=== PATIENT | male | born 1940 | race Caucasian/White ===

== ENCOUNTER → 2020-03-31 13:19 | Outpatient (CLI) | payer MEDICARE, OTHER, SELFPAY ==
[2020-03-31 18:02] LABS: Hep C Virus Ab w/Reflex Quant NEGATIVE s/c (NEGATIVE)
== END ==
PROVIDERS: PCP Family Medicine; Referring Provider Family Medicine; Visit Provider Family Medicine
DX: Z11.59 Encounter for screening for other viral diseases (principal)
CPT/HCPCS: 36415; 86803

== ENCOUNTER → 2020-04-04 11:42 | Outpatient (CLI) | payer MEDICARE, OTHER, SELFPAY ==
[2020-04-06 15:34] LABS: COVID19 Sendout Not Detected (Not Detect)
== END ==
PROVIDERS: PCP Family Medicine; Visit Provider Physician Assistant
DX: Z11.59 Encounter for screening for other viral diseases (principal)
CPT/HCPCS: 87635

== ENCOUNTER 2020-04-07 07:59 | Day surgery (SDC) | payer MEDICARE, OTHER, SELFPAY ==
[2020-04-07] VITALS (9 sets, daily range): BP systolic 87–110; BP diastolic 57–69; PULSE 54–60; RESP 9–94; TEMP 36–36.6; O2SAT 11–98; BMI 24.7
[2020-04-07] MEDS: LACTATED RINGERS 1,000 ML 200 ML IV (08:40)
--- NOTE | 2020-04-07 09:02 | PM.HP.1 ---
History of Present Illness History of Present Illness Date Patient Seen: 04/07/20 Time Patient Seen: 09:02 Chief complaint: SDC Narrative: The patient presents for colorectal sreening. He had a previous colonoscopy 10 years ago that was reportedly normal. No personal or family history of colon cancer. On further history denies any recent gastrointestinal symptoms. No nausea, vomiting, abdominal pain, loss of appetite, unexplained weight loss, change in bowel habits, diarrhea, constipation, melena, hematochezia, or bright red blood per rectum. Patient History Medical History Coronary artery disease (Acute) Surgical History Hx of CABG (Acute) Family & Social History Social History: household members spouse Tobacco & Substance use: Smoking Status Former smoker alcohol intake current alcohol intake frequency a few times a week Substance Use Type does not use Meds Home Medications and Allergies Home Medications Medication Instructions Recorded Confirmed Type atorvastatin 40 mg PO HS #0 tab 02/11/16 04/07/20 History aspirin 81 mg PO QDAY #0 04/02/17 04/07/20 History Xarelto 20 mg PO QDAY 04/07/20 04/07/20 History Allergies Allergy/AdvReac Type Severity Reaction Status Date / Time clams [CLAMS] Allergy Mild vomiting, Verified 04/07/20 08:18 diarrhea Review of Systems Review of Systems Narrative: A 10 point review of systems is negative except as noted in the HPI Exam Vital Signs (past 8 hours): - 04/07/20 08:32 Temperature 97.4 F L Pulse Rate 57 L Respiratory Rate 12 Blood Pressure 110/69 Pulse Oximetry 98 Oxygen Delivery Method Room Air Narrative Exam Narrative: General-no acute distress, well nourished adult male HEENT-moist mucous membranes, no scleral icterus Neck-supple, no lymphadenopathy Chest- non labored respirations, clear to auscultation bilaterally Cardiac-regular rate no peripheral edema Abdomen-soft, nontender, non distended Extremities-warm, well perfused Neurological-alert and oriented, no focal deficits Assessment & Plan Assessment and plan (1) Screening for colon cancer: Status: Acute Assessment & Plan narrative: The patient requires colorectal screening and colonoscopy is recommended. Technical details were discussed. Risks, benefits, alternatives explained. Risks including but not limited to myocardial infarction, aspiration, bleeding, pain, missed lesion, incomplete examination, need for further radiographic studies, colonic perforation, and need for major abdominal surgery were discussed. All questions were answered to their satisfaction, and they are in agreement with this plan.
[2020-04-07] MEDS: MIDAZOLAM 5 MG/5 ML VIAL IV (09:09)
[2020-04-07] MEDS: fentaNYL 250 MCG/5 ML INJ IV (09:09)
--- NOTE | 2020-04-07 09:31 | PM.OP.ENDO ---
Operative Date/Time/Diagnoses Date of procedure: 04/07/20 Time of procedure: 09:31 Pre-op diagnosis: Screening colonoscopy Post-op diagnosis: same Procedure & Clinicians Study performed: Colonoscopy Same procedure as scheduled: Yes Indications: 80-year-old man last colonoscopy 10 years ago normal here for routine screening Surgeon: Fareed Ignacio Procedure Notes SCOAP/Timeout: Performed Procedure in detail: Patient placed in left lateral recumbent position. Time out was performed. Procedural sedation was administered with Versed and Fentanyl. Examination began with a thorough inspection of the perianal area there was no evidence of fissures, fistulae, external hemorrhoids or cutaneous malignancy. The colonoscopy scope was then placed into the rectum the the lumen was insufflated with air. The scope was carefully advanced forward. Ultimately the cecum was intubated and confirmed by identification of the ileocecal valve, the appendiceal orifice and the confluence of the taenia. The scope was then slowly withdrawn examining colon thoroughly in all directions. In the rectum the rectal columns were identified and retroflexion of the scope was performed for inspection of the distal rectum and anal canal. The colonoscopy was notable for the followin. Quality of the preparation-fair 2. No masses or polyps Scope withdrawal time: 6 Sedation minutes: 20 Specimen(s): none sent Complications: none Impression: Normal colonoscopy Post-procedure Disposition: same day surgery
== END 2020-04-07 10:24 | disposition home or self-care (01) ==
PROVIDERS: PCP Family Medicine; Referring Provider Family Medicine; Visit Provider Surgery
PROC: 0DJD8ZZ Inspection of Lower Intestinal Tract, Via Natural or Artificial Opening Endoscopic (ICD-10-PCS; CPT 45378; principal; 2020-04-07 09:15)
DX: Z12.11 Encounter for screening for malignant neoplasm of colon (principal); Z95.1 Presence of aortocoronary bypass graft
CPT/HCPCS: G0121; 99152; J2250; J3010

== ENCOUNTER → 2020-04-17 08:41 | Outpatient (CLI) | payer MEDICARE, OTHER, SELFPAY ==
[2020-04-17 09:50] LABS: Hemoglobin A1C% w Est Avg Glu 5.4 % (4.0-6.0)
[2020-04-17 10:08] LABS: Add Manual Diff / Slide Review NO; Basophils Absolute Auto 0 /uL (0-100); Basophils Percent Auto 0.9 % (0-2); Eosinophils Absolute Auto 500 /uL (0-450); Hematocrit 45.8 % (41-53); Hemoglobin 15.9 g/dL (13.5-17.5); Lymphocytes Absolute Auto 900 /uL (1100-4500); Lymphocytes Percent Auto 23.5 % (25-40); Mean Corpuscular HGB Conc 34.6 % (30-36); Mean Corpuscular Hemoglobin 31.6 PG (26-34); Mean Corpuscular Volume 91.4 fL (80-100); Monocytes Absolute Auto 300 /uL (0-900); Monocytes Percent Auto 7.1 % (3-14); Neutrophils Absolute Auto 2100 /uL (1500-7000); Neutrophils Percent Auto 54.5 % (50-75); Platelet Count 107 X10^3/uL (150-400); Red Blood Cell Count 5.01 X10^6/uL (4.5-5.9); Red Cell Distribution Width 13.3 % (11.6-14.8); White Blood Cell Count 3.9 X10^3/uL (4.5-11.0)
[2020-04-17 10:23] LABS: Alanine Aminotransferase 63 IU/L (<50); Albumin 4.2 g/dL (3.5-5.0); Albumin Globulin Ratio 1.4 (1.0-2.8); Alkaline Phosphatase 69 U/L (38-126); Aspartate Aminotransferase 49 IU/L (17-59); BUN Creatinine Ratio 20.2 (6-22); Bilirubin Total 1.5 mg/dL (0.2-1.3); Blood Urea Nitrogen 17 mg/dL (9-20); Calcium 9.7 mg/dL (8.4-10.2); Carbon Dioxide 29 mmol/L (22-32); Chloride 103 mmol/L (98-107); Cholesterol 125 mg/dL (140-199); Estimated Glomerular Filt Rate > 60.0 mL/min (>60); Globulin 3.1 g/dL (1.7-4.1); Glucose 101 mg/dL (80-110); HDL Cholesterol 47 mg/dL (40-60); HEMOLYSIS < 15 (0-50); LDL Cholesterol Calculated 61 mg/dL (<100); Potassium 4.3 mmol/L (3.4-5.1); Sodium 140 mmol/L (137-145); Total Protein 7.3 g/dL (6.3-8.2); Triglycerides 84 mg/dL (35-150)
== END ==
PROVIDERS: PCP Family Medicine; Referring Provider Family Medicine; Visit Provider Family Medicine
DX: Z13.1 Encounter for screening for diabetes mellitus (principal)
CPT/HCPCS: 36415; 80053; 80061; 83036; 85025

== ENCOUNTER → 2021-01-15 14:58 | Outpatient (CLI) | payer MEDICARE, OTHER, SELFPAY ==
--- NOTE | 2021-01-15 15:00 | DI.ECHO.S_ITS ---
[place] [facility]---------+ [facility] +---------+ : : [address] : : : : [id number] : : : : Phone: [phone]+ Echocardiogram Report + + :Name: VIOLA FRAZIER Study Date: 01/15/2021 Height: 68 in : :[facility] ReadingLocation: Weight: 165 lb : : Gender: Male BSA: 1.9 m2 : :: 1940 Age: 81 yrs BP: 116/69 mmHg: :Reason For Study: ATRIAL FIBRILLATION : :Ordering Physician: Cinthya CLINEformed By: Zaira King : :Referring: CARYN CLINE : + + Interpretation Summary 1) Normal left ventricular thickness, size, wall motion, and systolic function (EF 55-60%). 2) Normal right ventricular size and function. 3) No significant valvular abnormalities. 4) No prior Echo available for comparison. Procedure: A two-dimensional transthoracic echocardiogram with color flow and Doppler was performed. The study quality was technically adequate. There is no prior echocardiogram noted for this patient. The patient was in sinus rhythm with heart rates between 62-65 bpm during the exam. Left Ventricle: The left ventricle is normal in size and wall thickness. The ejection fraction is estimated to be 55-60%. Left ventricular systolic function appears normal without focal wall motion abnormalities. Diastolic parameters suggest probable normal left ventricular diastolic function and normal filling pressures. Right Ventricle: The right ventricle is normal in size and function. The right ventricular systolic function is normal. Atria: Both atria are normal in size. There is no Doppler evidence for an interatrial shunt. Mitral Valve: The mitral valve is normal in structure and function. There is trace mitral regurgitation. Aortic Valve: The aortic valve is trileaflet. The aortic valve opens well. There is no aortic valve stenosis. No aortic regurgitation is present. Tricuspid Valve: The tricuspid valve is normal in structure and function. There is trace tricuspid regurgitation. Pulmonary artery pressures cannot be estimated because of the lack of a measurable TR jet velocity but the IVC suggests a CVP of around 3 mmHg. Pulmonic Valve: The pulmonic valve leaflets are thin and pliable; valve motion is normal. There is trace pulmonic regurgitation. Great Vessels: The aortic root is normal size. The dimensions of the ascending aorta are normal. The IVC is of normal diameter and collapses greater than 50% with a sniff. This suggests a low right atrial pressure of 3 mm Hg. Pericardium/ Pleura There is no pericardial effusion. There is no pleural effusion. MMode/2D Measurements & Calculations LVIDd: 3.9 cm LVOT diam: 2.1 cm LVIDs: 2.9 cm Ao root diam: 3.0 cm FS: 27.2 % asc Aorta Diam: 3.3 cm IVSd: 0.99 cm Ao Arch Diam (Prox Trans): 2.6 cm LVPWd: 0.85 cm LV de anda. diameter/BSA (cm/m^2): 2.1 LV sys. diameter/BSA (cm/m^2): 1.5 LA A2 area: 21.4 cm2 RA long axis: 5.2 cm LA A4 area: 15.5 cm2 RA area: 15.0 cm2 LA length (vol): 5.0 cm RA vol: 37.3 ml LA vol: 56.2 ml RA : 19.8 ml/m2 LA vol index: 29.9 ml/m2 IVC diam: 1.5 cm RVD1 (basal): 4.0 cm TAPSE: 1.7 cm Doppler Measurements & Calculations Ao V2 max: 191.7 cm/sec LVOT Max Patrice: 140.6 cm/sec Ao V2 mean: 145.8 cm/sec LV V1 max P.9 mmHg Ao max P.7 mmHg LV V1 VTI: 28.9 cm Ao mean P.0 mmHg KATELYNN(I,D): 2.5 cm2 Ao V2 VTI: 37.7 cm KATELYNN(V,D): 2.4 cm2 sev ratio: 0.77 KATELYNN indexed to BSA (cm^2/m^2): 1.3 MV E max patrice: 73.7 cm/sec PA V2 max: 108.0 cm/sec MV A max patrice: 88.9 cm/sec PA V2 mean: 72.8 cm/sec MV E/A: 0.83 PA mean P.4 mmHg Med Peak E' Patrice: 6.0 cm/sec PA pr(Accel): 17.3 mmHg E/E' med: 12.2 Lat Peak E' Patrice: 8.4 cm/sec E/E' lat: 8.7 E/e' average: 10.5 MV dec time: 0.26 sec SV(LVOT): 95.7 ml Reading Physician:04:47 PM
== END ==
PROVIDERS: PCP Family Medicine; Referring Provider Internal Medicine Cardiovascular Disease; Visit Provider Internal Medicine Cardiovascular Disease
DX: I48.0 Paroxysmal atrial fibrillation (principal)
CPT/HCPCS: 93306

== ENCOUNTER 2021-03-03 08:15 | Outpatient (RCR) | payer MEDICARE, OTHER, SELFPAY ==
--- NOTE | 2020-10-21 10:13 | PT.OIE ---
Current Diagnoses Pain in right shoulder (10/21/20) Pain in right arm (10/21/20) Past Medical History (Last Reviewed 04/07/20 @ 09:03 by Fareed Ignacio MD) Coronary artery disease Past Surgical History (Last Reviewed 04/07/20 @ 09:03 by Fareed Ignacio MD) Hx of CABG Visit Care Team Role Provider Type Brandie Prabhakar MD Attending Provider Non-Staff Primary Care Provider Referring Provider Specialty: Family Practice Address: [address] [place] [address], [phone] Email: Physical Therapy Initial Evaluation PT-OP-A Visit Information Start: 10/16/20 13:49 Freq: Status: Active Protocol: Document 10/21/20 08:56 MB (Rec: 10/21/20 09:13 MB [id number]) Out-Patient Physical Therapy Visit Information Visit Information Visit Type Initial Evaluation Visit Note Medicare, for Life Pt goes by Cristino Visit Start Time 08:56 Visit Stop Time 09:45 Total Visit Minutes 49 Visit Number 1 Evaluation Information Evaluation Date 10/21/20 PT-OP-B Current Condition Start: 10/16/20 13:49 Freq: Status: Active Protocol: Document 10/21/20 08:56 MB (Rec: 10/21/20 09:13 MB [id number]) Current Condition History of Current Condition Onset Date 1 year Current Complaints Right shoulder discomfort with activities History of Current Condition Pt reports right shoulder pain started during COVID when he started using exercise band. He was doing cardiac rehab for maintenance exercises after completing course when the clinic closed for COVID. He has had right shoulder pain that is annoying and awakens him at night. Occ he gets up and takes Tylenol and it helps . He finds that he does not want to raise the arm to put jars on the shelf. He is more often picking up his coffee cup with his left hand than his right. He is right handed. 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 Pulling down the branches of a hinds was problematic. Reaching to stick a fork in the ground with his right hand is problematic. He feels a crunching of a couple of things rubbing together in his upper arm. He had an x-ray and he states it said age appropriate changes of the joint. Pt reports pain 3/10 in his upper right shoulder and biceps area. He is sleeping on his left side or his back. He is not using a pillow between his arms and he has one pillow under his head and one between his knees. Pt underwent CAD bypass 2015. PMH includes BPPV, hearing problems, back pain and basal cell carcinoma. Treatment Goals Patient/Caregiver Goals To not have the pain discourage me from doing things with my right arm. PT-OP-C Subjective Start: 10/16/20 13:49 Freq: Status: Active Protocol: Document 10/21/20 08:56 MB (Rec: 10/21/20 09:13 MB [id number]) OP-PT Subjective Patient Comments Patient Comments See history of current condition Patient Reported Progress Same Patient Questionnaires Quick Dash- Upper Extremity Quick Dash UE Score 17 Quick Dash UE Impairment 1 to 19% Impaired (Score 1-19) PT-OP-J Posture/Palpation/Skin Start: 10/16/20 13:49 Freq: Status: Active Protocol: Document 10/21/20 08:56 MB (Rec: 10/21/20 10:13 MB [id number]) Posture Evaluation Comments Posture Comments Standing posture with shoes on : forward head, rounded shoulders, Dowager's hump, left scapula protracted and higher than the right, right shoulder lower than the left, increased lordosis at one lumbar level (L3 area), right iliac crest mildly higher than the left, left foot with greater Pako angle than the right, pt stands with head rotated 5 deg to the left PT-OP-K Range of Motion Start: 10/16/20 13:49 Freq: Status: Active Protocol: Document 10/21/20 08:56 MB (Rec: 10/21/20 10:13 MB [id number]) Cervical Spine Range of Motion Cervical Spine Active Testing Position Standing Flexion 30 Extension 15 Rotation Left 40 Rotation Right 40 Lateral Flexion Left 10 Lateral Flexion Right 20 Comments All AROM from starting position of 5 deg resting left neck rotation Shoulder Goniometric Range of Motion Shoulder Right Testing Position Standing Flexion 130 Abduction 130 Comments Pt reports most discomfort with lowering arm from abducted position when arm is in about 30 deg abduction Pt supine for passive ER and IR with arm in 90/90 position: capsule is tight and ER is 50 and IR is 45 deg Left Testing Position Standing Flexion 145 Abduction 142 Comments Pt supine for passive ER and IR with arm in 90/90 position: capsule is tight and ER is 60 and IR is 45 deg Elbow/Forearm Range of Motion Elbow/Forearm ROM Limitations Comments Elbow ROM WNLs B with some discomfort with repeated right elbow flexion in standing Wrist Goniometric Range of Motion ROM Limitations Comments AROM B wrists WNLs PT-OP-M Strength Start: 10/16/20 13:49 Freq: Status: Active Protocol: Document 10/21/20 08:56 MB (Rec: 10/21/20 10:13 MB [id number]) Shoulder Strength Shoulder Manual Muscle Testing Right Comments MMT deferred in setting of discomfort with AROM and likely rotator cuff injury Left Flexion 5 Normal Abduction (C5) 5 Normal External Rotation 5 Normal Internal Rotation 5 Normal Elbow/Forearm Strength Elbow and Forearm Manual Muscle Testing Right Flexion (C6) 4 Good Extension (C7) 5 Normal Pronation 4 Good Supination 4 Good Left Flexion (C6) 5 Normal Extension (C7) 5 Normal Pronation 5 Normal Supination 5 Normal Wrist Strength Wrist Manual Muscle Testing Right Flexion (C7) 5 Normal Extension (C6) 5 Normal Left Flexion (C7) 5 Normal Extension (C6) 5 Normal PT-OP-Q Treatments Start: 10/16/20 13:49 Freq: Status: Active Protocol: Document 10/21/20 08:56 MB (Rec: 10/21/20 09:55 MB [id number]) Self-Care/Home Management Treatment Education Patient Education Body Mechanics,Pain Management ,Safety Other Education Use of towel roll for neck support and to unweight shoulders from head in side lying and supine, use of pillow between arms for support and to relax shoulder muscles at night, use of frozen peas for right shoulder and heat for neck, bimanual activity when gardening to support right arm, likelihood that his injury is a rotator cuff strain/injury, PT plan including manual work and progressive exercises, stop his previous UE exercises (he has done so) PT-OP-T Assessment and Plan Start: 10/16/20 13:49 Freq: Status: Active Protocol: Document 10/21/20 08:56 MB (Rec: 10/21/20 10:03 MB [id number]) Physical Therapy Assessment Rehab Potential Rehabilitation Potential Good Evaluation Complexity Number of Personal Factors/Comorbidities 1-2 Number of Body Systems Impaired 1-2 Clinical Presentation at Evaluation Stable Impairments Impairments Functional Activities,Pain, Posture,ROM,Soft Tissue Mobility,Strength Goals 4 Field Service Engineer Goal (LTG) Pt will perform progressive HEP with I including cervical and thoracic mobility and flexibility, shoulder ROM, and shoulder, intrascapular and core strengthening to improve pain and function use by . LTG Duration 8 weeks 3 Field Service Engineer Goal (LTG) Pt will present with improved AROM right shoulder abduction and flexion equal to the left to improve ability to perform overhead tasks in the kitchen and with pruning by 12/21/20. LTG Duration 8 weeks 2 Field Service Engineer Goal (LTG) Pt will report a 90% improvement in using his right hand to move items in and out of the refridgerator and to black pickler coffee cup to return to PLOF by 12/21/20. 1 Field Service Engineer Goal (LTG) Pt will present with an improved QuickDASH score of no more than 5% to reflect improved ability to perform ADLs and IADLs by 12/21/20. LTG Duration 8 weeks Assessment Summary Assessment Pt is a pleasant 80 y/o male presenting with right shoulder discomfort, decreased ROM and strength after injury performing band exercises. PT favors rotator cuff injury including infraspinatus as well as biceps, anterior deltoid, pectoralis and upper traps involvement per movement and palpation today. His capsule is also tight. Pt will benefit from PT to improve range, flexibility, strength and function. Pt reports a history of BPPV that occ flares up and PT will treat this if needed during PT course in order to not slow down PT course for his shoulder that will include manual work and exercises lying down. Physical Therapy Plan Frequency and Duration Frequency of Treatment 2x/wk, then 1x/wk Duration of Treatment 8 weeks Plan of Care Start Date 10/21/20 Plan of Care End Date 12/22/20 Therapeutic Interventions Therapeutic Interventions Balance Training,Canalithic Repositioning,Home Exercise Program,Joint Mobilizations, Manual Therapy,Neuromuscular Re-education,Patient/Caregiver Education,Self-Care/Home Management,Soft Tissue Mobilization,Taping, Therapeutic Activities, Therapeutic Exercises Modalities Cold Pack/Ice Massage,Electric Stimulation,Hot Packs, Ultrasound Next Visit Focus/Plan Next Note Type Treatment Note Next Visit Plan Initiate racquet ball massage, manual work, thoracic rotation in sitting and UBE soon
--- NOTE | 2020-10-21 10:13 | PT.OPPOC ---
Physical, Occupational & Speech Therapy At [facility] Current Diagnoses Pain in right shoulder (10/21/20) Pain in right arm (10/21/20) Visit Care Team Role Provider Type Brandie Prabhakar MD Attending Provider Non-Staff Primary Care Provider Referring Provider Specialty: Family Practice Address: [address] [place] [address], [id number] Email: Plan Of Care PT-OP-T Assessment and Plan Start: 10/16/20 13:49 Freq: Status: Active Protocol: Document 10/21/20 08:56 MB (Rec: 10/21/20 10:03 MB [id number]) Physical Therapy Assessment Rehab Potential Rehabilitation Potential Good Evaluation Complexity Number of Personal Factors/Comorbidities 1-2 Number of Body Systems Impaired 1-2 Clinical Presentation at Evaluation Stable Impairments Impairments Functional Activities,Pain, Posture,ROM,Soft Tissue Mobility,Strength Goals 4 Job Honer Goal (LTG) Pt will perform progressive HEP with I including cervical and thoracic mobility and flexibility, shoulder ROM, and shoulder, intrascapular and core strengthening to improve pain and function use by . LTG Duration 8 weeks 3 Job Honer Goal (LTG) Pt will present with improved AROM right shoulder abduction and flexion equal to the left to improve ability to perform overhead tasks in the kitchen and with pruning by 12/21/20. LTG Duration 8 weeks 2 Job Honer Goal (LTG) Pt will report a 90% improvement in using his right hand to move items in and out of the refridgerator and to order picker/assembler coffee cup to return to PLOF by 12/21/20. 1 Job Honer Goal (LTG) Pt will present with an improved QuickDASH score of no more than 5% to reflect improved ability to perform ADLs and IADLs by 12/21/20. LTG Duration 8 weeks Assessment Summary Assessment Pt is a pleasant 80 y/o male presenting with right shoulder discomfort, decreased ROM and strength after injury performing band exercises. PT favors rotator cuff injury including infraspinatus as well as biceps, anterior deltoid, pectoralis and upper traps involvement per movement and palpation today. His capsule is also tight. Pt will benefit from PT to improve range, flexibility, strength and function. Pt reports a history of BPPV that occ flares up and PT will treat this if needed during PT course in order to not slow down PT course for his shoulder that will include manual work and exercises lying down. Physical Therapy Plan Frequency and Duration Frequency of Treatment 2x/wk, then 1x/wk Duration of Treatment 8 weeks Plan of Care Start Date 10/21/20 Plan of Care End Date 12/22/20 Therapeutic Interventions Therapeutic Interventions Balance Training,Canalithic Repositioning,Home Exercise Program,Joint Mobilizations, Manual Therapy,Neuromuscular Re-education,Patient/Caregiver Education,Self-Care/Home Management,Soft Tissue Mobilization,Taping, Therapeutic Activities, Therapeutic Exercises Modalities Cold Pack/Ice Massage,Electric Stimulation,Hot Packs, Ultrasound Next Visit Focus/Plan Next Note Type Treatment Note Next Visit Plan Initiate racquet ball massage, manual work, thoracic rotation in sitting and UBE soon Plan of Care Dates Plan of Care Start Date 10/21/20 Plan of Care End Date 12/22/20 Electronically Signed by: Katharine Shukla PT 10/21/20 1013 Please Sign and Return: I have reviewed this Plan of Care and certify that the skilled therapy services above are required to meet the patient?s needs. Physician Signature Date Printed Name and Credentials Clinical Instructor Signature Printed Name and Credentials
--- NOTE | 2020-10-23 09:02 | PT.OTN ---
Current Diagnoses Pain in right shoulder (10/23/20) Pain in right arm (10/23/20) Physical Therapy Treatment Note PT-OP-A Visit Information Start: 10/16/20 13:49 Freq: Status: Active Protocol: Document 10/23/20 08:19 MB (Rec: 10/23/20 09:02 MB [id number]) Out-Patient Physical Therapy Visit Information Visit Information Visit Type Treatment Note Visit Note Medicare, for Life Pt goes by Cristino Visit Start Time 08:19 Visit Stop Time 09:00 Total Visit Minutes 41 Visit Number 2 PT-OP-B Current Condition Start: 10/16/20 13:49 Freq: Status: Active Protocol: Document 10/21/20 08:56 MB (Rec: 10/21/20 09:13 MB [id number]) Current Condition History of Current Condition Onset Date 1 year Current Complaints Right shoulder discomfort with activities History of Current Condition Pt reports right shoulder pain started during COVID when he started using exercise band. He was doing cardiac rehab for maintenance exercises after completing course when the clinic closed for COVID. He has had right shoulder pain that is annoying and awakens him at night. Occ he gets up and takes Tylenol and it helps . He finds that he does not want to raise the arm to put jars on the shelf. He is more often picking up his coffee cup with his left hand than his right. He is right handed. 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 Pulling down the branches of a hinds was problematic. Reaching to stick a fork in the ground with his right hand is problematic. He feels a crunching of a couple of things rubbing together in his upper arm. He had an x-ray and he states it said age appropriate changes of the joint. Pt reports pain 3/10 in his upper right shoulder and biceps area. He is sleeping on his left side or his back. He is not using a pillow between his arms and he has one pillow under his head and one between his knees. Pt underwent CAD bypass 2015. PMH includes BPPV, hearing problems, back pain and basal cell carcinoma. Treatment Goals Patient/Caregiver Goals To not have the pain discourage me from doing things with my right arm. PT-OP-C Subjective Start: 10/16/20 13:49 Freq: Status: Active Protocol: Document 10/23/20 08:19 MB (Rec: 10/23/20 09:02 MB [id number]) OP-PT Subjective Patient Comments Patient Comments Pt has no questions. PT-OP-J Posture/Palpation/Skin Start: 10/16/20 13:49 Freq: Status: Active Protocol: Document 10/21/20 08:56 MB (Rec: 10/21/20 10:13 MB [id number]) Posture Evaluation Comments Posture Comments Standing posture with shoes on : forward head, rounded shoulders, Dowager's hump, left scapula protracted and higher than the right, right shoulder lower than the left, increased lordosis at one lumbar level (L3 area), right iliac crest mildly higher than the left, left foot with greater Pka[place] angle than the right, pt stands with head rotated 5 deg to the left PT-OP-K Range of Motion Start: 10/16/20 13:49 Freq: Status: Active Protocol: Document 10/21/20 08:56 MB (Rec: 10/21/20 10:13 MB [id number]) Cervical Spine Range of Motion Cervical Spine Active Testing Position Standing Flexion 30 Extension 15 Rotation Left 40 Rotation Right 40 Lateral Flexion Left 10 Lateral Flexion Right 20 Comments All AROM from starting position of 5 deg resting left neck rotation Shoulder Goniometric Range of Motion Shoulder Right Testing Position Standing Flexion 130 Abduction 130 Comments Pt reports most discomfort with lowering arm from abducted position when arm is in about 30 deg abduction Pt supine for passive ER and IR with arm in 90/90 position: capsule is tight and ER is 50 and IR is 45 deg Left Testing Position Standing Flexion 145 Abduction 142 Comments Pt supine for passive ER and IR with arm in 90/90 position: capsule is tight and ER is 60 and IR is 45 deg Elbow/Forearm Range of Motion Elbow/Forearm ROM Limitations Comments Elbow ROM WNLs B with some discomfort with repeated right elbow flexion in standing Wrist Goniometric Range of Motion ROM Limitations Comments AROM B wrists WNLs PT-OP-M Strength Start: 10/16/20 13:49 Freq: Status: Active Protocol: Document 10/21/20 08:56 MB (Rec: 10/21/20 10:13 MB [id number]) Shoulder Strength Shoulder Manual Muscle Testing Right Comments MMT deferred in setting of discomfort with AROM and likely rotator cuff injury Left Flexion 5 Normal Abduction (C5) 5 Normal External Rotation 5 Normal Internal Rotation 5 Normal Elbow/Forearm Strength Elbow and Forearm Manual Muscle Testing Right Flexion (C6) 4 Good Extension (C7) 5 Normal Pronation 4 Good Supination 4 Good Left Flexion (C6) 5 Normal Extension (C7) 5 Normal Pronation 5 Normal Supination 5 Normal Wrist Strength Wrist Manual Muscle Testing Right Flexion (C7) 5 Normal Extension (C6) 5 Normal Left Flexion (C7) 5 Normal Extension (C6) 5 Normal PT-OP-Q Treatments Start: 10/16/20 13:49 Freq: Status: Active Protocol: Document 10/23/20 08:19 MB (Rec: 10/23/20 09:02 MB [id number]) Therapeutic Exercises Supine Exercises Cane flexion and abduction Equipment Used Cane with thumbs up Comments 20 reps slowly flexion, 5 reps x2 abduction Standing Exercises Racquet ball massage Standing Exercise Name Intrascapular STM, MWM infraspinatus, upper traps, delts Side right Comments Active shoulder ER and IR with infra and cervical rotation and head rotatio Manual Therapy Treatment Other Other Manual Treatments STM right upper traps, infraspinatus, biceps and anterior delt with pt performing active shoulder movement as needed for muscle engagement and relaxation PT-OP-T Assessment and Plan Start: 10/16/20 13:49 Freq: Status: Active Protocol: Document 10/23/20 08:19 MB (Rec: 10/23/20 09:02 MB [id number]) Physical Therapy Assessment Rehab Potential Rehabilitation Potential Good Evaluation Complexity Number of Personal Factors/Comorbidities 1-2 Number of Body Systems Impaired 1-2 Clinical Presentation at Evaluation Stable Impairments Impairments Functional Activities,Pain, Posture,ROM,Soft Tissue Mobility,Strength Goals 4 Skilled Nursing Goal (LTG) Pt will perform progressive HEP with I including cervical and thoracic mobility and flexibility, shoulder ROM, and shoulder, intrascapular and core strengthening to improve pain and function use by . LTG Duration 8 weeks 3 Instructor Physical Goal (LTG) Pt will present with improved AROM right shoulder abduction and flexion equal to the left to improve ability to perform overhead tasks in the kitchen and with pruning by 12/21/20. 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 1 Skilled Nursing Goal (LTG) Pt will present with an improved QuickDASH score of no more than 5% to reflect improved ability to perform ADLs and IADLs by 12/21/20. LTG Duration 8 weeks Assessment Summary Assessment Pt presents with improved right shoulder ROM after MWM with racquet ball. He has some discomfort with AAROM with cane today. Will con't to monitor. Physical Therapy Plan Frequency and Duration Frequency of Treatment 2x/wk, then 1x/wk Duration of Treatment 8 weeks Plan of Care Start Date 10/21/20 Plan of Care End Date 12/22/20 Therapeutic Interventions Therapeutic Interventions Balance Training,Canalithic Repositioning,Home Exercise Program,Joint Mobilizations, Manual Therapy,Neuromuscular Re-education,Patient/Caregiver Education,Self-Care/Home Management,Soft Tissue Mobilization,Taping, Therapeutic Activities, Therapeutic Exercises Modalities Cold Pack/Ice Massage,Electric Stimulation,Hot Packs, Ultrasound Next Visit Focus/Plan Next Note Type Treatment Note Next Visit Plan Initiate manual work, thoracic rotation in sitting and UBE soon
--- NOTE | 2020-10-27 14:13 | PT.OTN ---
Current Diagnoses Pain in right shoulder (10/27/20) Pain in right arm (10/27/20) Physical Therapy Treatment Note PT-OP-A Visit Information Start: 10/16/20 13:49 Freq: Status: Active Protocol: Document 10/27/20 13:31 MB (Rec: 10/27/20 14:13 MB [id number]) Out-Patient Physical Therapy Visit Information Visit Information Visit Type Treatment Note Visit Note Medicare, for Life Pt goes by Cristino Visit Start Time 13:31 Visit Stop Time 14:10 Total Visit Minutes 39 Visit Number 3 PT-OP-B Current Condition Start: 10/16/20 13:49 Freq: Status: Active Protocol: Document 10/21/20 08:56 MB (Rec: 10/21/20 09:13 MB [id number]) Current Condition History of Current Condition Onset Date 1 year Current Complaints Right shoulder discomfort with activities History of Current Condition Pt reports right shoulder pain started during COVID when he started using exercise band. He was doing cardiac rehab for maintenance exercises after completing course when the clinic closed for COVID. He has had right shoulder pain that is annoying and awakens him at night. Occ he gets up and takes Tylenol and it helps . He finds that he does not want to raise the arm to put jars on the shelf. He is more often picking up his coffee cup with his left hand than his right. He is right handed. 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 Pulling down the branches of a hinds was problematic. Reaching to stick a fork in the ground with his right hand is problematic. He feels a crunching of a couple of things rubbing together in his upper arm. He had an x-ray and he states it said age appropriate changes of the joint. Pt reports pain 3/10 in his upper right shoulder and biceps area. He is sleeping on his left side or his back. He is not using a pillow between his arms and he has one pillow under his head and one between his knees. Pt underwent CAD bypass 2015. PMH includes BPPV, hearing problems, back pain and basal cell carcinoma. Treatment Goals Patient/Caregiver Goals To not have the pain discourage me from doing things with my right arm. PT-OP-C Subjective Start: 10/16/20 13:49 Freq: Status: Active Protocol: Document 10/27/20 13:31 MB (Rec: 10/27/20 14:13 MB [id number]) OP-PT Subjective Patient Comments Patient Comments Pt has a question about Larry Cat exercise. Pt did some things yesterday that he probably shoudn't have done: pulling weeds and using chain saw over his head. PT-OP-J Posture/Palpation/Skin Start: 10/16/20 13:49 Freq: Status: Active Protocol: Document 10/21/20 08:56 MB (Rec: 10/21/20 10:13 MB [id number]) Posture Evaluation Comments Posture Comments Standing posture with shoes on : forward head, rounded shoulders, Dowager's hump, left scapula protracted and higher than the right, right shoulder lower than the left, increased lordosis at one lumbar level (L3 area), right iliac crest mildly higher than the left, left foot with greater Pako angle than the right, pt stands with head rotated 5 deg to the left PT-OP-K Range of Motion Start: 10/16/20 13:49 Freq: Status: Active Protocol: Document 10/21/20 08:56 MB (Rec: 10/21/20 10:13 MB [id number]) Cervical Spine Range of Motion Cervical Spine Active Testing Position Standing Flexion 30 Extension 15 Rotation Left 40 Rotation Right 40 Lateral Flexion Left 10 Lateral Flexion Right 20 Comments All AROM from starting position of 5 deg resting left neck rotation Shoulder Goniometric Range of Motion Shoulder Right Testing Position Standing Flexion 130 Abduction 130 Comments Pt reports most discomfort with lowering arm from abducted position when arm is in about 30 deg abduction Pt supine for passive ER and IR with arm in 90/90 position: capsule is tight and ER is 50 and IR is 45 deg Left Testing Position Standing Flexion 145 Abduction 142 Comments Pt supine for passive ER and IR with arm in 90/90 position: capsule is tight and ER is 60 and IR is 45 deg Elbow/Forearm Range of Motion Elbow/Forearm ROM Limitations Comments Elbow ROM WNLs B with some discomfort with repeated right elbow flexion in standing Wrist Goniometric Range of Motion ROM Limitations Comments AROM B wrists WNLs PT-OP-M Strength Start: 10/16/20 13:49 Freq: Status: Active Protocol: Document 10/21/20 08:56 MB (Rec: 10/21/20 10:13 MB [id number]) Shoulder Strength Shoulder Manual Muscle Testing Right Comments MMT deferred in setting of discomfort with AROM and likely rotator cuff injury Left Flexion 5 Normal Abduction (C5) 5 Normal External Rotation 5 Normal Internal Rotation 5 Normal Elbow/Forearm Strength Elbow and Forearm Manual Muscle Testing Right Flexion (C6) 4 Good Extension (C7) 5 Normal Pronation 4 Good Supination 4 Good Left Flexion (C6) 5 Normal Extension (C7) 5 Normal Pronation 5 Normal Supination 5 Normal Wrist Strength Wrist Manual Muscle Testing Right Flexion (C7) 5 Normal Extension (C6) 5 Normal Left Flexion (C7) 5 Normal Extension (C6) 5 Normal PT-OP-Q Treatments Start: 10/16/20 13:49 Freq: Status: Active Protocol: Document 10/27/20 13:31 MB (Rec: 10/27/20 14:13 MB [id number]) Therapeutic Exercises Standing Exercises Racquet ball massage Standing Exercise Name MWM infraspinatus Side right Comments Re-ed today Manual Therapy Treatment Other Other Manual Treatments Right shoulder [place] Protocol: pt tolerates well and active right shoulder abduction and flexion is improved after treatment and pt does not have pain when coming out of abduction today. B first rib isometric mob, MWM right deltoid and pt performing active movement and PT holding TrP, PA thoracic mobs with coordinated breathing PT-OP-T Assessment and Plan Start: 10/16/20 13:49 Freq: Status: Active Protocol: Document 10/27/20 13:31 MB (Rec: 10/27/20 14:13 MB [id number]) Physical Therapy Assessment Rehab Potential Rehabilitation Potential Good Evaluation Complexity Number of Personal Factors/Comorbidities 1-2 Number of Body Systems Impaired 1-2 Clinical Presentation at Evaluation Stable Impairments Impairments Functional Activities,Pain, Posture,ROM,Soft Tissue Mobility,Strength Goals 4 Skilled Nursing Goal (LTG) Pt will perform progressive HEP with I including cervical and thoracic mobility and flexibility, shoulder ROM, and shoulder, intrascapular and core strengthening to improve pain and function use by . LTG Duration 8 weeks 3 Hedge Fund Principal Goal (LTG) Pt will present with improved AROM right shoulder abduction and flexion equal to the left to improve ability to perform overhead tasks in the kitchen and with pruning by 12/21/20. 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 1 Hedge Fund Principal Goal (LTG) Pt will present with an improved QuickDASH score of no more than 5% to reflect improved ability to perform ADLs and IADLs by 12/21/20. LTG Duration 8 weeks Assessment Summary Assessment Pt's AROM and pain is improved after [place] Protocol right shoulder and pt does have trouble communicating response to therapy. He presents with increased tension at right shoulder capsule and ribs and this is addressed today with treatment . Con't per POC. Physical Therapy Plan Frequency and Duration Frequency of Treatment 2x/wk, then 1x/wk Duration of Treatment 8 weeks Plan of Care Start Date 10/21/20 Plan of Care End Date 12/22/20 Therapeutic Interventions Therapeutic Interventions Balance Training,Canalithic Repositioning,Home Exercise Program,Joint Mobilizations, Manual Therapy,Neuromuscular Re-education,Patient/Caregiver Education,Self-Care/Home Management,Soft Tissue Mobilization,Taping, Therapeutic Activities, Therapeutic Exercises Modalities Cold Pack/Ice Massage,Electric Stimulation,Hot Packs, Ultrasound Next Visit Focus/Plan Next Note Type Treatment Note Next Visit Plan Ongoing [place] Protocol, self-mobs over table versus wallk crawl, thoracic rotation in sitting and UBE soon
--- NOTE | 2020-11-03 14:24 | PT.OTN ---
Current Diagnoses Pain in right shoulder (11/03/20) Pain in right arm (11/03/20) Physical Therapy Treatment Note PT-OP-A Visit Information Start: 10/16/20 13:49 Freq: Status: Active Protocol: Document 11/03/20 09:02 MB (Rec: 11/03/20 09:32 MB [id number]) Out-Patient Physical Therapy Visit Information Visit Information Visit Type Progress Note Visit Note Medicare, for Life Visit Start Time 09:02 Visit Stop Time 09:42 Total Visit Minutes 40 Visit Number 5 PT-OP-B Current Condition Start: 10/16/20 13:49 Freq: Status: Active Protocol: Document 10/21/20 08:56 MB (Rec: 10/21/20 09:13 MB [id number]) Current Condition History of Current Condition Onset Date 1 year Current Complaints Right shoulder discomfort with activities History of Current Condition Pt reports right shoulder pain started during COVID when he started using exercise band. He was doing cardiac rehab for maintenance exercises after completing course when the clinic closed for COVID. He has had right shoulder pain that is annoying and awakens him at night. Occ he gets up and takes Tylenol and it helps . He finds that he does not want to raise the arm to put jars on the shelf. He is more often picking up his coffee cup with his left hand than his right. He is right handed. 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 Pulling down the branches of a hinds was problematic. Reaching to stick a fork in the ground with his right hand is problematic. He feels a crunching of a couple of things rubbing together in his upper arm. He had an x-ray and he states it said age appropriate changes of the joint. Pt reports pain 3/10 in his upper right shoulder and biceps area. He is sleeping on his left side or his back. He is not using a pillow between his arms and he has one pillow under his head and one between his knees. Pt underwent CAD bypass 2015. PMH includes BPPV, hearing problems, back pain and basal cell carcinoma. Treatment Goals Patient/Caregiver Goals To not have the pain discourage me from doing things with my right arm. PT-OP-C Subjective Start: 10/16/20 13:49 Freq: Status: Active Protocol: Document 11/03/20 09:02 MB (Rec: 11/03/20 09:32 MB [id number]) OP-PT Subjective Patient Comments Patient Comments Order received for pt's right hip and pt states that sometimes it is okay and sometimes it is not. PT-OP-J Posture/Palpation/Skin Start: 10/16/20 13:49 Freq: Status: Active Protocol: Document 10/21/20 08:56 MB (Rec: 10/21/20 10:13 MB [id number]) Posture Evaluation Comments Posture Comments Standing posture with shoes on : forward head, rounded shoulders, Dowager's hump, left scapula protracted and higher than the right, right shoulder lower than the left, increased lordosis at one lumbar level (L3 area), right iliac crest mildly higher than the left, left foot with greater Pako angle than the right, pt stands with head rotated 5 deg to the left PT-OP-K Range of Motion Start: 10/16/20 13:49 Freq: Status: Active Protocol: Document 10/21/20 08:56 MB (Rec: 10/21/20 10:13 MB [id number]) Cervical Spine Range of Motion Cervical Spine Active Testing Position Standing Flexion 30 Extension 15 Rotation Left 40 Rotation Right 40 Lateral Flexion Left 10 Lateral Flexion Right 20 Comments All AROM from starting position of 5 deg resting left neck rotation Shoulder Goniometric Range of Motion Shoulder Right Testing Position Standing Flexion 130 Abduction 130 Comments Pt reports most discomfort with lowering arm from abducted position when arm is in about 30 deg abduction Pt supine for passive ER and IR with arm in 90/90 position: capsule is tight and ER is 50 and IR is 45 deg Left Testing Position Standing Flexion 145 Abduction 142 Comments Pt supine for passive ER and IR with arm in 90/90 position: capsule is tight and ER is 60 and IR is 45 deg Elbow/Forearm Range of Motion Elbow/Forearm ROM Limitations Comments Elbow ROM WNLs B with some discomfort with repeated right elbow flexion in standing Wrist Goniometric Range of Motion ROM Limitations Comments AROM B wrists WNLs PT-OP-M Strength Start: 10/16/20 13:49 Freq: Status: Active Protocol: Document 10/21/20 08:56 MB (Rec: 10/21/20 10:13 MB [id number]) Shoulder Strength Shoulder Manual Muscle Testing Right Comments MMT deferred in setting of discomfort with AROM and likely rotator cuff injury Left Flexion 5 Normal Abduction (C5) 5 Normal External Rotation 5 Normal Internal Rotation 5 Normal Elbow/Forearm Strength Elbow and Forearm Manual Muscle Testing Right Flexion (C6) 4 Good Extension (C7) 5 Normal Pronation 4 Good Supination 4 Good Left Flexion (C6) 5 Normal Extension (C7) 5 Normal Pronation 5 Normal Supination 5 Normal Wrist Strength Wrist Manual Muscle Testing Right Flexion (C7) 5 Normal Extension (C6) 5 Normal Left Flexion (C7) 5 Normal Extension (C6) 5 Normal PT-OP-Q Treatments Start: 10/16/20 13:49 Freq: Status: Active Protocol: Document 11/03/20 09:02 MB (Rec: 11/03/20 09:32 MB [id number]) Therapeutic Exercises Supine Exercises Pelvic realignment exercises Side bilateral Comments 5 reps, 3 sec hold all exercises Sitting Exercises Rolling pin self-massage Side bilateral Comments See saw motion with rolling pin over vastus lateralis and rectus femoris Standing Exercises Racquet ball massage Standing Exercise Name Right rotators and TFL Side right Comments STM with racquet ball Therapeutic Activity Therapeutic Activity Bed mobility and MMT Comments Cues to lie on side to get supine and to prepare for MMT. MMT LEs: Left hip flexion, abduction/adduction, knee flexion and great toe extension on the left all 4/5 in supine. Left knee extension and ankle DF 5/5. Right hip flexion 3+/5, hip abduction/ adduction, knee flexion and extension and great toe extension all 4/5 in supine. Right ankle DF 5/5. Gait Training Gait Activity Gait assessment Comments With shoes off: right hip stiffness and decreased hip flexion and extension and decreased toe off on the right . Manual Therapy Treatment Other Other Manual Treatments Palpation of B hip rotators, hip flexors, TFL/ITB, rectus femoris and vastus lateralis. Much more tension on the right for TFL, ITB, hip rotators and vastus lateralis. B PROM hip IR and ER limited with Scour and KATINA but PT does not replicate pain with these. B passive SLR grossly 45 deg. PT-OP-T Assessment and Plan Start: 10/16/20 13:49 Freq: Status: Active Protocol: Document 11/03/20 09:02 MB (Rec: 11/03/20 09:32 MB [id number]) Physical Therapy Assessment Rehab Potential Rehabilitation Potential Good Evaluation Complexity Number of Personal Factors/Comorbidities 1-2 Number of Body Systems Impaired 1-2 Clinical Presentation at Evaluation Stable Impairments Impairments Functional Activities,Pain, Posture,ROM,Soft Tissue Mobility,Strength Goals 5 Antique Clocks Repairer Goal (LTG) Pt will report an overall 75% improvement in right hip pain to improve gait and quality of life by 01/03/21. LTG Duration 8 weeks 4 Usp Goal (LTG) Pt will perform progressive HEP with I including cervical and thoracic mobility and flexibility, shoulder ROM, shoulder and intrascapular strengthening, LE flexibility, pelvic realignment, balance and core strengthening to improve pain and function by . 11/03/20: Pt is performing racquet ball massage and shoulder ROM exercises. LTG Duration 8 weeks 3 Usp Goal (LTG) Pt will present with improved AROM right shoulder abduction and flexion equal to the left to improve ability to perform overhead tasks in the kitchen and with pruning by 01/03/21. LTG Duration 8 weeks 2 Usp Goal (LTG) Pt will report a 90% improvement in using his right hand to move items in and out of the refridgerator and to product picker coffee cup to return to PLOF by 01/03/21. 11/03/20: Pt reports that his right shoulder is at least 20% better since starting PT. 1 Antique Clocks Repairer Goal (LTG) Pt will present with an improved QuickDASH score of no more than 5% to reflect improved ability to perform ADLs and IADLs by 01/03/21. LTG Duration 8 weeks Assessment Summary Assessment PT received order to assess and treat right hip pain and so performed a progress note to assess right hip today. Pt reports pain at right SI area that is troublesome after bending over to pick weeds and occ with crossly the left foot over his right knee. He presents with postural changes , decreased ROM in his spine and hips (and thorax and shoulders including right shoulder adhesive capsulitis/ rotator cuff injury) and likely has underlying degenerative changes. He presents with gait and strength changes today. He will benefit from ongoing PT to include manual intervention , flexibility exercises, body mechanics and core training. Barriers include multiple areas of dysfunction, likely degenerative changes and ongoing behaviors that provoke issues (heavy gardening tasks ). Physical Therapy Plan Frequency and Duration Frequency of Treatment 2x/Week Duration of Treatment 8 weeks Plan of Care Start Date 11/03/20 Plan of Care End Date 01/05/21 Therapeutic Interventions Therapeutic Interventions Aquatic Therapy,Balance Training,Canalithic Repositioning,Gait Training, Home Exercise Program,Joint Mobilizations,Manual Therapy, Neuromuscular Re-education, Patient/Caregiver Education, Self-Care/Home Management,Soft Tissue Mobilization,Taping, Therapeutic Activities, Therapeutic Exercises Modalities Cold Pack/Ice Massage,Electric Stimulation,Hot Packs, Ultrasound Next Visit Focus/Plan Next Note Type Treatment Note Next Visit Plan Hip rotator and hamstring stretches, ongoing [place] Protocol, self-mobs over table versus wallk crawl, thoracic rotation in sitting and UBE soon. Consider thoracic and shoulder stretching over pool noodle.
--- NOTE | 2020-11-03 14:25 | PT.OPPOC ---
Physical, Occupational & Speech Therapy At [facility] Current Diagnoses Pain in right shoulder (11/03/20) Pain in right arm (11/03/20) Visit Care Team Role Provider Type Brandie Prabhakar MD Attending Provider Non-Staff Primary Care Provider Referring Provider Specialty: Family Practice Address: [address] [place] [address], [id number] Email: Plan Of Care PT-OP-T Assessment and Plan Start: 10/16/20 13:49 Freq: Status: Active Protocol: Document 11/03/20 09:02 MB (Rec: 11/03/20 09:32 MB [id number]) Physical Therapy Assessment Rehab Potential Rehabilitation Potential Good Evaluation Complexity Number of Personal Factors/Comorbidities 1-2 Number of Body Systems Impaired 1-2 Clinical Presentation at Evaluation Stable Impairments Impairments Functional Activities,Pain, Posture,ROM,Soft Tissue Mobility,Strength Goals 5 Citrus Picker Goal (LTG) Pt will report an overall 75% improvement in right hip pain to improve gait and quality of life by 01/03/21. LTG Duration 8 weeks 4 Jail Goal (LTG) Pt will perform progressive HEP with I including cervical and thoracic mobility and flexibility, shoulder ROM, shoulder and intrascapular strengthening, LE flexibility, pelvic realignment, balance and core strengthening to improve pain and function by . 11/03/20: Pt is performing racquet ball massage and shoulder ROM exercises. LTG Duration 8 weeks 3 Jail Goal (LTG) Pt will present with improved AROM right shoulder abduction and flexion equal to the left to improve ability to perform overhead tasks in the kitchen and with pruning by 01/03/21. LTG Duration 8 weeks 2 Citrus Picker Goal (LTG) Pt will report a 90% improvement in using his right hand to move items in and out of the refridgerator and to grape picker coffee cup to return to PLOF by 01/03/21. 11/03/20: Pt reports that his right shoulder is at least 20% better since starting PT. 1 Citrus Picker Goal (LTG) Pt will present with an improved QuickDASH score of no more than 5% to reflect improved ability to perform ADLs and IADLs by 01/03/21. LTG Duration 8 weeks Assessment Summary Assessment PT received order to assess and treat right hip pain and so performed a progress note to assess right hip today. Pt reports pain at right SI area that is troublesome after bending over to pick weeds and occ with crossly the left foot over his right knee. He presents with postural changes , decreased ROM in his spine and hips (and thorax and shoulders including right shoulder adhesive capsulitis/ rotator cuff injury) and likely has underlying degenerative changes. He presents with gait and strength changes today. He will benefit from ongoing PT to include manual intervention , flexibility exercises, body mechanics and core training. Barriers include multiple areas of dysfunction, likely degenerative changes and ongoing behaviors that provoke issues (heavy gardening tasks ). Physical Therapy Plan Frequency and Duration Frequency of Treatment 2x/Week Duration of Treatment 8 weeks Plan of Care Start Date 11/03/20 Plan of Care End Date 01/05/21 Therapeutic Interventions Therapeutic Interventions Aquatic Therapy,Balance Training,Canalithic Repositioning,Gait Training, Home Exercise Program,Joint Mobilizations,Manual Therapy, Neuromuscular Re-education, Patient/Caregiver Education, Self-Care/Home Management,Soft Tissue Mobilization,Taping, Therapeutic Activities, Therapeutic Exercises Modalities Cold Pack/Ice Massage,Electric Stimulation,Hot Packs, Ultrasound Next Visit Focus/Plan Next Note Type Treatment Note Next Visit Plan Hip rotator and hamstring stretches, ongoing [place] Protocol, self-mobs over table versus wallk crawl, thoracic rotation in sitting and UBE soon. Consider thoracic and shoulder stretching over pool noodle. Plan of Care Dates Plan of Care Start Date 11/03/20 Plan of Care End Date 01/05/21 Electronically Signed by: Katharine Shukla, PT 11/03/20 [id number] Please Sign and Return: I have reviewed this Plan of Care and certify that the skilled therapy services above are required to meet the patient?s needs. Physician Signature Date Printed Name and Credentials Clinical Instructor Signature Printed Name and Credentials
--- NOTE | 2020-11-05 08:56 | PT.OTN ---
Current Diagnoses Pain in right shoulder (11/05/20) Pain in right hip (11/05/20) Pain in right arm (11/05/20) Physical Therapy Treatment Note PT-OP-A Visit Information Start: 10/16/20 13:49 Freq: Status: Active Protocol: Document 11/05/20 08:15 MB (Rec: 11/05/20 08:44 MB [id number]) Out-Patient Physical Therapy Visit Information Visit Information Visit Type Treatment Note Visit Note Medicare, for Life Visit Start Time 08:15 Visit Stop Time 08:55 Total Visit Minutes 40 Visit Number 6 PT-OP-B Current Condition Start: 10/16/20 13:49 Freq: Status: Active Protocol: Document 10/21/20 08:56 MB (Rec: 10/21/20 09:13 MB [id number]) Current Condition History of Current Condition Onset Date 1 year Current Complaints Right shoulder discomfort with activities History of Current Condition Pt reports right shoulder pain started during COVID when he started using exercise band. He was doing cardiac rehab for maintenance exercises after completing course when the clinic closed for COVID. He has had right shoulder pain that is annoying and awakens him at night. Occ he gets up and takes Tylenol and it helps . He finds that he does not want to raise the arm to put jars on the shelf. He is more often picking up his coffee cup with his left hand than his right. He is right handed. 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 Pulling down the branches of a hinds was problematic. Reaching to stick a fork in the ground with his right hand is problematic. He feels a crunching of a couple of things rubbing together in his upper arm. He had an x-ray and he states it said age appropriate changes of the joint. Pt reports pain 3/10 in his upper right shoulder and biceps area. He is sleeping on his left side or his back. He is not using a pillow between his arms and he has one pillow under his head and one between his knees. Pt underwent CAD bypass 2015. PMH includes BPPV, hearing problems, back pain and basal cell carcinoma. Treatment Goals Patient/Caregiver Goals To not have the pain discourage me from doing things with my right arm. PT-OP-C Subjective Start: 10/16/20 13:49 Freq: Status: Active Protocol: Document 11/05/20 08:15 MB (Rec: 11/05/20 08:44 MB [id number]) OP-PT Subjective Patient Comments Patient Comments Pt states that it was a good morning, he did his exercises and took a shower and then when he went to put his pants on, he got bad right SI pain. He reports occ cramping down the back of his right leg. PT-OP-J Posture/Palpation/Skin Start: 10/16/20 13:49 Freq: Status: Active Protocol: Document 10/21/20 08:56 MB (Rec: 10/21/20 10:13 MB [id number]) Posture Evaluation Comments Posture Comments Standing posture with shoes on : forward head, rounded shoulders, Dowager's hump, left scapula protracted and higher than the right, right shoulder lower than the left, increased lordosis at one lumbar level (L3 area), right iliac crest mildly higher than the left, left foot with greater Pako angle than the right, pt stands with head rotated 5 deg to the left PT-OP-K Range of Motion Start: 10/16/20 13:49 Freq: Status: Active Protocol: Document 10/21/20 08:56 MB (Rec: 10/21/20 10:13 MB [id number]) Cervical Spine Range of Motion Cervical Spine Active Testing Position Standing Flexion 30 Extension 15 Rotation Left 40 Rotation Right 40 Lateral Flexion Left 10 Lateral Flexion Right 20 Comments All AROM from starting position of 5 deg resting left neck rotation Shoulder Goniometric Range of Motion Shoulder Right Testing Position Standing Flexion 130 Abduction 130 Comments Pt reports most discomfort with lowering arm from abducted position when arm is in about 30 deg abduction Pt supine for passive ER and IR with arm in 90/90 position: capsule is tight and ER is 50 and IR is 45 deg Left Testing Position Standing Flexion 145 Abduction 142 Comments Pt supine for passive ER and IR with arm in 90/90 position: capsule is tight and ER is 60 and IR is 45 deg Elbow/Forearm Range of Motion Elbow/Forearm ROM Limitations Comments Elbow ROM WNLs B with some discomfort with repeated right elbow flexion in standing Wrist Goniometric Range of Motion ROM Limitations Comments AROM B wrists WNLs PT-OP-M Strength Start: 10/16/20 13:49 Freq: Status: Active Protocol: Document 10/21/20 08:56 MB (Rec: 10/21/20 10:13 MB [id number]) Shoulder Strength Shoulder Manual Muscle Testing Right Comments MMT deferred in setting of discomfort with AROM and likely rotator cuff injury Left Flexion 5 Normal Abduction (C5) 5 Normal External Rotation 5 Normal Internal Rotation 5 Normal Elbow/Forearm Strength Elbow and Forearm Manual Muscle Testing Right Flexion (C6) 4 Good Extension (C7) 5 Normal Pronation 4 Good Supination 4 Good Left Flexion (C6) 5 Normal Extension (C7) 5 Normal Pronation 5 Normal Supination 5 Normal Wrist Strength Wrist Manual Muscle Testing Right Flexion (C7) 5 Normal Extension (C6) 5 Normal Left Flexion (C7) 5 Normal Extension (C6) 5 Normal PT-OP-Q Treatments Start: 10/16/20 13:49 Freq: Status: Active Protocol: Document 11/05/20 08:15 MB (Rec: 11/05/20 08:44 MB [id number]) Manual Therapy Treatment Other Other Manual Treatments Pt kneeling over wedge: STM B thoracolumbar paraspinals, QL, hip rotators, pt with increased tension right glute max, left hip rotators, left intracapular muscles Self-Care/Home Management Treatment Education Other Education Ed pt to talk with doctor or pharmacist about muscle cramping and Mg and other electrolytes, non-caffeinated fluid, consider doctor's appointment about his back/ right SI pain, importance of flexibility exercises in the future, hydration and possible spinal contribution to symptoms PT-OP-T Assessment and Plan Start: 10/16/20 13:49 Freq: Status: Active Protocol: Document 11/05/20 08:15 MB (Rec: 11/05/20 08:44 MB [id number]) Physical Therapy Assessment Rehab Potential Rehabilitation Potential Good Evaluation Complexity Number of Personal Factors/Comorbidities 1-2 Number of Body Systems Impaired 1-2 Clinical Presentation at Evaluation Stable Impairments Impairments Functional Activities,Pain, Posture,ROM,Soft Tissue Mobility,Strength Goals 5 Mainframe Consultant Goal (LTG) Pt will report an overall 75% improvement in right hip pain to improve gait and quality of life by 01/03/21. LTG Duration 8 weeks 4 Mainframe Consultant Goal (LTG) Pt will perform progressive HEP with I including cervical and thoracic mobility and flexibility, shoulder ROM, shoulder and intrascapular strengthening, LE flexibility, pelvic realignment, balance and core strengthening to improve pain and function by . 11/03/20: Pt is performing racquet ball massage and shoulder ROM exercises. LTG Duration 8 weeks 3 Mainframe Consultant Goal (LTG) Pt will present with improved AROM right shoulder abduction and flexion equal to the left to improve ability to perform overhead tasks in the kitchen and with pruning by 01/03/21. LTG Duration 8 weeks 2 Snf Goal (LTG) Pt will report a 90% improvement in using his right hand to move items in and out of the refridgerator and to picker machine operator coffee cup to return to PLOF by 01/03/21. 11/03/20: Pt reports that his right shoulder is at least 20% better since starting PT. 1 Snf Goal (LTG) Pt will present with an improved QuickDASH score of no more than 5% to reflect improved ability to perform ADLs and IADLs by 01/03/21. LTG Duration 8 weeks Assessment Summary Assessment Pt's gait is very antalgic and stiff this morning d/t repots of pain. Initiated manual work for right SI and LB today . Pt responds well initially. Will monitor. Physical Therapy Plan Frequency and Duration Frequency of Treatment 2x/Week Duration of Treatment 8 weeks Plan of Care Start Date 11/03/20 Plan of Care End Date 01/05/21 Therapeutic Interventions Therapeutic Interventions Aquatic Therapy,Balance Training,Canalithic Repositioning,Gait Training, Home Exercise Program,Joint Mobilizations,Manual Therapy, Neuromuscular Re-education, Patient/Caregiver Education, Self-Care/Home Management,Soft Tissue Mobilization,Taping, Therapeutic Activities, Therapeutic Exercises Modalities Cold Pack/Ice Massage,Electric Stimulation,Hot Packs, Ultrasound Other Referrals/Consults Referrals/Consults Recommended Doctor appointment for right SI/LBP now that it is more problematic and persistent Next Visit Focus/Plan Next Note Type Treatment Note Next Visit Plan Body mechanics handouts and core education. Review shoulder cane exercises as appropriate. Hip rotator and hamstring stretches, ongoing [place] Protocol, self-mobs over table versus wallk crawl, thoracic rotation in sitting and UBE soon. Consider thoracic and shoulder stretching over pool noodle.
--- NOTE | 2020-11-11 08:24 | PT-OP ANOTE ---
Late cancellation d/t ferry had to make a medical run and pt could not get on. Rescheduled for tomorrow.
--- NOTE | 2020-11-12 09:03 | PT.OTN ---
Current Diagnoses Pain in right shoulder (11/12/20) Pain in right hip (11/12/20) Pain in right arm (11/12/20) Physical Therapy Treatment Note PT-OP-A Visit Information Start: 10/16/20 13:49 Freq: Status: Active Protocol: Document 11/12/20 08:17 MB (Rec: 11/12/20 09:00 MB [id number]) Out-Patient Physical Therapy Visit Information Visit Information Visit Type Treatment Note Visit Note Medicare, for Life Visit Start Time 08:17 Visit Stop Time 09:00 Total Visit Minutes 43 Visit Number 7 PT-OP-B Current Condition Start: 10/16/20 13:49 Freq: Status: Active Protocol: Document 10/21/20 08:56 MB (Rec: 10/21/20 09:13 MB [id number]) Current Condition History of Current Condition Onset Date 1 year Current Complaints Right shoulder discomfort with activities History of Current Condition Pt reports right shoulder pain started during COVID when he started using exercise band. He was doing cardiac rehab for maintenance exercises after completing course when the clinic closed for COVID. He has had right shoulder pain that is annoying and awakens him at night. Occ he gets up and takes Tylenol and it helps . He finds that he does not want to raise the arm to put jars on the shelf. He is more often picking up his coffee cup with his left hand than his right. He is right handed. 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 Pulling down the branches of a hinds was problematic. Reaching to stick a fork in the ground with his right hand is problematic. He feels a crunching of a couple of things rubbing together in his upper arm. He had an x-ray and he states it said age appropriate changes of the joint. Pt reports pain 3/10 in his upper right shoulder and biceps area. He is sleeping on his left side or his back. He is not using a pillow between his arms and he has one pillow under his head and one between his knees. Pt underwent CAD bypass 2015. PMH includes BPPV, hearing problems, back pain and basal cell carcinoma. Treatment Goals Patient/Caregiver Goals To not have the pain discourage me from doing things with my right arm. PT-OP-C Subjective Start: 10/16/20 13:49 Freq: Status: Active Protocol: Document 11/12/20 08:17 MB (Rec: 11/12/20 09:00 MB [id number]) OP-PT Subjective Patient Comments Patient Comments Pt states that his right hip was bothering him all day yesterday. He went down to [place] for his [employer] [place] over the weekend. Pt states that he had no trouble with his right shoulder or hip on the trip. He had one episode of cramping in his legs. His priority is his right hip today. PT-OP-J Posture/Palpation/Skin Start: 10/16/20 13:49 Freq: Status: Active Protocol: Document 10/21/20 08:56 MB (Rec: 10/21/20 10:13 MB [id number]) Posture Evaluation Comments Posture Comments Standing posture with shoes on : forward head, rounded shoulders, Dowager's hump, left scapula protracted and higher than the right, right shoulder lower than the left, increased lordosis at one lumbar level (L3 area), right iliac crest mildly higher than the left, left foot with greater [place]o angle than the right, pt stands with head rotated 5 deg to the left PT-OP-K Range of Motion Start: 10/16/20 13:49 Freq: Status: Active Protocol: Document 10/21/20 08:56 MB (Rec: 10/21/20 10:13 MB [id number]) Cervical Spine Range of Motion Cervical Spine Active Testing Position Standing Flexion 30 Extension 15 Rotation Left 40 Rotation Right 40 Lateral Flexion Left 10 Lateral Flexion Right 20 Comments All AROM from starting position of 5 deg resting left neck rotation Shoulder Goniometric Range of Motion Shoulder Right Testing Position Standing Flexion 130 Abduction 130 Comments Pt reports most discomfort with lowering arm from abducted position when arm is in about 30 deg abduction Pt supine for passive ER and IR with arm in 90/90 position: capsule is tight and ER is 50 and IR is 45 deg Left Testing Position Standing Flexion 145 Abduction 142 Comments Pt supine for passive ER and IR with arm in 90/90 position: capsule is tight and ER is 60 and IR is 45 deg Elbow/Forearm Range of Motion Elbow/Forearm ROM Limitations Comments Elbow ROM WNLs B with some discomfort with repeated right elbow flexion in standing Wrist Goniometric Range of Motion ROM Limitations Comments AROM B wrists WNLs PT-OP-M Strength Start: 10/16/20 13:49 Freq: Status: Active Protocol: Document 10/21/20 08:56 MB (Rec: 10/21/20 10:13 MB [id number]) Shoulder Strength Shoulder Manual Muscle Testing Right Comments MMT deferred in setting of discomfort with AROM and likely rotator cuff injury Left Flexion 5 Normal Abduction (C5) 5 Normal External Rotation 5 Normal Internal Rotation 5 Normal Elbow/Forearm Strength Elbow and Forearm Manual Muscle Testing Right Flexion (C6) 4 Good Extension (C7) 5 Normal Pronation 4 Good Supination 4 Good Left Flexion (C6) 5 Normal Extension (C7) 5 Normal Pronation 5 Normal Supination 5 Normal Wrist Strength Wrist Manual Muscle Testing Right Flexion (C7) 5 Normal Extension (C6) 5 Normal Left Flexion (C7) 5 Normal Extension (C6) 5 Normal PT-OP-Q Treatments Start: 10/16/20 13:49 Freq: Status: Active Protocol: Document 11/12/20 08:17 MB (Rec: 11/12/20 09:00 MB [id number]) Therapeutic Exercises Sitting Exercises Rolling pin self-massage Side bilateral Comments See saw motion with rolling pin Standing Exercises Racquet ball massage Standing Exercise Name Right rotators and TFL, infraspinatus Side right Comments STM with racquet ball Manual Therapy Treatment Other Other Manual Treatments Pt kneeling over wedge: STM B thoracolumbar paraspinals, QL, hip rotators Self-Care/Home Management Treatment Education Other Education Body mechanics handouts and education: sitting position, lifting, core, moving feet, desk set-up and car position, pt carrying wallet in front left pocket PT-OP-T Assessment and Plan Start: 10/16/20 13:49 Freq: Status: Active Protocol: Document 11/12/20 08:17 MB (Rec: 11/12/20 09:00 MB [id number]) Physical Therapy Assessment Rehab Potential Rehabilitation Potential Good Evaluation Complexity Number of Personal Factors/Comorbidities 1-2 Number of Body Systems Impaired 1-2 Clinical Presentation at Evaluation Stable Impairments Impairments Functional Activities,Pain, Posture,ROM,Soft Tissue Mobility,Strength Goals 5 Skilled Nursing Goal (LTG) Pt will report an overall 75% improvement in right hip pain to improve gait and quality of life by 01/03/21. LTG Duration 8 weeks 4 Supervisor [employer] Goal (LTG) Pt will perform progressive HEP with I including cervical and thoracic mobility and flexibility, shoulder ROM, shoulder and intrascapular strengthening, LE flexibility, pelvic realignment, balance and core strengthening to improve pain and function by . 11/03/20: Pt is performing racquet ball massage and shoulder ROM exercises. LTG Duration 8 weeks 3 Supervisor [employer] Goal (LTG) Pt will present with improved AROM right shoulder abduction and flexion equal to the left to improve ability to perform overhead tasks in the kitchen and with pruning by 01/03/21. LTG Duration 8 weeks 2 Skilled Nursing Goal (LTG) Pt will report a 90% improvement in using his right hand to move items in and out of the refridgerator and to bean picker coffee cup to return to PLOF by 01/03/21. 11/03/20: Pt reports that his right shoulder is at least 20% better since starting PT. 1 Skilled Nursing Goal (LTG) Pt will present with an improved QuickDASH score of no more than 5% to reflect improved ability to perform ADLs and IADLs by 01/03/21. LTG Duration 8 weeks Assessment Summary Assessment PT encourages pt to make an appointment with his doctor about his right hip pain. Body mechanics today and ongoing manual work. Will con't progression of manual work, core and hip and shoulder range. Physical Therapy Plan Frequency and Duration Frequency of Treatment 2x/Week Duration of Treatment 8 weeks Plan of Care Start Date 11/03/20 Plan of Care End Date 01/05/21 Therapeutic Interventions Therapeutic Interventions Aquatic Therapy,Balance Training,Canalithic Repositioning,Gait Training, Home Exercise Program,Joint Mobilizations,Manual Therapy, Neuromuscular Re-education, Patient/Caregiver Education, Self-Care/Home Management,Soft Tissue Mobilization,Taping, Therapeutic Activities, Therapeutic Exercises Modalities Cold Pack/Ice Massage,Electric Stimulation,Hot Packs, Ultrasound Other Referrals/Consults Referrals/Consults Recommended Doctor appointment for right SI/LBP now that it is more problematic and persistent Next Visit Focus/Plan Next Note Type Treatment Note Next Visit Plan Core exercises, Review shoulder cane exercises as appropriate. Hip rotator and hamstring stretches, ongoing [place] Protocol, self-mobs over table versus wallk crawl, thoracic rotation in sitting and UBE soon. Consider thoracic and shoulder stretching over pool noodle.
--- NOTE | 2020-11-13 08:58 | PT.OTN ---
Current Diagnoses Pain in right shoulder (11/13/20) Pain in right hip (11/13/20) Pain in right arm (11/13/20) Physical Therapy Treatment Note PT-OP-A Visit Information Start: 10/16/20 13:49 Freq: Status: Active Protocol: Document 11/13/20 08:14 MB (Rec: 11/13/20 08:54 MB [id number]) Out-Patient Physical Therapy Visit Information Visit Information Visit Type Treatment Note Visit Note Medicare, for Life Visit Start Time 08:14 Visit Stop Time 08:56 Total Visit Minutes 44 Visit Number 8 PT-OP-B Current Condition Start: 10/16/20 13:49 Freq: Status: Active Protocol: Document 10/21/20 08:56 MB (Rec: 10/21/20 09:13 MB [id number]) Current Condition History of Current Condition Onset Date 1 year Current Complaints Right shoulder discomfort with activities History of Current Condition Pt reports right shoulder pain started during COVID when he started using exercise band. He was doing cardiac rehab for maintenance exercises after completing course when the clinic closed for COVID. He has had right shoulder pain that is annoying and awakens him at night. Occ he gets up and takes Tylenol and it helps . He finds that he does not want to raise the arm to put jars on the shelf. He is more often picking up his coffee cup with his left hand than his right. He is right handed. 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 Pulling down the branches of a hinds was problematic. Reaching to stick a fork in the ground with his right hand is problematic. He feels a crunching of a couple of things rubbing together in his upper arm. He had an x-ray and he states it said age appropriate changes of the joint. Pt reports pain 3/10 in his upper right shoulder and biceps area. He is sleeping on his left side or his back. He is not using a pillow between his arms and he has one pillow under his head and one between his knees. Pt underwent CAD bypass 2015. PMH includes BPPV, hearing problems, back pain and basal cell carcinoma. Treatment Goals Patient/Caregiver Goals To not have the pain discourage me from doing things with my right arm. PT-OP-C Subjective Start: 10/16/20 13:49 Freq: Status: Active Protocol: Document 11/13/20 08:14 MB (Rec: 11/13/20 08:54 MB [id number]) OP-PT Subjective Patient Comments Patient Comments , Jennifer, arrives with patient. Pt's back got bad this morning. He tied his shoes and had the pain when he stood up. His hamstring stretch that he had been doing from previous PT course with leg straight and strap. PT-OP-J Posture/Palpation/Skin Start: 10/16/20 13:49 Freq: Status: Active Protocol: Document 10/21/20 08:56 MB (Rec: 10/21/20 10:13 MB [id number]) Posture Evaluation Comments Posture Comments Standing posture with shoes on : forward head, rounded shoulders, Dowager's hump, left scapula protracted and higher than the right, right shoulder lower than the left, increased lordosis at one lumbar level (L3 area), right iliac crest mildly higher than the left, left foot with greater [place] angle than the right, pt stands with head rotated 5 deg to the left PT-OP-K Range of Motion Start: 10/16/20 13:49 Freq: Status: Active Protocol: Document 10/21/20 08:56 MB (Rec: 10/21/20 10:13 MB [id number]) Cervical Spine Range of Motion Cervical Spine Active Testing Position Standing Flexion 30 Extension 15 Rotation Left 40 Rotation Right 40 Lateral Flexion Left 10 Lateral Flexion Right 20 Comments All AROM from starting position of 5 deg resting left neck rotation Shoulder Goniometric Range of Motion Shoulder Right Testing Position Standing Flexion 130 Abduction 130 Comments Pt reports most discomfort with lowering arm from abducted position when arm is in about 30 deg abduction Pt supine for passive ER and IR with arm in 90/90 position: capsule is tight and ER is 50 and IR is 45 deg Left Testing Position Standing Flexion 145 Abduction 142 Comments Pt supine for passive ER and IR with arm in 90/90 position: capsule is tight and ER is 60 and IR is 45 deg Elbow/Forearm Range of Motion Elbow/Forearm ROM Limitations Comments Elbow ROM WNLs B with some discomfort with repeated right elbow flexion in standing Wrist Goniometric Range of Motion ROM Limitations Comments AROM B wrists WNLs PT-OP-M Strength Start: 10/16/20 13:49 Freq: Status: Active Protocol: Document 10/21/20 08:56 MB (Rec: 10/21/20 10:13 MB [id number]) Shoulder Strength Shoulder Manual Muscle Testing Right Comments MMT deferred in setting of discomfort with AROM and likely rotator cuff injury Left Flexion 5 Normal Abduction (C5) 5 Normal External Rotation 5 Normal Internal Rotation 5 Normal Elbow/Forearm Strength Elbow and Forearm Manual Muscle Testing Right Flexion (C6) 4 Good Extension (C7) 5 Normal Pronation 4 Good Supination 4 Good Left Flexion (C6) 5 Normal Extension (C7) 5 Normal Pronation 5 Normal Supination 5 Normal Wrist Strength Wrist Manual Muscle Testing Right Flexion (C7) 5 Normal Extension (C6) 5 Normal Left Flexion (C7) 5 Normal Extension (C6) 5 Normal PT-OP-Q Treatments Start: 10/16/20 13:49 Freq: Status: Active Protocol: Document 11/13/20 08:14 MB (Rec: 11/13/20 08:54 MB [id number]) Therapeutic Exercises Supine Exercises Anterior hip stretch Side bilateral Comments B hold 20 sec Glute max stretch Side bilateral Comments 20 sec Hamstring stretch, hands behind knee and AP Side bilateral Comments 2 reps each leg, 20 AP Hip rotator stretch Side bilateral Comments 20-30 sec, 2 reps each leg, do not draw left leg up Pelvic realignment exercises Side bilateral Comments 5 rep, 3 sec hold all exercises PT-OP-T Assessment and Plan Start: 10/16/20 13:49 Freq: Status: Active Protocol: Document 11/13/20 08:14 MB (Rec: 11/13/20 08:54 MB [id number]) Physical Therapy Assessment Rehab Potential Rehabilitation Potential Good Evaluation Complexity Number of Personal Factors/Comorbidities 1-2 Number of Body Systems Impaired 1-2 Clinical Presentation at Evaluation Stable Impairments Impairments Functional Activities,Pain, Posture,ROM,Soft Tissue Mobility,Strength Goals 5 Alf Goal (LTG) Pt will report an overall 75% improvement in right hip pain to improve gait and quality of life by 01/03/21. LTG Duration 8 weeks 4 Alf Goal (LTG) Pt will perform progressive HEP with I including cervical and thoracic mobility and flexibility, shoulder ROM, shoulder and intrascapular strengthening, LE flexibility, pelvic realignment, balance and core strengthening to improve pain and function by . 11/03/20: Pt is performing racquet ball massage and shoulder ROM exercises. LTG Duration 8 weeks 3 Stone [employer] Goal (LTG) Pt will present with improved AROM right shoulder abduction and flexion equal to the left to improve ability to perform overhead tasks in the kitchen and with pruning by 01/03/21. LTG Duration 8 weeks 2 [employer] Goal (LTG) Pt will report a 90% improvement in using his right hand to move items in and out of the refridgerator and to potato picker coffee cup to return to PLOF by 01/03/21. 11/03/20: Pt reports that his right shoulder is at least 20% better since starting PT. 1 Alf Goal (LTG) Pt will present with an improved QuickDASH score of no more than 5% to reflect improved ability to perform ADLs and IADLs by 01/03/21. LTG Duration 8 weeks Assessment Summary Assessment PT impression for Dr. Chandler Prabhakar: lumbar stenosis and right SI pain. Pt is returning to the doctor next week in setting of new intense right SI pain. PT ed pt to stop old PT stretches not given by this PT and sit ups that exerted tension on how spine. Physical Therapy Plan Frequency and Duration Frequency of Treatment 2x/Week Duration of Treatment 8 weeks Plan of Care Start Date 11/03/20 Plan of Care End Date 01/05/21 Therapeutic Interventions Therapeutic Interventions Aquatic Therapy,Balance Training,Canalithic Repositioning,Gait Training, Home Exercise Program,Joint Mobilizations,Manual Therapy, Neuromuscular Re-education, Patient/Caregiver Education, Self-Care/Home Management,Soft Tissue Mobilization,Taping, Therapeutic Activities, Therapeutic Exercises Modalities Cold Pack/Ice Massage,Electric Stimulation,Hot Packs, Ultrasound Next Visit Focus/Plan Next Note Type Treatment Note Next Visit Plan Core exercises, Review shoulder cane exercises as appropriate. [place] Protocol, self-mobs over table versus wallk crawl, thoracic rotation in sitting and UBE soon. Consider thoracic and shoulder stretching over pool noodle.
--- NOTE | 2020-11-17 08:59 | PT.OTN ---
Current Diagnoses Pain in right shoulder (11/17/20) Pain in right hip (11/17/20) Pain in right arm (11/17/20) Physical Therapy Treatment Note PT-OP-A Visit Information Start: 10/16/20 13:49 Freq: Status: Active Protocol: Document 11/17/20 08:15 MB (Rec: 11/17/20 08:58 MB [id number]) Out-Patient Physical Therapy Visit Information Visit Information Visit Type Treatment Note Visit Note Medicare, for Life Visit Start Time 08:15 Visit Stop Time 08:58 Total Visit Minutes 43 Visit Number 9 PT-OP-B Current Condition Start: 10/16/20 13:49 Freq: Status: Active Protocol: Document 10/21/20 08:56 MB (Rec: 10/21/20 09:13 MB [id number]) Current Condition History of Current Condition Onset Date 1 year Current Complaints Right shoulder discomfort with activities History of Current Condition Pt reports right shoulder pain started during COVID when he started using exercise band. He was doing cardiac rehab for maintenance exercises after completing course when the clinic closed for COVID. He has had right shoulder pain that is annoying and awakens him at night. Occ he gets up and takes Tylenol and it helps . He finds that he does not want to raise the arm to put jars on the shelf. He is more often picking up his coffee cup with his left hand than his right. He is right handed. 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 Pulling down the branches of a hinds was problematic. Reaching to stick a fork in the ground with his right hand is problematic. He feels a crunching of a couple of things rubbing together in his upper arm. He had an x-ray and he states it said age appropriate changes of the joint. Pt reports pain 3/10 in his upper right shoulder and biceps area. He is sleeping on his left side or his back. He is not using a pillow between his arms and he has one pillow under his head and one between his knees. Pt underwent CAD bypass 2015. PMH includes BPPV, hearing problems, back pain and basal cell carcinoma. Treatment Goals Patient/Caregiver Goals To not have the pain discourage me from doing things with my right arm. PT-OP-C Subjective Start: 10/16/20 13:49 Freq: Status: Active Protocol: Document 11/17/20 08:15 MB (Rec: 11/17/20 08:58 MB [id number]) OP-PT Subjective Patient Comments Patient Comments Pt states that he is having a pretty good day so far. He is doing his exercises. arrives with him again today. PT-OP-J Posture/Palpation/Skin Start: 10/16/20 13:49 Freq: Status: Active Protocol: Document 10/21/20 08:56 MB (Rec: 10/21/20 10:13 MB [id number]) Posture Evaluation Comments Posture Comments Standing posture with shoes on : forward head, rounded shoulders, Dowager's hump, left scapula protracted and higher than the right, right shoulder lower than the left, increased lordosis at one lumbar level (L3 area), right iliac crest mildly higher than the left, left foot with greater Pako angle than the right, pt stands with head rotated 5 deg to the left PT-OP-K Range of Motion Start: 10/16/20 13:49 Freq: Status: Active Protocol: Document 10/21/20 08:56 MB (Rec: 10/21/20 10:13 MB [id number]) Cervical Spine Range of Motion Cervical Spine Active Testing Position Standing Flexion 30 Extension 15 Rotation Left 40 Rotation Right 40 Lateral Flexion Left 10 Lateral Flexion Right 20 Comments All AROM from starting position of 5 deg resting left neck rotation Shoulder Goniometric Range of Motion Shoulder Right Testing Position Standing Flexion 130 Abduction 130 Comments Pt reports most discomfort with lowering arm from abducted position when arm is in about 30 deg abduction Pt supine for passive ER and IR with arm in 90/90 position: capsule is tight and ER is 50 and IR is 45 deg Left Testing Position Standing Flexion 145 Abduction 142 Comments Pt supine for passive ER and IR with arm in 90/90 position: capsule is tight and ER is 60 and IR is 45 deg Elbow/Forearm Range of Motion Elbow/Forearm ROM Limitations Comments Elbow ROM WNLs B with some discomfort with repeated right elbow flexion in standing Wrist Goniometric Range of Motion ROM Limitations Comments AROM B wrists WNLs PT-OP-M Strength Start: 10/16/20 13:49 Freq: Status: Active Protocol: Document 10/21/20 08:56 MB (Rec: 10/21/20 10:13 MB [id number]) Shoulder Strength Shoulder Manual Muscle Testing Right Comments MMT deferred in setting of discomfort with AROM and likely rotator cuff injury Left Flexion 5 Normal Abduction (C5) 5 Normal External Rotation 5 Normal Internal Rotation 5 Normal Elbow/Forearm Strength Elbow and Forearm Manual Muscle Testing Right Flexion (C6) 4 Good Extension (C7) 5 Normal Pronation 4 Good Supination 4 Good Left Flexion (C6) 5 Normal Extension (C7) 5 Normal Pronation 5 Normal Supination 5 Normal Wrist Strength Wrist Manual Muscle Testing Right Flexion (C7) 5 Normal Extension (C6) 5 Normal Left Flexion (C7) 5 Normal Extension (C6) 5 Normal PT-OP-Q Treatments Start: 10/16/20 13:49 Freq: Status: Active Protocol: Document 11/17/20 08:15 MB (Rec: 11/17/20 08:58 MB [id number]) Therapeutic Exercises Supine Exercises Cane flexion and abduction Side right Comments Pt uses cane, 10 reps with left arm assist Standing Exercises Forward flexion and abduction wall crawls Side right Comments 5 reps both, B arms flexion and right abduction Manual Therapy Treatment Other Other Manual Treatments [place] Protocol right shoulder, STM right infraspinatus and middle and posterior delt, PA mobs with right shoulder in passive ER in prone PT-OP-T Assessment and Plan Start: 10/16/20 13:49 Freq: Status: Active Protocol: Document 11/17/20 08:15 MB (Rec: 11/17/20 08:58 MB [id number]) Physical Therapy Assessment Rehab Potential Rehabilitation Potential Good Evaluation Complexity Number of Personal Factors/Comorbidities 1-2 Number of Body Systems Impaired 1-2 Clinical Presentation at Evaluation Stable Impairments Impairments Functional Activities,Pain, Posture,ROM,Soft Tissue Mobility,Strength Goals 5 Straw Hat Plunger Operator Goal (LTG) Pt will report an overall 75% improvement in right hip pain to improve gait and quality of life by 01/03/21. LTG Duration 8 weeks 4 Straw Hat Plunger Operator Goal (LTG) Pt will perform progressive HEP with I including cervical and thoracic mobility and flexibility, shoulder ROM, shoulder and intrascapular strengthening, LE flexibility, pelvic realignment, balance and core strengthening to improve pain and function by . 11/03/20: Pt is performing racquet ball massage and shoulder ROM exercises. LTG Duration 8 weeks 3 Snf Goal (LTG) Pt will present with improved AROM right shoulder abduction and flexion equal to the left to improve ability to perform overhead tasks in the kitchen and with pruning by 01/03/21. LTG Duration 8 weeks 2 Straw Hat Plunger Operator Goal (LTG) Pt will report a 90% improvement in using his right hand to move items in and out of the refridgerator and to cotton picker coffee cup to return to PLOF by 01/03/21. 11/03/20: Pt reports that his right shoulder is at least 20% better since starting PT. 1 Snf Goal (LTG) Pt will present with an improved QuickDASH score of no more than 5% to reflect improved ability to perform ADLs and IADLs by 01/03/21. LTG Duration 8 weeks Assessment Summary Assessment Pt tolerates shoulder exercise progression today and shoulder mobs. He reports electrical sensation in the bottom of his right foot. He had left foot pain before his left piriformis acted up. PT asks him to communicate this with his doctor. Pt notices that his lifting more with his right arm, and picking up his coffee mug with his right hand and putting things in the top of the cupboard with her right hand. Physical Therapy Plan Frequency and Duration Frequency of Treatment 2x/Week Duration of Treatment 8 weeks Plan of Care Start Date 11/03/20 Plan of Care End Date 01/05/21 Therapeutic Interventions Therapeutic Interventions Aquatic Therapy,Balance Training,Canalithic Repositioning,Gait Training, Home Exercise Program,Joint Mobilizations,Manual Therapy, Neuromuscular Re-education, Patient/Caregiver Education, Self-Care/Home Management,Soft Tissue Mobilization,Taping, Therapeutic Activities, Therapeutic Exercises Modalities Cold Pack/Ice Massage,Electric Stimulation,Hot Packs, Ultrasound Next Visit Focus/Plan Next Note Type Treatment Note Next Visit Plan Core exercises, thoracic rotation and stretching over pool noodle, [place] Protocol and other manual work
--- NOTE | 2020-11-21 09:04 | PT.OTN ---
Current Diagnoses Pain in right shoulder (11/21/20) Pain in right hip (11/21/20) Pain in right arm (11/21/20) Physical Therapy Treatment Note PT-OP-A Visit Information Start: 10/16/20 13:49 Freq: Status: Active Protocol: Document 11/21/20 08:12 MB (Rec: 11/21/20 09:01 MB [id number]) Out-Patient Physical Therapy Visit Information Visit Information Visit Type Treatment Note Visit Note Medicare, for Life Visit Start Time 08:12 Visit Stop Time 08:57 Total Visit Minutes 45 Visit Number 10 PT-OP-B Current Condition Start: 10/16/20 13:49 Freq: Status: Active Protocol: Document 10/21/20 08:56 MB (Rec: 10/21/20 09:13 MB [id number]) Current Condition History of Current Condition Onset Date 1 year Current Complaints Right shoulder discomfort with activities History of Current Condition Pt reports right shoulder pain started during COVID when he started using exercise band. He was doing cardiac rehab for maintenance exercises after completing course when the clinic closed for COVID. He has had right shoulder pain that is annoying and awakens him at night. Occ he gets up and takes Tylenol and it helps . He finds that he does not want to raise the arm to put jars on the shelf. He is more often picking up his coffee cup with his left hand than his right. He is right handed. 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 Pulling down the branches of a hinds was problematic. Reaching to stick a fork in the ground with his right hand is problematic. He feels a crunching of a couple of things rubbing together in his upper arm. He had an x-ray and he states it said age appropriate changes of the joint. Pt reports pain 3/10 in his upper right shoulder and biceps area. He is sleeping on his left side or his back. He is not using a pillow between his arms and he has one pillow under his head and one between his knees. Pt underwent CAD bypass 2015. PMH includes BPPV, hearing problems, back pain and basal cell carcinoma. Treatment Goals Patient/Caregiver Goals To not have the pain discourage me from doing things with my right arm. PT-OP-C Subjective Start: 10/16/20 13:49 Freq: Status: Active Protocol: Document 11/21/20 08:12 MB (Rec: 11/21/20 09:01 MB [id number]) OP-PT Subjective Patient Comments Patient Comments Pt states that he is doing okay at the moment but it varies moment to moment. Pain in his right shoulder woke him up the night before last. Pt states that he is better because he is able to warehouse order picker his coffee cup and put stuff in the cabinet. He woke up but not due to pain this morning. PT-OP-J Posture/Palpation/Skin Start: 10/16/20 13:49 Freq: Status: Active Protocol: Document 10/21/20 08:56 MB (Rec: 10/21/20 10:13 MB [id number]) Posture Evaluation Comments Posture Comments Standing posture with shoes on : forward head, rounded shoulders, Dowager's hump, left scapula protracted and higher than the right, right shoulder lower than the left, increased lordosis at one lumbar level (L3 area), right iliac crest mildly higher than the left, left foot with greater Pako angle than the right, pt stands with head rotated 5 deg to the left PT-OP-K Range of Motion Start: 10/16/20 13:49 Freq: Status: Active Protocol: Document 10/21/20 08:56 MB (Rec: 10/21/20 10:13 MB [id number]) Cervical Spine Range of Motion Cervical Spine Active Testing Position Standing Flexion 30 Extension 15 Rotation Left 40 Rotation Right 40 Lateral Flexion Left 10 Lateral Flexion Right 20 Comments All AROM from starting position of 5 deg resting left neck rotation Shoulder Goniometric Range of Motion Shoulder Right Testing Position Standing Flexion 130 Abduction 130 Comments Pt reports most discomfort with lowering arm from abducted position when arm is in about 30 deg abduction Pt supine for passive ER and IR with arm in 90/90 position: capsule is tight and ER is 50 and IR is 45 deg Left Testing Position Standing Flexion 145 Abduction 142 Comments Pt supine for passive ER and IR with arm in 90/90 position: capsule is tight and ER is 60 and IR is 45 deg Elbow/Forearm Range of Motion Elbow/Forearm ROM Limitations Comments Elbow ROM WNLs B with some discomfort with repeated right elbow flexion in standing Wrist Goniometric Range of Motion ROM Limitations Comments AROM B wrists WNLs PT-OP-M Strength Start: 10/16/20 13:49 Freq: Status: Active Protocol: Document 10/21/20 08:56 MB (Rec: 10/21/20 10:13 MB [id number]) Shoulder Strength Shoulder Manual Muscle Testing Right Comments MMT deferred in setting of discomfort with AROM and likely rotator cuff injury Left Flexion 5 Normal Abduction (C5) 5 Normal External Rotation 5 Normal Internal Rotation 5 Normal Elbow/Forearm Strength Elbow and Forearm Manual Muscle Testing Right Flexion (C6) 4 Good Extension (C7) 5 Normal Pronation 4 Good Supination 4 Good Left Flexion (C6) 5 Normal Extension (C7) 5 Normal Pronation 5 Normal Supination 5 Normal Wrist Strength Wrist Manual Muscle Testing Right Flexion (C7) 5 Normal Extension (C6) 5 Normal Left Flexion (C7) 5 Normal Extension (C6) 5 Normal PT-OP-Q Treatments Start: 10/16/20 13:49 Freq: Status: Active Protocol: Document 11/21/20 08:12 MB (Rec: 11/21/20 09:01 MB [id number]) Therapeutic Exercises Supine Exercises Core progression Supine Exercise Name Abdominal drawing in, lumbar rotation, mini march, HS, knee fall out Side bilateral Comments 5-10 reps all exercises, cues, and practice Sitting Exercises Thoracic rotation Side bilateral Comments 4 reps right and left with breathing end-range to move ribs Self-Care/Home Management Treatment Education Other Education PT shoes pt and spine model and describes anatomy of lumbar spine and SI joint, wrote out for Dr. Prabhakar visit: PT impression of right shoulder adhesive capsulitis and right SI pain with spinal stenosis possibly, activity modification, and core involvement PT-OP-T Assessment and Plan Start: 10/16/20 13:49 Freq: Status: Active Protocol: Document 11/21/20 08:12 MB (Rec: 11/21/20 09:01 MB [id number]) Physical Therapy Assessment Rehab Potential Rehabilitation Potential Good Evaluation Complexity Number of Personal Factors/Comorbidities 1-2 Number of Body Systems Impaired 1-2 Clinical Presentation at Evaluation Stable Impairments Impairments Functional Activities,Pain, Posture,ROM,Soft Tissue Mobility,Strength Goals 5 Compensation And Benefits Manager Goal (LTG) Pt will report an overall 75% improvement in right hip pain to improve gait and quality of life by 01/03/21. LTG Duration 8 weeks 4 Longterm Goal (LTG) Pt will perform progressive HEP with I including cervical and thoracic mobility and flexibility, shoulder ROM, shoulder and intrascapular strengthening, LE flexibility, pelvic realignment, balance and core strengthening to improve pain and function by . 11/03/20: Pt is performing racquet ball massage and shoulder ROM exercises. LTG Duration 8 weeks 3 Longterm Goal (LTG) Pt will present with improved AROM right shoulder abduction and flexion equal to the left to improve ability to perform overhead tasks in the kitchen and with pruning by 01/03/21. LTG Duration 8 weeks 2 Compensation And Benefits Manager Goal (LTG) Pt will report a 90% improvement in using his right hand to move items in and out of the refridgerator and to warehouse order picker coffee cup to return to PLOF by 01/03/21. 11/03/20: Pt reports that his right shoulder is at least 20% better since starting PT. 1 Longterm Goal (LTG) Pt will present with an improved QuickDASH score of no more than 5% to reflect improved ability to perform ADLs and IADLs by 01/03/21. LTG Duration 8 weeks Assessment Summary Assessment Progressed core exercises today and re-ed about anatomy and PT impression. Pt is heading to the doctor. Con't per plan below Physical Therapy Plan Frequency and Duration Frequency of Treatment 2x/Week Duration of Treatment 8 weeks Plan of Care Start Date 11/03/20 Plan of Care End Date 01/05/21 Therapeutic Interventions Therapeutic Interventions Aquatic Therapy,Balance Training,Canalithic Repositioning,Gait Training, Home Exercise Program,Joint Mobilizations,Manual Therapy, Neuromuscular Re-education, Patient/Caregiver Education, Self-Care/Home Management,Soft Tissue Mobilization,Taping, Therapeutic Activities, Therapeutic Exercises Modalities Cold Pack/Ice Massage,Electric Stimulation,Hot Packs, Ultrasound Next Visit Focus/Plan Next Note Type Treatment Note Next Visit Plan Stretching over pool noodle, [place] Protocol and other manual work, hip progression in hook lying
--- NOTE | 2020-11-24 17:00 | PT.OTN ---
Current Diagnoses Pain in right shoulder (11/24/20) Pain in right hip (11/24/20) Pain in right arm (11/24/20) Physical Therapy Treatment Note PT-OP-A Visit Information Start: 10/16/20 13:49 Freq: Status: Active Protocol: Document 11/24/20 08:14 SAK (Rec: 11/24/20 09:03 SAK [id number]) Out-Patient Physical Therapy Visit Information Visit Information Visit Type Treatment Note Visit Note Medicare, for Life Visit Start Time 08:15 Visit Stop Time 09:15 Total Visit Minutes 60 Visit Number 11 PT-OP-B Current Condition Start: 10/16/20 13:49 Freq: Status: Active Protocol: Document 10/21/20 08:56 MB (Rec: 10/21/20 09:13 MB [id number]) Current Condition History of Current Condition Onset Date 1 year Current Complaints Right shoulder discomfort with activities History of Current Condition Pt reports right shoulder pain started during COVID when he started using exercise band. He was doing cardiac rehab for maintenance exercises after completing course when the clinic closed for COVID. He has had right shoulder pain that is annoying and awakens him at night. Occ he gets up and takes Tylenol and it helps . He finds that he does not want to raise the arm to put jars on the shelf. He is more often picking up his coffee cup with his left hand than his right. He is right handed. 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 Pulling down the branches of a hinds was problematic. Reaching to stick a fork in the ground with his right hand is problematic. He feels a crunching of a couple of things rubbing together in his upper arm. He had an x-ray and he states it said age appropriate changes of the joint. Pt reports pain 3/10 in his upper right shoulder and biceps area. He is sleeping on his left side or his back. He is not using a pillow between his arms and he has one pillow under his head and one between his knees. Pt underwent CAD bypass 2015. PMH includes BPPV, hearing problems, back pain and basal cell carcinoma. Treatment Goals Patient/Caregiver Goals To not have the pain discourage me from doing things with my right arm. PT-OP-C Subjective Start: 10/16/20 13:49 Freq: Status: Active Protocol: Document 11/24/20 08:14 SAK (Rec: 11/24/20 09:03 SAK [id number]) OP-PT Subjective Patient Comments Patient Comments Woke up at 1 am with shoulder hurting all the way down to elbow, used tennis ball and took Tylenol. Woke up at 4 with shoulder feeling better. This am hip ok, then spent 30 min on exercise bike, then had pain right hip, took more Tylenol. States he then hobbled to [place], [place], and into PT. Both areas of pain intermittant, can't always identify a cause. Saw Dr. Prabhakar. Patient states number one priority is working on hip so he can walk without difficulty. States he has a whole slew of exercises, but no improvement in hip over an extended period of time since starting PT. Has only performed core exercises 1x (last session). Pain was 5-6/10 before Tylenol this am. Usually when gets off exercise bike no problem. Pain currently 3/10. Patient brings x-ray results from 11/21/20 appointment with Brandie Prabhakar MD. PT-OP-J Posture/Palpation/Skin Start: 10/16/20 13:49 Freq: Status: Active Protocol: Document 10/21/20 08:56 MB (Rec: 10/21/20 10:13 MB [id number]) Posture Evaluation Comments Posture Comments Standing posture with shoes on : forward head, rounded shoulders, Dowager's hump, left scapula protracted and higher than the right, right shoulder lower than the left, increased lordosis at one lumbar level (L3 area), right iliac crest mildly higher than the left, left foot with greater Pako angle than the right, pt stands with head rotated 5 deg to the left PT-OP-K Range of Motion Start: 10/16/20 13:49 Freq: Status: Active Protocol: Document 10/21/20 08:56 MB (Rec: 10/21/20 10:13 MB [id number]) Cervical Spine Range of Motion Cervical Spine Active Testing Position Standing Flexion 30 Extension 15 Rotation Left 40 Rotation Right 40 Lateral Flexion Left 10 Lateral Flexion Right 20 Comments All AROM from starting position of 5 deg resting left neck rotation Shoulder Goniometric Range of Motion Shoulder Right Testing Position Standing Flexion 130 Abduction 130 Comments Pt reports most discomfort with lowering arm from abducted position when arm is in about 30 deg abduction Pt supine for passive ER and IR with arm in 90/90 position: capsule is tight and ER is 50 and IR is 45 deg Left Testing Position Standing Flexion 145 Abduction 142 Comments Pt supine for passive ER and IR with arm in 90/90 position: capsule is tight and ER is 60 and IR is 45 deg Elbow/Forearm Range of Motion Elbow/Forearm ROM Limitations Comments Elbow ROM WNLs B with some discomfort with repeated right elbow flexion in standing Wrist Goniometric Range of Motion ROM Limitations Comments AROM B wrists WNLs PT-OP-M Strength Start: 10/16/20 13:49 Freq: Status: Active Protocol: Document 10/21/20 08:56 MB (Rec: 10/21/20 10:13 MB [id number]) Shoulder Strength Shoulder Manual Muscle Testing Right Comments MMT deferred in setting of discomfort with AROM and likely rotator cuff injury Left Flexion 5 Normal Abduction (C5) 5 Normal External Rotation 5 Normal Internal Rotation 5 Normal Elbow/Forearm Strength Elbow and Forearm Manual Muscle Testing Right Flexion (C6) 4 Good Extension (C7) 5 Normal Pronation 4 Good Supination 4 Good Left Flexion (C6) 5 Normal Extension (C7) 5 Normal Pronation 5 Normal Supination 5 Normal Wrist Strength Wrist Manual Muscle Testing Right Flexion (C7) 5 Normal Extension (C6) 5 Normal Left Flexion (C7) 5 Normal Extension (C6) 5 Normal PT-OP-Q Treatments Start: 10/16/20 13:49 Freq: Status: Active Protocol: Document 11/24/20 08:14 SAK (Rec: 11/24/20 09:03 SAK [id number]) Therapeutic Exercises Supine Exercises Core progression Supine Exercise Name Abdominal drawing in, lumbar rotation, mini march, HS, knee fall out Side bilateral Comments 10 reps all exercises, cues for transverse abdominis activation Sitting Exercises hip stretches Sitting Exercise Name figure 4, piriformis Reps/Minutes 2x30 Thoracic rotation Side bilateral Comments 4 reps right and left with breathing end-range to move ribs Therapeutic Activity Therapeutic Activity 1/2 kneeling Name simulated gardening Comments red mat on floor, discussion of habitual activities and possibly contributors to pain Self-Care/Home Management Treatment Education Patient Education Body Mechanics Other Education importance of self-assessment of habitual positioning and movement as possible contributors to pain. Patient identified gardening position in 1/2 kneeling always with same leg forward. PT-OP-T Assessment and Plan Start: 10/16/20 13:49 Freq: Status: Active Protocol: Document 11/24/20 08:14 ZULEMA (Rec: 11/24/20 09:03 ZULEMA [id number]) Physical Therapy Assessment Goals 5 Longterm Goal (LTG) Pt will report an overall 75% improvement in right hip pain to improve gait and quality of life by 01/03/21. LTG Duration 8 weeks 4 Longterm Goal (LTG) Pt will perform progressive HEP with I including cervical and thoracic mobility and flexibility, shoulder ROM, shoulder and intrascapular strengthening, LE flexibility, pelvic realignment, balance and core strengthening to improve pain and function by . 11/03/20: Pt is performing racquet ball massage and shoulder ROM exercises. LTG Duration 8 weeks 3 Longterm Goal (LTG) Pt will present with improved AROM right shoulder abduction and flexion equal to the left to improve ability to perform overhead tasks in the kitchen and with pruning by 01/03/21. LTG Duration 8 weeks 2 Corporate Operations Compliance Manager Goal (LTG) Pt will report a 90% improvement in using his right hand to move items in and out of the refridgerator and to pick and shovel man coffee cup to return to PLOF by 01/03/21. 11/03/20: Pt reports that his right shoulder is at least 20% better since starting PT. 1 Longterm Goal (LTG) Pt will present with an improved QuickDASH score of no more than 5% to reflect improved ability to perform ADLs and IADLs by 01/03/21. LTG Duration 8 weeks Assessment Summary Assessment Patient x-rays: 11/21/20: No acute fractures or dislocations. Mild mami hip joint OA. Bony pelvic ring congruent. Partially imaged lower l/s degenerative changes appear slighly progressed from prior. Mild bilatral SI joint dgenerative changes with vacuum phenomenon. x-ray report and physician visit note scanned in chart. Patient symptoms intermittant and unpredictable. He demonstrated improved understanding of core exercises after review today, was shown how to do hip stretches in sitting as well as supine to be able to work into day. He demonstrated good understanding of importance of identifying habitual postures and movements. Trial of moist heat to l/s and SI performed today. Physical Therapy Plan Frequency and Duration Frequency of Treatment 2x/Week Duration of Treatment 8 weeks Plan of Care Start Date 11/03/20 Plan of Care End Date 01/05/21 Therapeutic Interventions Therapeutic Interventions Aquatic Therapy,Balance Training,Canalithic Repositioning,Gait Training, Home Exercise Program,Joint Mobilizations,Manual Therapy, Neuromuscular Re-education, Patient/Caregiver Education, Self-Care/Home Management,Soft Tissue Mobilization,Taping, Therapeutic Activities, Therapeutic Exercises Modalities Cold Pack/Ice Massage,Electric Stimulation,Hot Packs, Ultrasound Next Visit Focus/Plan Next Note Type Treatment Note Next Visit Plan Per patient POC and primary PT ; stretching over pool noodle, [place] Protocol and other manual work, hip progression in hook lying
--- NOTE | 2020-11-26 09:02 | PT.OTN ---
Current Diagnoses Pain in right shoulder (11/26/20) Pain in right hip (11/26/20) Pain in right arm (11/26/20) Physical Therapy Treatment Note PT-OP-A Visit Information Start: 10/16/20 13:49 Freq: Status: Active Protocol: Document 11/26/20 08:14 MB (Rec: 11/26/20 08:57 MB [id number]) Out-Patient Physical Therapy Visit Information Visit Information Visit Type Treatment Note Visit Note Medicare, for Life Visit Start Time 08:14 Visit Stop Time 08:59 Total Visit Minutes 45 Visit Number 12 PT-OP-B Current Condition Start: 10/16/20 13:49 Freq: Status: Active Protocol: Document 10/21/20 08:56 MB (Rec: 10/21/20 09:13 MB [id number]) Current Condition History of Current Condition Onset Date 1 year Current Complaints Right shoulder discomfort with activities History of Current Condition Pt reports right shoulder pain started during COVID when he started using exercise band. He was doing cardiac rehab for maintenance exercises after completing course when the clinic closed for COVID. He has had right shoulder pain that is annoying and awakens him at night. Occ he gets up and takes Tylenol and it helps . He finds that he does not want to raise the arm to put jars on the shelf. He is more often picking up his coffee cup with his left hand than his right. He is right handed. 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 Pulling down the branches of a hinds was problematic. Reaching to stick a fork in the ground with his right hand is problematic. He feels a crunching of a couple of things rubbing together in his upper arm. He had an x-ray and he states it said age appropriate changes of the joint. Pt reports pain 3/10 in his upper right shoulder and biceps area. He is sleeping on his left side or his back. He is not using a pillow between his arms and he has one pillow under his head and one between his knees. Pt underwent CAD bypass 2015. PMH includes BPPV, hearing problems, back pain and basal cell carcinoma. Treatment Goals Patient/Caregiver Goals To not have the pain discourage me from doing things with my right arm. PT-OP-C Subjective Start: 10/16/20 13:49 Freq: Status: Active Protocol: Document 11/26/20 08:14 MB (Rec: 11/26/20 08:57 MB [id number]) OP-PT Subjective Patient Comments Patient Comments Pt brings in more information about his doctor's visit and he reports concern about vacuum phenomenon. He reports he had severe back pain after getting off of the upright stationary bike at home. Pt reports pain after taking his shoes off yesterday. PT-OP-J Posture/Palpation/Skin Start: 10/16/20 13:49 Freq: Status: Active Protocol: Document 10/21/20 08:56 MB (Rec: 10/21/20 10:13 MB [id number]) Posture Evaluation Comments Posture Comments Standing posture with shoes on : forward head, rounded shoulders, Dowager's hump, left scapula protracted and higher than the right, right shoulder lower than the left, increased lordosis at one lumbar level (L3 area), right iliac crest mildly higher than the left, left foot with greater Pako angle than the right, pt stands with head rotated 5 deg to the left PT-OP-K Range of Motion Start: 10/16/20 13:49 Freq: Status: Active Protocol: Document 10/21/20 08:56 MB (Rec: 10/21/20 10:13 MB [id number]) Cervical Spine Range of Motion Cervical Spine Active Testing Position Standing Flexion 30 Extension 15 Rotation Left 40 Rotation Right 40 Lateral Flexion Left 10 Lateral Flexion Right 20 Comments All AROM from starting position of 5 deg resting left neck rotation Shoulder Goniometric Range of Motion Shoulder Right Testing Position Standing Flexion 130 Abduction 130 Comments Pt reports most discomfort with lowering arm from abducted position when arm is in about 30 deg abduction Pt supine for passive ER and IR with arm in 90/90 position: capsule is tight and ER is 50 and IR is 45 deg Left Testing Position Standing Flexion 145 Abduction 142 Comments Pt supine for passive ER and IR with arm in 90/90 position: capsule is tight and ER is 60 and IR is 45 deg Elbow/Forearm Range of Motion Elbow/Forearm ROM Limitations Comments Elbow ROM WNLs B with some discomfort with repeated right elbow flexion in standing Wrist Goniometric Range of Motion ROM Limitations Comments AROM B wrists WNLs PT-OP-M Strength Start: 10/16/20 13:49 Freq: Status: Active Protocol: Document 10/21/20 08:56 MB (Rec: 10/21/20 10:13 MB [id number]) Shoulder Strength Shoulder Manual Muscle Testing Right Comments MMT deferred in setting of discomfort with AROM and likely rotator cuff injury Left Flexion 5 Normal Abduction (C5) 5 Normal External Rotation 5 Normal Internal Rotation 5 Normal Elbow/Forearm Strength Elbow and Forearm Manual Muscle Testing Right Flexion (C6) 4 Good Extension (C7) 5 Normal Pronation 4 Good Supination 4 Good Left Flexion (C6) 5 Normal Extension (C7) 5 Normal Pronation 5 Normal Supination 5 Normal Wrist Strength Wrist Manual Muscle Testing Right Flexion (C7) 5 Normal Extension (C6) 5 Normal Left Flexion (C7) 5 Normal Extension (C6) 5 Normal PT-OP-Q Treatments Start: 10/16/20 13:49 Freq: Status: Active Protocol: Document 11/26/20 08:14 MB (Rec: 11/26/20 08:57 MB [id number]) Manual Therapy Treatment Other Other Manual Treatments Pt kneeling over wedge and plinth: STM thoracolumbar paraspinals, hip rotators, QL. Pt hook lying: MWM B TFL with PT providing TrP pressure and pt performing active hip ER and IR PT-OP-T Assessment and Plan Start: 10/16/20 13:49 Freq: Status: Active Protocol: Document 11/26/20 08:14 MB (Rec: 11/26/20 08:57 MB [id number]) Physical Therapy Assessment Rehab Potential Rehabilitation Potential Good Evaluation Complexity Number of Personal Factors/Comorbidities 1-2 Number of Body Systems Impaired 1-2 Clinical Presentation at Evaluation Stable Impairments Impairments Functional Activities,Pain, Posture,ROM,Soft Tissue Mobility,Strength Goals 5 Aquarium Specialist Goal (LTG) Pt will report an overall 75% improvement in right hip pain to improve gait and quality of life by 01/03/21. LTG Duration 8 weeks 4 Chcf Goal (LTG) Pt will perform progressive HEP with I including cervical and thoracic mobility and flexibility, shoulder ROM, shoulder and intrascapular strengthening, LE flexibility, pelvic realignment, balance and core strengthening to improve pain and function by . 11/03/20: Pt is performing racquet ball massage and shoulder ROM exercises. LTG Duration 8 weeks 3 Chcf Goal (LTG) Pt will present with improved AROM right shoulder abduction and flexion equal to the left to improve ability to perform overhead tasks in the kitchen and with pruning by 01/03/21. LTG Duration 8 weeks 2 Aquarium Specialist Goal (LTG) Pt will report a 90% improvement in using his right hand to move items in and out of the refridgerator and to slat pickler coffee cup to return to PLOF by 01/03/21. 11/03/20: Pt reports that his right shoulder is at least 20% better since starting PT. 1 Chcf Goal (LTG) Pt will present with an improved QuickDASH score of no more than 5% to reflect improved ability to perform ADLs and IADLs by 01/03/21. LTG Duration 8 weeks Assessment Summary Assessment Pt states that he is going to get a referral to see a specialist about his vacuum phenomenon and SI pain. He has a lot of complaints about his back. Manual work today improved his symptoms and will add Edson gee in future treatments. Physical Therapy Plan Frequency and Duration Frequency of Treatment 2x/Week Duration of Treatment 8 weeks Plan of Care Start Date 11/03/20 Plan of Care End Date 01/05/21 Therapeutic Interventions Therapeutic Interventions Aquatic Therapy,Balance Training,Canalithic Repositioning,Gait Training, Home Exercise Program,Joint Mobilizations,Manual Therapy, Neuromuscular Re-education, Patient/Caregiver Education, Self-Care/Home Management,Soft Tissue Mobilization,Taping, Therapeutic Activities, Therapeutic Exercises Modalities Cold Pack/Ice Massage,Electric Stimulation,Hot Packs, Ultrasound Next Visit Focus/Plan Next Note Type Treatment Note Next Visit Plan Edson gee, consider stretching over pool noodle, [place] Protocol and other manual work, hip progression in hook lying
--- NOTE | 2020-12-01 08:58 | PT.OTN ---
Current Diagnoses Pain in right shoulder (12/01/20) Pain in right hip (12/01/20) Pain in right arm (12/01/20) Physical Therapy Treatment Note PT-OP-A Visit Information Start: 10/16/20 13:49 Freq: Status: Active Protocol: Document 12/01/20 08:15 MB (Rec: 12/01/20 08:58 MB [id number]) Out-Patient Physical Therapy Visit Information Visit Information Visit Type Treatment Note Visit Note Medicare, for Life Visit Start Time 08:15 Visit Stop Time 08:56 Total Visit Minutes 41 Visit Number 13 PT-OP-B Current Condition Start: 10/16/20 13:49 Freq: Status: Active Protocol: Document 10/21/20 08:56 MB (Rec: 10/21/20 09:13 MB [id number]) Current Condition History of Current Condition Onset Date 1 year Current Complaints Right shoulder discomfort with activities History of Current Condition Pt reports right shoulder pain started during COVID when he started using exercise band. He was doing cardiac rehab for maintenance exercises after completing course when the clinic closed for COVID. He has had right shoulder pain that is annoying and awakens him at night. Occ he gets up and takes Tylenol and it helps . He finds that he does not want to raise the arm to put jars on the shelf. He is more often picking up his coffee cup with his left hand than his right. He is right handed. 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 Pulling down the branches of a hinds was problematic. Reaching to stick a fork in the ground with his right hand is problematic. He feels a crunching of a couple of things rubbing together in his upper arm. He had an x-ray and he states it said age appropriate changes of the joint. Pt reports pain 3/10 in his upper right shoulder and biceps area. He is sleeping on his left side or his back. He is not using a pillow between his arms and he has one pillow under his head and one between his knees. Pt underwent CAD bypass 2015. PMH includes BPPV, hearing problems, back pain and basal cell carcinoma. Treatment Goals Patient/Caregiver Goals To not have the pain discourage me from doing things with my right arm. PT-OP-C Subjective Start: 10/16/20 13:49 Freq: Status: Active Protocol: Document 12/01/20 08:15 MB (Rec: 12/01/20 08:58 MB [id number]) OP-PT Subjective Patient Comments Patient Comments Pt states that he notices a problem as soon as goes to get up. He confirms that he has a problem when he gets OOB. He reports right sided hip pain in the same area. He con't to go through routine on stationary bike, shower, and walking to [employer]. He reports hobbling. PT-OP-J Posture/Palpation/Skin Start: 10/16/20 13:49 Freq: Status: Active Protocol: Document 10/21/20 08:56 MB (Rec: 10/21/20 10:13 MB [id number]) Posture Evaluation Comments Posture Comments Standing posture with shoes on : forward head, rounded shoulders, Dowager's hump, left scapula protracted and higher than the right, right shoulder lower than the left, increased lordosis at one lumbar level (L3 area), right iliac crest mildly higher than the left, left foot with greater Pako angle than the right, pt stands with head rotated 5 deg to the left PT-OP-K Range of Motion Start: 10/16/20 13:49 Freq: Status: Active Protocol: Document 10/21/20 08:56 MB (Rec: 10/21/20 10:13 MB [id number]) Cervical Spine Range of Motion Cervical Spine Active Testing Position Standing Flexion 30 Extension 15 Rotation Left 40 Rotation Right 40 Lateral Flexion Left 10 Lateral Flexion Right 20 Comments All AROM from starting position of 5 deg resting left neck rotation Shoulder Goniometric Range of Motion Shoulder Right Testing Position Standing Flexion 130 Abduction 130 Comments Pt reports most discomfort with lowering arm from abducted position when arm is in about 30 deg abduction Pt supine for passive ER and IR with arm in 90/90 position: capsule is tight and ER is 50 and IR is 45 deg Left Testing Position Standing Flexion 145 Abduction 142 Comments Pt supine for passive ER and IR with arm in 90/90 position: capsule is tight and ER is 60 and IR is 45 deg Elbow/Forearm Range of Motion Elbow/Forearm ROM Limitations Comments Elbow ROM WNLs B with some discomfort with repeated right elbow flexion in standing Wrist Goniometric Range of Motion ROM Limitations Comments AROM B wrists WNLs PT-OP-M Strength Start: 10/16/20 13:49 Freq: Status: Active Protocol: Document 10/21/20 08:56 MB (Rec: 10/21/20 10:13 MB [id number]) Shoulder Strength Shoulder Manual Muscle Testing Right Comments MMT deferred in setting of discomfort with AROM and likely rotator cuff injury Left Flexion 5 Normal Abduction (C5) 5 Normal External Rotation 5 Normal Internal Rotation 5 Normal Elbow/Forearm Strength Elbow and Forearm Manual Muscle Testing Right Flexion (C6) 4 Good Extension (C7) 5 Normal Pronation 4 Good Supination 4 Good Left Flexion (C6) 5 Normal Extension (C7) 5 Normal Pronation 5 Normal Supination 5 Normal Wrist Strength Wrist Manual Muscle Testing Right Flexion (C7) 5 Normal Extension (C6) 5 Normal Left Flexion (C7) 5 Normal Extension (C6) 5 Normal PT-OP-Q Treatments Start: 10/16/20 13:49 Freq: Status: Active Protocol: Document 12/01/20 08:15 MB (Rec: 12/01/20 08:58 MB [id number]) Manual Therapy Treatment Other Other Manual Treatments Pt kneeling over wedge and plinth: STM thoracolumbar paraspinals, hip rotators, Pt prone: sacroiliac ligaments, sacral palpation and sacrum is more posterior and superior on the left side compared to the right. STM B TFL with B very tight. Self-Care/Home Management Treatment Education Other Education Ed pt on position on his stationary bike and he is not allowing his knees to go higher than his hip. Reviewed possible benefits of SI belt and pt states that mocked gait belt over trochanters does not help pain, ed pt that his back could be irritated by the ongoing weed eating even if it is one day later. Ed pt on benefits of not wearing tight belt, phone on it and things in pockets, a light and loose deven pack may help. PT-OP-T Assessment and Plan Start: 10/16/20 13:49 Freq: Status: Active Protocol: Document 12/01/20 08:15 MB (Rec: 12/01/20 08:58 MB [id number]) Physical Therapy Assessment Rehab Potential Rehabilitation Potential Good Evaluation Complexity Number of Personal Factors/Comorbidities 1-2 Number of Body Systems Impaired 1-2 Clinical Presentation at Evaluation Stable Impairments Impairments Functional Activities,Pain, Posture,ROM,Soft Tissue Mobility,Strength Goals 5 Psychiatric Orderly Goal (LTG) Pt will report an overall 75% improvement in right hip pain to improve gait and quality of life by 01/03/21. LTG Duration 8 weeks 4 Fci Goal (LTG) Pt will perform progressive HEP with I including cervical and thoracic mobility and flexibility, shoulder ROM, shoulder and intrascapular strengthening, LE flexibility, pelvic realignment, balance and core strengthening to improve pain and function by . 11/03/20: Pt is performing racquet ball massage and shoulder ROM exercises. LTG Duration 8 weeks 3 Psychiatric Orderly Goal (LTG) Pt will present with improved AROM right shoulder abduction and flexion equal to the left to improve ability to perform overhead tasks in the kitchen and with pruning by 01/03/21. LTG Duration 8 weeks 2 Psychiatric Orderly Goal (LTG) Pt will report a 90% improvement in using his right hand to move items in and out of the refridgerator and to black pickler coffee cup to return to PLOF by 01/03/21. 11/03/20: Pt reports that his right shoulder is at least 20% better since starting PT. 1 Fci Goal (LTG) Pt will present with an improved QuickDASH score of no more than 5% to reflect improved ability to perform ADLs and IADLs by 01/03/21. LTG Duration 8 weeks Assessment Summary Assessment Pt con't to use gas powered weed eater and he states that his back did not bother him before or after. He sees specialist the end of December. His sacral and spinal changes and repetitive gardening activities likely exacerbate his pain. Will review exercises and add Edson stretch in future treatment. Physical Therapy Plan Frequency and Duration Frequency of Treatment 2x/Week Duration of Treatment 8 weeks Plan of Care Start Date 11/03/20 Plan of Care End Date 01/05/21 Therapeutic Interventions Therapeutic Interventions Aquatic Therapy,Balance Training,Canalithic Repositioning,Gait Training, Home Exercise Program,Joint Mobilizations,Manual Therapy, Neuromuscular Re-education, Patient/Caregiver Education, Self-Care/Home Management,Soft Tissue Mobilization,Taping, Therapeutic Activities, Therapeutic Exercises Modalities Cold Pack/Ice Massage,Electric Stimulation,Hot Packs, Ultrasound Next Visit Focus/Plan Next Note Type Treatment Note Next Visit Plan Review core exercises, Edson stretch and hip abduction with band in hook lying, consider stretching over pool noodle, [place] Protocol and other manual work, hip progression in hook lying
--- NOTE | 2020-12-09 08:57 | PT.OTN ---
Current Diagnoses Pain in right shoulder (12/09/20) Pain in right hip (12/09/20) Pain in right arm (12/09/20) Physical Therapy Treatment Note PT-OP-A Visit Information Start: 10/16/20 13:49 Freq: Status: Active Protocol: Document 12/09/20 08:12 MB (Rec: 12/09/20 08:56 MB [id number]) Out-Patient Physical Therapy Visit Information Visit Information Visit Type Treatment Note Visit Note Medicare, for Life Visit Start Time 08:12 Visit Stop Time 08:57 Total Visit Minutes 45 Visit Number 14 PT-OP-B Current Condition Start: 10/16/20 13:49 Freq: Status: Active Protocol: Document 10/21/20 08:56 MB (Rec: 10/21/20 09:13 MB [id number]) Current Condition History of Current Condition Onset Date 1 year Current Complaints Right shoulder discomfort with activities History of Current Condition Pt reports right shoulder pain started during COVID when he started using exercise band. He was doing cardiac rehab for maintenance exercises after completing course when the clinic closed for COVID. He has had right shoulder pain that is annoying and awakens him at night. Occ he gets up and takes Tylenol and it helps . He finds that he does not want to raise the arm to put jars on the shelf. He is more often picking up his coffee cup with his left hand than his right. He is right handed. 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 Pulling down the branches of a hinds was problematic. Reaching to stick a fork in the ground with his right hand is problematic. He feels a crunching of a couple of things rubbing together in his upper arm. He had an x-ray and he states it said age appropriate changes of the joint. Pt reports pain 3/10 in his upper right shoulder and biceps area. He is sleeping on his left side or his back. He is not using a pillow between his arms and he has one pillow under his head and one between his knees. Pt underwent CAD bypass 2015. PMH includes BPPV, hearing problems, back pain and basal cell carcinoma. Treatment Goals Patient/Caregiver Goals To not have the pain discourage me from doing things with my right arm. PT-OP-C Subjective Start: 10/16/20 13:49 Freq: Status: Active Protocol: Document 12/09/20 08:12 MB (Rec: 12/09/20 08:56 MB [id number]) OP-PT Subjective Patient Comments Patient Comments Pt states that his hip is doing fine today. He had two days last week when it wasn't doing fine. He is going to [facility] on December 19. His shoulder is about the same. PT-OP-J Posture/Palpation/Skin Start: 10/16/20 13:49 Freq: Status: Active Protocol: Document 10/21/20 08:56 MB (Rec: 10/21/20 10:13 MB [id number]) Posture Evaluation Comments Posture Comments Standing posture with shoes on : forward head, rounded shoulders, Dowager's hump, left scapula protracted and higher than the right, right shoulder lower than the left, increased lordosis at one lumbar level (L3 area), right iliac crest mildly higher than the left, left foot with greater Pako angle than the right, pt stands with head rotated 5 deg to the left PT-OP-K Range of Motion Start: 10/16/20 13:49 Freq: Status: Active Protocol: Document 10/21/20 08:56 MB (Rec: 10/21/20 10:13 MB [id number]) Cervical Spine Range of Motion Cervical Spine Active Testing Position Standing Flexion 30 Extension 15 Rotation Left 40 Rotation Right 40 Lateral Flexion Left 10 Lateral Flexion Right 20 Comments All AROM from starting position of 5 deg resting left neck rotation Shoulder Goniometric Range of Motion Shoulder Right Testing Position Standing Flexion 130 Abduction 130 Comments Pt reports most discomfort with lowering arm from abducted position when arm is in about 30 deg abduction Pt supine for passive ER and IR with arm in 90/90 position: capsule is tight and ER is 50 and IR is 45 deg Left Testing Position Standing Flexion 145 Abduction 142 Comments Pt supine for passive ER and IR with arm in 90/90 position: capsule is tight and ER is 60 and IR is 45 deg Elbow/Forearm Range of Motion Elbow/Forearm ROM Limitations Comments Elbow ROM WNLs B with some discomfort with repeated right elbow flexion in standing Wrist Goniometric Range of Motion ROM Limitations Comments AROM B wrists WNLs PT-OP-M Strength Start: 10/16/20 13:49 Freq: Status: Active Protocol: Document 10/21/20 08:56 MB (Rec: 10/21/20 10:13 MB [id number]) Shoulder Strength Shoulder Manual Muscle Testing Right Comments MMT deferred in setting of discomfort with AROM and likely rotator cuff injury Left Flexion 5 Normal Abduction (C5) 5 Normal External Rotation 5 Normal Internal Rotation 5 Normal Elbow/Forearm Strength Elbow and Forearm Manual Muscle Testing Right Flexion (C6) 4 Good Extension (C7) 5 Normal Pronation 4 Good Supination 4 Good Left Flexion (C6) 5 Normal Extension (C7) 5 Normal Pronation 5 Normal Supination 5 Normal Wrist Strength Wrist Manual Muscle Testing Right Flexion (C7) 5 Normal Extension (C6) 5 Normal Left Flexion (C7) 5 Normal Extension (C6) 5 Normal PT-OP-Q Treatments Start: 10/16/20 13:49 Freq: Status: Active Protocol: Document 12/09/20 08:12 MB (Rec: 12/09/20 08:56 MB [id number]) Therapeutic Exercises Supine Exercises Pect stretch Side bilateral Equipment Used Over pt's purple pool noodle Comments Active movement and then hold Posterior capsule stretch Side right Equipment Used Pt's purple pool noodle Comments Core engaged Cane flexion and abduction Supine Exercise Name Added shoulder ER with cane today Side right Equipment Used Over pt's purple pool noodle Comments Core engaged Manual Therapy Treatment Other Other Manual Treatments Right shoulder [place] Protocol, posterior capsule stretch with PA joint line mobs grade III, right shoulder AROM flexion and abduction improved afterwards. AP mobs at joint line with right shoulder in ER. PA mobs with pt in prone and right shoulder in ER. PT-OP-T Assessment and Plan Start: 10/16/20 13:49 Freq: Status: Active Protocol: Document 12/09/20 08:12 MB (Rec: 12/09/20 08:56 MB [id number]) Physical Therapy Assessment Rehab Potential Rehabilitation Potential Good Evaluation Complexity Number of Personal Factors/Comorbidities 1-2 Number of Body Systems Impaired 1-2 Clinical Presentation at Evaluation Stable Impairments Impairments Functional Activities,Pain, Posture,ROM,Soft Tissue Mobility,Strength Goals 5 Manager Scheduling Goal (LTG) Pt will report an overall 75% improvement in right hip pain to improve gait and quality of life by 01/03/21. LTG Duration 8 weeks 4 Halfway Goal (LTG) Pt will perform progressive HEP with I including cervical and thoracic mobility and flexibility, shoulder ROM, shoulder and intrascapular strengthening, LE flexibility, pelvic realignment, balance and core strengthening to improve pain and function by . 11/03/20: Pt is performing racquet ball massage and shoulder ROM exercises. LTG Duration 8 weeks 3 Manager Scheduling Goal (LTG) Pt will present with improved AROM right shoulder abduction and flexion equal to the left to improve ability to perform overhead tasks in the kitchen and with pruning by 01/03/21. LTG Duration 8 weeks 2 Halfway Goal (LTG) Pt will report a 90% improvement in using his right hand to move items in and out of the refridgerator and to flower picker coffee cup to return to PLOF by 01/03/21. 11/03/20: Pt reports that his right shoulder is at least 20% better since starting PT. 1 Halfway Goal (LTG) Pt will present with an improved QuickDASH score of no more than 5% to reflect improved ability to perform ADLs and IADLs by 01/03/21. LTG Duration 8 weeks Assessment Summary Assessment Pt is having an okay right SI day and so able to work on his right shoulder and thoracic spine today. His right shoulder pain and range is better after treatment. Physical Therapy Plan Frequency and Duration Frequency of Treatment 2x/Week Duration of Treatment 8 weeks Plan of Care Start Date 11/03/20 Plan of Care End Date 01/05/21 Therapeutic Interventions Therapeutic Interventions Aquatic Therapy,Balance Training,Canalithic Repositioning,Gait Training, Home Exercise Program,Joint Mobilizations,Manual Therapy, Neuromuscular Re-education, Patient/Caregiver Education, Self-Care/Home Management,Soft Tissue Mobilization,Taping, Therapeutic Activities, Therapeutic Exercises Modalities Cold Pack/Ice Massage,Electric Stimulation,Hot Packs, Ultrasound Next Visit Focus/Plan Next Note Type Treatment Note Next Visit Plan Review core exercises, Edson stretch and hip abduction with band in hook lying, [place] Protocol and other manual work, hip progression in hook lying
--- NOTE | 2020-12-11 09:04 | PT.OTN ---
Current Diagnoses Pain in right shoulder (12/11/20) Pain in right hip (12/11/20) Pain in right arm (12/11/20) Physical Therapy Treatment Note PT-OP-A Visit Information Start: 10/16/20 13:49 Freq: Status: Active Protocol: Document 12/11/20 08:16 MB (Rec: 12/11/20 09:04 MB [id number]) Out-Patient Physical Therapy Visit Information Visit Information Visit Type Treatment Note Visit Note Medicare, for Life Visit Start Time 08:16 Visit Stop Time 09:00 Total Visit Minutes 44 Visit Number 15 PT-OP-B Current Condition Start: 10/16/20 13:49 Freq: Status: Active Protocol: Document 10/21/20 08:56 MB (Rec: 10/21/20 09:13 MB [id number]) Current Condition History of Current Condition Onset Date 1 year Current Complaints Right shoulder discomfort with activities History of Current Condition Pt reports right shoulder pain started during COVID when he started using exercise band. He was doing cardiac rehab for maintenance exercises after completing course when the clinic closed for COVID. He has had right shoulder pain that is annoying and awakens him at night. Occ he gets up and takes Tylenol and it helps . He finds that he does not want to raise the arm to put jars on the shelf. He is more often picking up his coffee cup with his left hand than his right. He is right handed. 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 Pulling down the branches of a hinds was problematic. Reaching to stick a fork in the ground with his right hand is problematic. He feels a crunching of a couple of things rubbing together in his upper arm. He had an x-ray and he states it said age appropriate changes of the joint. Pt reports pain 3/10 in his upper right shoulder and biceps area. He is sleeping on his left side or his back. He is not using a pillow between his arms and he has one pillow under his head and one between his knees. Pt underwent CAD bypass 2015. PMH includes BPPV, hearing problems, back pain and basal cell carcinoma. Treatment Goals Patient/Caregiver Goals To not have the pain discourage me from doing things with my right arm. PT-OP-C Subjective Start: 10/16/20 13:49 Freq: Status: Active Protocol: Document 12/11/20 08:16 MB (Rec: 12/11/20 09:04 MB [id number]) OP-PT Subjective Patient Comments Patient Comments Pt states that his arm was a little sore after treatment and that he was able to do what he wanted to do after treatment. He had some shoulder pain that woke him up last night. He has some questions about exercises on pool noodle. PT-OP-J Posture/Palpation/Skin Start: 10/16/20 13:49 Freq: Status: Active Protocol: Document 10/21/20 08:56 MB (Rec: 10/21/20 10:13 MB [id number]) Posture Evaluation Comments Posture Comments Standing posture with shoes on : forward head, rounded shoulders, Dowager's hump, left scapula protracted and higher than the right, right shoulder lower than the left, increased lordosis at one lumbar level (L3 area), right iliac crest mildly higher than the left, left foot with greater Pako angle than the right, pt stands with head rotated 5 deg to the left PT-OP-K Range of Motion Start: 10/16/20 13:49 Freq: Status: Active Protocol: Document 10/21/20 08:56 MB (Rec: 10/21/20 10:13 MB [id number]) Cervical Spine Range of Motion Cervical Spine Active Testing Position Standing Flexion 30 Extension 15 Rotation Left 40 Rotation Right 40 Lateral Flexion Left 10 Lateral Flexion Right 20 Comments All AROM from starting position of 5 deg resting left neck rotation Shoulder Goniometric Range of Motion Shoulder Right Testing Position Standing Flexion 130 Abduction 130 Comments Pt reports most discomfort with lowering arm from abducted position when arm is in about 30 deg abduction Pt supine for passive ER and IR with arm in 90/90 position: capsule is tight and ER is 50 and IR is 45 deg Left Testing Position Standing Flexion 145 Abduction 142 Comments Pt supine for passive ER and IR with arm in 90/90 position: capsule is tight and ER is 60 and IR is 45 deg Elbow/Forearm Range of Motion Elbow/Forearm ROM Limitations Comments Elbow ROM WNLs B with some discomfort with repeated right elbow flexion in standing Wrist Goniometric Range of Motion ROM Limitations Comments AROM B wrists WNLs PT-OP-M Strength Start: 10/16/20 13:49 Freq: Status: Active Protocol: Document 10/21/20 08:56 MB (Rec: 10/21/20 10:13 MB [id number]) Shoulder Strength Shoulder Manual Muscle Testing Right Comments MMT deferred in setting of discomfort with AROM and likely rotator cuff injury Left Flexion 5 Normal Abduction (C5) 5 Normal External Rotation 5 Normal Internal Rotation 5 Normal Elbow/Forearm Strength Elbow and Forearm Manual Muscle Testing Right Flexion (C6) 4 Good Extension (C7) 5 Normal Pronation 4 Good Supination 4 Good Left Flexion (C6) 5 Normal Extension (C7) 5 Normal Pronation 5 Normal Supination 5 Normal Wrist Strength Wrist Manual Muscle Testing Right Flexion (C7) 5 Normal Extension (C6) 5 Normal Left Flexion (C7) 5 Normal Extension (C6) 5 Normal PT-OP-Q Treatments Start: 10/16/20 13:49 Freq: Status: Active Protocol: Document 12/11/20 08:16 MB (Rec: 12/11/20 09:04 MB [id number]) Therapeutic Exercises Supine Exercises Pect stretch Side bilateral Equipment Used Red pool noodle Comments Active movement and then hold Posterior capsule stretch Side right Equipment Used Red pool noodle Comments Core engaged Core progression Supine Exercise Name Abdominal drawing in, lumbar rotation, HS, mini march Side bilateral Comments Cues to keep core tight, 10 reps all Cane flexion and abduction Supine Exercise Name Flexion, abduction, ER Side right Equipment Used Red pool noodle Reps/Minutes 10 reps all Comments Core engaged Manual Therapy Treatment Other Other Manual Treatments Pt kneeling over wedge and plinth: STM thoracolumbar paraspinals, hip rotators PT-OP-T Assessment and Plan Start: 10/16/20 13:49 Freq: Status: Active Protocol: Document 12/11/20 08:16 MB (Rec: 12/11/20 09:04 MB [id number]) Physical Therapy Assessment Rehab Potential Rehabilitation Potential Good Evaluation Complexity Number of Personal Factors/Comorbidities 1-2 Number of Body Systems Impaired 1-2 Clinical Presentation at Evaluation Stable Impairments Impairments Functional Activities,Pain, Posture,ROM,Soft Tissue Mobility,Strength Goals 5 Nursing Home Goal (LTG) Pt will report an overall 75% improvement in right hip pain to improve gait and quality of life by 01/03/21. LTG Duration 8 weeks 4 Fountain Worker Goal (LTG) Pt will perform progressive HEP with I including cervical and thoracic mobility and flexibility, shoulder ROM, shoulder and intrascapular strengthening, LE flexibility, pelvic realignment, balance and core strengthening to improve pain and function by . 11/03/20: Pt is performing racquet ball massage and shoulder ROM exercises. LTG Duration 8 weeks 3 Nursing Home Goal (LTG) Pt will present with improved AROM right shoulder abduction and flexion equal to the left to improve ability to perform overhead tasks in the kitchen and with pruning by 01/03/21. LTG Duration 8 weeks 2 Fountain Worker Goal (LTG) Pt will report a 90% improvement in using his right hand to move items in and out of the refridgerator and to pecan picker coffee cup to return to PLOF by 01/03/21. 11/03/20: Pt reports that his right shoulder is at least 20% better since starting PT. 1 Fountain Worker Goal (LTG) Pt will present with an improved QuickDASH score of no more than 5% to reflect improved ability to perform ADLs and IADLs by 01/03/21. LTG Duration 8 weeks Assessment Summary Assessment Reviewed exercises today per pt request and needs and pt performs well with cues and encouragement for shoulder exercises. He con't to be challenged by core activation and exercises. Core weakness and trouble with body awareness do contribute to his right SI symptoms and body mechanics. Will con't efforts. Physical Therapy Plan Frequency and Duration Frequency of Treatment 2x/Week Duration of Treatment 8 weeks Plan of Care Start Date 11/03/20 Plan of Care End Date 01/05/21 Therapeutic Interventions Therapeutic Interventions Aquatic Therapy,Balance Training,Canalithic Repositioning,Gait Training, Home Exercise Program,Joint Mobilizations,Manual Therapy, Neuromuscular Re-education, Patient/Caregiver Education, Self-Care/Home Management,Soft Tissue Mobilization,Taping, Therapeutic Activities, Therapeutic Exercises Modalities Cold Pack/Ice Massage,Electric Stimulation,Hot Packs, Ultrasound Next Visit Focus/Plan Next Note Type Treatment Note Next Visit Plan Edson stretch and hip abduction with band in hook lying, [place] Protocol and other manual work, hip progression in hook lying for strengthening with band and strengthening with band for shoulders over pool noodle
--- NOTE | 2020-12-17 11:17 | PT.OTN ---
Current Diagnoses Pain in right shoulder (12/17/20) Pain in right hip (12/17/20) Pain in right arm (12/17/20) Physical Therapy Treatment Note PT-OP-A Visit Information Start: 10/16/20 13:49 Freq: Status: Active Protocol: Document 12/17/20 10:29 MB (Rec: 12/17/20 11:17 MB [id number]) Out-Patient Physical Therapy Visit Information Visit Information Visit Type Treatment Note Visit Note Medicare, for Life Visit Start Time 10:29 Visit Stop Time 11:14 Total Visit Minutes 45 Visit Number 16 PT-OP-B Current Condition Start: 10/16/20 13:49 Freq: Status: Active Protocol: Document 10/21/20 08:56 MB (Rec: 10/21/20 09:13 MB [id number]) Current Condition History of Current Condition Onset Date 1 year Current Complaints Right shoulder discomfort with activities History of Current Condition Pt reports right shoulder pain started during COVID when he started using exercise band. He was doing cardiac rehab for maintenance exercises after completing course when the clinic closed for COVID. He has had right shoulder pain that is annoying and awakens him at night. Occ he gets up and takes Tylenol and it helps . He finds that he does not want to raise the arm to put jars on the shelf. He is more often picking up his coffee cup with his left hand than his right. He is right handed. 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 Pulling down the branches of a hinds was problematic. Reaching to stick a fork in the ground with his right hand is problematic. He feels a crunching of a couple of things rubbing together in his upper arm. He had an x-ray and he states it said age appropriate changes of the joint. Pt reports pain 3/10 in his upper right shoulder and biceps area. He is sleeping on his left side or his back. He is not using a pillow between his arms and he has one pillow under his head and one between his knees. Pt underwent CAD bypass 2015. PMH includes BPPV, hearing problems, back pain and basal cell carcinoma. Treatment Goals Patient/Caregiver Goals To not have the pain discourage me from doing things with my right arm. PT-OP-C Subjective Start: 10/16/20 13:49 Freq: Status: Active Protocol: Document 12/17/20 10:29 MB (Rec: 12/17/20 11:17 MB [id number]) OP-PT Subjective Patient Comments Patient Comments Pt states that his orthopedic appointment was cancelled and he will be referred to another doctor and he doesn't know when that will be. Pt had pain in his LB after getting off the bike today. PT-OP-J Posture/Palpation/Skin Start: 10/16/20 13:49 Freq: Status: Active Protocol: Document 10/21/20 08:56 MB (Rec: 10/21/20 10:13 MB [id number]) Posture Evaluation Comments Posture Comments Standing posture with shoes on : forward head, rounded shoulders, Dowager's hump, left scapula protracted and higher than the right, right shoulder lower than the left, increased lordosis at one lumbar level (L3 area), right iliac crest mildly higher than the left, left foot with greater Pako angle than the right, pt stands with head rotated 5 deg to the left PT-OP-K Range of Motion Start: 10/16/20 13:49 Freq: Status: Active Protocol: Document 10/21/20 08:56 MB (Rec: 10/21/20 10:13 MB [id number]) Cervical Spine Range of Motion Cervical Spine Active Testing Position Standing Flexion 30 Extension 15 Rotation Left 40 Rotation Right 40 Lateral Flexion Left 10 Lateral Flexion Right 20 Comments All AROM from starting position of 5 deg resting left neck rotation Shoulder Goniometric Range of Motion Shoulder Right Testing Position Standing Flexion 130 Abduction 130 Comments Pt reports most discomfort with lowering arm from abducted position when arm is in about 30 deg abduction Pt supine for passive ER and IR with arm in 90/90 position: capsule is tight and ER is 50 and IR is 45 deg Left Testing Position Standing Flexion 145 Abduction 142 Comments Pt supine for passive ER and IR with arm in 90/90 position: capsule is tight and ER is 60 and IR is 45 deg Elbow/Forearm Range of Motion Elbow/Forearm ROM Limitations Comments Elbow ROM WNLs B with some discomfort with repeated right elbow flexion in standing Wrist Goniometric Range of Motion ROM Limitations Comments AROM B wrists WNLs PT-OP-M Strength Start: 10/16/20 13:49 Freq: Status: Active Protocol: Document 10/21/20 08:56 MB (Rec: 10/21/20 10:13 MB [id number]) Shoulder Strength Shoulder Manual Muscle Testing Right Comments MMT deferred in setting of discomfort with AROM and likely rotator cuff injury Left Flexion 5 Normal Abduction (C5) 5 Normal External Rotation 5 Normal Internal Rotation 5 Normal Elbow/Forearm Strength Elbow and Forearm Manual Muscle Testing Right Flexion (C6) 4 Good Extension (C7) 5 Normal Pronation 4 Good Supination 4 Good Left Flexion (C6) 5 Normal Extension (C7) 5 Normal Pronation 5 Normal Supination 5 Normal Wrist Strength Wrist Manual Muscle Testing Right Flexion (C7) 5 Normal Extension (C6) 5 Normal Left Flexion (C7) 5 Normal Extension (C6) 5 Normal PT-OP-Q Treatments Start: 10/16/20 13:49 Freq: Status: Active Protocol: Document 12/17/20 10:29 MB (Rec: 12/17/20 11:17 MB [id number]) Therapeutic Exercises Supine Exercises Edson stretch Supine Exercise Name Pt has trouble keeping spine flat and core tight Comments Pt cannot perform without right LBP, cannot keep core tight Anterior hip stretch Side bilateral Comments Pt reports LBP when performing on the right Manual Therapy Treatment Other Other Manual Treatments Pt hook lying: STM right vastus lateralis with rolling pin, positional release, STM left hip flexor and QL PT-OP-T Assessment and Plan Start: 10/16/20 13:49 Freq: Status: Active Protocol: Document 12/17/20 10:29 MB (Rec: 12/17/20 11:17 MB [id number]) Physical Therapy Assessment Rehab Potential Rehabilitation Potential Good Evaluation Complexity Number of Personal Factors/Comorbidities 1-2 Number of Body Systems Impaired 1-2 Clinical Presentation at Evaluation Stable Impairments Impairments Functional Activities,Pain, Posture,ROM,Soft Tissue Mobility,Strength Goals 5 Snf Goal (LTG) Pt will report an overall 75% improvement in right hip pain to improve gait and quality of life by 01/03/21. LTG Duration 8 weeks 4 Asphalt Tamper Goal (LTG) Pt will perform progressive HEP with I including cervical and thoracic mobility and flexibility, shoulder ROM, shoulder and intrascapular strengthening, LE flexibility, pelvic realignment, balance and core strengthening to improve pain and function by . 11/03/20: Pt is performing racquet ball massage and shoulder ROM exercises. LTG Duration 8 weeks 3 Snf Goal (LTG) Pt will present with improved AROM right shoulder abduction and flexion equal to the left to improve ability to perform overhead tasks in the kitchen and with pruning by 01/03/21. LTG Duration 8 weeks 2 Asphalt Tamper Goal (LTG) Pt will report a 90% improvement in using his right hand to move items in and out of the refridgerator and to orange picking supervisor coffee cup to return to PLOF by 01/03/21. 11/03/20: Pt reports that his right shoulder is at least 20% better since starting PT. 1 Asphalt Tamper Goal (LTG) Pt will present with an improved QuickDASH score of no more than 5% to reflect improved ability to perform ADLs and IADLs by 01/03/21. LTG Duration 8 weeks Assessment Summary Assessment Overall, PT feels that PT has been most helpful for pt's shoulder pain and not for his LB given his reports of shoulder improvement and better range and ongoing LB symptoms unchanged. His appointment with the computer network specialist is pending. Pt has trouble with Edson stretch today. Poor core awareness and ability to perform exercises is a barrier to PT. Physical Therapy Plan Frequency and Duration Frequency of Treatment 2x/Week Duration of Treatment 8 weeks Plan of Care Start Date 11/03/20 Plan of Care End Date 01/05/21 Therapeutic Interventions Therapeutic Interventions Aquatic Therapy,Balance Training,Canalithic Repositioning,Gait Training, Home Exercise Program,Joint Mobilizations,Manual Therapy, Neuromuscular Re-education, Patient/Caregiver Education, Self-Care/Home Management,Soft Tissue Mobilization,Taping, Therapeutic Activities, Therapeutic Exercises Modalities Cold Pack/Ice Massage,Electric Stimulation,Hot Packs, Ultrasound Next Visit Focus/Plan Next Note Type Treatment Note Next Visit Plan Hip abduction with band in hook lying, [place] Protocol and other manual work, hip progression in hook lying for strengthening with band and strengthening with band for shoulders over pool noodle
--- NOTE | 2020-12-18 11:09 | PT.OTN ---
Current Diagnoses Pain in right shoulder (12/18/20) Pain in right hip (12/18/20) Pain in right arm (12/18/20) Physical Therapy Treatment Note PT-OP-A Visit Information Start: 10/16/20 13:49 Freq: Status: Active Protocol: Document 12/18/20 10:31 MB (Rec: 12/18/20 11:09 MB [id number]) Out-Patient Physical Therapy Visit Information Visit Information Visit Type Treatment Note Visit Note Medicare, for Life Visit Start Time 10:31 Visit Stop Time 11:09 Total Visit Minutes 38 Visit Number 17 PT-OP-B Current Condition Start: 10/16/20 13:49 Freq: Status: Active Protocol: Document 10/21/20 08:56 MB (Rec: 10/21/20 09:13 MB [id number]) Current Condition History of Current Condition Onset Date 1 year Current Complaints Right shoulder discomfort with activities History of Current Condition Pt reports right shoulder pain started during COVID when he started using exercise band. He was doing cardiac rehab for maintenance exercises after completing course when the clinic closed for COVID. He has had right shoulder pain that is annoying and awakens him at night. Occ he gets up and takes Tylenol and it helps . He finds that he does not want to raise the arm to put jars on the shelf. He is more often picking up his coffee cup with his left hand than his right. He is right handed. 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 Pulling down the branches of a hinds was problematic. Reaching to stick a fork in the ground with his right hand is problematic. He feels a crunching of a couple of things rubbing together in his upper arm. He had an x-ray and he states it said age appropriate changes of the joint. Pt reports pain 3/10 in his upper right shoulder and biceps area. He is sleeping on his left side or his back. He is not using a pillow between his arms and he has one pillow under his head and one between his knees. Pt underwent CAD bypass 2015. PMH includes BPPV, hearing problems, back pain and basal cell carcinoma. Treatment Goals Patient/Caregiver Goals To not have the pain discourage me from doing things with my right arm. PT-OP-C Subjective Start: 10/16/20 13:49 Freq: Status: Active Protocol: Document 12/18/20 10:31 MB (Rec: 12/18/20 11:09 MB [id number]) OP-PT Subjective Patient Comments Patient Comments Pt states that he was sore after treatment and feels better today. PT-OP-J Posture/Palpation/Skin Start: 10/16/20 13:49 Freq: Status: Active Protocol: Document 10/21/20 08:56 MB (Rec: 10/21/20 10:13 MB [id number]) Posture Evaluation Comments Posture Comments Standing posture with shoes on : forward head, rounded shoulders, Dowager's hump, left scapula protracted and higher than the right, right shoulder lower than the left, increased lordosis at one lumbar level (L3 area), right iliac crest mildly higher than the left, left foot with greater Pako angle than the right, pt stands with head rotated 5 deg to the left PT-OP-K Range of Motion Start: 10/16/20 13:49 Freq: Status: Active Protocol: Document 10/21/20 08:56 MB (Rec: 10/21/20 10:13 MB [id number]) Cervical Spine Range of Motion Cervical Spine Active Testing Position Standing Flexion 30 Extension 15 Rotation Left 40 Rotation Right 40 Lateral Flexion Left 10 Lateral Flexion Right 20 Comments All AROM from starting position of 5 deg resting left neck rotation Shoulder Goniometric Range of Motion Shoulder Right Testing Position Standing Flexion 130 Abduction 130 Comments Pt reports most discomfort with lowering arm from abducted position when arm is in about 30 deg abduction Pt supine for passive ER and IR with arm in 90/90 position: capsule is tight and ER is 50 and IR is 45 deg Left Testing Position Standing Flexion 145 Abduction 142 Comments Pt supine for passive ER and IR with arm in 90/90 position: capsule is tight and ER is 60 and IR is 45 deg Elbow/Forearm Range of Motion Elbow/Forearm ROM Limitations Comments Elbow ROM WNLs B with some discomfort with repeated right elbow flexion in standing Wrist Goniometric Range of Motion ROM Limitations Comments AROM B wrists WNLs PT-OP-M Strength Start: 10/16/20 13:49 Freq: Status: Active Protocol: Document 10/21/20 08:56 MB (Rec: 10/21/20 10:13 MB [id number]) Shoulder Strength Shoulder Manual Muscle Testing Right Comments MMT deferred in setting of discomfort with AROM and likely rotator cuff injury Left Flexion 5 Normal Abduction (C5) 5 Normal External Rotation 5 Normal Internal Rotation 5 Normal Elbow/Forearm Strength Elbow and Forearm Manual Muscle Testing Right Flexion (C6) 4 Good Extension (C7) 5 Normal Pronation 4 Good Supination 4 Good Left Flexion (C6) 5 Normal Extension (C7) 5 Normal Pronation 5 Normal Supination 5 Normal Wrist Strength Wrist Manual Muscle Testing Right Flexion (C7) 5 Normal Extension (C6) 5 Normal Left Flexion (C7) 5 Normal Extension (C6) 5 Normal PT-OP-Q Treatments Start: 10/16/20 13:49 Freq: Status: Active Protocol: Document 12/18/20 10:31 MB (Rec: 12/18/20 11:09 MB [id number]) Therapeutic Exercises Supine Exercises Shoulder flexion with band Side bilateral Resistance Level 1 band looped around wrists Equipment Used Teal pool noodle Comments 10 reps Shoulder horizontal abduction Side bilateral Resistance Level 1 band Equipment Used Teal pool noodle Comments 10 reps Shoulder ER with band Side bilateral Resistance Level 1 band Equipment Used Teal pool noodle Comments 10 reps 1 Supine Exercise Name Clam in hook lying, feet together Side bilateral Resistance Level 1 and level 2 Comments 10 reps x2 with level 1; 10 reps x1 level 2, squeeze glutes Pect stretch Side bilateral Equipment Used Teal pool noodle Comments Active movement and then hold Posterior capsule stretch Side right Equipment Used Teal pool noodle PT-OP-T Assessment and Plan Start: 10/16/20 13:49 Freq: Status: Active Protocol: Document 12/18/20 10:31 MB (Rec: 12/18/20 11:09 MB [id number]) Physical Therapy Assessment Rehab Potential Rehabilitation Potential Good Evaluation Complexity Number of Personal Factors/Comorbidities 1-2 Number of Body Systems Impaired 1-2 Clinical Presentation at Evaluation Stable Impairments Impairments Functional Activities,Pain, Posture,ROM,Soft Tissue Mobility,Strength Goals 5 Halfway Goal (LTG) Pt will report an overall 75% improvement in right hip pain to improve gait and quality of life by 01/03/21. LTG Duration 8 weeks 4 Spring Inspector Goal (LTG) Pt will perform progressive HEP with I including cervical and thoracic mobility and flexibility, shoulder ROM, shoulder and intrascapular strengthening, LE flexibility, pelvic realignment, balance and core strengthening to improve pain and function by . 11/03/20: Pt is performing racquet ball massage and shoulder ROM exercises. LTG Duration 8 weeks 3 Spring Inspector Goal (LTG) Pt will present with improved AROM right shoulder abduction and flexion equal to the left to improve ability to perform overhead tasks in the kitchen and with pruning by 01/03/21. 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 11/03/20: Pt reports that his right shoulder is at least 20% better since starting PT. 1 Spring Inspector Goal (LTG) Pt will present with an improved QuickDASH score of no more than 5% to reflect improved ability to perform ADLs and IADLs by 01/03/21. LTG Duration 8 weeks Assessment Summary Assessment Progressed strengthening today . Con't progression per below. Physical Therapy Plan Frequency and Duration Frequency of Treatment 2x/Week Duration of Treatment 8 weeks Plan of Care Start Date 11/03/20 Plan of Care End Date 01/05/21 Therapeutic Interventions Therapeutic Interventions Aquatic Therapy,Balance Training,Canalithic Repositioning,Gait Training, Home Exercise Program,Joint Mobilizations,Manual Therapy, Neuromuscular Re-education, Patient/Caregiver Education, Self-Care/Home Management,Soft Tissue Mobilization,Taping, Therapeutic Activities, Therapeutic Exercises Modalities Cold Pack/Ice Massage,Electric Stimulation,Hot Packs, Ultrasound Next Visit Focus/Plan Next Note Type Treatment Note Next Visit Plan [place] Protocol and other manual work, hip strengthening progression with bridge (try) , PNF and triceps strengthening with band on pool noodle
--- NOTE | 2020-12-23 09:32 | PT.OTN ---
Current Diagnoses Pain in right shoulder (12/23/20) Pain in right hip (12/23/20) Pain in right arm (12/23/20) Physical Therapy Treatment Note PT-OP-A Visit Information Start: 10/16/20 13:49 Freq: Status: Active Protocol: Document 12/23/20 08:16 MB (Rec: 12/23/20 09:15 MB [id number]) Out-Patient Physical Therapy Visit Information Visit Information Visit Type Progress Note Visit Note Medicare, for Life Visit Start Time 08:16 Visit Stop Time 09:10 Total Visit Minutes 54 Visit Number 18 PT-OP-B Current Condition Start: 10/16/20 13:49 Freq: Status: Active Protocol: Document 10/21/20 08:56 MB (Rec: 10/21/20 09:13 MB [id number]) Current Condition History of Current Condition Onset Date 1 year Current Complaints Right shoulder discomfort with activities History of Current Condition Pt reports right shoulder pain started during COVID when he started using exercise band. He was doing cardiac rehab for maintenance exercises after completing course when the clinic closed for COVID. He has had right shoulder pain that is annoying and awakens him at night. Occ he gets up and takes Tylenol and it helps . He finds that he does not want to raise the arm to put jars on the shelf. He is more often picking up his coffee cup with his left hand than his right. He is right handed. 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 Pulling down the branches of a hinsd was problematic. Reaching to stick a fork in the ground with his right hand is problematic. He feels a crunching of a couple of things rubbing together in his upper arm. He had an x-ray and he states it said age appropriate changes of the joint. Pt reports pain 3/10 in his upper right shoulder and biceps area. He is sleeping on his left side or his back. He is not using a pillow between his arms and he has one pillow under his head and one between his knees. Pt underwent CAD bypass 2015. PMH includes BPPV, hearing problems, back pain and basal cell carcinoma. Treatment Goals Patient/Caregiver Goals To not have the pain discourage me from doing things with my right arm. PT-OP-C Subjective Start: 10/16/20 13:49 Freq: Status: Active Protocol: Document 12/23/20 08:16 MB (Rec: 12/23/20 09:15 MB [id number]) OP-PT Subjective Patient Comments Patient Comments Pt states that the shoulder and hip are going pretty well. PT-OP-J Posture/Palpation/Skin Start: 10/16/20 13:49 Freq: Status: Active Protocol: Document 10/21/20 08:56 MB (Rec: 10/21/20 10:13 MB [id number]) Posture Evaluation Comments Posture Comments Standing posture with shoes on : forward head, rounded shoulders, Dowager's hump, left scapula protracted and higher than the right, right shoulder lower than the left, increased lordosis at one lumbar level (L3 area), right iliac crest mildly higher than the left, left foot with greater Pako angle than the right, pt stands with head rotated 5 deg to the left PT-OP-K Range of Motion Start: 10/16/20 13:49 Freq: Status: Active Protocol: Document 10/21/20 08:56 MB (Rec: 10/21/20 10:13 MB [id number]) Cervical Spine Range of Motion Cervical Spine Active Testing Position Standing Flexion 30 Extension 15 Rotation Left 40 Rotation Right 40 Lateral Flexion Left 10 Lateral Flexion Right 20 Comments All AROM from starting position of 5 deg resting left neck rotation Shoulder Goniometric Range of Motion Shoulder Right Testing Position Standing Flexion 130 Abduction 130 Comments Pt reports most discomfort with lowering arm from abducted position when arm is in about 30 deg abduction Pt supine for passive ER and IR with arm in 90/90 position: capsule is tight and ER is 50 and IR is 45 deg Left Testing Position Standing Flexion 145 Abduction 142 Comments Pt supine for passive ER and IR with arm in 90/90 position: capsule is tight and ER is 60 and IR is 45 deg Elbow/Forearm Range of Motion Elbow/Forearm ROM Limitations Comments Elbow ROM WNLs B with some discomfort with repeated right elbow flexion in standing Wrist Goniometric Range of Motion ROM Limitations Comments AROM B wrists WNLs PT-OP-M Strength Start: 10/16/20 13:49 Freq: Status: Active Protocol: Document 10/21/20 08:56 MB (Rec: 10/21/20 10:13 MB [id number]) Shoulder Strength Shoulder Manual Muscle Testing Right Comments MMT deferred in setting of discomfort with AROM and likely rotator cuff injury Left Flexion 5 Normal Abduction (C5) 5 Normal External Rotation 5 Normal Internal Rotation 5 Normal Elbow/Forearm Strength Elbow and Forearm Manual Muscle Testing Right Flexion (C6) 4 Good Extension (C7) 5 Normal Pronation 4 Good Supination 4 Good Left Flexion (C6) 5 Normal Extension (C7) 5 Normal Pronation 5 Normal Supination 5 Normal Wrist Strength Wrist Manual Muscle Testing Right Flexion (C7) 5 Normal Extension (C6) 5 Normal Left Flexion (C7) 5 Normal Extension (C6) 5 Normal PT-OP-Q Treatments Start: 10/16/20 13:49 Freq: Status: Active Protocol: Document 12/23/20 08:16 MB (Rec: 12/23/20 09:15 MB [id number]) Therapeutic Exercises Standing Exercises Scapular retraction and shoulder extension Side bilateral Comments Level 1 band and scapular retraction and shoulder extension, 10 reps Multifidi and balance exercise Side bilateral Comments Level 1 band at side and heel raises, core tight Other Exercises Verbally reviewed exercises during progress notes Comments Performed today Manual Therapy Treatment Other Other Manual Treatments [place] protocol right shoulder: active flexion and abduction improved after treatment and pt denies pain with lower his arm. Supine right shoulder AP mobs with arm in ER. Prone PA mobs with right shoulder in IR and ER, superior capsule mobs in all positions, PA mobs with right shoulder in sleeper stretch position PT-OP-T Assessment and Plan Start: 10/16/20 13:49 Freq: Status: Active Protocol: Document 12/23/20 08:16 MB (Rec: 12/23/20 09:15 MB [id number]) Physical Therapy Assessment Rehab Potential Rehabilitation Potential Good Evaluation Complexity Number of Personal Factors/Comorbidities 1-2 Number of Body Systems Impaired 1-2 Clinical Presentation at Evaluation Stable Impairments Impairments Functional Activities,Pain, Posture,ROM,Soft Tissue Mobility,Strength Goals 6 Jail Goal (LTG) Pt will be able to flex and then lower right arm in standing without feeling a catch by 02/14/21. LTG Duration 8 weeks 5 Chart Calculator Goal (LTG) Pt will report an overall 75% improvement in right hip pain to improve gait and quality of life by 02/14/21. 12/23/20: Pt is being careful about putting shoes on ( leaning over and not putting leg over other leg). His hip is fine and then all of the sudden can be bad. LTG Duration 8 weeks 4 Jail Goal (LTG) Pt will perform progressive HEP with I including cervical and thoracic mobility and flexibility, shoulder ROM, shoulder and intrascapular strengthening, LE flexibility, pelvic realignment, balance and core strengthening to improve pain and function by . 02/14/21: Pt is performing progressive exercise LTG Duration 8 weeks 3 Chart Calculator Goal (LTG) Pt will present with improved AROM right shoulder abduction and flexion equal to the left to improve ability to perform overhead tasks in the kitchen and with pruning by 02/14/21. 12/23/20: Right shoulder flexion is 10 deg less than the left and abduction is 5 deg less than the left LTG Duration 8 weeks 2 Jail Goal (LTG) Pt will report a 90% improvement in using his right hand to move items in and out of the refridgerator and to bean picker coffee cup to return to PLOF by 01/03/21. 12/23/20: Met LTG Duration Met 1 Chart Calculator Goal (LTG) Pt will present with an improved QuickDASH score of no more than 5% to reflect improved ability to perform ADLs and IADLs by 02/14/21. 12/23/20: QuickDASH score is 13. 63% this date. LTG Duration 8 weeks Assessment Summary Assessment Pt reports ongoing back tension and discomfort in the morning. His right hip is better with bending over to put on shoes rather than crossing one leg over the other. He has a catch feeling in his right arm with standing flexion and then lowering arm. He is able to bean picker his coffee cup and put dishes in the cabinet. Overall, pt is making good improvements with his right shoulder with PT. Improvement with right hip/back is slow and he has a specialist referral. He will benefit from ongoing PT for postural, flexibility, strengthening and ergonomic training interventions. He has responded very well to manual treatment with PT. Physical Therapy Plan Frequency and Duration Frequency of Treatment 2x/Week Duration of Treatment 8 weeks Plan of Care Start Date 12/23/20 Plan of Care End Date 02/14/21 Therapeutic Interventions Therapeutic Interventions Aquatic Therapy,Balance Training,Canalithic Repositioning,Gait Training, Home Exercise Program,Joint Mobilizations,Manual Therapy, Neuromuscular Re-education, Patient/Caregiver Education, Self-Care/Home Management,Soft Tissue Mobilization,Taping, Therapeutic Activities, Therapeutic Exercises Modalities Cold Pack/Ice Massage,Electric Stimulation,Hot Packs, Ultrasound Next Visit Focus/Plan Next Note Type Treatment Note Next Visit Plan Con't [place] Protocol and other manual work, hip strengthening progression with bridge (try), PNF and triceps strengthening with band on pool noodle
--- NOTE | 2020-12-23 09:32 | PT.OPPOC ---
Physical, Occupational & Speech Therapy At [facility] Current Diagnoses Pain in right shoulder (12/23/20) Pain in right hip (12/23/20) Pain in right arm (12/23/20) Visit Care Team Role Provider Type Brandie Prabhakar MD Attending Provider Non-Staff Primary Care Provider Referring Provider Specialty: Family Practice Address: [address] [place] [address], [id number] Email: Plan Of Care PT-OP-T Assessment and Plan Start: 10/16/20 13:49 Freq: Status: Active Protocol: Document 12/23/20 08:16 MB (Rec: 12/23/20 09:15 MB [id number]) Physical Therapy Assessment Rehab Potential Rehabilitation Potential Good Evaluation Complexity Number of Personal Factors/Comorbidities 1-2 Number of Body Systems Impaired 1-2 Clinical Presentation at Evaluation Stable Impairments Impairments Functional Activities,Pain, Posture,ROM,Soft Tissue Mobility,Strength Goals 6 Broom Worker Goal (LTG) Pt will be able to flex and then lower right arm in standing without feeling a catch by 02/14/21. LTG Duration 8 weeks 5 Broom Worker Goal (LTG) Pt will report an overall 75% improvement in right hip pain to improve gait and quality of life by 02/14/21. 12/23/20: Pt is being careful about putting shoes on ( leaning over and not putting leg over other leg). His hip is fine and then all of the sudden can be bad. LTG Duration 8 weeks 4 Usp Goal (LTG) Pt will perform progressive HEP with I including cervical and thoracic mobility and flexibility, shoulder ROM, shoulder and intrascapular strengthening, LE flexibility, pelvic realignment, balance and core strengthening to improve pain and function by . 02/14/21: Pt is performing progressive exercise LTG Duration 8 weeks 3 Usp Goal (LTG) Pt will present with improved AROM right shoulder abduction and flexion equal to the left to improve ability to perform overhead tasks in the kitchen and with pruning by 02/14/21. 12/23/20: Right shoulder flexion is 10 deg less than the left and abduction is 5 deg less than the left LTG Duration 8 weeks 2 Usp Goal (LTG) Pt will report a 90% improvement in using his right hand to move items in and out of the refridgerator and to cone picker coffee cup to return to PLOF by 01/03/21. 12/23/20: Met LTG Duration Met 1 Usp Goal (LTG) Pt will present with an improved QuickDASH score of no more than 5% to reflect improved ability to perform ADLs and IADLs by 02/14/21. 12/23/20: QuickDASH score is 13. 63% this date. LTG Duration 8 weeks Assessment Summary Assessment Pt reports ongoing back tension and discomfort in the morning. His right hip is better with bending over to put on shoes rather than crossing one leg over the other. He has a catch feeling in his right arm with standing flexion and then lowering arm. He is able to cone picker his coffee cup and put dishes in the cabinet. Overall, pt is making good improvements with his right shoulder with PT. Improvement with right hip/back is slow and he has a specialist referral. He will benefit from ongoing PT for postural, flexibility, strengthening and ergonomic training interventions. He has responded very well to manual treatment with PT. Physical Therapy Plan Frequency and Duration Frequency of Treatment 2x/Week Duration of Treatment 8 weeks Plan of Care Start Date 12/23/20 Plan of Care End Date 02/14/21 Therapeutic Interventions Therapeutic Interventions Aquatic Therapy,Balance Training,Canalithic Repositioning,Gait Training, Home Exercise Program,Joint Mobilizations,Manual Therapy, Neuromuscular Re-education, Patient/Caregiver Education, Self-Care/Home Management,Soft Tissue Mobilization,Taping, Therapeutic Activities, Therapeutic Exercises Modalities Cold Pack/Ice Massage,Electric Stimulation,Hot Packs, Ultrasound Next Visit Focus/Plan Next Note Type Treatment Note Next Visit Plan Con't [place] Protocol and other manual work, hip strengthening progression with bridge (try), PNF and triceps strengthening with band on pool noodle Plan of Care Dates Plan of Care Start Date 12/23/20 Plan of Care End Date 02/14/21 Electronically Signed by: Katharine Shukla, PT 12/23/20 0962 Please Sign and Return: I have reviewed this Plan of Care and certify that the skilled therapy services above are required to meet the patient?s needs. Physician Signature Date Printed Name and Credentials Clinical Instructor Signature Printed Name and Credentials
--- NOTE | 2020-12-26 08:57 | PT.OTN ---
Current Diagnoses Pain in right shoulder (12/26/20) Pain in right hip (12/26/20) Pain in right arm (12/26/20) Physical Therapy Treatment Note PT-OP-A Visit Information Start: 10/16/20 13:49 Freq: Status: Active Protocol: Document 12/26/20 08:17 MB (Rec: 12/26/20 08:56 MB [id number]) Out-Patient Physical Therapy Visit Information Visit Information Visit Type Treatment Note Visit Note Medicare, for Life Visit Start Time 08:17 Visit Stop Time 08:57 Total Visit Minutes 40 Visit Number 19 PT-OP-B Current Condition Start: 10/16/20 13:49 Freq: Status: Active Protocol: Document 10/21/20 08:56 MB (Rec: 10/21/20 09:13 MB [id number]) Current Condition History of Current Condition Onset Date 1 year Current Complaints Right shoulder discomfort with activities History of Current Condition Pt reports right shoulder pain started during COVID when he started using exercise band. He was doing cardiac rehab for maintenance exercises after completing course when the clinic closed for COVID. He has had right shoulder pain that is annoying and awakens him at night. Occ he gets up and takes Tylenol and it helps . He finds that he does not want to raise the arm to put jars on the shelf. He is more often picking up his coffee cup with his left hand than his right. He is right handed. 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 Pulling down the branches of a hinds was problematic. Reaching to stick a fork in the ground with his right hand is problematic. He feels a crunching of a couple of things rubbing together in his upper arm. He had an x-ray and he states it said age appropriate changes of the joint. Pt reports pain 3/10 in his upper right shoulder and biceps area. He is sleeping on his left side or his back. He is not using a pillow between his arms and he has one pillow under his head and one between his knees. Pt underwent CAD bypass 2015. PMH includes BPPV, hearing problems, back pain and basal cell carcinoma. Treatment Goals Patient/Caregiver Goals To not have the pain discourage me from doing things with my right arm. PT-OP-C Subjective Start: 10/16/20 13:49 Freq: Status: Active Protocol: Document 12/26/20 08:17 MB (Rec: 12/26/20 08:56 MB [id number]) OP-PT Subjective Patient Comments Patient Comments I do have one thing to add about how I am doing. I still have the occasional glitch with bringing my arm down from doing something. Pt reports that his right arm wasn't of any use with managing his ladder at home. PT-OP-J Posture/Palpation/Skin Start: 10/16/20 13:49 Freq: Status: Active Protocol: Document 10/21/20 08:56 MB (Rec: 10/21/20 10:13 MB [id number]) Posture Evaluation Comments Posture Comments Standing posture with shoes on : forward head, rounded shoulders, Dowager's hump, left scapula protracted and higher than the right, right shoulder lower than the left, increased lordosis at one lumbar level (L3 area), right iliac crest mildly higher than the left, left foot with greater Pako angle than the right, pt stands with head rotated 5 deg to the left PT-OP-K Range of Motion Start: 10/16/20 13:49 Freq: Status: Active Protocol: Document 10/21/20 08:56 MB (Rec: 10/21/20 10:13 MB [id number]) Cervical Spine Range of Motion Cervical Spine Active Testing Position Standing Flexion 30 Extension 15 Rotation Left 40 Rotation Right 40 Lateral Flexion Left 10 Lateral Flexion Right 20 Comments All AROM from starting position of 5 deg resting left neck rotation Shoulder Goniometric Range of Motion Shoulder Right Testing Position Standing Flexion 130 Abduction 130 Comments Pt reports most discomfort with lowering arm from abducted position when arm is in about 30 deg abduction Pt supine for passive ER and IR with arm in 90/90 position: capsule is tight and ER is 50 and IR is 45 deg Left Testing Position Standing Flexion 145 Abduction 142 Comments Pt supine for passive ER and IR with arm in 90/90 position: capsule is tight and ER is 60 and IR is 45 deg Elbow/Forearm Range of Motion Elbow/Forearm ROM Limitations Comments Elbow ROM WNLs B with some discomfort with repeated right elbow flexion in standing Wrist Goniometric Range of Motion ROM Limitations Comments AROM B wrists WNLs PT-OP-M Strength Start: 10/16/20 13:49 Freq: Status: Active Protocol: Document 10/21/20 08:56 MB (Rec: 10/21/20 10:13 MB [id number]) Shoulder Strength Shoulder Manual Muscle Testing Right Comments MMT deferred in setting of discomfort with AROM and likely rotator cuff injury Left Flexion 5 Normal Abduction (C5) 5 Normal External Rotation 5 Normal Internal Rotation 5 Normal Elbow/Forearm Strength Elbow and Forearm Manual Muscle Testing Right Flexion (C6) 4 Good Extension (C7) 5 Normal Pronation 4 Good Supination 4 Good Left Flexion (C6) 5 Normal Extension (C7) 5 Normal Pronation 5 Normal Supination 5 Normal Wrist Strength Wrist Manual Muscle Testing Right Flexion (C7) 5 Normal Extension (C6) 5 Normal Left Flexion (C7) 5 Normal Extension (C6) 5 Normal PT-OP-Q Treatments Start: 10/16/20 13:49 Freq: Status: Active Protocol: Document 12/26/20 08:17 MB (Rec: 12/26/20 08:56 MB [id number]) Cardio Equipment Upper Body Ergometer (UBE) Duration (Minutes) 10 Other 1' forward and then 1' backward Therapeutic Exercises Standing Exercises Body Blade exercises Standing Exercise Name Classic and yellow body blade Comments Many minutes trying and pt has trouble with all positions Forward flexion and abduction wall crawls Side right Comments Mild scaption plane today Manual Therapy Treatment Other Other Manual Treatments Pt sitting with right arm resting in ER and IR on wedge on mat and PT performing superior to inferior, AP and PA joint mobs grade II-IV PT-OP-T Assessment and Plan Start: 10/16/20 13:49 Freq: Status: Active Protocol: Document 12/26/20 08:17 MB (Rec: 12/26/20 08:56 MB [id number]) Physical Therapy Assessment Rehab Potential Rehabilitation Potential Good Evaluation Complexity Number of Personal Factors/Comorbidities 1-2 Number of Body Systems Impaired 1-2 Clinical Presentation at Evaluation Stable Impairments Impairments Functional Activities,Pain, Posture,ROM,Soft Tissue Mobility,Strength Goals 6 [employer] Goal (LTG) Pt will be able to flex and then lower right arm in standing without feeling a catch by 02/14/21. LTG Duration 8 weeks 5 [employer] Goal (LTG) Pt will report an overall 75% improvement in right hip pain to improve gait and quality of life by 02/14/21. 12/23/20: Pt is being careful about putting shoes on ( leaning over and not putting leg over other leg). His hip is fine and then all of the sudden can be bad. LTG Duration 8 weeks 4 [facility] Goal (LTG) Pt will perform progressive HEP with I including cervical and thoracic mobility and flexibility, shoulder ROM, shoulder and intrascapular strengthening, LE flexibility, pelvic realignment, balance and core strengthening to improve pain and function by . 02/14/21: Pt is performing progressive exercise LTG Duration 8 weeks 3 [employer] Goal (LTG) Pt will present with improved AROM right shoulder abduction and flexion equal to the left to improve ability to perform overhead tasks in the kitchen and with pruning by 02/14/21. 12/23/20: Right shoulder flexion is 10 deg less than the left and abduction is 5 deg less than the left LTG Duration 8 weeks 2 [facility] Goal (LTG) Pt will report a 90% improvement in using his right hand to move items in and out of the refridgerator and to sheepskin pickler coffee cup to return to PLOF by 01/03/21. 12/23/20: Met LTG Duration Met 1 [employer] Goal (LTG) Pt will present with an improved QuickDASH score of no more than 5% to reflect improved ability to perform ADLs and IADLs by 02/14/21. 12/23/20: QuickDASH score is 13. 63% this date. LTG Duration 8 weeks Assessment Summary Assessment Progressed right shoulder strengthening today by bike and body blade. He presents with increased tension superior right shoulder joint capsule today and treated with mobs and wall crawl discomfort improves. Physical Therapy Plan Frequency and Duration Frequency of Treatment 2x/Week Duration of Treatment 8 weeks Plan of Care Start Date 12/23/20 Plan of Care End Date 02/14/21 Therapeutic Interventions Therapeutic Interventions Aquatic Therapy,Balance Training,Canalithic Repositioning,Gait Training, Home Exercise Program,Joint Mobilizations,Manual Therapy, Neuromuscular Re-education, Patient/Caregiver Education, Self-Care/Home Management,Soft Tissue Mobilization,Taping, Therapeutic Activities, Therapeutic Exercises Modalities Cold Pack/Ice Massage,Electric Stimulation,Hot Packs, Ultrasound Next Visit Focus/Plan Next Note Type Treatment Note Next Visit Plan Con't [place] Protocol and other manual work, hip strengthening progression with bridge (try), PNF and triceps strengthening with band on pool noodle
--- NOTE | 2020-12-29 08:59 | PT.OTN ---
Current Diagnoses Pain in right shoulder (12/29/20) Pain in right hip (12/29/20) Pain in right arm (12/29/20) Physical Therapy Treatment Note PT-OP-A Visit Information Start: 10/16/20 13:49 Freq: Status: Active Protocol: Document 12/29/20 08:16 MB (Rec: 12/29/20 08:59 MB [id number]) Out-Patient Physical Therapy Visit Information Visit Information Visit Type Treatment Note Visit Note Medicare, for Life Visit Start Time 08:16 Visit Stop Time 08:58 Total Visit Minutes 42 Visit Number 20 PT-OP-B Current Condition Start: 10/16/20 13:49 Freq: Status: Active Protocol: Document 10/21/20 08:56 MB (Rec: 10/21/20 09:13 MB [id number]) Current Condition History of Current Condition Onset Date 1 year Current Complaints Right shoulder discomfort with activities History of Current Condition Pt reports right shoulder pain started during COVID when he started using exercise band. He was doing cardiac rehab for maintenance exercises after completing course when the clinic closed for COVID. He has had right shoulder pain that is annoying and awakens him at night. Occ he gets up and takes Tylenol and it helps . He finds that he does not want to raise the arm to put jars on the shelf. He is more often picking up his coffee cup with his left hand than his right. He is right handed. 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 Pulling down the branches of a hinds was problematic. Reaching to stick a fork in the ground with his right hand is problematic. He feels a crunching of a couple of things rubbing together in his upper arm. He had an x-ray and he states it said age appropriate changes of the joint. Pt reports pain 3/10 in his upper right shoulder and biceps area. He is sleeping on his left side or his back. He is not using a pillow between his arms and he has one pillow under his head and one between his knees. Pt underwent CAD bypass 2015. PMH includes BPPV, hearing problems, back pain and basal cell carcinoma. Treatment Goals Patient/Caregiver Goals To not have the pain discourage me from doing things with my right arm. PT-OP-C Subjective Start: 10/16/20 13:49 Freq: Status: Active Protocol: Document 12/29/20 08:16 MB (Rec: 12/29/20 08:59 MB [id number]) OP-PT Subjective Patient Comments Patient Comments Okay when PT asks pt how he is doing PT-OP-J Posture/Palpation/Skin Start: 10/16/20 13:49 Freq: Status: Active Protocol: Document 10/21/20 08:56 MB (Rec: 10/21/20 10:13 MB [id number]) Posture Evaluation Comments Posture Comments Standing posture with shoes on : forward head, rounded shoulders, Dowager's hump, left scapula protracted and higher than the right, right shoulder lower than the left, increased lordosis at one lumbar level (L3 area), right iliac crest mildly higher than the left, left foot with greater Pako angle than the right, pt stands with head rotated 5 deg to the left PT-OP-K Range of Motion Start: 10/16/20 13:49 Freq: Status: Active Protocol: Document 10/21/20 08:56 MB (Rec: 10/21/20 10:13 MB [id number]) Cervical Spine Range of Motion Cervical Spine Active Testing Position Standing Flexion 30 Extension 15 Rotation Left 40 Rotation Right 40 Lateral Flexion Left 10 Lateral Flexion Right 20 Comments All AROM from starting position of 5 deg resting left neck rotation Shoulder Goniometric Range of Motion Shoulder Right Testing Position Standing Flexion 130 Abduction 130 Comments Pt reports most discomfort with lowering arm from abducted position when arm is in about 30 deg abduction Pt supine for passive ER and IR with arm in 90/90 position: capsule is tight and ER is 50 and IR is 45 deg Left Testing Position Standing Flexion 145 Abduction 142 Comments Pt supine for passive ER and IR with arm in 90/90 position: capsule is tight and ER is 60 and IR is 45 deg Elbow/Forearm Range of Motion Elbow/Forearm ROM Limitations Comments Elbow ROM WNLs B with some discomfort with repeated right elbow flexion in standing Wrist Goniometric Range of Motion ROM Limitations Comments AROM B wrists WNLs PT-OP-M Strength Start: 10/16/20 13:49 Freq: Status: Active Protocol: Document 10/21/20 08:56 MB (Rec: 10/21/20 10:13 MB [id number]) Shoulder Strength Shoulder Manual Muscle Testing Right Comments MMT deferred in setting of discomfort with AROM and likely rotator cuff injury Left Flexion 5 Normal Abduction (C5) 5 Normal External Rotation 5 Normal Internal Rotation 5 Normal Elbow/Forearm Strength Elbow and Forearm Manual Muscle Testing Right Flexion (C6) 4 Good Extension (C7) 5 Normal Pronation 4 Good Supination 4 Good Left Flexion (C6) 5 Normal Extension (C7) 5 Normal Pronation 5 Normal Supination 5 Normal Wrist Strength Wrist Manual Muscle Testing Right Flexion (C7) 5 Normal Extension (C6) 5 Normal Left Flexion (C7) 5 Normal Extension (C6) 5 Normal PT-OP-Q Treatments Start: 10/16/20 13:49 Freq: Status: Active Protocol: Document 12/29/20 08:16 MB (Rec: 12/29/20 08:59 MB [id number]) Cardio Equipment Upper Body Ergometer (UBE) Duration (Minutes) 10 Other 1' forward and 1' backward Therapeutic Exercises Supine Exercises Triceps chopping Side bilateral Resistance Yellow looped band, will use looped band at home Equipment Used Pool noodle Comments 10 reps PNF sword and sheath Side bilateral Resistance Level 2 band, advanced past level 1 Equipment Used Pool noodle Comments 10 reps, cues for form Shoulder flexion with band Side bilateral Resistance Yellow band around wrists Equipment Used Pool noodle Comments 10 reps x2 with cues Shoulder ER with band Side bilateral Resistance Level 2 band Equipment Used Pool noodle Comments 10 reps Pect stretch Side bilateral Equipment Used Pool noodle Comments Pt reports occ pop right arm Posterior capsule stretch Side right Equipment Used Pool noodle Standing Exercises Body Blade exercises Standing Exercise Name Classic body blad today Comments Scaption, flexion, extension, dynamic and static, better today Manual Therapy Treatment Other Other Manual Treatments Pt sitting and right arm up on pillow, Grade III-IV superior inferior mobs at right GH joint PT-OP-T Assessment and Plan Start: 10/16/20 13:49 Freq: Status: Active Protocol: Document 12/29/20 08:16 MB (Rec: 12/29/20 08:59 MB [id number]) Physical Therapy Assessment Rehab Potential Rehabilitation Potential Good Evaluation Complexity Number of Personal Factors/Comorbidities 1-2 Number of Body Systems Impaired 1-2 Clinical Presentation at Evaluation Stable Impairments Impairments Functional Activities,Pain, Posture,ROM,Soft Tissue Mobility,Strength Goals 6 [facility] Goal (LTG) Pt will be able to flex and then lower right arm in standing without feeling a catch by 02/14/21. LTG Duration 8 weeks 5 [facility] Goal (LTG) Pt will report an overall 75% improvement in right hip pain to improve gait and quality of life by 02/14/21. 12/23/20: Pt is being careful about putting shoes on ( leaning over and not putting leg over other leg). His hip is fine and then all of the sudden can be bad. LTG Duration 8 weeks 4 [employer] Goal (LTG) Pt will perform progressive HEP with I including cervical and thoracic mobility and flexibility, shoulder ROM, shoulder and intrascapular strengthening, LE flexibility, pelvic realignment, balance and core strengthening to improve pain and function by . 02/14/21: Pt is performing progressive exercise LTG Duration 8 weeks 3 [employer] Goal (LTG) Pt will present with improved AROM right shoulder abduction and flexion equal to the left to improve ability to perform overhead tasks in the kitchen and with pruning by 02/14/21. 12/23/20: Right shoulder flexion is 10 deg less than the left and abduction is 5 deg less than the left LTG Duration 8 weeks 2 [facility] Goal (LTG) Pt will report a 90% improvement in using his right hand to move items in and out of the refridgerator and to poultry picking machine tender coffee cup to return to PLOF by 01/03/21. 12/23/20: Met LTG Duration Met 1 [facility] Goal (LTG) Pt will present with an improved QuickDASH score of no more than 5% to reflect improved ability to perform ADLs and IADLs by 02/14/21. 12/23/20: QuickDASH score is 13. 63% this date. LTG Duration 8 weeks Assessment Summary Assessment Progressed strengthening over the pool noodle today for shoulders. Pt con't to report catch with lowering arm from scaption/flexion in standing and also with coming down from abduction with stretch over pool noodle and will con't to monitor this, ed pt to not try to re-create this. Physical Therapy Plan Frequency and Duration Frequency of Treatment 2x/Week Duration of Treatment 8 weeks Plan of Care Start Date 12/23/20 Plan of Care End Date 02/14/21 Therapeutic Interventions Therapeutic Interventions Aquatic Therapy,Balance Training,Canalithic Repositioning,Gait Training, Home Exercise Program,Joint Mobilizations,Manual Therapy, Neuromuscular Re-education, Patient/Caregiver Education, Self-Care/Home Management,Soft Tissue Mobilization,Taping, Therapeutic Activities, Therapeutic Exercises Modalities Cold Pack/Ice Massage,Electric Stimulation,Hot Packs, Ultrasound Next Visit Focus/Plan Next Note Type Treatment Note Next Visit Plan Practice body blade, superior inferior right GH mobs, [place] Protocol and other manual work, hip strengthening progression with bridge (try)
--- NOTE | 2020-12-31 08:59 | PT.OTN ---
Current Diagnoses Pain in right shoulder (12/31/20) Pain in right hip (12/31/20) Pain in right arm (12/31/20) Physical Therapy Treatment Note PT-OP-A Visit Information Start: 10/16/20 13:49 Freq: Status: Active Protocol: Document 12/31/20 08:17 MB (Rec: 12/31/20 08:55 MB [id number]) Out-Patient Physical Therapy Visit Information Visit Information Visit Type Treatment Note Visit Note Medicare, for Life Visit Start Time 08:17 Visit Stop Time 08:55 Total Visit Minutes 38 Visit Number 21 PT-OP-B Current Condition Start: 10/16/20 13:49 Freq: Status: Active Protocol: Document 10/21/20 08:56 MB (Rec: 10/21/20 09:13 MB [id number]) Current Condition History of Current Condition Onset Date 1 year Current Complaints Right shoulder discomfort with activities History of Current Condition Pt reports right shoulder pain started during COVID when he started using exercise band. He was doing cardiac rehab for maintenance exercises after completing course when the clinic closed for COVID. He has had right shoulder pain that is annoying and awakens him at night. Occ he gets up and takes Tylenol and it helps . He finds that he does not want to raise the arm to put jars on the shelf. He is more often picking up his coffee cup with his left hand than his right. He is right handed. 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 Pulling down the branches of a hinds was problematic. Reaching to stick a fork in the ground with his right hand is problematic. He feels a crunching of a couple of things rubbing together in his upper arm. He had an x-ray and he states it said age appropriate changes of the joint. Pt reports pain 3/10 in his upper right shoulder and biceps area. He is sleeping on his left side or his back. He is not using a pillow between his arms and he has one pillow under his head and one between his knees. Pt underwent CAD bypass 2015. PMH includes BPPV, hearing problems, back pain and basal cell carcinoma. Treatment Goals Patient/Caregiver Goals To not have the pain discourage me from doing things with my right arm. PT-OP-C Subjective Start: 10/16/20 13:49 Freq: Status: Active Protocol: Document 12/31/20 08:17 MB (Rec: 12/31/20 08:55 MB [id number]) OP-PT Subjective Patient Comments Patient Comments I'm fine. Pt states that his back has been better for a couple of weeks. He has been avoiding putting on his shoes in a position that causes a problem. PT-OP-J Posture/Palpation/Skin Start: 10/16/20 13:49 Freq: Status: Active Protocol: Document 10/21/20 08:56 MB (Rec: 10/21/20 10:13 MB [id number]) Posture Evaluation Comments Posture Comments Standing posture with shoes on : forward head, rounded shoulders, Dowager's hump, left scapula protracted and higher than the right, right shoulder lower than the left, increased lordosis at one lumbar level (L3 area), right iliac crest mildly higher than the left, left foot with greater Pako angle than the right, pt stands with head rotated 5 deg to the left PT-OP-K Range of Motion Start: 10/16/20 13:49 Freq: Status: Active Protocol: Document 10/21/20 08:56 MB (Rec: 10/21/20 10:13 MB [id number]) Cervical Spine Range of Motion Cervical Spine Active Testing Position Standing Flexion 30 Extension 15 Rotation Left 40 Rotation Right 40 Lateral Flexion Left 10 Lateral Flexion Right 20 Comments All AROM from starting position of 5 deg resting left neck rotation Shoulder Goniometric Range of Motion Shoulder Right Testing Position Standing Flexion 130 Abduction 130 Comments Pt reports most discomfort with lowering arm from abducted position when arm is in about 30 deg abduction Pt supine for passive ER and IR with arm in 90/90 position: capsule is tight and ER is 50 and IR is 45 deg Left Testing Position Standing Flexion 145 Abduction 142 Comments Pt supine for passive ER and IR with arm in 90/90 position: capsule is tight and ER is 60 and IR is 45 deg Elbow/Forearm Range of Motion Elbow/Forearm ROM Limitations Comments Elbow ROM WNLs B with some discomfort with repeated right elbow flexion in standing Wrist Goniometric Range of Motion ROM Limitations Comments AROM B wrists WNLs PT-OP-M Strength Start: 10/16/20 13:49 Freq: Status: Active Protocol: Document 10/21/20 08:56 MB (Rec: 10/21/20 10:13 MB [id number]) Shoulder Strength Shoulder Manual Muscle Testing Right Comments MMT deferred in setting of discomfort with AROM and likely rotator cuff injury Left Flexion 5 Normal Abduction (C5) 5 Normal External Rotation 5 Normal Internal Rotation 5 Normal Elbow/Forearm Strength Elbow and Forearm Manual Muscle Testing Right Flexion (C6) 4 Good Extension (C7) 5 Normal Pronation 4 Good Supination 4 Good Left Flexion (C6) 5 Normal Extension (C7) 5 Normal Pronation 5 Normal Supination 5 Normal Wrist Strength Wrist Manual Muscle Testing Right Flexion (C7) 5 Normal Extension (C6) 5 Normal Left Flexion (C7) 5 Normal Extension (C6) 5 Normal PT-OP-Q Treatments Start: 10/16/20 13:49 Freq: Status: Active Protocol: Document 12/31/20 08:17 MB (Rec: 12/31/20 08:55 MB [id number]) Cardio Equipment Upper Body Ergometer (UBE) Duration (Minutes) 10 Other 1' forward and 1' backward Therapeutic Exercises Supine Exercises Bridge with band around knees Side bilateral Resistance Level 1 band Comments Performed with cues today, 2 reps, hold as long as possible Standing Exercises Body Blade exercises Standing Exercise Name Classic and yellow body blade today Comments Flexion, abduction and scaption today Forward flexion and abduction wall crawls Side right Comments Performed before and after shoulder mobs Manual Therapy Treatment Other Other Manual Treatments Pt sitting with right arm resting in ER and IR on wedge on mat and PT performing superior to inferior, AP and PA joint mobs grade II-IV. Improved wall crawls into abduction and no catch with walking fingers down after mobs. PT-OP-T Assessment and Plan Start: 10/16/20 13:49 Freq: Status: Active Protocol: Document 12/31/20 08:17 MB (Rec: 12/31/20 08:55 MB [id number]) Physical Therapy Assessment Rehab Potential Rehabilitation Potential Good Evaluation Complexity Number of Personal Factors/Comorbidities 1-2 Number of Body Systems Impaired 1-2 Clinical Presentation at Evaluation Stable Impairments Impairments Functional Activities,Pain, Posture,ROM,Soft Tissue Mobility,Strength Goals 6 Detention Goal (LTG) Pt will be able to flex and then lower right arm in standing without feeling a catch by 02/14/21. LTG Duration 8 weeks 5 Detention Goal (LTG) Pt will report an overall 75% improvement in right hip pain to improve gait and quality of life by 02/14/21. 12/23/20: Pt is being careful about putting shoes on ( leaning over and not putting leg over other leg). His hip is fine and then all of the sudden can be bad. LTG Duration 8 weeks 4 Mine Administrator Supervisor Goal (LTG) Pt will perform progressive HEP with I including cervical and thoracic mobility and flexibility, shoulder ROM, shoulder and intrascapular strengthening, LE flexibility, pelvic realignment, balance and core strengthening to improve pain and function by . 02/14/21: Pt is performing progressive exercise LTG Duration 8 weeks 3 Detention Goal (LTG) Pt will present with improved AROM right shoulder abduction and flexion equal to the left to improve ability to perform overhead tasks in the kitchen and with pruning by 02/14/21. 12/23/20: Right shoulder flexion is 10 deg less than the left and abduction is 5 deg less than the left LTG Duration 8 weeks 2 Mine Administrator Supervisor Goal (LTG) Pt will report a 90% improvement in using his right hand to move items in and out of the refridgerator and to burr picker coffee cup to return to PLOF by 01/03/21. 12/23/20: Met LTG Duration Met 1 Mine Administrator Supervisor Goal (LTG) Pt will present with an improved QuickDASH score of no more than 5% to reflect improved ability to perform ADLs and IADLs by 02/14/21. 12/23/20: QuickDASH score is 13. 63% this date. LTG Duration 8 weeks Assessment Summary Assessment Reviewed body blade and pt is performing much better today. Progressed hip strengthening with band and bridge and he has no pain with this initially. Physical Therapy Plan Frequency and Duration Frequency of Treatment 2x/Week Duration of Treatment 8 weeks Plan of Care Start Date 12/23/20 Plan of Care End Date 02/14/21 Therapeutic Interventions Therapeutic Interventions Aquatic Therapy,Balance Training,Canalithic Repositioning,Gait Training, Home Exercise Program,Joint Mobilizations,Manual Therapy, Neuromuscular Re-education, Patient/Caregiver Education, Self-Care/Home Management,Soft Tissue Mobilization,Taping, Therapeutic Activities, Therapeutic Exercises Modalities Cold Pack/Ice Massage,Electric Stimulation,Hot Packs, Ultrasound Next Visit Focus/Plan Next Note Type Treatment Note Next Visit Plan Practice body blade, superior inferior right GH mobs, [place] Protocol and other manual work
--- NOTE | 2021-01-06 10:32 | PT.OTN ---
Current Diagnoses Pain in right shoulder (01/06/21) Pain in right hip (01/06/21) Pain in right arm (01/06/21) Physical Therapy Treatment Note PT-OP-A Visit Information Start: 10/16/20 13:49 Freq: Status: Active Protocol: Document 01/06/21 09:46 MB (Rec: 01/06/21 10:31 MB [id number]) Out-Patient Physical Therapy Visit Information Visit Information Visit Type Treatment Note Visit Note Medicare, for Life Visit Start Time 09:46 Visit Stop Time 10:30 Total Visit Minutes 44 Visit Number 22 PT-OP-B Current Condition Start: 10/16/20 13:49 Freq: Status: Active Protocol: Document 10/21/20 08:56 MB (Rec: 10/21/20 09:13 MB [id number]) Current Condition History of Current Condition Onset Date 1 year Current Complaints Right shoulder discomfort with activities History of Current Condition Pt reports right shoulder pain started during COVID when he started using exercise band. He was doing cardiac rehab for maintenance exercises after completing course when the clinic closed for COVID. He has had right shoulder pain that is annoying and awakens him at night. Occ he gets up and takes Tylenol and it helps . He finds that he does not want to raise the arm to put jars on the shelf. He is more often picking up his coffee cup with his left hand than his right. He is right handed. 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 Pulling down the branches of a hinds was problematic. Reaching to stick a fork in the ground with his right hand is problematic. He feels a crunching of a couple of things rubbing together in his upper arm. He had an x-ray and he states it said age appropriate changes of the joint. Pt reports pain 3/10 in his upper right shoulder and biceps area. He is sleeping on his left side or his back. He is not using a pillow between his arms and he has one pillow under his head and one between his knees. Pt underwent CAD bypass 2015. PMH includes BPPV, hearing problems, back pain and basal cell carcinoma. Treatment Goals Patient/Caregiver Goals To not have the pain discourage me from doing things with my right arm. PT-OP-C Subjective Start: 10/16/20 13:49 Freq: Status: Active Protocol: Document 01/06/21 09:46 MB (Rec: 01/06/21 10:31 MB [id number]) OP-PT Subjective Patient Comments Patient Comments Pt states that his back is doing fine. He is having a lot of right shoulder pain with pect (tulip) stretch over pool noodle, sword and sheath PNF exercise over pool noodle and with a new task: lowering a bar/stick from shoulder height to address the screened garage door. He sees orthopedist for his hip tomorrow. PT-OP-J Posture/Palpation/Skin Start: 10/16/20 13:49 Freq: Status: Active Protocol: Document 10/21/20 08:56 MB (Rec: 10/21/20 10:13 MB [id number]) Posture Evaluation Comments Posture Comments Standing posture with shoes on : forward head, rounded shoulders, Dowager's hump, left scapula protracted and higher than the right, right shoulder lower than the left, increased lordosis at one lumbar level (L3 area), right iliac crest mildly higher than the left, left foot with greater Pako angle than the right, pt stands with head rotated 5 deg to the left PT-OP-K Range of Motion Start: 10/16/20 13:49 Freq: Status: Active Protocol: Document 10/21/20 08:56 MB (Rec: 10/21/20 10:13 MB [id number]) Cervical Spine Range of Motion Cervical Spine Active Testing Position Standing Flexion 30 Extension 15 Rotation Left 40 Rotation Right 40 Lateral Flexion Left 10 Lateral Flexion Right 20 Comments All AROM from starting position of 5 deg resting left neck rotation Shoulder Goniometric Range of Motion Shoulder Right Testing Position Standing Flexion 130 Abduction 130 Comments Pt reports most discomfort with lowering arm from abducted position when arm is in about 30 deg abduction Pt supine for passive ER and IR with arm in 90/90 position: capsule is tight and ER is 50 and IR is 45 deg Left Testing Position Standing Flexion 145 Abduction 142 Comments Pt supine for passive ER and IR with arm in 90/90 position: capsule is tight and ER is 60 and IR is 45 deg Elbow/Forearm Range of Motion Elbow/Forearm ROM Limitations Comments Elbow ROM WNLs B with some discomfort with repeated right elbow flexion in standing Wrist Goniometric Range of Motion ROM Limitations Comments AROM B wrists WNLs PT-OP-M Strength Start: 10/16/20 13:49 Freq: Status: Active Protocol: Document 10/21/20 08:56 MB (Rec: 10/21/20 10:13 MB [id number]) Shoulder Strength Shoulder Manual Muscle Testing Right Comments MMT deferred in setting of discomfort with AROM and likely rotator cuff injury Left Flexion 5 Normal Abduction (C5) 5 Normal External Rotation 5 Normal Internal Rotation 5 Normal Elbow/Forearm Strength Elbow and Forearm Manual Muscle Testing Right Flexion (C6) 4 Good Extension (C7) 5 Normal Pronation 4 Good Supination 4 Good Left Flexion (C6) 5 Normal Extension (C7) 5 Normal Pronation 5 Normal Supination 5 Normal Wrist Strength Wrist Manual Muscle Testing Right Flexion (C7) 5 Normal Extension (C6) 5 Normal Left Flexion (C7) 5 Normal Extension (C6) 5 Normal PT-OP-Q Treatments Start: 10/16/20 13:49 Freq: Status: Active Protocol: Document 01/06/21 09:46 MB (Rec: 01/06/21 10:31 MB [id number]) Cardio Equipment Upper Body Ergometer (UBE) Duration (Minutes) 10 Other 1' forward and 1' backward Manual Therapy Treatment Other Other Manual Treatments Pt agrees to Counterstrain to assess and treat fascial tension and pt presents with tension in the following fascial systems: ALL, somatics , costal cartilages, AINTS and LF. PT treats stacks in the following systems and scan improves after treatment: ALL and LF. PT-OP-T Assessment and Plan Start: 10/16/20 13:49 Freq: Status: Active Protocol: Document 01/06/21 09:46 MB (Rec: 01/06/21 10:31 MB [id number]) Physical Therapy Assessment Rehab Potential Rehabilitation Potential Good Evaluation Complexity Number of Personal Factors/Comorbidities 1-2 Number of Body Systems Impaired 1-2 Clinical Presentation at Evaluation Stable Impairments Impairments Functional Activities,Pain, Posture,ROM,Soft Tissue Mobility,Strength Goals 6 Skilled Nursing Goal (LTG) Pt will be able to flex and then lower right arm in standing without feeling a catch by 02/14/21. LTG Duration 8 weeks 5 Scanning Coordinator Goal (LTG) Pt will report an overall 75% improvement in right hip pain to improve gait and quality of life by 02/14/21. 12/23/20: Pt is being careful about putting shoes on ( leaning over and not putting leg over other leg). His hip is fine and then all of the sudden can be bad. LTG Duration 8 weeks 4 Scanning Coordinator Goal (LTG) Pt will perform progressive HEP with I including cervical and thoracic mobility and flexibility, shoulder ROM, shoulder and intrascapular strengthening, LE flexibility, pelvic realignment, balance and core strengthening to improve pain and function by . 02/14/21: Pt is performing progressive exercise LTG Duration 8 weeks 3 Skilled Nursing Goal (LTG) Pt will present with improved AROM right shoulder abduction and flexion equal to the left to improve ability to perform overhead tasks in the kitchen and with pruning by 02/14/21. 12/23/20: Right shoulder flexion is 10 deg less than the left and abduction is 5 deg less than the left LTG Duration 8 weeks 2 Skilled Nursing Goal (LTG) Pt will report a 90% improvement in using his right hand to move items in and out of the refridgerator and to chicken picker coffee cup to return to PLOF by 01/03/21. 12/23/20: Met LTG Duration Met 1 Scanning Coordinator Goal (LTG) Pt will present with an improved QuickDASH score of no more than 5% to reflect improved ability to perform ADLs and IADLs by 02/14/21. 12/23/20: QuickDASH score is 13. 63% this date. LTG Duration 8 weeks Assessment Summary Assessment Pt con't to report a catching sensation when he is lowering his right shoulder and given he is this far with PT including manual work, ROM, strengthening, PT feels that further diagnostics (ortho consult and MRI) may be warranted. Initiated Counterstrain today to treat fascial tension and pt reponds well. Physical Therapy Plan Frequency and Duration Frequency of Treatment 2x/Week Duration of Treatment 8 weeks Plan of Care Start Date 12/23/20 Plan of Care End Date 02/14/21 Therapeutic Interventions Therapeutic Interventions Aquatic Therapy,Balance Training,Canalithic Repositioning,Gait Training, Home Exercise Program,Joint Mobilizations,Manual Therapy, Neuromuscular Re-education, Patient/Caregiver Education, Self-Care/Home Management,Soft Tissue Mobilization,Taping, Therapeutic Activities, Therapeutic Exercises Modalities Cold Pack/Ice Massage,Electric Stimulation,Hot Packs, Ultrasound Other Referrals/Consults Referrals/Consults Recommended Orthopedic consult for right shoulder, possible MRI Next Visit Focus/Plan Next Note Type Treatment Note Next Visit Plan Practice body blade, superior inferior right GH mobs, [place] Protocol and other manual work
--- NOTE | 2021-01-09 08:56 | PT.OTN ---
Current Diagnoses Pain in right shoulder (01/09/21) Pain in right hip (01/09/21) Pain in right arm (01/09/21) Physical Therapy Treatment Note PT-OP-A Visit Information Start: 10/16/20 13:49 Freq: Status: Active Protocol: Document 01/09/21 08:16 MB (Rec: 01/09/21 08:56 MB [id number]) Out-Patient Physical Therapy Visit Information Visit Information Visit Type Treatment Note Visit Note Medicare, for Life Visit Start Time 08:16 Visit Stop Time 09:00 Total Visit Minutes 44 Visit Number 23 PT-OP-B Current Condition Start: 10/16/20 13:49 Freq: Status: Active Protocol: Document 10/21/20 08:56 MB (Rec: 10/21/20 09:13 MB [id number]) Current Condition History of Current Condition Onset Date 1 year Current Complaints Right shoulder discomfort with activities History of Current Condition Pt reports right shoulder pain started during COVID when he started using exercise band. He was doing cardiac rehab for maintenance exercises after completing course when the clinic closed for COVID. He has had right shoulder pain that is annoying and awakens him at night. Occ he gets up and takes Tylenol and it helps . He finds that he does not want to raise the arm to put jars on the shelf. He is more often picking up his coffee cup with his left hand than his right. He is right handed. 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 Pulling down the branches of a hinds was problematic. Reaching to stick a fork in the ground with his right hand is problematic. He feels a crunching of a couple of things rubbing together in his upper arm. He had an x-ray and he states it said age appropriate changes of the joint. Pt reports pain 3/10 in his upper right shoulder and biceps area. He is sleeping on his left side or his back. He is not using a pillow between his arms and he has one pillow under his head and one between his knees. Pt underwent CAD bypass 2015. PMH includes BPPV, hearing problems, back pain and basal cell carcinoma. Treatment Goals Patient/Caregiver Goals To not have the pain discourage me from doing things with my right arm. PT-OP-C Subjective Start: 10/16/20 13:49 Freq: Status: Active Protocol: Document 01/09/21 08:16 MB (Rec: 01/09/21 08:56 MB [id number]) OP-PT Subjective Patient Comments Patient Comments Pt saw network systems operator, Dr. Ross, at [facility]. He had a good experience. The doctor said his spine looked pretty good except for one at the very bottom. The conclusion was con't with PT and focus on core strengthen. He has a referral to see Dr. Ceja about his right shoulder. His appointment is 01/29/21. PT-OP-J Posture/Palpation/Skin Start: 10/16/20 13:49 Freq: Status: Active Protocol: Document 10/21/20 08:56 MB (Rec: 10/21/20 10:13 MB [id number]) Posture Evaluation Comments Posture Comments Standing posture with shoes on : forward head, rounded shoulders, Dowager's hump, left scapula protracted and higher than the right, right shoulder lower than the left, increased lordosis at one lumbar level (L3 area), right iliac crest mildly higher than the left, left foot with greater Pako angle than the right, pt stands with head rotated 5 deg to the left PT-OP-K Range of Motion Start: 10/16/20 13:49 Freq: Status: Active Protocol: Document 10/21/20 08:56 MB (Rec: 10/21/20 10:13 MB [id number]) Cervical Spine Range of Motion Cervical Spine Active Testing Position Standing Flexion 30 Extension 15 Rotation Left 40 Rotation Right 40 Lateral Flexion Left 10 Lateral Flexion Right 20 Comments All AROM from starting position of 5 deg resting left neck rotation Shoulder Goniometric Range of Motion Shoulder Right Testing Position Standing Flexion 130 Abduction 130 Comments Pt reports most discomfort with lowering arm from abducted position when arm is in about 30 deg abduction Pt supine for passive ER and IR with arm in 90/90 position: capsule is tight and ER is 50 and IR is 45 deg Left Testing Position Standing Flexion 145 Abduction 142 Comments Pt supine for passive ER and IR with arm in 90/90 position: capsule is tight and ER is 60 and IR is 45 deg Elbow/Forearm Range of Motion Elbow/Forearm ROM Limitations Comments Elbow ROM WNLs B with some discomfort with repeated right elbow flexion in standing Wrist Goniometric Range of Motion ROM Limitations Comments AROM B wrists WNLs PT-OP-M Strength Start: 10/16/20 13:49 Freq: Status: Active Protocol: Document 10/21/20 08:56 MB (Rec: 10/21/20 10:13 MB [id number]) Shoulder Strength Shoulder Manual Muscle Testing Right Comments MMT deferred in setting of discomfort with AROM and likely rotator cuff injury Left Flexion 5 Normal Abduction (C5) 5 Normal External Rotation 5 Normal Internal Rotation 5 Normal Elbow/Forearm Strength Elbow and Forearm Manual Muscle Testing Right Flexion (C6) 4 Good Extension (C7) 5 Normal Pronation 4 Good Supination 4 Good Left Flexion (C6) 5 Normal Extension (C7) 5 Normal Pronation 5 Normal Supination 5 Normal Wrist Strength Wrist Manual Muscle Testing Right Flexion (C7) 5 Normal Extension (C6) 5 Normal Left Flexion (C7) 5 Normal Extension (C6) 5 Normal PT-OP-Q Treatments Start: 10/16/20 13:49 Freq: Status: Active Protocol: Document 01/09/21 08:16 MB (Rec: 01/09/21 08:56 MB [id number]) Cardio Equipment Upper Body Ergometer (UBE) Duration (Minutes) 10 Other 1' forward and 1' backward, pt standing Therapeutic Exercises Supine Exercises Shoulder flexion with band Supine Exercise Name No band Equipment Used Purple pool noodle Comments 20 reps Shoulder horizontal abduction Supine Exercise Name No band abduction Equipment Used Purple pool noodle Comments 20 reps, both arms Shoulder ER with band Supine Exercise Name No band Equipment Used Purple pool noodle Comments 20 reps Pect stretch Supine Exercise Name pt has right shoulder popping with dynamic stretching, ed to stop Equipment Used Purple pool noodle Comments 2 reps, 30 sec hold Posterior capsule stretch Supine Exercise Name Right shoulder Equipment Used Purple pool noodle Comments 1 rep, 30 sec and no problem Standing Exercises Hip abduction and extension with band in standing Side bilateral Equipment Used Level 1 band Comments Several reps each direction, pt as trouble clearing L>R foot PT-OP-T Assessment and Plan Start: 10/16/20 13:49 Freq: Status: Active Protocol: Document 01/09/21 08:16 MB (Rec: 01/09/21 08:56 MB [id number]) Physical Therapy Assessment Rehab Potential Rehabilitation Potential Good Evaluation Complexity Number of Personal Factors/Comorbidities 1-2 Number of Body Systems Impaired 1-2 Clinical Presentation at Evaluation Stable Impairments Impairments Functional Activities,Pain, Posture,ROM,Soft Tissue Mobility,Strength Goals 6 Assisted Goal (LTG) Pt will be able to flex and then lower right arm in standing without feeling a catch by 02/14/21. LTG Duration 8 weeks 5 Stone Finisher Goal (LTG) Pt will report an overall 75% improvement in right hip pain to improve gait and quality of life by 02/14/21. 12/23/20: Pt is being careful about putting shoes on ( leaning over and not putting leg over other leg). His hip is fine and then all of the sudden can be bad. LTG Duration 8 weeks 4 Stone Finisher Goal (LTG) Pt will perform progressive HEP with I including cervical and thoracic mobility and flexibility, shoulder ROM, shoulder and intrascapular strengthening, LE flexibility, pelvic realignment, balance and core strengthening to improve pain and function by . 02/14/21: Pt is performing progressive exercise LTG Duration 8 weeks 3 Assisted Goal (LTG) Pt will present with improved AROM right shoulder abduction and flexion equal to the left to improve ability to perform overhead tasks in the kitchen and with pruning by 02/14/21. 12/23/20: Right shoulder flexion is 10 deg less than the left and abduction is 5 deg less than the left LTG Duration 8 weeks 2 Stone Finisher Goal (LTG) Pt will report a 90% improvement in using his right hand to move items in and out of the refridgerator and to sweet pickled fruit maker coffee cup to return to PLOF by 01/03/21. 12/23/20: Met LTG Duration Met 1 Assisted Goal (LTG) Pt will present with an improved QuickDASH score of no more than 5% to reflect improved ability to perform ADLs and IADLs by 02/14/21. 12/23/20: QuickDASH score is 13. 63% this date. LTG Duration 8 weeks Assessment Summary Assessment Pt saw network systems operator for his hip and was encouraged to con't PT and core work. He has an appointment with Dr. Ceja for his right shoulder 01/29. Tried core education again today on the pool noodle and pt has trouble. Put pt on a blue cushion standing in // bars and he was able to engage his core with PT palpation and perturbation. HEP review and revision in the future. Physical Therapy Plan Frequency and Duration Frequency of Treatment 2x/Week Duration of Treatment 8 weeks Plan of Care Start Date 12/23/20 Plan of Care End Date 02/14/21 Therapeutic Interventions Therapeutic Interventions Aquatic Therapy,Balance Training,Canalithic Repositioning,Gait Training, Home Exercise Program,Joint Mobilizations,Manual Therapy, Neuromuscular Re-education, Patient/Caregiver Education, Self-Care/Home Management,Soft Tissue Mobilization,Taping, Therapeutic Activities, Therapeutic Exercises Modalities Cold Pack/Ice Massage,Electric Stimulation,Hot Packs, Ultrasound Next Visit Focus/Plan Next Note Type Treatment Note Next Visit Plan Similar: review and revise HEP , practice body blade, superior inferior right GH mobs, [place] Protocol and other manual work
--- NOTE | 2021-01-13 09:00 | PT.OTN ---
Current Diagnoses Pain in right shoulder (01/13/21) Pain in right hip (01/13/21) Pain in right arm (01/13/21) Physical Therapy Treatment Note PT-OP-A Visit Information Start: 10/16/20 13:49 Freq: Status: Active Protocol: Document 01/13/21 08:14 MB (Rec: 01/13/21 09:00 MB [id number]) Out-Patient Physical Therapy Visit Information Visit Information Visit Type Treatment Note Visit Note Medicare, of Life Visit Start Time 08:14 Visit Stop Time 08:59 Total Visit Minutes 45 Visit Number 24 PT-OP-B Current Condition Start: 10/16/20 13:49 Freq: Status: Active Protocol: Document 10/21/20 08:56 MB (Rec: 10/21/20 09:13 MB [id number]) Current Condition History of Current Condition Onset Date 1 year Current Complaints Right shoulder discomfort with activities History of Current Condition Pt reports right shoulder pain started during COVID when he started using exercise band. He was doing cardiac rehab for maintenance exercises after completing course when the clinic closed for COVID. He has had right shoulder pain that is annoying and awakens him at night. Occ he gets up and takes Tylenol and it helps . He finds that he does not want to raise the arm to put jars on the shelf. He is more often picking up his coffee cup with his left hand than his right. He is right handed. 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 Pulling down the branches of a hinds was problematic. Reaching to stick a fork in the ground with his right hand is problematic. He feels a crunching of a couple of things rubbing together in his upper arm. He had an x-ray and he states it said age appropriate changes of the joint. Pt reports pain 3/10 in his upper right shoulder and biceps area. He is sleeping on his left side or his back. He is not using a pillow between his arms and he has one pillow under his head and one between his knees. Pt underwent CAD bypass 2015. PMH includes BPPV, hearing problems, back pain and basal cell carcinoma. Treatment Goals Patient/Caregiver Goals To not have the pain discourage me from doing things with my right arm. PT-OP-C Subjective Start: 10/16/20 13:49 Freq: Status: Active Protocol: Document 01/13/21 08:14 MB (Rec: 01/13/21 09:00 MB [id number]) OP-PT Subjective Patient Comments Patient Comments Pt cancelled 's appointment d/t house guests coming. PT-OP-J Posture/Palpation/Skin Start: 10/16/20 13:49 Freq: Status: Active Protocol: Document 10/21/20 08:56 MB (Rec: 10/21/20 10:13 MB [id number]) Posture Evaluation Comments Posture Comments Standing posture with shoes on : forward head, rounded shoulders, Dowager's hump, left scapula protracted and higher than the right, right shoulder lower than the left, increased lordosis at one lumbar level (L3 area), right iliac crest mildly higher than the left, left foot with greater Pako angle than the right, pt stands with head rotated 5 deg to the left PT-OP-K Range of Motion Start: 10/16/20 13:49 Freq: Status: Active Protocol: Document 10/21/20 08:56 MB (Rec: 10/21/20 10:13 MB [id number]) Cervical Spine Range of Motion Cervical Spine Active Testing Position Standing Flexion 30 Extension 15 Rotation Left 40 Rotation Right 40 Lateral Flexion Left 10 Lateral Flexion Right 20 Comments All AROM from starting position of 5 deg resting left neck rotation Shoulder Goniometric Range of Motion Shoulder Right Testing Position Standing Flexion 130 Abduction 130 Comments Pt reports most discomfort with lowering arm from abducted position when arm is in about 30 deg abduction Pt supine for passive ER and IR with arm in 90/90 position: capsule is tight and ER is 50 and IR is 45 deg Left Testing Position Standing Flexion 145 Abduction 142 Comments Pt supine for passive ER and IR with arm in 90/90 position: capsule is tight and ER is 60 and IR is 45 deg Elbow/Forearm Range of Motion Elbow/Forearm ROM Limitations Comments Elbow ROM WNLs B with some discomfort with repeated right elbow flexion in standing Wrist Goniometric Range of Motion ROM Limitations Comments AROM B wrists WNLs PT-OP-M Strength Start: 10/16/20 13:49 Freq: Status: Active Protocol: Document 10/21/20 08:56 MB (Rec: 10/21/20 10:13 MB [id number]) Shoulder Strength Shoulder Manual Muscle Testing Right Comments MMT deferred in setting of discomfort with AROM and likely rotator cuff injury Left Flexion 5 Normal Abduction (C5) 5 Normal External Rotation 5 Normal Internal Rotation 5 Normal Elbow/Forearm Strength Elbow and Forearm Manual Muscle Testing Right Flexion (C6) 4 Good Extension (C7) 5 Normal Pronation 4 Good Supination 4 Good Left Flexion (C6) 5 Normal Extension (C7) 5 Normal Pronation 5 Normal Supination 5 Normal Wrist Strength Wrist Manual Muscle Testing Right Flexion (C7) 5 Normal Extension (C6) 5 Normal Left Flexion (C7) 5 Normal Extension (C6) 5 Normal PT-OP-Q Treatments Start: 10/16/20 13:49 Freq: Status: Active Protocol: Document 01/13/21 08:14 MB (Rec: 01/13/21 09:00 MB [id number]) Cardio Equipment Upper Body Ergometer (UBE) Duration (Minutes) 10 Other 1' forward and 1' backward Therapeutic Exercises Supine Exercises Core progression Supine Exercise Name Abdominal drawing in, lumbar rotation, HS, mini march, bridge and abduction Reps/Minutes 10 reps Comments Band around knees for bridge and abduction (level 1), all core difficult Hamstring stretch, hands behind knee and AP Side bilateral Comments 30 APs Other Exercises Verbally reviewed exercises during progress notes Comments PT and pt go through folder, remove some exercises and PT creates list PT-OP-T Assessment and Plan Start: 10/16/20 13:49 Freq: Status: Active Protocol: Document 01/13/21 08:14 MB (Rec: 01/13/21 09:00 MB [id number]) Physical Therapy Assessment Rehab Potential Rehabilitation Potential Good Evaluation Complexity Number of Personal Factors/Comorbidities 1-2 Number of Body Systems Impaired 1-2 Clinical Presentation at Evaluation Stable Impairments Impairments Functional Activities,Pain, Posture,ROM,Soft Tissue Mobility,Strength Goals 6 Usp Goal (LTG) Pt will be able to flex and then lower right arm in standing without feeling a catch by 02/14/21. LTG Duration 8 weeks 5 Usp Goal (LTG) Pt will report an overall 75% improvement in right hip pain to improve gait and quality of life by 02/14/21. 12/23/20: Pt is being careful about putting shoes on ( leaning over and not putting leg over other leg). His hip is fine and then all of the sudden can be bad. LTG Duration 8 weeks 4 Community Service Director Goal (LTG) Pt will perform progressive HEP with I including cervical and thoracic mobility and flexibility, shoulder ROM, shoulder and intrascapular strengthening, LE flexibility, pelvic realignment, balance and core strengthening to improve pain and function by . 01/13/21: Revised HEP and removed handouts and created a list: 1x/wk: pelvic realignment exercises, cane exercises over the pool noodle, wall crawls forward and to the side, pect stretch and posterior capsule stretch over pool noodle, thoracic rotation in sitting, anterior hip stretch, hip rotator stretch, hamstring stretch, buttocks stretch 3x/wk: core exercise progression, band exercises for shoulders over pool noodle , hook lying clam, heel raises with band, scapular retraction with arms straight and hip extension and abduction with band As needed: racquet ball and quad massage LTG Duration 8 weeks 3 Community Service Director Goal (LTG) Pt will present with improved AROM right shoulder abduction and flexion equal to the left to improve ability to perform overhead tasks in the kitchen and with pruning by 02/14/21. 12/23/20: Right shoulder flexion is 10 deg less than the left and abduction is 5 deg less than the left LTG Duration 8 weeks 2 Community Service Director Goal (LTG) Pt will report a 90% improvement in using his right hand to move items in and out of the refridgerator and to miner pick coffee cup to return to PLOF by 01/03/21. 12/23/20: Met LTG Duration Met 1 Usp Goal (LTG) Pt will present with an improved QuickDASH score of no more than 5% to reflect improved ability to perform ADLs and IADLs by 02/14/21. 12/23/20: QuickDASH score is 13. 63% this date. LTG Duration 8 weeks Assessment Summary Assessment Pt con't to have a lot of difficulty describing what is helpful and what is not and being able to feel things like hamstring stretch and engage core. This decreased body awareness has been a barrier to PT. Will con't efforts. Physical Therapy Plan Frequency and Duration Frequency of Treatment 2x/Week Duration of Treatment 8 weeks Plan of Care Start Date 12/23/20 Plan of Care End Date 02/14/21 Therapeutic Interventions Therapeutic Interventions Aquatic Therapy,Balance Training,Canalithic Repositioning,Gait Training, Home Exercise Program,Joint Mobilizations,Manual Therapy, Neuromuscular Re-education, Patient/Caregiver Education, Self-Care/Home Management,Soft Tissue Mobilization,Taping, Therapeutic Activities, Therapeutic Exercises Modalities Cold Pack/Ice Massage,Electric Stimulation,Hot Packs, Ultrasound Next Visit Focus/Plan Next Note Type Treatment Note Next Visit Plan Review hip extension and abduction execises. Practice body blade, superior inferior right GH mobs, [place] Protocol and other manual work
--- NOTE | 2021-01-20 09:00 | PT.OTN ---
Current Diagnoses Pain in right shoulder (01/20/21) Pain in right hip (01/20/21) Pain in right arm (01/20/21) Physical Therapy Treatment Note PT-OP-A Visit Information Start: 10/16/20 13:49 Freq: Status: Active Protocol: Document 01/20/21 08:17 MB (Rec: 01/20/21 08:51 MB [id number]) Out-Patient Physical Therapy Visit Information Visit Information Visit Type Treatment Note Visit Note Medicare, for Life Visit Start Time 08:17 Visit Stop Time 09:00 Total Visit Minutes 43 Visit Number 25 PT-OP-B Current Condition Start: 10/16/20 13:49 Freq: Status: Active Protocol: Document 10/21/20 08:56 MB (Rec: 10/21/20 09:13 MB [id number]) Current Condition History of Current Condition Onset Date 1 year Current Complaints Right shoulder discomfort with activities History of Current Condition Pt reports right shoulder pain started during COVID when he started using exercise band. He was doing cardiac rehab for maintenance exercises after completing course when the clinic closed for COVID. He has had right shoulder pain that is annoying and awakens him at night. Occ he gets up and takes Tylenol and it helps . He finds that he does not want to raise the arm to put jars on the shelf. He is more often picking up his coffee cup with his left hand than his right. He is right handed. 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 Pulling down the branches of a hinds was problematic. Reaching to stick a fork in the ground with his right hand is problematic. He feels a crunching of a couple of things rubbing together in his upper arm. He had an x-ray and he states it said age appropriate changes of the joint. Pt reports pain 3/10 in his upper right shoulder and biceps area. He is sleeping on his left side or his back. He is not using a pillow between his arms and he has one pillow under his head and one between his knees. Pt underwent CAD bypass 2015. PMH includes BPPV, hearing problems, back pain and basal cell carcinoma. Treatment Goals Patient/Caregiver Goals To not have the pain discourage me from doing things with my right arm. PT-OP-C Subjective Start: 10/16/20 13:49 Freq: Status: Active Protocol: Document 01/20/21 08:17 MB (Rec: 01/20/21 08:51 MB [id number]) OP-PT Subjective Patient Comments Patient Comments Pt states that his company got safely home to [place]. Pt reports that he still has catching pain reaching across and lowing his right arm. He still wonders what is going on with his arm. PT-OP-J Posture/Palpation/Skin Start: 10/16/20 13:49 Freq: Status: Active Protocol: Document 10/21/20 08:56 MB (Rec: 10/21/20 10:13 MB [id number]) Posture Evaluation Comments Posture Comments Standing posture with shoes on : forward head, rounded shoulders, Dowager's hump, left scapula protracted and higher than the right, right shoulder lower than the left, increased lordosis at one lumbar level (L3 area), right iliac crest mildly higher than the left, left foot with greater Pako angle than the right, pt stands with head rotated 5 deg to the left PT-OP-K Range of Motion Start: 10/16/20 13:49 Freq: Status: Active Protocol: Document 10/21/20 08:56 MB (Rec: 10/21/20 10:13 MB [id number]) Cervical Spine Range of Motion Cervical Spine Active Testing Position Standing Flexion 30 Extension 15 Rotation Left 40 Rotation Right 40 Lateral Flexion Left 10 Lateral Flexion Right 20 Comments All AROM from starting position of 5 deg resting left neck rotation Shoulder Goniometric Range of Motion Shoulder Right Testing Position Standing Flexion 130 Abduction 130 Comments Pt reports most discomfort with lowering arm from abducted position when arm is in about 30 deg abduction Pt supine for passive ER and IR with arm in 90/90 position: capsule is tight and ER is 50 and IR is 45 deg Left Testing Position Standing Flexion 145 Abduction 142 Comments Pt supine for passive ER and IR with arm in 90/90 position: capsule is tight and ER is 60 and IR is 45 deg Elbow/Forearm Range of Motion Elbow/Forearm ROM Limitations Comments Elbow ROM WNLs B with some discomfort with repeated right elbow flexion in standing Wrist Goniometric Range of Motion ROM Limitations Comments AROM B wrists WNLs PT-OP-M Strength Start: 10/16/20 13:49 Freq: Status: Active Protocol: Document 10/21/20 08:56 MB (Rec: 10/21/20 10:13 MB [id number]) Shoulder Strength Shoulder Manual Muscle Testing Right Comments MMT deferred in setting of discomfort with AROM and likely rotator cuff injury Left Flexion 5 Normal Abduction (C5) 5 Normal External Rotation 5 Normal Internal Rotation 5 Normal Elbow/Forearm Strength Elbow and Forearm Manual Muscle Testing Right Flexion (C6) 4 Good Extension (C7) 5 Normal Pronation 4 Good Supination 4 Good Left Flexion (C6) 5 Normal Extension (C7) 5 Normal Pronation 5 Normal Supination 5 Normal Wrist Strength Wrist Manual Muscle Testing Right Flexion (C7) 5 Normal Extension (C6) 5 Normal Left Flexion (C7) 5 Normal Extension (C6) 5 Normal PT-OP-Q Treatments Start: 10/16/20 13:49 Freq: Status: Active Protocol: Document 01/20/21 08:17 MB (Rec: 01/20/21 08:51 MB [id number]) Cardio Equipment Upper Body Ergometer (UBE) Duration (Minutes) 10 Other 1' forward and 1' backward Therapeutic Exercises Standing Exercises Hip extension with band Side bilateral Equipment Used Level 3 band Comments Pt has trouble performing, tends to step back Hip abduction and extension with band in standing Side bilateral Equipment Used Level 3 band Comments Several reps each direction, extension Manual Therapy Treatment Other Other Manual Treatments Right shoulder mobs in sitting with shoulder in ER and IR and grade II-IV mobs around the GH joint and capsule Self-Care/Home Management Treatment Education Other Education Pt to see Dr. Ceja about his shoulder on the and so PT writes up sheet for him to take with him: info included states that pt has been working with PT for 25 visits for shoulder and hip/back. He continues with catching-type pain with some right shoulder movements and given this at this point in rehab, recommend MRI as surgeon agrees. PT is concerned about anatomical change and pt con't to ask about what's going on with his arm. PT-OP-T Assessment and Plan Start: 10/16/20 13:49 Freq: Status: Active Protocol: Document 01/20/21 08:17 MB (Rec: 01/20/21 08:51 MB [id number]) Physical Therapy Assessment Rehab Potential Rehabilitation Potential Good Evaluation Complexity Number of Personal Factors/Comorbidities 1-2 Number of Body Systems Impaired 1-2 Clinical Presentation at Evaluation Stable Impairments Impairments Functional Activities,Pain, Posture,ROM,Soft Tissue Mobility,Strength Goals 6 Stone Spreader Operator Goal (LTG) Pt will be able to flex and then lower right arm in standing without feeling a catch by 02/14/21. LTG Duration 8 weeks 5 Stone Spreader Operator Goal (LTG) Pt will report an overall 75% improvement in right hip pain to improve gait and quality of life by 02/14/21. 12/23/20: Pt is being careful about putting shoes on ( leaning over and not putting leg over other leg). His hip is fine and then all of the sudden can be bad. LTG Duration 8 weeks 4 Stone Spreader Operator Goal (LTG) Pt will perform progressive HEP with I including cervical and thoracic mobility and flexibility, shoulder ROM, shoulder and intrascapular strengthening, LE flexibility, pelvic realignment, balance and core strengthening to improve pain and function by . 01/13/21: Revised HEP and removed handouts and created a list: 1x/wk: pelvic realignment exercises, cane exercises over the pool noodle, wall crawls forward and to the side, pect stretch and posterior capsule stretch over pool noodle, thoracic rotation in sitting, anterior hip stretch, hip rotator stretch, hamstring stretch, buttocks stretch 3x/wk: core exercise progression, band exercises for shoulders over pool noodle , hook lying clam, heel raises with band, scapular retraction with arms straight and hip extension and abduction with band As needed: racquet ball and quad massage LTG Duration 8 weeks 3 Penitentiary Goal (LTG) Pt will present with improved AROM right shoulder abduction and flexion equal to the left to improve ability to perform overhead tasks in the kitchen and with pruning by 02/14/21. 12/23/20: Right shoulder flexion is 10 deg less than the left and abduction is 5 deg less than the left LTG Duration 8 weeks 2 Stone Spreader Operator Goal (LTG) Pt will report a 90% improvement in using his right hand to move items in and out of the refridgerator and to chicken picker coffee cup to return to PLOF by 01/03/21. 12/23/20: Met LTG Duration Met 1 Stone Spreader Operator Goal (LTG) Pt will present with an improved QuickDASH score of no more than 5% to reflect improved ability to perform ADLs and IADLs by 02/14/21. 12/23/20: QuickDASH score is 13. 63% this date. LTG Duration 8 weeks Assessment Summary Assessment Pt will see Dr. Ceja about his right shoulder pain on . PT will send this note to Dr. Ceja with recommendation for MRI in setting of pt having had about 25 PT visits already for right shoulder and hip/back and he con't with catching/ pinching pain with adduction and lowering arm despite PT manual work and exercises. PT would have thought that this should have improved at this point in the rehab process. Pt asks each visit what is going on in his arm and surgeon and diagnostics could provide this insight. Will con't PT 1x /wk. Physical Therapy Plan Frequency and Duration Frequency of Treatment 2x/Week Duration of Treatment 8 weeks Plan of Care Start Date 12/23/20 Plan of Care End Date 02/14/21 Therapeutic Interventions Therapeutic Interventions Aquatic Therapy,Balance Training,Canalithic Repositioning,Gait Training, Home Exercise Program,Joint Mobilizations,Manual Therapy, Neuromuscular Re-education, Patient/Caregiver Education, Self-Care/Home Management,Soft Tissue Mobilization,Taping, Therapeutic Activities, Therapeutic Exercises Modalities Cold Pack/Ice Massage,Electric Stimulation,Hot Packs, Ultrasound Next Visit Focus/Plan Next Note Type Treatment Note Next Visit Plan Practice body blade, superior inferior right GH mobs, [place] Protocol and other manual work
--- NOTE | 2021-01-27 09:00 | PT.OTN ---
Current Diagnoses Pain in right shoulder (01/27/21) Pain in right hip (01/27/21) Pain in right arm (01/27/21) Physical Therapy Treatment Note PT-OP-A Visit Information Start: 10/16/20 13:49 Freq: Status: Active Protocol: Document 01/27/21 08:15 MB (Rec: 01/27/21 08:56 MB [id number]) Out-Patient Physical Therapy Visit Information Visit Information Visit Type Treatment Note Visit Note Medicare, for Life Visit Start Time 08:15 Visit Stop Time 08:55 Total Visit Minutes 40 Visit Number 26 PT-OP-B Current Condition Start: 10/16/20 13:49 Freq: Status: Active Protocol: Document 10/21/20 08:56 MB (Rec: 10/21/20 09:13 MB [id number]) Current Condition History of Current Condition Onset Date 1 year Current Complaints Right shoulder discomfort with activities History of Current Condition Pt reports right shoulder pain started during COVID when he started using exercise band. He was doing cardiac rehab for maintenance exercises after completing course when the clinic closed for COVID. He has had right shoulder pain that is annoying and awakens him at night. Occ he gets up and takes Tylenol and it helps . He finds that he does not want to raise the arm to put jars on the shelf. He is more often picking up his coffee cup with his left hand than his right. He is right handed. 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 Pulling down the branches of a hinds was problematic. Reaching to stick a fork in the ground with his right hand is problematic. He feels a crunching of a couple of things rubbing together in his upper arm. He had an x-ray and he states it said age appropriate changes of the joint. Pt reports pain 3/10 in his upper right shoulder and biceps area. He is sleeping on his left side or his back. He is not using a pillow between his arms and he has one pillow under his head and one between his knees. Pt underwent CAD bypass 2015. PMH includes BPPV, hearing problems, back pain and basal cell carcinoma. Treatment Goals Patient/Caregiver Goals To not have the pain discourage me from doing things with my right arm. PT-OP-C Subjective Start: 10/16/20 13:49 Freq: Status: Active Protocol: Document 01/27/21 08:15 MB (Rec: 01/27/21 08:56 MB [id number]) OP-PT Subjective Patient Comments Patient Comments Pt brings in exercises from previous PT courses. He states he isn't doing any shoulder strengthening like he was given at cardiac rehab. PT does remind him that he is performing some shoulder strengthening exercises as given by this PT. He states that everyday over the past week, he has had some issue with his right shoulder, especially with lowering the arm. He sees the senior education specialist in 2 days. PT-OP-J Posture/Palpation/Skin Start: 10/16/20 13:49 Freq: Status: Active Protocol: Document 10/21/20 08:56 MB (Rec: 10/21/20 10:13 MB [id number]) Posture Evaluation Comments Posture Comments Standing posture with shoes on : forward head, rounded shoulders, Dowager's hump, left scapula protracted and higher than the right, right shoulder lower than the left, increased lordosis at one lumbar level (L3 area), right iliac crest mildly higher than the left, left foot with greater Pako angle than the right, pt stands with head rotated 5 deg to the left PT-OP-K Range of Motion Start: 10/16/20 13:49 Freq: Status: Active Protocol: Document 10/21/20 08:56 MB (Rec: 10/21/20 10:13 MB [id number]) Cervical Spine Range of Motion Cervical Spine Active Testing Position Standing Flexion 30 Extension 15 Rotation Left 40 Rotation Right 40 Lateral Flexion Left 10 Lateral Flexion Right 20 Comments All AROM from starting position of 5 deg resting left neck rotation Shoulder Goniometric Range of Motion Shoulder Right Testing Position Standing Flexion 130 Abduction 130 Comments Pt reports most discomfort with lowering arm from abducted position when arm is in about 30 deg abduction Pt supine for passive ER and IR with arm in 90/90 position: capsule is tight and ER is 50 and IR is 45 deg Left Testing Position Standing Flexion 145 Abduction 142 Comments Pt supine for passive ER and IR with arm in 90/90 position: capsule is tight and ER is 60 and IR is 45 deg Elbow/Forearm Range of Motion Elbow/Forearm ROM Limitations Comments Elbow ROM WNLs B with some discomfort with repeated right elbow flexion in standing Wrist Goniometric Range of Motion ROM Limitations Comments AROM B wrists WNLs PT-OP-M Strength Start: 10/16/20 13:49 Freq: Status: Active Protocol: Document 10/21/20 08:56 MB (Rec: 10/21/20 10:13 MB [id number]) Shoulder Strength Shoulder Manual Muscle Testing Right Comments MMT deferred in setting of discomfort with AROM and likely rotator cuff injury Left Flexion 5 Normal Abduction (C5) 5 Normal External Rotation 5 Normal Internal Rotation 5 Normal Elbow/Forearm Strength Elbow and Forearm Manual Muscle Testing Right Flexion (C6) 4 Good Extension (C7) 5 Normal Pronation 4 Good Supination 4 Good Left Flexion (C6) 5 Normal Extension (C7) 5 Normal Pronation 5 Normal Supination 5 Normal Wrist Strength Wrist Manual Muscle Testing Right Flexion (C7) 5 Normal Extension (C6) 5 Normal Left Flexion (C7) 5 Normal Extension (C6) 5 Normal PT-OP-Q Treatments Start: 10/16/20 13:49 Freq: Status: Active Protocol: Document 01/27/21 08:15 MB (Rec: 01/27/21 08:56 MB [id number]) Cardio Equipment Upper Body Ergometer (UBE) Duration (Minutes) 10 Other 1' forward and 1' backward Therapeutic Exercises Standing Exercises Body Blade exercises Standing Exercise Name Performed with yellow and classic today Side right Comments Pain with moving from 100 deg scaption to extension Manual Therapy Treatment Other Other Manual Treatments Right shoulder [place] protocol, grade II-III mobs at right GH joint with shoulder in ER and IR with pt in prone, STM right pect major and minor with MWM and pt performing active movement as PT performs TrP pressure PT-OP-T Assessment and Plan Start: 10/16/20 13:49 Freq: Status: Active Protocol: Document 01/27/21 08:15 MB (Rec: 01/27/21 08:56 MB [id number]) Physical Therapy Assessment Rehab Potential Rehabilitation Potential Good Evaluation Complexity Number of Personal Factors/Comorbidities 1-2 Number of Body Systems Impaired 1-2 Clinical Presentation at Evaluation Stable Impairments Impairments Functional Activities,Pain, Posture,ROM,Soft Tissue Mobility,Strength Goals 6 Project Coach Goal (LTG) Pt will be able to flex and then lower right arm in standing without feeling a catch by 02/14/21. LTG Duration 8 weeks 5 Project Coach Goal (LTG) Pt will report an overall 75% improvement in right hip pain to improve gait and quality of life by 02/14/21. 12/23/20: Pt is being careful about putting shoes on ( leaning over and not putting leg over other leg). His hip is fine and then all of the sudden can be bad. LTG Duration 8 weeks 4 Half-Way Goal (LTG) Pt will perform progressive HEP with I including cervical and thoracic mobility and flexibility, shoulder ROM, shoulder and intrascapular strengthening, LE flexibility, pelvic realignment, balance and core strengthening to improve pain and function by . 01/13/21: Revised HEP and removed handouts and created a list: 1x/wk: pelvic realignment exercises, cane exercises over the pool noodle, wall crawls forward and to the side, pect stretch and posterior capsule stretch over pool noodle, thoracic rotation in sitting, anterior hip stretch, hip rotator stretch, hamstring stretch, buttocks stretch 3x/wk: core exercise progression, band exercises for shoulders over pool noodle , hook lying clam, heel raises with band, scapular retraction with arms straight and hip extension and abduction with band As needed: racquet ball and quad massage LTG Duration 8 weeks 3 Project Coach Goal (LTG) Pt will present with improved AROM right shoulder abduction and flexion equal to the left to improve ability to perform overhead tasks in the kitchen and with pruning by 02/14/21. 12/23/20: Right shoulder flexion is 10 deg less than the left and abduction is 5 deg less than the left LTG Duration 8 weeks 2 Half-Way Goal (LTG) Pt will report a 90% improvement in using his right hand to move items in and out of the refridgerator and to scrap picker coffee cup to return to PLOF by 01/03/21. 12/23/20: Met LTG Duration Met 1 Project Coach Goal (LTG) Pt will present with an improved QuickDASH score of no more than 5% to reflect improved ability to perform ADLs and IADLs by 02/14/21. 12/23/20: QuickDASH score is 13. 63% this date. LTG Duration 8 weeks Assessment Summary Assessment Pt states that he has not made further gains with PT for his right shoulder. He sees the surgeon in two days and will determine plan after that. Right shoulder flexion and abduction are better after manual work and pt states that he does not feel the pop. Physical Therapy Plan Frequency and Duration Frequency of Treatment 2x/Week Duration of Treatment 8 weeks Plan of Care Start Date 12/23/20 Plan of Care End Date 02/14/21 Therapeutic Interventions Therapeutic Interventions Aquatic Therapy,Balance Training,Canalithic Repositioning,Gait Training, Home Exercise Program,Joint Mobilizations,Manual Therapy, Neuromuscular Re-education, Patient/Caregiver Education, Self-Care/Home Management,Soft Tissue Mobilization,Taping, Therapeutic Activities, Therapeutic Exercises Modalities Cold Pack/Ice Massage,Electric Stimulation,Hot Packs, Ultrasound Next Visit Focus/Plan Next Note Type Treatment Note Next Visit Plan [place] Protocol and right pect work
--- NOTE | 2021-02-03 09:00 | PT.OTN ---
Current Diagnoses Pain in right shoulder (02/03/21) Pain in right hip (02/03/21) Pain in right arm (02/03/21) Physical Therapy Treatment Note PT-OP-A Visit Information Start: 10/16/20 13:49 Freq: Status: Active Protocol: Document 02/03/21 08:16 MB (Rec: 02/03/21 08:59 MB [id number]) Out-Patient Physical Therapy Visit Information Visit Information Visit Type Treatment Note Visit Note Medicare, for Life Visit Start Time 08:16 Visit Stop Time 09:00 Total Visit Minutes 44 Visit Number 27 PT-OP-B Current Condition Start: 10/16/20 13:49 Freq: Status: Active Protocol: Document 10/21/20 08:56 MB (Rec: 10/21/20 09:13 MB [id number]) Current Condition History of Current Condition Onset Date 1 year Current Complaints Right shoulder discomfort with activities History of Current Condition Pt reports right shoulder pain started during COVID when he started using exercise band. He was doing cardiac rehab for maintenance exercises after completing course when the clinic closed for COVID. He has had right shoulder pain that is annoying and awakens him at night. Occ he gets up and takes Tylenol and it helps . He finds that he does not want to raise the arm to put jars on the shelf. He is more often picking up his coffee cup with his left hand than his right. He is right handed. 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 Pulling down the branches of a hinds was problematic. Reaching to stick a fork in the ground with his right hand is problematic. He feels a crunching of a couple of things rubbing together in his upper arm. He had an x-ray and he states it said age appropriate changes of the joint. Pt reports pain 3/10 in his upper right shoulder and biceps area. He is sleeping on his left side or his back. He is not using a pillow between his arms and he has one pillow under his head and one between his knees. Pt underwent CAD bypass 2015. PMH includes BPPV, hearing problems, back pain and basal cell carcinoma. Treatment Goals Patient/Caregiver Goals To not have the pain discourage me from doing things with my right arm. PT-OP-C Subjective Start: 10/16/20 13:49 Freq: Status: Active Protocol: Document 02/03/21 08:16 MB (Rec: 02/03/21 08:59 MB [id number]) OP-PT Subjective Patient Comments Patient Comments Pt saw Dr. Ceja on . He was told he has a rotator cuff tear. He was told to keep on with PT if PT is helping any. If it gets to the point where PT is not helpful, then pt has to decide if he wants surgery or not. If he wants surgery, then he would have a MRI. 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 He does not think that surgery is worthwhile given post-op immobilization and rehab requirements. PT-OP-J Posture/Palpation/Skin Start: 10/16/20 13:49 Freq: Status: Active Protocol: Document 10/21/20 08:56 MB (Rec: 10/21/20 10:13 MB [id number]) Posture Evaluation Comments Posture Comments Standing posture with shoes on : forward head, rounded shoulders, Dowager's hump, left scapula protracted and higher than the right, right shoulder lower than the left, increased lordosis at one lumbar level (L3 area), right iliac crest mildly higher than the left, left foot with greater Pako angle than the right, pt stands with head rotated 5 deg to the left PT-OP-K Range of Motion Start: 10/16/20 13:49 Freq: Status: Active Protocol: Document 10/21/20 08:56 MB (Rec: 10/21/20 10:13 MB [id number]) Cervical Spine Range of Motion Cervical Spine Active Testing Position Standing Flexion 30 Extension 15 Rotation Left 40 Rotation Right 40 Lateral Flexion Left 10 Lateral Flexion Right 20 Comments All AROM from starting position of 5 deg resting left neck rotation Shoulder Goniometric Range of Motion Shoulder Right Testing Position Standing Flexion 130 Abduction 130 Comments Pt reports most discomfort with lowering arm from abducted position when arm is in about 30 deg abduction Pt supine for passive ER and IR with arm in 90/90 position: capsule is tight and ER is 50 and IR is 45 deg Left Testing Position Standing Flexion 145 Abduction 142 Comments Pt supine for passive ER and IR with arm in 90/90 position: capsule is tight and ER is 60 and IR is 45 deg Elbow/Forearm Range of Motion Elbow/Forearm ROM Limitations Comments Elbow ROM WNLs B with some discomfort with repeated right elbow flexion in standing Wrist Goniometric Range of Motion ROM Limitations Comments AROM B wrists WNLs PT-OP-M Strength Start: 10/16/20 13:49 Freq: Status: Active Protocol: Document 10/21/20 08:56 MB (Rec: 10/21/20 10:13 MB [id number]) Shoulder Strength Shoulder Manual Muscle Testing Right Comments MMT deferred in setting of discomfort with AROM and likely rotator cuff injury Left Flexion 5 Normal Abduction (C5) 5 Normal External Rotation 5 Normal Internal Rotation 5 Normal Elbow/Forearm Strength Elbow and Forearm Manual Muscle Testing Right Flexion (C6) 4 Good Extension (C7) 5 Normal Pronation 4 Good Supination 4 Good Left Flexion (C6) 5 Normal Extension (C7) 5 Normal Pronation 5 Normal Supination 5 Normal Wrist Strength Wrist Manual Muscle Testing Right Flexion (C7) 5 Normal Extension (C6) 5 Normal Left Flexion (C7) 5 Normal Extension (C6) 5 Normal PT-OP-Q Treatments Start: 10/16/20 13:49 Freq: Status: Active Protocol: Document 02/03/21 08:16 MB (Rec: 02/03/21 08:59 MB [id number]) Cardio Equipment Upper Body Ergometer (UBE) Duration (Minutes) 10 Other 1' forward and 1' backward Therapeutic Exercises Supine Exercises PNF sword and sheath Comments Performed actively today per pt request, over purple pool noodle Sitting Exercises Lian Comments Used pully for AAROM flexion, scaption and abduction with arm straight/bent Manual Therapy Treatment Other Other Manual Treatments [place] protocol right shoulder, grade II-III mobs at right GH joint with shoulder in ER and IR with pt in prone, STM right pect major and minor with MWM and pt performing active movement as PT performs TrP pressure PT-OP-T Assessment and Plan Start: 10/16/20 13:49 Freq: Status: Active Protocol: Document 02/03/21 08:16 MB (Rec: 02/03/21 08:59 MB [id number]) Physical Therapy Assessment Rehab Potential Rehabilitation Potential Good Evaluation Complexity Number of Personal Factors/Comorbidities 1-2 Number of Body Systems Impaired 1-2 Clinical Presentation at Evaluation Stable Impairments Impairments Functional Activities,Pain, Posture,ROM,Soft Tissue Mobility,Strength Goals 6 [employer] C[employer] Goal (LTG) Pt will be able to flex and then lower right arm in standing without feeling a catch by 02/14/21. LTG Duration 8 weeks 5 Skilled Nursing Goal (LTG) Pt will report an overall 75% improvement in right hip pain to improve gait and quality of life by 02/14/21. 12/23/20: Pt is being careful about putting shoes on ( leaning over and not putting leg over other leg). His hip is fine and then all of the sudden can be bad. LTG Duration 8 weeks 4 Skilled Nursing Goal (LTG) Pt will perform progressive HEP with I including cervical and thoracic mobility and flexibility, shoulder ROM, shoulder and intrascapular strengthening, LE flexibility, pelvic realignment, balance and core strengthening to improve pain and function by . 01/13/21: Revised HEP and removed handouts and created a list: 1x/wk: pelvic realignment exercises, cane exercises over the pool noodle, wall crawls forward and to the side, pect stretch and posterior capsule stretch over pool noodle, thoracic rotation in sitting, anterior hip stretch, hip rotator stretch, hamstring stretch, buttocks stretch 3x/wk: core exercise progression, band exercises for shoulders over pool noodle , hook lying clam, heel raises with band, scapular retraction with arms straight and hip extension and abduction with band As needed: racquet ball and quad massage LTG Duration 8 weeks 3 [employer] Goal (LTG) Pt will present with improved AROM right shoulder abduction and flexion equal to the left to improve ability to perform overhead tasks in the kitchen and with pruning by 02/14/21. 12/23/20: Right shoulder flexion is 10 deg less than the left and abduction is 5 deg less than the left LTG Duration 8 weeks 2 [employer] C[employer] Goal (LTG) Pt will report a 90% improvement in using his right hand to move items in and out of the refridgerator and to pickling operator coffee cup to return to PLOF by 01/03/21. 12/23/20: Met LTG Duration Met 1 [employer] C[employer] Goal (LTG) Pt will present with an improved QuickDASH score of no more than 5% to reflect improved ability to perform ADLs and IADLs by 02/14/21. 12/23/20: QuickDASH score is 13. 63% this date. LTG Duration 8 weeks Assessment Summary Assessment Pt had a good visit with surgeon and does not wish to pursue surgery at this point. Revised some exercises today and performed manual work. Will con't to monitor progress . Pt is 1x/wk and will keep current appointments. Physical Therapy Plan Frequency and Duration Frequency of Treatment 2x/Week Duration of Treatment 8 weeks Plan of Care Start Date 12/23/20 Plan of Care End Date 02/14/21 Therapeutic Interventions Therapeutic Interventions Aquatic Therapy,Balance Training,Canalithic Repositioning,Gait Training, Home Exercise Program,Joint Mobilizations,Manual Therapy, Neuromuscular Re-education, Patient/Caregiver Education, Self-Care/Home Management,Soft Tissue Mobilization,Taping, Therapeutic Activities, Therapeutic Exercises Modalities Cold Pack/Ice Massage,Electric Stimulation,Hot Packs, Ultrasound Next Visit Focus/Plan Next Note Type Progress Note Next Visit Plan [place] Protocol and right pect work, revise exercises as needed
--- NOTE | 2021-02-12 12:28 | PT.OTN ---
Current Diagnoses Pain in right shoulder (02/12/21) Pain in right hip (02/12/21) Pain in right arm (02/12/21) Physical Therapy Treatment Note PT-OP-A Visit Information Start: 10/16/20 13:49 Freq: Status: Active Protocol: Document 02/12/21 08:15 MB (Rec: 02/12/21 08:50 MB [id number]) Out-Patient Physical Therapy Visit Information Visit Information Visit Type Progress Note Visit Note Medicare, for Life, KX Visit Start Time 08:15 Visit Stop Time 09:00 Total Visit Minutes 45 Visit Number 28 PT-OP-B Current Condition Start: 10/16/20 13:49 Freq: Status: Active Protocol: Document 10/21/20 08:56 MB (Rec: 10/21/20 09:13 MB [id number]) Current Condition History of Current Condition Onset Date 1 year Current Complaints Right shoulder discomfort with activities History of Current Condition Pt reports right shoulder pain started during COVID when he started using exercise band. He was doing cardiac rehab for maintenance exercises after completing course when the clinic closed for COVID. He has had right shoulder pain that is annoying and awakens him at night. Occ he gets up and takes Tylenol and it helps . He finds that he does not want to raise the arm to put jars on the shelf. He is more often picking up his coffee cup with his left hand than his right. He is right handed. 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 Pulling down the branches of a hinds was problematic. Reaching to stick a fork in the ground with his right hand is problematic. He feels a crunching of a couple of things rubbing together in his upper arm. He had an x-ray and he states it said age appropriate changes of the joint. Pt reports pain 3/10 in his upper right shoulder and biceps area. He is sleeping on his left side or his back. He is not using a pillow between his arms and he has one pillow under his head and one between his knees. Pt underwent CAD bypass 2015. PMH includes BPPV, hearing problems, back pain and basal cell carcinoma. Treatment Goals Patient/Caregiver Goals To not have the pain discourage me from doing things with my right arm. PT-OP-C Subjective Start: 10/16/20 13:49 Freq: Status: Active Protocol: Document 02/12/21 08:15 MB (Rec: 02/12/21 08:50 MB [id number]) OP-PT Subjective Patient Comments Patient Comments Pt states that he is a little worried about his left piriformis as the outside of his left foot is starting to bother him again like it did in the past when his piriformis was pushing on his nerve. He did all his exercises this morning. PT-OP-J Posture/Palpation/Skin Start: 10/16/20 13:49 Freq: Status: Active Protocol: Document 10/21/20 08:56 MB (Rec: 10/21/20 10:13 MB [id number]) Posture Evaluation Comments Posture Comments Standing posture with shoes on : forward head, rounded shoulders, Dowager's hump, left scapula protracted and higher than the right, right shoulder lower than the left, increased lordosis at one lumbar level (L3 area), right iliac crest mildly higher than the left, left foot with greater Pako angle than the right, pt stands with head rotated 5 deg to the left PT-OP-K Range of Motion Start: 10/16/20 13:49 Freq: Status: Active Protocol: Document 10/21/20 08:56 MB (Rec: 10/21/20 10:13 MB [id number]) Cervical Spine Range of Motion Cervical Spine Active Testing Position Standing Flexion 30 Extension 15 Rotation Left 40 Rotation Right 40 Lateral Flexion Left 10 Lateral Flexion Right 20 Comments All AROM from starting position of 5 deg resting left neck rotation Shoulder Goniometric Range of Motion Shoulder Right Testing Position Standing Flexion 130 Abduction 130 Comments Pt reports most discomfort with lowering arm from abducted position when arm is in about 30 deg abduction Pt supine for passive ER and IR with arm in 90/90 position: capsule is tight and ER is 50 and IR is 45 deg Left Testing Position Standing Flexion 145 Abduction 142 Comments Pt supine for passive ER and IR with arm in 90/90 position: capsule is tight and ER is 60 and IR is 45 deg Elbow/Forearm Range of Motion Elbow/Forearm ROM Limitations Comments Elbow ROM WNLs B with some discomfort with repeated right elbow flexion in standing Wrist Goniometric Range of Motion ROM Limitations Comments AROM B wrists WNLs PT-OP-M Strength Start: 10/16/20 13:49 Freq: Status: Active Protocol: Document 10/21/20 08:56 MB (Rec: 10/21/20 10:13 MB [id number]) Shoulder Strength Shoulder Manual Muscle Testing Right Comments MMT deferred in setting of discomfort with AROM and likely rotator cuff injury Left Flexion 5 Normal Abduction (C5) 5 Normal External Rotation 5 Normal Internal Rotation 5 Normal Elbow/Forearm Strength Elbow and Forearm Manual Muscle Testing Right Flexion (C6) 4 Good Extension (C7) 5 Normal Pronation 4 Good Supination 4 Good Left Flexion (C6) 5 Normal Extension (C7) 5 Normal Pronation 5 Normal Supination 5 Normal Wrist Strength Wrist Manual Muscle Testing Right Flexion (C7) 5 Normal Extension (C6) 5 Normal Left Flexion (C7) 5 Normal Extension (C6) 5 Normal PT-OP-Q Treatments Start: 10/16/20 13:49 Freq: Status: Active Protocol: Document 02/12/21 08:15 MB (Rec: 02/12/21 12:25 MB [id number]) Cardio Equipment Upper Body Ergometer (UBE) Duration (Minutes) 10 Other 1' forward and 1' backward Therapeutic Exercises Other Exercises Verbally reviewed exercises during progress notes Comments Revised pt's HEP today and updated program, see goals Manual Therapy Treatment Other Other Manual Treatments Pt sitting with right arm in ER resting on wedge on plinth: superior to inferior, AP and PA joint mobs grade III-IV with rest break and pt performing active right shoulder abduction and flexion PT-OP-T Assessment and Plan Start: 10/16/20 13:49 Freq: Status: Active Protocol: Document 02/12/21 08:15 MB (Rec: 02/12/21 08:50 MB [id number]) Physical Therapy Assessment Rehab Potential Rehabilitation Potential Good Evaluation Complexity Number of Personal Factors/Comorbidities 1-2 Number of Body Systems Impaired 1-2 Clinical Presentation at Evaluation Stable Impairments Impairments Functional Activities,Pain, Posture,ROM,Soft Tissue Mobility,Strength Goals 6 [facility] Goal (LTG) Pt will be able to flex and then lower right arm in standing without feeling a catch by 03/17/21. 02/12/21: Pt con't to get the catching and sometimes it is with pain and sometimes it is not. When using the rhina to scoot screen for garage, he notices trouble when reaching across to put the rhina back. The catching is happening 50% or less of the time LTG Duration 4 weeks 5 [employer] Goal (LTG) Pt will report an overall 75% improvement in right hip pain to improve gait and quality of life by 03/17/21. 02/12/21: Pt reports 100% improvement in right hip pain LTG Duration Met 4 [facility] Goal (LTG) Pt will perform progressive HEP with I including cervical and thoracic mobility and flexibility, shoulder ROM, shoulder and intrascapular strengthening, LE flexibility, pelvic realignment, balance and core strengthening to improve pain and function by . 02/12/21: Reviewed HEP handout: 1x/wk: pelvic realignment exercises, pect stretch and posterior capsule stretch over pool noodle, thoracic rotation in sitting, anterior hip stretch, hip rotator stretch, hamstring stretch, buttocks stretch 3x/wk or more: core exercise progression, band exercises for shoulders over pool noodle , hook lying clam, heel raises with band, scapular retraction with arms straight and hip extension and abduction with band LTG Duration 4 weeks 3 [employer] Tr[employer] Goal (LTG) Pt will present with improved AROM right shoulder abduction and flexion equal to the left to improve ability to perform overhead tasks in the kitchen and with pruning by 02/14/21. 12/23/20: Right shoulder flexion is 10 deg less than the left and abduction is 5 deg less than the left LTG Duration 8 weeks 2 [facility] Goal (LTG) Pt will report a 90% improvement in using his right hand to move items in and out of the refridgerator and to filler picker coffee cup to return to PLOF by 01/03/21. 12/23/20: Met LTG Duration Met 1 [facility] Goal (LTG) Pt will present with an improved QuickDASH score of no more than 5% to reflect improved ability to perform ADLs and IADLs by 03/17/21. 02/12/21: QuickDASH score reflects 20.45% impairment and pt and PT agree that he shoulder is not getting worse, he is actually doing more and is more aware of it. For instance, he is lifting his coffee cup, doing gardening, shoveling and clipping LTG Duration 4 weeks Assessment Summary Assessment Pt has progressed well with PT . His right shoulder function and pain are better. He has no more right hip pain. He is progresing with exercises. He will benefit from ongoing PT to review PT exercises given to him from previous PT to make sure that he has a plan going forward of all exercises he needs to con't to keep doing well. He has underlying right shoulder changes ( possible rotator cuff injury per orthopedist) and history of back pain and so these are barriers to PT. Physical Therapy Plan Frequency and Duration Frequency of Treatment 1x/Week Duration of Treatment 4 weeks Plan of Care Start Date 02/12/21 Plan of Care End Date 03/17/21 Therapeutic Interventions Therapeutic Interventions Balance Training,Canalithic Repositioning,Gait Training, Home Exercise Program,Joint Mobilizations,Manual Therapy, Neuromuscular Re-education, Patient/Caregiver Education, Self-Care/Home Management,Soft Tissue Mobilization,Taping, Therapeutic Activities, Therapeutic Exercises Modalities Cold Pack/Ice Massage,Hot Packs Next Visit Focus/Plan Next Note Type Treatment Note Next Visit Plan Review pt's exercises from previous PT that helped his piriformis
--- NOTE | 2021-02-12 12:29 | PT.OPPOC ---
Physical, Occupational & Speech Therapy At [facility] Current Diagnoses Pain in right shoulder (02/12/21) Pain in right hip (02/12/21) Pain in right arm (02/12/21) Visit Care Team Role Provider Type Brandie Prabhakar MD Attending Provider Non-Staff Primary Care Provider Referring Provider Specialty: Family Practice Address: [address] [place] [address], [id number] Email: Plan Of Care PT-OP-T Assessment and Plan Start: 10/16/20 13:49 Freq: Status: Active Protocol: Document 02/12/21 08:15 MB (Rec: 02/12/21 08:50 MB [id number]) Physical Therapy Assessment Rehab Potential Rehabilitation Potential Good Evaluation Complexity Number of Personal Factors/Comorbidities 1-2 Number of Body Systems Impaired 1-2 Clinical Presentation at Evaluation Stable Impairments Impairments Functional Activities,Pain, Posture,ROM,Soft Tissue Mobility,Strength Goals 6 Mcc Goal (LTG) Pt will be able to flex and then lower right arm in standing without feeling a catch by 03/17/21. 02/12/21: Pt con't to get the catching and sometimes it is with pain and sometimes it is not. When using the rhina to scoot screen for garage, he notices trouble when reaching across to put the rhina back. The catching is happening 50% or less of the time LTG Duration 4 weeks 5 Furnace Helper Goal (LTG) Pt will report an overall 75% improvement in right hip pain to improve gait and quality of life by 03/17/21. 02/12/21: Pt reports 100% improvement in right hip pain LTG Duration Met 4 Furnace Helper Goal (LTG) Pt will perform progressive HEP with I including cervical and thoracic mobility and flexibility, shoulder ROM, shoulder and intrascapular strengthening, LE flexibility, pelvic realignment, balance and core strengthening to improve pain and function by . 02/12/21: Reviewed HEP handout: 1x/wk: pelvic realignment exercises, pect stretch and posterior capsule stretch over pool noodle, thoracic rotation in sitting, anterior hip stretch, hip rotator stretch, hamstring stretch, buttocks stretch 3x/wk or more: core exercise progression, band exercises for shoulders over pool noodle , hook lying clam, heel raises with band, scapular retraction with arms straight and hip extension and abduction with band LTG Duration 4 weeks 3 Furnace Helper Goal (LTG) Pt will present with improved AROM right shoulder abduction and flexion equal to the left to improve ability to perform overhead tasks in the kitchen and with pruning by 02/14/21. 12/23/20: Right shoulder flexion is 10 deg less than the left and abduction is 5 deg less than the left LTG Duration 8 weeks 2 Mcc Goal (LTG) Pt will report a 90% improvement in using his right hand to move items in and out of the refridgerator and to warp picker coffee cup to return to PLOF by 01/03/21. 12/23/20: Met LTG Duration Met 1 Furnace Helper Goal (LTG) Pt will present with an improved QuickDASH score of no more than 5% to reflect improved ability to perform ADLs and IADLs by 03/17/21. 02/12/21: QuickDASH score reflects 20.45% impairment and pt and PT agree that he shoulder is not getting worse, he is actually doing more and is more aware of it. For instance, he is lifting his coffee cup, doing gardening, shoveling and clipping LTG Duration 4 weeks Assessment Summary Assessment Pt has progressed well with PT . His right shoulder function and pain are better. He has no more right hip pain. He is progresing with exercises. He will benefit from ongoing PT to review PT exercises given to him from previous PT to make sure that he has a plan going forward of all exercises he needs to con't to keep doing well. He has underlying right shoulder changes ( possible rotator cuff injury per orthopedist) and history of back pain and so these are barriers to PT. Physical Therapy Plan Frequency and Duration Frequency of Treatment 1x/Week Duration of Treatment 4 weeks Plan of Care Start Date 02/12/21 Plan of Care End Date 03/17/21 Therapeutic Interventions Therapeutic Interventions Balance Training,Canalithic Repositioning,Gait Training, Home Exercise Program,Joint Mobilizations,Manual Therapy, Neuromuscular Re-education, Patient/Caregiver Education, Self-Care/Home Management,Soft Tissue Mobilization,Taping, Therapeutic Activities, Therapeutic Exercises Modalities Cold Pack/Ice Massage,Hot Packs Next Visit Focus/Plan Next Note Type Treatment Note Next Visit Plan Review pt's exercises from previous PT that helped his piriformis Plan of Care Dates Plan of Care Start Date 02/12/21 Plan of Care End Date 03/17/21 Electronically Signed by: Katharine Shukla, PT 02/12/21 [id number] Please Sign and Return: I have reviewed this Plan of Care and certify that the skilled therapy services above are required to meet the patient?s needs. Physician Signature Date Printed Name and Credentials Clinical Instructor Signature Printed Name and Credentials
--- NOTE | 2021-02-24 09:08 | PT.OTN ---
Current Diagnoses Pain in right shoulder (02/24/21) Pain in right hip (02/24/21) Pain in right arm (02/24/21) Physical Therapy Treatment Note PT-OP-A Visit Information Start: 10/16/20 13:49 Freq: Status: Active Protocol: Document 02/24/21 08:16 MB (Rec: 02/24/21 09:00 MB [id number]) Out-Patient Physical Therapy Visit Information Visit Information Visit Type Treatment Note Visit Note Medicare, for Life, KX Visit Start Time 08:16 Visit Stop Time 09:00 Total Visit Minutes 44 Visit Number 29 PT-OP-B Current Condition Start: 10/16/20 13:49 Freq: Status: Active Protocol: Document 10/21/20 08:56 MB (Rec: 10/21/20 09:13 MB [id number]) Current Condition History of Current Condition Onset Date 1 year Current Complaints Right shoulder discomfort with activities History of Current Condition Pt reports right shoulder pain started during COVID when he started using exercise band. He was doing cardiac rehab for maintenance exercises after completing course when the clinic closed for COVID. He has had right shoulder pain that is annoying and awakens him at night. Occ he gets up and takes Tylenol and it helps . He finds that he does not want to raise the arm to put jars on the shelf. He is more often picking up his coffee cup with his left hand than his right. He is right handed. 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 Pulling down the branches of a hinds was problematic. Reaching to stick a fork in the ground with his right hand is problematic. He feels a crunching of a couple of things rubbing together in his upper arm. He had an x-ray and he states it said age appropriate changes of the joint. Pt reports pain 3/10 in his upper right shoulder and biceps area. He is sleeping on his left side or his back. He is not using a pillow between his arms and he has one pillow under his head and one between his knees. Pt underwent CAD bypass 2015. PMH includes BPPV, hearing problems, back pain and basal cell carcinoma. Treatment Goals Patient/Caregiver Goals To not have the pain discourage me from doing things with my right arm. PT-OP-C Subjective Start: 10/16/20 13:49 Freq: Status: Active Protocol: Document 02/24/21 08:16 MB (Rec: 02/24/21 09:00 MB [id number]) OP-PT Subjective Patient Comments Patient Comments Pt states that his hips are doing well and he has noticed a new discomfort in his right shoulder when something lies on it, like a hand. PT-OP-J Posture/Palpation/Skin Start: 10/16/20 13:49 Freq: Status: Active Protocol: Document 10/21/20 08:56 MB (Rec: 10/21/20 10:13 MB [id number]) Posture Evaluation Comments Posture Comments Standing posture with shoes on : forward head, rounded shoulders, Dowager's hump, left scapula protracted and higher than the right, right shoulder lower than the left, increased lordosis at one lumbar level (L3 area), right iliac crest mildly higher than the left, left foot with greater Pako angle than the right, pt stands with head rotated 5 deg to the left PT-OP-K Range of Motion Start: 10/16/20 13:49 Freq: Status: Active Protocol: Document 10/21/20 08:56 MB (Rec: 10/21/20 10:13 MB [id number]) Cervical Spine Range of Motion Cervical Spine Active Testing Position Standing Flexion 30 Extension 15 Rotation Left 40 Rotation Right 40 Lateral Flexion Left 10 Lateral Flexion Right 20 Comments All AROM from starting position of 5 deg resting left neck rotation Shoulder Goniometric Range of Motion Shoulder Right Testing Position Standing Flexion 130 Abduction 130 Comments Pt reports most discomfort with lowering arm from abducted position when arm is in about 30 deg abduction Pt supine for passive ER and IR with arm in 90/90 position: capsule is tight and ER is 50 and IR is 45 deg Left Testing Position Standing Flexion 145 Abduction 142 Comments Pt supine for passive ER and IR with arm in 90/90 position: capsule is tight and ER is 60 and IR is 45 deg Elbow/Forearm Range of Motion Elbow/Forearm ROM Limitations Comments Elbow ROM WNLs B with some discomfort with repeated right elbow flexion in standing Wrist Goniometric Range of Motion ROM Limitations Comments AROM B wrists WNLs PT-OP-M Strength Start: 10/16/20 13:49 Freq: Status: Active Protocol: Document 10/21/20 08:56 MB (Rec: 10/21/20 10:13 MB [id number]) Shoulder Strength Shoulder Manual Muscle Testing Right Comments MMT deferred in setting of discomfort with AROM and likely rotator cuff injury Left Flexion 5 Normal Abduction (C5) 5 Normal External Rotation 5 Normal Internal Rotation 5 Normal Elbow/Forearm Strength Elbow and Forearm Manual Muscle Testing Right Flexion (C6) 4 Good Extension (C7) 5 Normal Pronation 4 Good Supination 4 Good Left Flexion (C6) 5 Normal Extension (C7) 5 Normal Pronation 5 Normal Supination 5 Normal Wrist Strength Wrist Manual Muscle Testing Right Flexion (C7) 5 Normal Extension (C6) 5 Normal Left Flexion (C7) 5 Normal Extension (C6) 5 Normal PT-OP-Q Treatments Start: 10/16/20 13:49 Freq: Status: Active Protocol: Document 02/24/21 08:16 MB (Rec: 02/24/21 09:08 MB [id number]) Cardio Equipment Upper Body Ergometer (UBE) Duration (Minutes) 10 Other 1' forward and 1' backward Therapeutic Exercises Supine Exercises Hip rotator stretch Supine Exercise Name Added IR stretch today Side bilateral Comments 30 sec Standing Exercises Balance exercise in corner Standing Exercise Name Poor form for SLS, added Tandem for home Side bilateral Comments At least 30 sec hold B Other Exercises Verbally reviewed exercises during progress notes Comments See assessment for extensive exercise revision today PT-OP-T Assessment and Plan Start: 10/16/20 13:49 Freq: Status: Active Protocol: Document 02/24/21 08:16 MB (Rec: 02/24/21 09:00 MB [id number]) Physical Therapy Assessment Rehab Potential Rehabilitation Potential Good Evaluation Complexity Number of Personal Factors/Comorbidities 1-2 Number of Body Systems Impaired 1-2 Clinical Presentation at Evaluation Stable Impairments Impairments Functional Activities,Pain, Posture,ROM,Soft Tissue Mobility,Strength Goals 6 Group Home Goal (LTG) Pt will be able to flex and then lower right arm in standing without feeling a catch by 03/17/21. 02/12/21: Pt con't to get the catching and sometimes it is with pain and sometimes it is not. When using the rhina to scoot screen for garage, he notices trouble when reaching across to put the rhina back. The catching is happening 50% or less of the time LTG Duration 4 weeks 4 Group Home Goal (LTG) Pt will perform progressive HEP with I including cervical and thoracic mobility and flexibility, shoulder ROM, shoulder and intrascapular strengthening, LE flexibility, pelvic realignment, balance and core strengthening to improve pain and function by . 02/12/21: Reviewed HEP handout: 1x/wk: pelvic realignment exercises, pect stretch and posterior capsule stretch over pool noodle, thoracic rotation in sitting, anterior hip stretch, hip rotator stretch, hamstring stretch, buttocks stretch 3x/wk or more: core exercise progression, band exercises for shoulders over pool noodle , hook lying clam, heel raises with band, scapular retraction with arms straight and hip extension and abduction with band LTG Duration 4 weeks 1 Group Home Goal (LTG) Pt will present with an improved QuickDASH score of no more than 5% to reflect improved ability to perform ADLs and IADLs by 03/17/21. 02/12/21: QuickDASH score reflects 20.45% impairment and pt and PT agree that he shoulder is not getting worse, he is actually doing more and is more aware of it. For instance, he is lifting his coffee cup, doing gardening, shoveling and clipping LTG Duration 4 weeks Assessment Summary Assessment Treatment today included exercise review and revision. Reviewed his piriformis exercises from previous PT: pt to con't hamstring stretch with AP as given by this PT and d/c other PT's stretch, added hip IR stretch, d/cd previous PT's pelvic tilt and ball squeeze and keep this PT' s pelvic realignment and core progression, d/c side lying clam from previous PT and keep hook lying clam with band from this PT. Pt would like a balance exercise and so tandem standing added today. Pt requested a higher band for side stepping and backward stepping and provided today and pt to perform for PT next treatment date. Physical Therapy Plan Frequency and Duration Frequency of Treatment 1x/Week Duration of Treatment 4 weeks Plan of Care Start Date 02/12/21 Plan of Care End Date 03/17/21 Therapeutic Interventions Therapeutic Interventions Balance Training,Canalithic Repositioning,Gait Training, Home Exercise Program,Joint Mobilizations,Manual Therapy, Neuromuscular Re-education, Patient/Caregiver Education, Self-Care/Home Management,Soft Tissue Mobilization,Taping, Therapeutic Activities, Therapeutic Exercises Modalities Cold Pack/Ice Massage,Hot Packs Next Visit Focus/Plan Next Note Type Treatment Note Next Visit Plan Review hip abduction and extension with band and manual work as needed, start preparing for d/c
--- NOTE | 2021-03-03 08:57 | PT.OTN ---
Current Diagnoses Pain in right shoulder (03/03/21) Pain in right hip (03/03/21) Pain in right arm (03/03/21) Physical Therapy Treatment Note PT-OP-A Visit Information Start: 10/16/20 13:49 Freq: Status: Active Protocol: Document 03/03/21 08:15 MB (Rec: 03/03/21 08:56 MB [id number]) Out-Patient Physical Therapy Visit Information Visit Information Visit Type Treatment Note Visit Note Medicare, for Life, KX Visit Start Time 08:15 Visit Stop Time 08:53 Total Visit Minutes 38 Visit Number 30 PT-OP-B Current Condition Start: 10/16/20 13:49 Freq: Status: Active Protocol: Document 10/21/20 08:56 MB (Rec: 10/21/20 09:13 MB [id number]) Current Condition History of Current Condition Onset Date 1 year Current Complaints Right shoulder discomfort with activities History of Current Condition Pt reports right shoulder pain started during COVID when he started using exercise band. He was doing cardiac rehab for maintenance exercises after completing course when the clinic closed for COVID. He has had right shoulder pain that is annoying and awakens him at night. Occ he gets up and takes Tylenol and it helps . He finds that he does not want to raise the arm to put jars on the shelf. He is more often picking up his coffee cup with his left hand than his right. He is right handed. 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 Pulling down the branches of a hinds was problematic. Reaching to stick a fork in the ground with his right hand is problematic. He feels a crunching of a couple of things rubbing together in his upper arm. He had an x-ray and he states it said age appropriate changes of the joint. Pt reports pain 3/10 in his upper right shoulder and biceps area. He is sleeping on his left side or his back. He is not using a pillow between his arms and he has one pillow under his head and one between his knees. Pt underwent CAD bypass 2015. PMH includes BPPV, hearing problems, back pain and basal cell carcinoma. Treatment Goals Patient/Caregiver Goals To not have the pain discourage me from doing things with my right arm. PT-OP-C Subjective Start: 10/16/20 13:49 Freq: Status: Active Protocol: Document 03/03/21 08:15 MB (Rec: 03/03/21 08:56 MB [id number]) OP-PT Subjective Patient Comments Patient Comments Pt states that he is doing well and agrees that he is ready to d/c when PT asks him. PT-OP-J Posture/Palpation/Skin Start: 10/16/20 13:49 Freq: Status: Active Protocol: Document 10/21/20 08:56 MB (Rec: 10/21/20 10:13 MB [id number]) Posture Evaluation Comments Posture Comments Standing posture with shoes on : forward head, rounded shoulders, Dowager's hump, left scapula protracted and higher than the right, right shoulder lower than the left, increased lordosis at one lumbar level (L3 area), right iliac crest mildly higher than the left, left foot with greater Pako angle than the right, pt stands with head rotated 5 deg to the left PT-OP-K Range of Motion Start: 10/16/20 13:49 Freq: Status: Active Protocol: Document 10/21/20 08:56 MB (Rec: 10/21/20 10:13 MB [id number]) Cervical Spine Range of Motion Cervical Spine Active Testing Position Standing Flexion 30 Extension 15 Rotation Left 40 Rotation Right 40 Lateral Flexion Left 10 Lateral Flexion Right 20 Comments All AROM from starting position of 5 deg resting left neck rotation Shoulder Goniometric Range of Motion Shoulder Right Testing Position Standing Flexion 130 Abduction 130 Comments Pt reports most discomfort with lowering arm from abducted position when arm is in about 30 deg abduction Pt supine for passive ER and IR with arm in 90/90 position: capsule is tight and ER is 50 and IR is 45 deg Left Testing Position Standing Flexion 145 Abduction 142 Comments Pt supine for passive ER and IR with arm in 90/90 position: capsule is tight and ER is 60 and IR is 45 deg Elbow/Forearm Range of Motion Elbow/Forearm ROM Limitations Comments Elbow ROM WNLs B with some discomfort with repeated right elbow flexion in standing Wrist Goniometric Range of Motion ROM Limitations Comments AROM B wrists WNLs PT-OP-M Strength Start: 10/16/20 13:49 Freq: Status: Active Protocol: Document 10/21/20 08:56 MB (Rec: 10/21/20 10:13 MB [id number]) Shoulder Strength Shoulder Manual Muscle Testing Right Comments MMT deferred in setting of discomfort with AROM and likely rotator cuff injury Left Flexion 5 Normal Abduction (C5) 5 Normal External Rotation 5 Normal Internal Rotation 5 Normal Elbow/Forearm Strength Elbow and Forearm Manual Muscle Testing Right Flexion (C6) 4 Good Extension (C7) 5 Normal Pronation 4 Good Supination 4 Good Left Flexion (C6) 5 Normal Extension (C7) 5 Normal Pronation 5 Normal Supination 5 Normal Wrist Strength Wrist Manual Muscle Testing Right Flexion (C7) 5 Normal Extension (C6) 5 Normal Left Flexion (C7) 5 Normal Extension (C6) 5 Normal PT-OP-Q Treatments Start: 10/16/20 13:49 Freq: Status: Active Protocol: Document 03/03/21 08:15 MB (Rec: 03/03/21 08:56 MB [id number]) Cardio Equipment Upper Body Ergometer (UBE) Duration (Minutes) 10 Other 1' forward and 1' backward Therapeutic Exercises Prone Exercises Cat/cow Comments Pt does not have a lot of movement in thoracic spine Child's Pose Side bilateral Comments Walking hands side to side Standing Exercises Hip abduction and extension with band in standing Side bilateral Comments Level 4 and 5 bands and pt performs well today Other Exercises Verbally reviewed exercises during progress notes Comments Performed this today in preparation for d/c PT-OP-T Assessment and Plan Start: 10/16/20 13:49 Freq: Status: Active Protocol: Document 03/03/21 08:15 MB (Rec: 03/03/21 08:56 MB [id number]) Physical Therapy Assessment Rehab Potential Rehabilitation Potential Good Evaluation Complexity Number of Personal Factors/Comorbidities 1-2 Number of Body Systems Impaired 1-2 Clinical Presentation at Evaluation Stable Impairments Impairments Functional Activities,Pain, Posture,ROM,Soft Tissue Mobility,Strength Goals 6 [employer] Goal (LTG) Pt will be able to flex and then lower right arm in standing without feeling a catch by 03/17/21. 03/03/32: Moving the rhina has been no problem. He did pick plums and make jam. There was a lot of stirring. When he lifted the jars up, it was bad LTG Duration Partially met 4 [employer] Goal (LTG) Pt will perform progressive HEP with I including cervical and thoracic mobility and flexibility, shoulder ROM, shoulder and intrascapular strengthening, LE flexibility, pelvic realignment, balance and core strengthening to improve pain and function by . 03/03/21: Reviewed HEP handout: 1x/day: pelvic realignment exercises, pect stretch and posterior capsule stretch over pool noodle, thoracic rotation in sitting, anterior hip stretch, hip rotator stretch, hamstring stretch, buttocks stretch 3x/wk or more: core exercise progression, band exercises for shoulders over pool noodle , hook lying clam, heel raises with band, scapular retraction with arms straight and hip extension and abduction with band. Today, reviewed child's pose and cat/ cow per pt request LTG Duration 4 weeks 1 [employer] Goal (LTG) Pt will present with an improved QuickDASH score of no more than 5% to reflect improved ability to perform ADLs and IADLs by 03/17/21. 03/03/21: QuickDASH score reflects 11.36% impairment and this is an improvement since last month (10%) LTG Duration Partially met Assessment Summary Assessment Pt has progressed towards all PT goals since last progress note. He has met HEP goal. He has progressed towards QuickDASH and reaching and lowering right arm goals. Orthopedist felt like pt has a rotator cuff tear and so this has been an ongoing barrier. His back pain is gone. He is ready to d/c and will con't with HEP. Physical Therapy Plan Frequency and Duration Frequency of Treatment 1x/Week Duration of Treatment 4 weeks Plan of Care Start Date 02/12/21 Plan of Care End Date 03/17/21 Therapeutic Interventions Therapeutic Interventions Balance Training,Canalithic Repositioning,Gait Training, Home Exercise Program,Joint Mobilizations,Manual Therapy, Neuromuscular Re-education, Patient/Caregiver Education, Self-Care/Home Management,Soft Tissue Mobilization,Taping, Therapeutic Activities, Therapeutic Exercises Modalities Cold Pack/Ice Massage,Hot Packs
== END 2021-03-03 10:50 | disposition home or self-care (01) ==
LOC: PHYS 08:15
PROVIDERS: PCP Family Medicine; Referring Provider Family Medicine; Visit Provider Family Medicine
DX: M79.601 Pain in right arm (principal); M25.511 Pain in right shoulder; M25.551 Pain in right hip
CPT/HCPCS: 97010; 97110; 97140; 97161; 97530; 97535

== ENCOUNTER → 2021-03-27 06:59 | Outpatient (CLI) | payer MEDICARE, OTHER, SELFPAY ==
[2021-03-27 08:39] LABS: Alanine Aminotransferase 39 IU/L (<50); Albumin 4.1 g/dL (3.5-5.0); Albumin Globulin Ratio 1.5 (1.0-2.8); Alkaline Phosphatase 54 U/L (38-126); Aspartate Aminotransferase 48 IU/L (17-59); Bilirubin Total 1.2 mg/dL (0.2-1.3); Blood Urea Nitrogen 19 mg/dL (9-20); Calcium 9.3 mg/dL (8.4-10.2); Carbon Dioxide 24 mmol/L (22-32); Chloride 108 mmol/L (98-107); Cholesterol 111 mg/dL (140-199); Estimated Glomerular Filt Rate > 60.0 mL/min (>60); Globulin 2.8 g/dL (1.7-4.1); Glucose 102 mg/dL (80-110); HDL Cholesterol 50 mg/dL (40-60); HEMOLYSIS < 15 (0-50); LDL Cholesterol Calculated 48 mg/dL (<100); Sodium 140 mmol/L (137-145); Total Protein 6.9 g/dL (6.3-8.2); Triglycerides 63 mg/dL (35-150)
== END ==
PROVIDERS: PCP Family Medicine; Referring Provider Internal Medicine Cardiovascular Disease; Visit Provider Internal Medicine Cardiovascular Disease
DX: I25.10 Atherosclerotic heart disease of native coronary artery without angina pectoris (principal)
CPT/HCPCS: 36415; 80053; 80061

== ENCOUNTER → 2021-10-26 10:24 | Outpatient (CLI) | payer MEDICARE, OTHER, SELFPAY ==
[2021-10-26 12:43] LABS: COVID19 -Nasal RAPID Negative (Negative)
== END ==
PROVIDERS: PCP Family Medicine; Referring Provider Family Medicine Sleep Medicine; Visit Provider Family Medicine Sleep Medicine
DX: Z20.822 Contact with and (suspected) exposure to COVID-19 (principal)
CPT/HCPCS: 87635; C9803

== ENCOUNTER 2021-10-27 10:48 | Day surgery (SDC) | payer MEDICARE, OTHER, SELFPAY ==
[2021-10-27] MEDS: PROPARACAINE 0.5% OPHTH SOL 2 DROPS EYE-OP (11:05)
[2021-10-27 11:09] VITALS: BP 129/76; PULSE 64; RESP 16; TEMP 36; O2SAT 97; BMI 24.7
[2021-10-27] MEDS: CATARACT EYE COMPOUND (10 DROPS/SYRINGE) 3 DROPS EYE-OP (11:10)
--- NOTE | 2021-10-27 12:04 | PM.PREOP ---
Pre-operative Note Interval Note History & Physical reviewed/Exam performed by Physician: Yes Changes to H&P: No
--- NOTE | 2021-10-27 12:05 | PM.OP.1 ---
Operative Date/Time/Diagnoses Pre-op diagnosis: Nuclear cataract right eye Procedure & Clinicians Procedure: Cataract Surgery Same procedure as scheduled: Yes Surgeon: Damaso Weaver Anesthesia Type: MAC +/- and Sedation Operative Notes Procedure in detail: Patient brought to the operating suite. Tetracaine drops placed in the right eye. Patient was prepped and draped in sterile manner. Wire lid speculum was placed in the eye. Betadine drops were placed on the eye. This was irrigated. Lidocaine jelly was placed on the eye. A paracentesis port was created with a side-port blade. 0.1 mL 1% preservative free lidocaine was injected into the anterior chamber. The anterior chamber was deepened with viscoelastic. 2.6 mm keratome was used to create a temporal clear corneal incision. Cystotome and Utrata forceps were used to create continuous tear capsulorrhexis. Balanced salt solution was used to hydro dissect the nucleus. The phacoemulsification handpiece was inserted and the nucleus was removed using the stop and chop technique. The irrigation aspiration handpiece was inserted and the remaining cortex was removed. Anterior chamber was deepened with viscoelastic. An Jensen DIB00 intraocular lens with a power of 21.5 was injected into the capsular bag. Irrigation aspiration handpiece was inserted and the remaining viscoelastic was removed. Incision was hydrated with balanced salt solution and found to be leak free with pressure with Weck-Keshia sponges. 0.1 mL Vigamox injected anterior chamber. 0.3 mL Kenalog 10 mg was injected subconjunctivally. Lid speculum was removed. The patient left the operating room in excellent condition. Complications: none Post-operative Condition: stable Disposition: same day surgery
[2021-10-27] MEDS: PHENYLEPHRINE/LIDOCAINE VIAL (OR) 0.2 ML EYE-OP (12:23)
[2021-10-27] MEDS: MOXIFLOXACIN INJ 4 MG/0.8 ML VIAL 0.5 MG EYE-OP (12:23)
[2021-10-27] MEDS: HYALURONATE SODIUM 30 MG-10 MG/ML SYRINGES 1 BOX INTRAOCULA (12:23)
[2021-10-27] MEDS: TRIAMCINOLONE 50 MG/5 ML VIAL INJ (12:23)
[2021-10-27] MEDS: LIDOCAINE 2% (GLYDO) 6 ML GEL TOP (12:24)
[2021-10-27] MEDS: TETRACAINE 0.5% OPHTH DROPS 4 ML 2 DROPS EYE-OP (12:24)
[2021-10-27] MEDS: BALANCED SALT IRRIG SOLN NO.2 500 ML, EPINEPHrine 1 MG IRR (12:24)
--- NOTE | 2021-10-27 12:30 | SUR.OPER ---
Supine on eye stretcher, head on extension cradle secured with tape. Arms tucked at sides with blanket. Pillow under knees.
[2021-10-27 12:51] VITALS: BP 118/69; PULSE 62; RESP 16; TEMP 35.9; O2SAT 99
== END 2021-10-27 13:00 | disposition home or self-care (01) ==
PROVIDERS: PCP Family Medicine; Referring Provider Ophthalmology; Visit Provider Ophthalmology
PROC: (CPT 66984; principal; 2021-10-27 12:15)
DX: H25.11 Age-related nuclear cataract, right eye (principal)
CPT/HCPCS: 66984; J0171; J2250; J3301

== ENCOUNTER → 2022-03-12 08:01 | Outpatient (CLI) | payer MEDICARE, OTHER, SELFPAY ==
[2022-03-12 08:56] LABS: Alanine Aminotransferase 41 IU/L (<50); Albumin 4.1 g/dL (3.5-5.0); Albumin Globulin Ratio 1.4 (1.0-2.8); Alkaline Phosphatase 62 U/L (38-126); Aspartate Aminotransferase 43 IU/L (17-59); Bilirubin Total 1.1 mg/dL (0.2-1.3); Blood Urea Nitrogen 18 mg/dL (9-20); Calcium 9.1 mg/dL (8.4-10.2); Carbon Dioxide 30 mmol/L (22-32); Chloride 103 mmol/L (98-107); Estimated Glomerular Filt Rate > 60 mL/min (>60); Globulin 2.9 g/dL (1.7-4.1); Glucose 97 mg/dL (80-110); HEMOLYSIS < 15 (0-50); Magnesium 2.2 mg/dL (1.6-2.3); Potassium 4.4 mmol/L (3.4-5.1); Sodium 138 mmol/L (137-145)
== END ==
PROVIDERS: PCP Family Medicine; Referring Provider Family Medicine; Visit Provider Family Medicine
DX: R25.2 Cramp and spasm (principal)
CPT/HCPCS: 36415; 80053; 83735

== ENCOUNTER → 2023-02-23 07:22 | Outpatient (CLI) | payer MEDICARE, OTHER, SELFPAY ==
[2023-02-23 08:19] LABS: Add Manual Diff / Slide Review NO; Basophils Absolute Auto 0 /uL (0-100); Eosinophils Absolute Auto 300 /uL (0-450); Hematocrit 41.2 % (41-53); Hemoglobin 14.3 g/dL (13.5-17.5); Lymphocytes Absolute Auto 900 /uL (1100-4500); Lymphocytes Percent Auto 29.4 % (25-40); Mean Corpuscular HGB Conc 34.7 % (30-36); Mean Corpuscular Hemoglobin 32.1 PG (26-34); Mean Corpuscular Volume 92.4 fL (80-100); Monocytes Absolute Auto 300 /uL (0-900); Monocytes Percent Auto 10.9 % (3-14); Neutrophils Absolute Auto 1400 /uL (1500-7000); Neutrophils Percent Auto 47.7 % (50-75); Platelet Count 106 X10^3/uL (150-400); Red Blood Cell Count 4.46 X10^6/uL (4.5-5.9); White Blood Cell Count 2.9 X10^3/uL (4.5-11.0)
[2023-02-23 08:50] LABS: Alanine Aminotransferase 39 IU/L (<50); Albumin 3.9 g/dL (3.5-5.0); Albumin Globulin Ratio 1.5 (1.0-2.8); Alkaline Phosphatase 55 U/L (38-126); Aspartate Aminotransferase 43 IU/L (17-59); Bilirubin Total 0.8 mg/dL (0.2-1.3); Blood Urea Nitrogen 19 mg/dL (9-20); Carbon Dioxide 25 mmol/L (22-32); Chloride 107 mmol/L (98-107); Cholesterol 109 mg/dL (140-199); Estimated Glomerular Filt Rate > 60 mL/min (>60); Globulin 2.6 g/dL (1.7-4.1); Glucose 101 mg/dL (80-110); HDL Cholesterol 46 mg/dL (40-60); HEMOLYSIS < 15 (0-50); LDL Cholesterol Calculated 51 mg/dL (<100); Potassium 3.9 mmol/L (3.4-5.1); Sodium 138 mmol/L (137-145); Total Protein 6.5 g/dL (6.3-8.2); Triglycerides 61 mg/dL (35-150)
== END ==
PROVIDERS: Family Provider Family Medicine; PCP Family Medicine; Referring Provider Internal Medicine Cardiovascular Disease; Visit Provider Internal Medicine Cardiovascular Disease
DX: I25.10 Atherosclerotic heart disease of native coronary artery without angina pectoris (principal)
CPT/HCPCS: 36415; 80053; 80061; 85025

== ENCOUNTER 2023-02-25 13:30 | Outpatient (RCR) | payer MEDICARE, OTHER, SELFPAY ==
--- NOTE | 2022-11-24 11:45 | PT.OPPOC ---
Physical, Occupational & Speech Therapy At [facility] Current Diagnoses Other chronic pain (11/24/22) Pain in right shoulder (11/24/22) Stiffness of right shoulder, not elsewhere classified (11/24/22) Visit Care Team Role Provider Type Brandie Prabhakar MD Family Provider Non-Staff Primary Care Provider Specialty: Family Practice Address: [address] [place] [address], [id number] Email: Attending Provider Referring Provider Specialty: Address: Phone: Fax: Email: Plan Of Care PT-OP-T Assessment and Plan Start: 11/24/22 17:48 Freq: Status: Active Protocol: Document 11/24/22 11:00 DCW (Rec: 11/25/22 17:39 DCW [id number]) Physical Therapy Assessment Rehab Potential Rehabilitation Potential Fair Evaluation Complexity Number of Personal Factors/Comorbidities 1-2 Number of Body Systems Impaired 3 Clinical Presentation at Evaluation Evolving Impairments Impairments Activity Tolerance,Functional Activities,Functional Mobility ,Pain,Posture,ROM,Soft Tissue Mobility,Strength Goals Three Impairment Pt reports he wakes up every 1 -2 hours every night due to shoulder pain A And P Mechanic Goal (LTG) Pt to report increasing sleep to at least 5 hours straight before waking up due to shoulder pain. LTG Duration 01/24/23 Two Impairment Right shoulder ROM limited to 119? flexion Halfway Goal (LTG) Pt to increase right shoulder flexion to at least 150? in order to improve ability to put stuff away in his cabinets when working around the house . 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 Pt has previously been treated in PT for this same injury, with moderate success, however after getting less and less compliant with prior HEP, pt returns to skilled PT with worsening pain. Pt admits that he will not be willing to have any surgical intervention , so no advanced imaging has been performed. Pt most restricted with eccentric lowering of his right arm, especially when holding any weight, for example his coffee cup. Positive special tests include drop arm, painful arc, lift-off, and yergason's biceps test, as well as a positive labral grind, which likely indicate rotator cuff involvement, likely supraspinatus, as well as probable labral derangement. Pt should benefit from skilled therapy focusing on improving right shoulder strength and ROM, as well as decreasing parascapular tone and returning ability to use R shoulder during ADLs. Additionally, pt sleep is greatly disturbed by shoulder pain, and would likely benefit from sleep positioning training and assistance with pain control. Physical Therapy Plan Frequency and Duration Frequency of Treatment 2x/Week Plan of Care Start Date 11/24/22 Plan of Care End Date 01/24/23 Therapeutic Interventions Therapeutic Interventions Home Exercise Program,Joint Mobilizations,Manual Therapy, Patient/Caregiver Education, Self-Care/Home Management,Soft Tissue Mobilization,Taping, Therapeutic Activities, Therapeutic Exercises Modalities Cold Pack/Ice Massage,Electric Stimulation,Hot Packs, Ultrasound Next Visit Focus/Plan Next Note Type Treatment Note Next Visit Plan ROM, strengthening, joint mobilizations, STM Plan of Care Dates Plan of Care Start Date 11/24/22 Plan of Care End Date 01/24/23 Electronically Signed by: Jose Salmon, PT 11/25/22 9241 If you are in agreement with this Plan of Care, please return a signed and dated copy. I have reviewed this Plan of Care and certify that the skilled therapy services above are required to meet the patient?s needs. Physician Signature Date Printed Name and Credentials Clinical Instructor Signature Printed Name and Credentials
--- NOTE | 2022-11-24 11:45 | PT.OIE ---
Current Diagnoses Other chronic pain (11/24/22) Pain in right shoulder (11/24/22) Stiffness of right shoulder, not elsewhere classified (11/24/22) Past Medical History (Last Reviewed 04/07/20 @ 09:03 by Fareed Ignacio MD) Coronary artery disease Past Surgical History (Last Reviewed 04/07/20 @ 09:03 by Fareed Ignacio MD) Hx of CABG Visit Care Team Role Provider Type Brandie Prabhakar MD Family Provider Non-Staff Primary Care Provider Specialty: Family Practice Address: [address] [place] [address], [phone] Email: Attending Provider Referring Provider Specialty: Address: Phone: Fax: Email: Physical Therapy Initial Evaluation PT-OP-A Visit Information Start: 11/24/22 17:48 Freq: Status: Active Protocol: Document 11/24/22 11:00 DCW (Rec: 11/24/22 17:57 [facility] [id number]) Out-Patient Physical Therapy Visit Information Visit Information Visit Type Initial Evaluation Visit Start Time 11:00 Visit Stop Time 11:45 Total Visit Minutes 45 Visit Number 1 Number of INTERMISSION COORDINATOR Visits 0 Evaluation Information Evaluation Date 11/24/22 PT-OP-B Current Condition Start: 11/24/22 17:48 Freq: Status: Active Protocol: Document 11/24/22 11:00 DCW (Rec: 11/24/22 17:57 DCW [id number]) Current Condition History of Current Condition Onset Date Years-long history Current Complaints Right shoulder pain and stiffness History of Current Condition Pt is an 82 year old male presenting with a multi-year history of right shoulder pain . Pt was previously seen at this clinic ~2 years ago for the same pain, and at that time felt significantly better following treatment, and eventually discharged to independent [facility]. Pt reports that he has steadily been worsening, and in September had finally had enough, and decided to get his shoulder addressed again. Pt saw his PCP, who referred him to Sports Medicine at (October 05), and he then saw Sports Med at [place] (October 28). Before anything could be addressed, he went to [place] on vacation, leaving October 30, and unfortunately became quite ill with COVID during his trip. Pt is finally feeling better, and wants to get his arm back to where it was last time he was undergoing PT. Pt notes that he struggles with any overhead activity, and especially experiences pain when lowering his arm. Recently, his shoulder pain has been waking him up at night every 1-2 hours. Notes he feels it catching and popping frequently, which sometimes causes pain, and other times does not. PT-OP-C Subjective Start: 11/24/22 17:48 Freq: Status: Active Protocol: Document 11/24/22 11:00 DCW (Rec: 11/24/22 17:57 DCW [id number]) OP-PT Subjective Patient Comments Patient Comments I was surprised no one did an MRI yet, although I did already tell them that I wouldn't do surgery anyway, so maybe it doesn't matter. Patient Questionnaires Quick Dash- Upper Extremity Quick Dash UE Score 31.82% Quick Dash UE Impairment 20 to 39% Impaired (Score 20- 39) PT-OP-E Functional Tests Start: 11/24/22 17:48 Freq: Status: Active Protocol: Document 11/24/22 11:00 DCW (Rec: 11/25/22 17:26 DCW [id number]) Functional Tests Apley's Scratch Test Action 1- Left Posterior opposite shoulder Action 1- Right Posterior opposite shoulder Action 2- Left T2 Action 2- Right T2 Action 3- Left T6 Action 3- Right T10 PT-OP-F Manual Assessment Start: 11/24/22 17:48 Freq: Status: Active Protocol: Document 11/24/22 11:00 DCW (Rec: 11/25/22 17:26 DCW [id number]) Manual Assessments Soft Tissue Assessment Soft Tissue Mobility Assessment Moderate tone in right upper trap and right scalenes, tenderness to palpation 3/4: Wincing and withdraw. PT-OP-K Range of Motion Start: 11/24/22 17:48 Freq: Status: Active Protocol: Document 11/24/22 11:00 DCW (Rec: 11/25/22 17:26 DCW [id number]) Shoulder Goniometric Range of Motion Shoulder Right Active Shoulder ROM WFL No Testing Position Sitting Flexion 119 Abduction 160 External Rotation at 0 degrees Abduction 36 Internal Rotation Behind Back (text) T10 Left Active Shoulder ROM WFL Yes Testing Position Sitting Flexion 180 Abduction 180 External Rotation at 0 degrees Abduction 50 Internal Rotation Behind Back (text) T6 PT-OP-L Special Tests Start: 11/25/22 17:39 Freq: Status: Active Protocol: Document 11/24/22 11:00 DCW (Rec: 11/25/22 17:40 DCW [id number]) Special Tests Shoulder Special Tests Yergason's Biceps Test Results Positive R Passive ER Rotator Cuff Test Results Negative Painful Arc Test Results Positive R Lift-Off Rotator Cuff Test Results Positive R Patel Richar Impingement Test Results Negative Grind Labrum Test Results Positive R Empty Can Test Results Negative Drop Arm Rotator Cuff Test Results Positive R Belly Press Test Results Negative PT-OP-M Strength Start: 11/24/22 17:48 Freq: Status: Active Protocol: Document 11/24/22 11:00 DCW (Rec: 11/25/22 17:26 DCW [id number]) Shoulder Strength Shoulder Manual Muscle Testing Right Flexion 3- Fair- Abduction (C5) 4- Good- External Rotation 3 Fair Internal Rotation 4- Good- Left Flexion 4 Good Abduction (C5) 4 Good External Rotation 4 Good Internal Rotation 4 Good PT-OP-Q Treatments Start: 11/24/22 17:48 Freq: Status: Active Protocol: Document 11/24/22 11:00 DCW (Rec: 11/25/22 17:26 DCW [id number]) Self-Care/Home Management Treatment Education Patient Education Home Exercise Program Other Education Reviewed prior HEP for appropriateness with current pain/injury. Recommended eliminating painful resisted ER, currently focus more on stretching and end-range motion. PT-OP-T Assessment and Plan Start: 11/24/22 17:48 Freq: Status: Active Protocol: Document 11/24/22 11:00 DCW (Rec: 11/25/22 17:39 DCW [id number]) Physical Therapy Assessment Rehab Potential Rehabilitation Potential Fair Evaluation Complexity Number of Personal Factors/Comorbidities 1-2 Number of Body Systems Impaired 3 Clinical Presentation at Evaluation Evolving Impairments Impairments Activity Tolerance,Functional Activities,Functional Mobility ,Pain,Posture,ROM,Soft Tissue Mobility,Strength Goals Three Impairment Pt reports he wakes up every 1 -2 hours every night due to shoulder pain Shelter Goal (LTG) Pt to report increasing sleep to at least 5 hours straight before waking up due to shoulder pain. LTG Duration 01/24/23 Two Impairment Right shoulder ROM limited to 119? flexion Shelter Goal (LTG) Pt to increase right shoulder flexion to at least 150? in order to improve ability to put stuff away in his cabinets when working around the house . 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 Pt has previously been treated in PT for this same injury, with moderate success, however after getting less and less compliant with prior HEP, pt returns to skilled PT with worsening pain. Pt admits that he will not be willing to have any surgical intervention , so no advanced imaging has been performed. Pt most restricted with eccentric lowering of his right arm, especially when holding any weight, for example his coffee cup. Positive special tests include drop arm, painful arc, lift-off, and yergason's biceps test, as well as a positive labral grind, which likely indicate rotator cuff involvement, likely supraspinatus, as well as probable labral derangement. Pt should benefit from skilled therapy focusing on improving right shoulder strength and ROM, as well as decreasing parascapular tone and returning ability to use R shoulder during ADLs. Additionally, pt sleep is greatly disturbed by shoulder pain, and would likely benefit from sleep positioning training and assistance with pain control. Physical Therapy Plan Frequency and Duration Frequency of Treatment 2x/Week Plan of Care Start Date 11/24/22 Plan of Care End Date 01/24/23 Therapeutic Interventions Therapeutic Interventions Home Exercise Program,Joint Mobilizations,Manual Therapy, Patient/Caregiver Education, Self-Care/Home Management,Soft Tissue Mobilization,Taping, Therapeutic Activities, Therapeutic Exercises Modalities Cold Pack/Ice Massage,Electric Stimulation,Hot Packs, Ultrasound Next Visit Focus/Plan Next Note Type Treatment Note Next Visit Plan ROM, strengthening, joint mobilizations, STM
--- NOTE | 2022-12-16 09:05 | PT-OP ANOTE ---
Pt called unable make appt time, Salvador luna not running this am, therapist unavailable in pm to reschedule.
--- NOTE | 2022-12-20 09:52 | PT.OTN ---
Current Diagnoses Other chronic pain (12/20/22) Pain in right shoulder (12/20/22) Stiffness of right shoulder, not elsewhere classified (12/20/22) Physical Therapy Treatment Note PT-OP-A Visit Information Start: 11/24/22 17:48 Freq: Status: Active Protocol: Document 12/20/22 09:05 SP (Rec: 12/20/22 09:54 SP [id number]) Out-Patient Physical Therapy Visit Information Visit Information Visit Type Treatment Note Visit Note LOREE Plunkett provided manual therapy to pt for neck and R shld while under direct supervision and guidence of DAVONTE Pham. Visit Start Time 09:05 Visit Stop Time 09:52 Total Visit Minutes 42 Visit Number 40 Number of SCREW MACHINE ADJUSTER AUTOMATIC Visits 1 Evaluation Information Evaluation Date 11/24/22 PT-OP-B Current Condition Start: 11/24/22 17:48 Freq: Status: Active Protocol: Document 11/24/22 11:00 DCW (Rec: 11/24/22 17:57 DCW [id number]) Current Condition History of Current Condition Onset Date Years-long history Current Complaints Right shoulder pain and stiffness History of Current Condition Pt is an 82 year old male presenting with a multi-year history of right shoulder pain . Pt was previously seen at this clinic ~2 years ago for the same pain, and at that time felt significantly better following treatment, and eventually discharged to [facility]. Pt reports that he has steadily been worsening, and in September had finally had enough, and decided to get his shoulder addressed again. Pt saw his PCP, who referred him to Sports Medicine at (October 05), and he then saw Sports Med at [place] (October 28). Before anything could be addressed, he went to [place] on vacation, leaving October 30, and unfortunately became quite ill with COVID during his trip. Pt is finally feeling better, and wants to get his arm back to where it was last time he was undergoing PT. Pt notes that he struggles with any overhead activity, and especially experiences pain when lowering his arm. Recently, his shoulder pain has been waking him up at night every 1-2 hours. Notes he feels it catching and popping frequently, which sometimes causes pain, and other times does not. PT-OP-C Subjective Start: 11/24/22 17:48 Freq: Status: Active Protocol: Document 12/20/22 09:05 SP (Rec: 12/20/22 09:54 SP [id number]) OP-PT Subjective Patient Comments Patient Comments Pt reports brought his WW[facility] HEP with yellow tube was provided . He reports has a red tube but hasn't been strong enough to do, caused discomfort up til now to use. PT stated hold 1 of the exercises at this time. He has no pain since last tx so thinks ready to perform as HEP. PT-OP-E Functional Tests Start: 11/24/22 17:48 Freq: Status: Active Protocol: Document 11/24/22 11:00 DCW (Rec: 11/25/22 17:26 DCW [id number]) Functional Tests Apley's Scratch Test Action 1- Left Posterior opposite shoulder Action 1- Right Posterior opposite shoulder Action 2- Left T2 Action 2- Right T2 Action 3- Left T6 Action 3- Right T10 PT-OP-F Manual Assessment Start: 11/24/22 17:48 Freq: Status: Active Protocol: Document 11/24/22 11:00 DCW (Rec: 11/25/22 17:26 DCW [id number]) Manual Assessments Soft Tissue Assessment Soft Tissue Mobility Assessment Moderate tone in right upper trap and right scalenes, tenderness to palpation 3/4: Wincing and withdraw. PT-OP-K Range of Motion Start: 11/24/22 17:48 Freq: Status: Active Protocol: Document 11/24/22 11:00 DCW (Rec: 11/25/22 17:26 DCW [id number]) Shoulder Goniometric Range of Motion Shoulder Right Active Shoulder ROM WFL No Testing Position Sitting Flexion 119 Abduction 160 External Rotation at 0 degrees Abduction 36 Internal Rotation Behind Back (text) T10 Left Active Shoulder ROM WFL Yes Testing Position Sitting Flexion 180 Abduction 180 External Rotation at 0 degrees Abduction 50 Internal Rotation Behind Back (text) T6 PT-OP-L Special Tests Start: 11/25/22 17:39 Freq: Status: Active Protocol: Document 11/24/22 11:00 DCW (Rec: 11/25/22 17:40 DCW [id number]) Special Tests Shoulder Special Tests Yergason's Biceps Test Results Positive R Passive ER Rotator Cuff Test Results Negative Painful Arc Test Results Positive R Lift-Off Rotator Cuff Test Results Positive R Patel Richar Impingement Test Results Negative Grind Labrum Test Results Positive R Empty Can Test Results Negative Drop Arm Rotator Cuff Test Results Positive R Belly Press Test Results Negative PT-OP-M Strength Start: 11/24/22 17:48 Freq: Status: Active Protocol: Document 11/24/22 11:00 DCW (Rec: 11/25/22 17:26 DCW [id number]) Shoulder Strength Shoulder Manual Muscle Testing Right Flexion 3- Fair- Abduction (C5) 4- Good- External Rotation 3 Fair Internal Rotation 4- Good- Left Flexion 4 Good Abduction (C5) 4 Good External Rotation 4 Good Internal Rotation 4 Good PT-OP-Q Treatments Start: 11/24/22 17:48 Freq: Status: Active Protocol: Document 12/20/22 09:05 SP (Rec: 12/20/22 09:54 SP [id number]) Therapeutic Exercises Supine Exercises ER stretch ROM Supine Exercise Name Reviewed HEP Equipment Used wand/cane Reps/Minutes hold for 5 sec x 10 Sidelying Exercises open book Sidelying Exercise Name added to HEP Side right Reps/Minutes 10 Comments cued for slower speed and less ROM to prevent bicep tightening Sitting Exercises Cervical ROM Sitting Exercise Name sidebending and rotation Reps/Minutes 5 each UT, LS stretching Sitting Exercise Name hold for now - ROM only Side bilateral Reps/Minutes 5 breath hold, x2 R and L Comments cued form Standing Exercises Shoulder ER/IR Standing Exercise Name reviewed [facility] Resistance yellow tube (double IR, single ER) Equipment Used towel roll under arm Reps/Minutes x10 reps Comments tactial cue to stop trunk rotation Manual Therapy Treatment Soft Tissue Mobilization R shld Body Location pec, rhomboid, bicep, Mobilization Type Myofascial Release,Strumming, Sustained Pressure,Other Intensity/Depth Moderate Body Position Hooklying Comments manual and MWM FF, ER neck Body Location UT, LS, SOR Mobilization Type Myofascial Release,Strumming, Sustained Pressure Intensity/Depth Moderate Body Position Hooklying Comments manual and ed self application Joint Mobilizations R scapulothoracic Grade II Body Position Sidelying Comments pooja mcmillan incorporate with openbook as HEP R GH jt Direction inferior, posterior Grade II Body Position Hooklying Self-Care/Home Management Treatment Education Patient Education Body Mechanics,Home Exercise Program,Joint Protection,Pain Management,Posture Other Education Time spent discussion use pillows for L side sleeping support : under R UE/ behind back and between BLEs. Added openbook and CS AROM PT-OP-T Assessment and Plan Start: 11/24/22 17:48 Freq: Status: Active Protocol: Document 12/20/22 09:05 SP (Rec: 12/20/22 09:54 SP [id number]) Physical Therapy Assessment Goals Three Impairment Pt reports he wakes up every 1 -2 hours every night due to shoulder pain Wireless Operator Goal (LTG) Pt to report increasing sleep to at least 5 hours straight before waking up due to shoulder pain. LTG Duration 01/24/23 Two Impairment Right shoulder ROM limited to 119? flexion Residential Goal (LTG) Pt to increase right shoulder flexion to at least 150? in order to improve ability to put stuff away in his cabinets when working around the house . LTG Duration 01/24/23 One Impairment Pt not currently performing an appropriate home exercise program Short Term Goal (STG) Pt to be independent and compliant with an appropriate HEP STG Duration 12/25/22 Assessment Summary Assessment Pt improved form with cues R arm/elbow position corrections and slower pacing with use of towel roll under. TIme spent providing soft tissue mobilization to pt's neck and GH/scapular complex with education provided to decrease tension of muscular compensations of UT, LS and more active facilitation of rhomboid and LT. Added cervical ROM and openbook therx to HEP to support. Physical Therapy Plan Frequency and Duration Frequency of Treatment 2x/Week Plan of Care Start Date 11/24/22 Plan of Care End Date 01/24/23 Therapeutic Interventions Therapeutic Interventions Home Exercise Program,Joint Mobilizations,Manual Therapy, Patient/Caregiver Education, Self-Care/Home Management,Soft Tissue Mobilization,Taping, Therapeutic Activities, Therapeutic Exercises Modalities Cold Pack/Ice Massage,Electric Stimulation,Hot Packs, Ultrasound Next Visit Focus/Plan Next Note Type Treatment Note Next Visit Plan REsponse to manual added CS/ scapular complex ROM to HEP to support posture/ mobility. Nex tx: continue check form with HEP and progress. POC: ROM, strengthening, joint mobilizations, STM
--- NOTE | 2022-12-23 10:18 | PT.OTN ---
Current Diagnoses Other chronic pain (12/23/22) Pain in right shoulder (12/23/22) Stiffness of right shoulder, not elsewhere classified (12/23/22) Physical Therapy Treatment Note PT-OP-A Visit Information Start: 11/24/22 17:48 Freq: Status: Active Protocol: Document 12/23/22 09:30 DCW (Rec: 12/23/22 10:18 DCW [id number]) Out-Patient Physical Therapy Visit Information Visit Information Visit Type Treatment Note Visit Start Time 09:30 Visit Stop Time 10:15 Total Visit Minutes 45 Visit Number 3 Number of GEAR KEEPER Visits 0 Evaluation Information Evaluation Date 11/24/22 PT-OP-B Current Condition Start: 11/24/22 17:48 Freq: Status: Active Protocol: Document 11/24/22 11:00 DCW (Rec: 11/24/22 17:57 DCW [id number]) Current Condition History of Current Condition Onset Date Years-long history Current Complaints Right shoulder pain and stiffness History of Current Condition Pt is an 82 year old male presenting with a multi-year history of right shoulder pain . Pt was previously seen at this clinic ~2 years ago for the same pain, and at that time felt significantly better following treatment, and eventually discharged to [facility]. Pt reports that he has steadily been worsening, and in September had finally had enough, and decided to get his shoulder addressed again. Pt saw his PCP, who referred him to Sports Medicine at (October 05), and he then saw Sports Med at [place] (October 28). Before anything could be addressed, he went to [place] on vacation, leaving October 30, and unfortunately became quite ill with COVID during his trip. Pt is finally feeling better, and wants to get his arm back to where it was last time he was undergoing PT. Pt notes that he struggles with any overhead activity, and especially experiences pain when lowering his arm. Recently, his shoulder pain has been waking him up at night every 1-2 hours. Notes he feels it catching and popping frequently, which sometimes causes pain, and other times does not. PT-OP-C Subjective Start: 11/24/22 17:48 Freq: Status: Active Protocol: Document 12/23/22 09:30 DCW (Rec: 12/23/22 10:18 DCW [id number]) OP-PT Subjective Patient Comments Patient Comments My shoulders have been better . My right one was really giving me trouble last night, which was surprising, because it actually had been feeling pretty good. PT-OP-E Functional Tests Start: 11/24/22 17:48 Freq: Status: Active Protocol: Document 11/24/22 11:00 DCW (Rec: 11/25/22 17:26 DCW [id number]) Functional Tests Apley's Scratch Test Action 1- Left Posterior opposite shoulder Action 1- Right Posterior opposite shoulder Action 2- Left T2 Action 2- Right T2 Action 3- Left T6 Action 3- Right T10 PT-OP-F Manual Assessment Start: 11/24/22 17:48 Freq: Status: Active Protocol: Document 11/24/22 11:00 DCW (Rec: 11/25/22 17:26 DCW [id number]) Manual Assessments Soft Tissue Assessment Soft Tissue Mobility Assessment Moderate tone in right upper trap and right scalenes, tenderness to palpation 3/4: Wincing and withdraw. PT-OP-K Range of Motion Start: 11/24/22 17:48 Freq: Status: Active Protocol: Document 11/24/22 11:00 DCW (Rec: 11/25/22 17:26 DCW [id number]) Shoulder Goniometric Range of Motion Shoulder Right Active Shoulder ROM WFL No Testing Position Sitting Flexion 119 Abduction 160 External Rotation at 0 degrees Abduction 36 Internal Rotation Behind Back (text) T10 Left Active Shoulder ROM WFL Yes Testing Position Sitting Flexion 180 Abduction 180 External Rotation at 0 degrees Abduction 50 Internal Rotation Behind Back (text) T6 PT-OP-L Special Tests Start: 11/25/22 17:39 Freq: Status: Active Protocol: Document 11/24/22 11:00 DCW (Rec: 11/25/22 17:40 DCW [id number]) Special Tests Shoulder Special Tests Yergason's Biceps Test Results Positive R Passive ER Rotator Cuff Test Results Negative Painful Arc Test Results Positive R Lift-Off Rotator Cuff Test Results Positive R Patel Richar Impingement Test Results Negative Grind Labrum Test Results Positive R Empty Can Test Results Negative Drop Arm Rotator Cuff Test Results Positive R Belly Press Test Results Negative PT-OP-M Strength Start: 11/24/22 17:48 Freq: Status: Active Protocol: Document 11/24/22 11:00 DCW (Rec: 11/25/22 17:26 DCW [id number]) Shoulder Strength Shoulder Manual Muscle Testing Right Flexion 3- Fair- Abduction (C5) 4- Good- External Rotation 3 Fair Internal Rotation 4- Good- Left Flexion 4 Good Abduction (C5) 4 Good External Rotation 4 Good Internal Rotation 4 Good PT-OP-Q Treatments Start: 11/24/22 17:48 Freq: Status: Active Protocol: Document 12/23/22 09:30 DCW (Rec: 12/23/22 10:18 DCW [id number]) Cardio Equipment Upper Body Ergometer (UBE) Duration (Minutes) 5 RPM 60 Seat Position 11 Height 2 Therapeutic Exercises Standing Exercises Shoulder Adduction Standing Exercise Name Adduction Side bilateral Resistance Beckham Shoulder Extension Standing Exercise Name Extension Side bilateral Resistance Beckham Rows Standing Exercise Name Rows Side bilateral Resistance Beckham Shoulder ER/IR Standing Exercise Name reviewed HEP Resistance red tube (single ER/IR) Equipment Used towel roll under arm Reps/Minutes x15 reps Comments tactial cue to stop trunk rotation Manual Therapy Treatment Soft Tissue Mobilization R shld Body Location pec, rhomboid, bicep, Mobilization Type Myofascial Release,Strumming, Sustained Pressure,Other Intensity/Depth Moderate Body Position Hooklying Comments manual and MWM FF, ER Joint Mobilizations R scapulothoracic Grade II Body Position Sidelying Comments pooja mcmillan incorporate with openbook as HEP R GH jt Direction inferior, posterior Grade II Body Position Hooklying Other Other Manual Treatments MWM: Isometric cervical rotation (resisted left) PT-OP-T Assessment and Plan Start: 11/24/22 17:48 Freq: Status: Active Protocol: Document 12/23/22 09:30 DCW (Rec: 12/23/22 10:18 DCW [id number]) Physical Therapy Assessment Impairments Impairments Activity Tolerance,Functional Activities,Functional Mobility ,Pain,Posture,ROM,Soft Tissue Mobility,Strength Goals Three Impairment Pt reports he wakes up every 1 -2 hours every night due to shoulder pain Retirement Goal (LTG) Pt to report increasing sleep to at least 5 hours straight before waking up due to shoulder pain. LTG Duration 01/24/23 Two Impairment Right shoulder ROM limited to 119? flexion Direct Marketing Coordinator Goal (LTG) Pt to increase right shoulder flexion to at least 150? in order to improve ability to put stuff away in his cabinets when working around the house . LTG Duration 01/24/23 One Impairment Pt not currently performing an appropriate home exercise program Short Term Goal (STG) Pt to be independent and compliant with an appropriate HEP STG Duration 12/25/22 Assessment Summary Assessment Pt instructed to increase resistance for HEP to red tubes as long as it does not increase his pain. Also instructed to not force left cervical side-bending if it continues to hurt on the left. Physical Therapy Plan Frequency and Duration Frequency of Treatment 2x/Week Plan of Care Start Date 11/24/22 Plan of Care End Date 01/24/23 Therapeutic Interventions Therapeutic Interventions Home Exercise Program,Joint Mobilizations,Manual Therapy, Patient/Caregiver Education, Self-Care/Home Management,Soft Tissue Mobilization,Taping, Therapeutic Activities, Therapeutic Exercises Modalities Cold Pack/Ice Massage,Electric Stimulation,Hot Packs, Ultrasound Next Visit Focus/Plan Next Note Type Treatment Note Next Visit Plan ROM, strengthening, joint mobilizations, STM
--- NOTE | 2022-12-28 14:43 | PT.OTN ---
Current Diagnoses Other chronic pain (12/28/22) Pain in right shoulder (12/28/22) Stiffness of right shoulder, not elsewhere classified (12/28/22) Physical Therapy Treatment Note PT-OP-A Visit Information Start: 11/24/22 17:48 Freq: Status: Active Protocol: Document 12/28/22 14:00 DCW (Rec: 12/28/22 14:43 [facility] [id number]) Out-Patient Physical Therapy Visit Information Visit Information Visit Type Treatment Note Visit Start Time 14:00 Visit Stop Time 14:45 Total Visit Minutes 45 Visit Number 4 Number of IT SYSTEMS ANALYST CONSULTANT Visits 0 Evaluation Information Evaluation Date 11/24/22 PT-OP-B Current Condition Start: 11/24/22 17:48 Freq: Status: Active Protocol: Document 11/24/22 11:00 DCW (Rec: 11/24/22 17:57 DCW [id number]) Current Condition History of Current Condition Onset Date Years-long history Current Complaints Right shoulder pain and stiffness History of Current Condition Pt is an 82 year old male presenting with a multi-year history of right shoulder pain . Pt was previously seen at this clinic ~2 years ago for the same pain, and at that time felt significantly better following treatment, and eventually discharged to [facility]. Pt reports that he has steadily been worsening, and in September had finally had enough, and decided to get his shoulder addressed again. Pt saw his PCP, who referred him to Sports Medicine at (October 05), and he then saw Sports Med at [place] (October 28). Before anything could be addressed, he went to [place] on vacation, leaving October 30, and unfortunately became quite ill with COVID during his trip. Pt is finally feeling better, and wants to get his arm back to where it was last time he was undergoing PT. Pt notes that he struggles with any overhead activity, and especially experiences pain when lowering his arm. Recently, his shoulder pain has been waking him up at night every 1-2 hours. Notes he feels it catching and popping frequently, which sometimes causes pain, and other times does not. PT-OP-C Subjective Start: 11/24/22 17:48 Freq: Status: Active Protocol: Document 12/28/22 14:00 DCW (Rec: 12/28/22 14:43 DCW [id number]) OP-PT Subjective Patient Comments Patient Comments I had a little trouble sleeping last night because of my shoulder. PT-OP-E Functional Tests Start: 11/24/22 17:48 Freq: Status: Active Protocol: Document 11/24/22 11:00 DCW (Rec: 11/25/22 17:26 DCW [id number]) Functional Tests Apley's Scratch Test Action 1- Left Posterior opposite shoulder Action 1- Right Posterior opposite shoulder Action 2- Left T2 Action 2- Right T2 Action 3- Left T6 Action 3- Right T10 PT-OP-F Manual Assessment Start: 11/24/22 17:48 Freq: Status: Active Protocol: Document 11/24/22 11:00 DCW (Rec: 11/25/22 17:26 DCW [id number]) Manual Assessments Soft Tissue Assessment Soft Tissue Mobility Assessment Moderate tone in right upper trap and right scalenes, tenderness to palpation 3/4: Wincing and withdraw. PT-OP-K Range of Motion Start: 11/24/22 17:48 Freq: Status: Active Protocol: Document 11/24/22 11:00 DCW (Rec: 11/25/22 17:26 DCW [id number]) Shoulder Goniometric Range of Motion Shoulder Right Active Shoulder ROM WFL No Testing Position Sitting Flexion 119 Abduction 160 External Rotation at 0 degrees Abduction 36 Internal Rotation Behind Back (text) T10 Left Active Shoulder ROM WFL Yes Testing Position Sitting Flexion 180 Abduction 180 External Rotation at 0 degrees Abduction 50 Internal Rotation Behind Back (text) T6 PT-OP-L Special Tests Start: 11/25/22 17:39 Freq: Status: Active Protocol: Document 11/24/22 11:00 DCW (Rec: 11/25/22 17:40 DCW [id number]) Special Tests Shoulder Special Tests Yergason's Biceps Test Results Positive R Passive ER Rotator Cuff Test Results Negative Painful Arc Test Results Positive R Lift-Off Rotator Cuff Test Results Positive R Patel Richar Impingement Test Results Negative Grind Labrum Test Results Positive R Empty Can Test Results Negative Drop Arm Rotator Cuff Test Results Positive R Belly Press Test Results Negative PT-OP-M Strength Start: 11/24/22 17:48 Freq: Status: Active Protocol: Document 11/24/22 11:00 DCW (Rec: 11/25/22 17:26 DCW [id number]) Shoulder Strength Shoulder Manual Muscle Testing Right Flexion 3- Fair- Abduction (C5) 4- Good- External Rotation 3 Fair Internal Rotation 4- Good- Left Flexion 4 Good Abduction (C5) 4 Good External Rotation 4 Good Internal Rotation 4 Good PT-OP-Q Treatments Start: 11/24/22 17:48 Freq: Status: Active Protocol: Document 12/28/22 14:00 DCW (Rec: 12/28/22 14:43 DCW [id number]) Cardio Equipment Upper Body Ergometer (UBE) Duration (Minutes) 5 RPM 60 Seat Position 11 Height 2 Therapeutic Exercises Other Exercises Wall push-ups Other Exercise Name Wall push-ups Reps/Minutes x10 each Comments <> and W hand positions Resisted Ambulation Other Exercise Name Resisted UE side-stepping Side bilateral Resistance Red Manual Therapy Treatment Soft Tissue Mobilization R shld Body Location pec, rhomboid, bicep, Mobilization Type Myofascial Release,Strumming, Sustained Pressure,Other Intensity/Depth Moderate Body Position Hooklying Comments manual and MWM FF, ER neck Body Location UT, LS, SOR Mobilization Type Myofascial Release,Strumming, Sustained Pressure Intensity/Depth Moderate Body Position Hooklying Comments manual and ed self application Joint Mobilizations R scapulothoracic Grade II Body Position Sidelying Comments maazar, ed incorporate with openbook as HEP R GH jt Direction inferior, posterior Grade II Body Position Hooklying Other Other Manual Treatments MWM: Isometric cervical rotation (resisted left) PT-OP-T Assessment and Plan Start: 11/24/22 17:48 Freq: Status: Active Protocol: Document 12/28/22 14:00 DCW (Rec: 12/28/22 14:43 DCW [id number]) Physical Therapy Assessment Impairments Impairments Activity Tolerance,Functional Activities,Functional Mobility ,Pain,Posture,ROM,Soft Tissue Mobility,Strength Goals Three Impairment Pt reports he wakes up every 1 -2 hours every night due to shoulder pain Halfway Goal (LTG) Pt to report increasing sleep to at least 5 hours straight before waking up due to shoulder pain. LTG Duration 01/24/23 Two Impairment Right shoulder ROM limited to 119? flexion Operations Systems Specialist Goal (LTG) Pt to increase right shoulder flexion to at least 150? in order to improve ability to put stuff away in his cabinets when working around the house . LTG Duration 01/24/23 One Impairment Pt not currently performing an appropriate home exercise program Short Term Goal (STG) Pt to be independent and compliant with an appropriate HEP STG Duration 12/25/22 Assessment Summary Assessment Pt tolerated treatment well, continues to be compliant with his HEP. Focused mainly today on tone management and cervical mobility. Physical Therapy Plan Frequency and Duration Frequency of Treatment 2x/Week Plan of Care Start Date 11/24/22 Plan of Care End Date 01/24/23 Therapeutic Interventions Therapeutic Interventions Home Exercise Program,Joint Mobilizations,Manual Therapy, Patient/Caregiver Education, Self-Care/Home Management,Soft Tissue Mobilization,Taping, Therapeutic Activities, Therapeutic Exercises Modalities Cold Pack/Ice Massage,Electric Stimulation,Hot Packs, Ultrasound Next Visit Focus/Plan Next Note Type Treatment Note Next Visit Plan ROM, strengthening, joint mobilizations, STM
--- NOTE | 2023-01-04 08:15 | PT.OTN ---
Current Diagnoses Other chronic pain (01/04/23) Pain in right shoulder (01/04/23) Stiffness of right shoulder, not elsewhere classified (01/04/23) Physical Therapy Treatment Note PT-OP-A Visit Information Start: 11/24/22 17:48 Freq: Status: Active Protocol: Document 01/04/23 07:32 SP (Rec: 01/04/23 08:26 SP [id number]) Out-Patient Physical Therapy Visit Information Visit Information Visit Type Treatment Note Visit Start Time 07:32 Visit Stop Time 08:15 Total Visit Minutes 43 Visit Number 5 Number of NUCLEAR TEST TECHNICIAN Visits 1 Evaluation Information Evaluation Date 11/24/22 PT-OP-B Current Condition Start: 11/24/22 17:48 Freq: Status: Active Protocol: Document 11/24/22 11:00 DCW (Rec: 11/24/22 17:57 DCW [id number]) Current Condition History of Current Condition Onset Date Years-long history Current Complaints Right shoulder pain and stiffness History of Current Condition Pt is an 82 year old male presenting with a multi-year history of right shoulder pain . Pt was previously seen at this clinic ~2 years ago for the same pain, and at that time felt significantly better following treatment, and eventually discharged to [facility]. Pt reports that he has steadily been worsening, and in September had finally had enough, and decided to get his shoulder addressed again. Pt saw his PCP, who referred him to Sports Medicine at (October 05), and he then saw Sports Med at [place] (October 28). Before anything could be addressed, he went to [place] on vacation, leaving October 30, and unfortunately became quite ill with COVID during his trip. Pt is finally feeling better, and wants to get his arm back to where it was last time he was undergoing PT. Pt notes that he struggles with any overhead activity, and especially experiences pain when lowering his arm. Recently, his shoulder pain has been waking him up at night every 1-2 hours. Notes he feels it catching and popping frequently, which sometimes causes pain, and other times does not. PT-OP-C Subjective Start: 11/24/22 17:48 Freq: Status: Active Protocol: Document 01/04/23 07:32 SP (Rec: 01/04/23 08:26 SP [id number]) OP-PT Subjective Patient Comments Patient Comments Pt reports L side of his neck continue to be an annoyance. Pt reports no pain sleeping last night just got up for the regular bathroom and internal clock but ususally after few min gets back to bed for another 1-2 hrs. PT-OP-E Functional Tests Start: 11/24/22 17:48 Freq: Status: Active Protocol: Document 11/24/22 11:00 DCW (Rec: 11/25/22 17:26 DCW [id number]) Functional Tests Apley's Scratch Test Action 1- Left Posterior opposite shoulder Action 1- Right Posterior opposite shoulder Action 2- Left T2 Action 2- Right T2 Action 3- Left T6 Action 3- Right T10 PT-OP-F Manual Assessment Start: 11/24/22 17:48 Freq: Status: Active Protocol: Document 11/24/22 11:00 DCW (Rec: 11/25/22 17:26 DCW [id number]) Manual Assessments Soft Tissue Assessment Soft Tissue Mobility Assessment Moderate tone in right upper trap and right scalenes, tenderness to palpation 3/4: Wincing and withdraw. PT-OP-K Range of Motion Start: 11/24/22 17:48 Freq: Status: Active Protocol: Document 11/24/22 11:00 DCW (Rec: 11/25/22 17:26 DCW [id number]) Shoulder Goniometric Range of Motion Shoulder Right Active Shoulder ROM WFL No Testing Position Sitting Flexion 119 Abduction 160 External Rotation at 0 degrees Abduction 36 Internal Rotation Behind Back (text) T10 Left Active Shoulder ROM WFL Yes Testing Position Sitting Flexion 180 Abduction 180 External Rotation at 0 degrees Abduction 50 Internal Rotation Behind Back (text) T6 PT-OP-L Special Tests Start: 11/25/22 17:39 Freq: Status: Active Protocol: Document 11/24/22 11:00 DCW (Rec: 11/25/22 17:40 DCW [id number]) Special Tests Shoulder Special Tests Yergason's Biceps Test Results Positive R Passive ER Rotator Cuff Test Results Negative Painful Arc Test Results Positive R Lift-Off Rotator Cuff Test Results Positive R Patel Richar Impingement Test Results Negative Grind Labrum Test Results Positive R Empty Can Test Results Negative Drop Arm Rotator Cuff Test Results Positive R Belly Press Test Results Negative PT-OP-M Strength Start: 11/24/22 17:48 Freq: Status: Active Protocol: Document 11/24/22 11:00 DCW (Rec: 11/25/22 17:26 DCW [id number]) Shoulder Strength Shoulder Manual Muscle Testing Right Flexion 3- Fair- Abduction (C5) 4- Good- External Rotation 3 Fair Internal Rotation 4- Good- Left Flexion 4 Good Abduction (C5) 4 Good External Rotation 4 Good Internal Rotation 4 Good PT-OP-Q Treatments Start: 11/24/22 17:48 Freq: Status: Active Protocol: Document 01/04/23 07:32 SP (Rec: 01/04/23 08:26 SP [id number]) Cardio Equipment Upper Body Ergometer (UBE) Duration (Minutes) 6 RPM 60 Seat Position 11 Height 2 Other f/b 1 min each direction Therapeutic Exercises Sidelying Exercises open book Sidelying Exercise Name reviewed HEP Side right Reps/Minutes 10 Comments cued for slower speed and less ROM to prevent bicep tightening Sitting Exercises UT, LS stretching Sitting Exercise Name Good ROM, 01/04 incorporated stretch with good feedback Side bilateral Reps/Minutes 5 breath hold, x2 R and L Comments cued form, light gentle over pressure if painfree stretch Standing Exercises self STMs Standing Exercise Name posterior neck Side left Equipment Used theracane Reps/Minutes 1 min Comments MWM CS (nods/turns) Shoulder ER/IR Standing Exercise Name reviewed HEP Resistance red tube> Taliaferro TB added 01/04 ( ER/IR) Equipment Used towel roll under arm Reps/Minutes 2x15 reps Comments verbal/tactile cue elbow at side Other Exercises Resisted Ambulation Other Exercise Name Resisted UE side-stepping Side bilateral Resistance Red Manual Therapy Treatment Soft Tissue Mobilization R shld Body Location pec, rhomboid, bicep, Mobilization Type Myofascial Release,Strumming, Sustained Pressure,Other Intensity/Depth Moderate Body Position Hooklying Comments manual and MWM FF, ER, HABD neck Body Location UT, LS, SOR Mobilization Type Myofascial Release,Strumming, Sustained Pressure Intensity/Depth Moderate Body Position Hooklying Comments manual and ed self application use theracane MWM head nods/ turns Joint Mobilizations R scapulothoracic Grade II Body Position Sidelying Comments maual, ed/ performance with openbook, modified short axis hand on head, improved scap mob with less bicep irritation R GH jt Direction inferior, posterior Grade II Body Position Hooklying Other Other Manual Treatments MWM: Isometric cervical rotation (resisted left), PROM SB and Rotation PT-OP-T Assessment and Plan Start: 11/24/22 17:48 Freq: Status: Active Protocol: Document 01/04/23 07:32 SP (Rec: 01/04/23 08:26 SP [id number]) Physical Therapy Assessment Goals Three Impairment Pt reports he wakes up every 1 -2 hours every night due to shoulder pain Snf Goal (LTG) Pt to report increasing sleep to at least 5 hours straight before waking up due to shoulder pain. 01/04/23: progressing gets about 6-7 hrs night, gets up sit EOB LTG Duration 01/24/23 progressing 01/04/23 Two Impairment Right shoulder ROM limited to 119? flexion Snf Goal (LTG) Pt to increase right shoulder flexion to at least 150? in order to improve ability to put stuff away in his cabinets when working around the house . LTG Duration 01/24/23 One Impairment Pt not currently performing an appropriate home exercise program Short Term Goal (STG) Pt to be independent and compliant with an appropriate HEP STG Duration 12/25/22 Assessment Summary Assessment Pt good feed back response to manual and self ed use theracane to carryover at home . Pt was ableto increase R shld IR/ ER resistance during there x with good scap stabilization and very little bicep recruitment noted. Physical Therapy Plan Frequency and Duration Frequency of Treatment 2x/Week Plan of Care Start Date 11/24/22 Plan of Care End Date 01/24/23 Therapeutic Interventions Therapeutic Interventions Home Exercise Program,Joint Mobilizations,Manual Therapy, Patient/Caregiver Education, Self-Care/Home Management,Soft Tissue Mobilization,Taping, Therapeutic Activities, Therapeutic Exercises Modalities Cold Pack/Ice Massage,Electric Stimulation,Hot Packs, Ultrasound Next Visit Focus/Plan Next Note Type Treatment Note Next Visit Plan Recheck MWM and if what HO for theracane for home. POC: ROM, strengthening, joint mobilizations, STM
--- NOTE | 2023-01-07 09:50 | PT.OTN ---
Current Diagnoses Other chronic pain (01/07/23) Pain in right shoulder (01/07/23) Stiffness of right shoulder, not elsewhere classified (01/07/23) Physical Therapy Treatment Note PT-OP-A Visit Information Start: 11/24/22 17:48 Freq: Status: Active Protocol: Document 01/07/23 09:00 DCW (Rec: 01/07/23 09:50 DCW [id number]) Out-Patient Physical Therapy Visit Information Visit Information Visit Type Treatment Note Visit Start Time 09:00 Visit Stop Time 09:45 Total Visit Minutes 45 Visit Number 6 Number of DYE MAKER Visits 0 Evaluation Information Evaluation Date 11/24/22 PT-OP-B Current Condition Start: 11/24/22 17:48 Freq: Status: Active Protocol: Document 11/24/22 11:00 DCW (Rec: 11/24/22 17:57 DCW [id number]) Current Condition History of Current Condition Onset Date Years-long history Current Complaints Right shoulder pain and stiffness History of Current Condition Pt is an 82 year old male presenting with a multi-year history of right shoulder pain . Pt was previously seen at this clinic ~2 years ago for the same pain, and at that time felt significantly better following treatment, and eventually discharged to [facility]. Pt reports that he has steadily been worsening, and in September had finally had enough, and decided to get his shoulder addressed again. Pt saw his PCP, who referred him to Sports Medicine at (October 05), and he then saw Sports Med at [place] (October 28). Before anything could be addressed, he went to [place] on vacation, leaving October 30, and unfortunately became quite ill with COVID during his trip. Pt is finally feeling better, and wants to get his arm back to where it was last time he was undergoing PT. Pt notes that he struggles with any overhead activity, and especially experiences pain when lowering his arm. Recently, his shoulder pain has been waking him up at night every 1-2 hours. Notes he feels it catching and popping frequently, which sometimes causes pain, and other times does not. PT-OP-C Subjective Start: 11/24/22 17:48 Freq: Status: Active Protocol: Document 01/07/23 09:00 DCW (Rec: 01/07/23 09:50 DCW [id number]) OP-PT Subjective Patient Comments Patient Comments I just came from [facility], and I may have done too much. Does note that he has been sleeping better without waking up due to shoulder pain. PT-OP-E Functional Tests Start: 11/24/22 17:48 Freq: Status: Active Protocol: Document 11/24/22 11:00 DCW (Rec: 11/25/22 17:26 DCW [id number]) Functional Tests Apley's Scratch Test Action 1- Left Posterior opposite shoulder Action 1- Right Posterior opposite shoulder Action 2- Left T2 Action 2- Right T2 Action 3- Left T6 Action 3- Right T10 PT-OP-F Manual Assessment Start: 11/24/22 17:48 Freq: Status: Active Protocol: Document 11/24/22 11:00 DCW (Rec: 11/25/22 17:26 DCW [id number]) Manual Assessments Soft Tissue Assessment Soft Tissue Mobility Assessment Moderate tone in right upper trap and right scalenes, tenderness to palpation 3/4: Wincing and withdraw. PT-OP-K Range of Motion Start: 11/24/22 17:48 Freq: Status: Active Protocol: Document 11/24/22 11:00 DCW (Rec: 11/25/22 17:26 DCW [id number]) Shoulder Goniometric Range of Motion Shoulder Right Active Shoulder ROM WFL No Testing Position Sitting Flexion 119 Abduction 160 External Rotation at 0 degrees Abduction 36 Internal Rotation Behind Back (text) T10 Left Active Shoulder ROM WFL Yes Testing Position Sitting Flexion 180 Abduction 180 External Rotation at 0 degrees Abduction 50 Internal Rotation Behind Back (text) T6 PT-OP-L Special Tests Start: 11/25/22 17:39 Freq: Status: Active Protocol: Document 11/24/22 11:00 DCW (Rec: 11/25/22 17:40 DCW [id number]) Special Tests Shoulder Special Tests Yergason's Biceps Test Results Positive R Passive ER Rotator Cuff Test Results Negative Painful Arc Test Results Positive R Lift-Off Rotator Cuff Test Results Positive R Patel Richar Impingement Test Results Negative Grind Labrum Test Results Positive R Empty Can Test Results Negative Drop Arm Rotator Cuff Test Results Positive R Belly Press Test Results Negative PT-OP-M Strength Start: 11/24/22 17:48 Freq: Status: Active Protocol: Document 11/24/22 11:00 DCW (Rec: 11/25/22 17:26 DCW [id number]) Shoulder Strength Shoulder Manual Muscle Testing Right Flexion 3- Fair- Abduction (C5) 4- Good- External Rotation 3 Fair Internal Rotation 4- Good- Left Flexion 4 Good Abduction (C5) 4 Good External Rotation 4 Good Internal Rotation 4 Good PT-OP-Q Treatments Start: 11/24/22 17:48 Freq: Status: Active Protocol: Document 01/07/23 09:00 DCW (Rec: 01/07/23 09:50 DCW [id number]) Therapeutic Exercises Standing Exercises self STMs Standing Exercise Name Pec stretching at wall Side right Other Exercises Wall push-ups Other Exercise Name Wall push-ups Reps/Minutes x10 each Comments <> and W hand positions Resisted Ambulation Other Exercise Name Resisted UE side-stepping Side bilateral Resistance Yellow Manual Therapy Treatment Soft Tissue Mobilization R shld Body Location pec, rhomboid, bicep Mobilization Type Myofascial Release,Strumming, Sustained Pressure,Other Intensity/Depth Moderate Body Position Hooklying Comments manual and MWM FF, ER neck Body Location UT, LS, SOR Mobilization Type Myofascial Release,Strumming, Sustained Pressure Intensity/Depth Moderate Body Position Hooklying Comments manual and ed self application Joint Mobilizations R scapulothoracic Grade II Body Position Supine R GH jt Direction inferior, posterior Grade II Body Position Hooklying Manual Traction Cervical Details Cervical traction Body Position Supine PT-OP-T Assessment and Plan Start: 11/24/22 17:48 Freq: Status: Active Protocol: Document 01/07/23 09:00 DCW (Rec: 01/07/23 09:50 [facility] [id number]) Physical Therapy Assessment Impairments Impairments Activity Tolerance,Functional Activities,Functional Mobility ,Pain,Posture,ROM,Soft Tissue Mobility,Strength Goals Three Impairment Pt reports he wakes up every 1 -2 hours every night due to shoulder pain Assisted Goal (LTG) Pt to report increasing sleep to at least 5 hours straight before waking up due to shoulder pain. LTG Duration 01/24/23 Two Impairment Right shoulder ROM limited to 119? flexion Assisted Goal (LTG) Pt to increase right shoulder flexion to at least 150? in order to improve ability to put stuff away in his cabinets when working around the house . LTG Duration 01/24/23 One Impairment Pt not currently performing an appropriate home exercise program Short Term Goal (STG) Pt to be independent and compliant with an appropriate HEP STG Duration 12/25/22 Assessment Summary Assessment Pt making good overall improvement, significantly fewer sleep disturbances over the past week, able to do more before becoming sore/fatigued . Physical Therapy Plan Frequency and Duration Frequency of Treatment 2x/Week Plan of Care Start Date 11/24/22 Plan of Care End Date 01/24/23 Therapeutic Interventions Therapeutic Interventions Home Exercise Program,Joint Mobilizations,Manual Therapy, Patient/Caregiver Education, Self-Care/Home Management,Soft Tissue Mobilization,Taping, Therapeutic Activities, Therapeutic Exercises Modalities Cold Pack/Ice Massage,Electric Stimulation,Hot Packs, Ultrasound Next Visit Focus/Plan Next Note Type Treatment Note Next Visit Plan Recheck MWM and if what HO for theracane for home. POC: ROM, strengthening, joint mobilizations, STM
--- NOTE | 2023-01-11 10:45 | PT.OTN ---
Current Diagnoses Other chronic pain (01/11/23) Pain in right shoulder (01/11/23) Stiffness of right shoulder, not elsewhere classified (01/11/23) Physical Therapy Treatment Note PT-OP-A Visit Information Start: 11/24/22 17:48 Freq: Status: Active Protocol: Document 01/11/23 10:00 SP (Rec: 01/11/23 10:48 SP [id number]) Out-Patient Physical Therapy Visit Information Visit Information Visit Type Treatment Note Visit Start Time 10:00 Visit Stop Time 10:45 Total Visit Minutes 45 Visit Number 7 Number of VENDING ROUTE DRIVER Visits 1 Evaluation Information Evaluation Date 11/24/22 PT-OP-B Current Condition Start: 11/24/22 17:48 Freq: Status: Active Protocol: Document 11/24/22 11:00 DCW (Rec: 11/24/22 17:57 DCW [id number]) Current Condition History of Current Condition Onset Date Years-long history Current Complaints Right shoulder pain and stiffness History of Current Condition Pt is an 82 year old male presenting with a multi-year history of right shoulder pain . Pt was previously seen at this clinic ~2 years ago for the same pain, and at that time felt significantly better following treatment, and eventually discharged to [facility]. Pt reports that he has steadily been worsening, and in September had finally had enough, and decided to get his shoulder addressed again. Pt saw his PCP, who referred him to Sports Medicine at (October 05), and he then saw Sports Med at [place] (October 28). Before anything could be addressed, he went to [place] on vacation, leaving October 30, and unfortunately became quite ill with COVID during his trip. Pt is finally feeling better, and wants to get his arm back to where it was last time he was undergoing PT. Pt notes that he struggles with any overhead activity, and especially experiences pain when lowering his arm. Recently, his shoulder pain has been waking him up at night every 1-2 hours. Notes he feels it catching and popping frequently, which sometimes causes pain, and other times does not. PT-OP-C Subjective Start: 11/24/22 17:48 Freq: Status: Active Protocol: Document 01/11/23 10:00 SP (Rec: 01/11/23 10:48 SP [id number]) OP-PT Subjective Patient Comments Patient Comments Pt reports was soreness post manual but finds helped with mobililty. He reports is sleeping through nights without pain waking him up except last night full RLE leg pain which happens occasionally and mid low back which knows what to do, get up move around and ball on wall and usually takes care of it. He wonders now if shovel work lately might be culprit. PT-OP-E Functional Tests Start: 11/24/22 17:48 Freq: Status: Active Protocol: Document 11/24/22 11:00 DCW (Rec: 11/25/22 17:26 DCW [id number]) Functional Tests Apley's Scratch Test Action 1- Left Posterior opposite shoulder Action 1- Right Posterior opposite shoulder Action 2- Left T2 Action 2- Right T2 Action 3- Left T6 Action 3- Right T10 PT-OP-F Manual Assessment Start: 11/24/22 17:48 Freq: Status: Active Protocol: Document 11/24/22 11:00 DCW (Rec: 11/25/22 17:26 DCW [id number]) Manual Assessments Soft Tissue Assessment Soft Tissue Mobility Assessment Moderate tone in right upper trap and right scalenes, tenderness to palpation 3/4: Wincing and withdraw. PT-OP-K Range of Motion Start: 11/24/22 17:48 Freq: Status: Active Protocol: Document 11/24/22 11:00 DCW (Rec: 11/25/22 17:26 DCW [id number]) Shoulder Goniometric Range of Motion Shoulder Right Active Shoulder ROM WFL No Testing Position Sitting Flexion 119 Abduction 160 External Rotation at 0 degrees Abduction 36 Internal Rotation Behind Back (text) T10 Left Active Shoulder ROM WFL Yes Testing Position Sitting Flexion 180 Abduction 180 External Rotation at 0 degrees Abduction 50 Internal Rotation Behind Back (text) T6 PT-OP-L Special Tests Start: 11/25/22 17:39 Freq: Status: Active Protocol: Document 11/24/22 11:00 DCW (Rec: 11/25/22 17:40 DCW [id number]) Special Tests Shoulder Special Tests Yergason's Biceps Test Results Positive R Passive ER Rotator Cuff Test Results Negative Painful Arc Test Results Positive R Lift-Off Rotator Cuff Test Results Positive R Patel Richar Impingement Test Results Negative Grind Labrum Test Results Positive R Empty Can Test Results Negative Drop Arm Rotator Cuff Test Results Positive R Belly Press Test Results Negative PT-OP-M Strength Start: 11/24/22 17:48 Freq: Status: Active Protocol: Document 11/24/22 11:00 DCW (Rec: 11/25/22 17:26 DCW [id number]) Shoulder Strength Shoulder Manual Muscle Testing Right Flexion 3- Fair- Abduction (C5) 4- Good- External Rotation 3 Fair Internal Rotation 4- Good- Left Flexion 4 Good Abduction (C5) 4 Good External Rotation 4 Good Internal Rotation 4 Good PT-OP-Q Treatments Start: 11/24/22 17:48 Freq: Status: Active Protocol: Document 01/11/23 10:00 SP (Rec: 01/11/23 10:48 SP [id number]) Therapeutic Exercises Supine Exercises CS ROM Supine Exercise Name PROM post manual, SB, rotation Sidelying Exercises open book Sidelying Exercise Name reviewed HEP Side right Reps/Minutes 10 Comments cued for slower speed and less ROM to prevent bicep tightening Standing Exercises self STMs Standing Exercise Name MWM posterior neck Side left Equipment Used theracane review use Comments good feedback response: head turns/nods Shoulder ER/IR Standing Exercise Name reviewed HEP Resistance Winter TB (home double red tube) Equipment Used towel roll under arm Reps/Minutes x20 each Comments verbal/tactile cue elbow at side, some irritation arnol imprv scap retract Other Exercises Wall push-ups Other Exercise Name Wall push-ups: <> shanna, W hand positions Reps/Minutes x10 each Comments cued CS tuck/ext neutral, no UT recruitment Manual Therapy Treatment Soft Tissue Mobilization R shld Body Location pec, coracobrachialis, rhomboid, bicep Mobilization Type Myofascial Release,Strumming, Sustained Pressure,Other Intensity/Depth Moderate Body Position Hooklying Comments manual and MWM PROM R Shld FF, ER, ABD w/ ER, ABD w/ elbow bent: noted pain over distal RTC tendon area during eccentric ABD approx 90deg needed to stop. neck Body Location L>R UT, LS, SOR Mobilization Type Myofascial Release,Strumming, Sustained Pressure,Other Intensity/Depth Moderate Body Position Hooklying Comments manual, MWM head nods/turns and ed self application w/ theracane Joint Mobilizations R scapulothoracic Grade II Body Position Supine R GH jt Direction inferior, posterior Grade II Body Position Hooklying Comments MWM FF, ABD with ER Manual Traction Cervical Details Cervical traction Body Position Supine Comments Gentle manual traction then PROM SB, Rotation to allowable range. Self-Care/Home Management Treatment Education Patient Education Body Mechanics,Home Exercise Program,Joint Protection,Pain Management,Posture Other Education Suggested with leg cramp, discussed active HS w/ ankle pump for support remembered from his past. PT-OP-T Assessment and Plan Start: 11/24/22 17:48 Freq: Status: Active Protocol: Document 01/11/23 10:00 SP (Rec: 01/11/23 10:48 SP [id number]) Physical Therapy Assessment Goals Three Impairment Pt reports he wakes up every 1 -2 hours every night due to shoulder pain Care Home Goal (LTG) Pt to report increasing sleep to at least 5 hours straight before waking up due to shoulder pain. LTG Duration 01/24/23 Two Impairment Right shoulder ROM limited to 119? flexion Care Home Goal (LTG) Pt to increase right shoulder flexion to at least 150? in order to improve ability to put stuff away in his cabinets when working around the house . LTG Duration 01/24/23 One Impairment Pt not currently performing an appropriate home exercise program Short Term Goal (STG) Pt to be independent and compliant with an appropriate HEP STG Duration 12/25/22 Assessment Summary Assessment Pt reports manual almost took care of left neck tension. Noted R shld irritation click/ snapping tendon-like over distal RTC tendon during MWM eccentric ABD and resisted IR but improved little post cues for scap retract/depressed repositioning. Pt tolerated all rest ther ex. Good response to self use of theracane for carryover home posterior neck STMs Physical Therapy Plan Frequency and Duration Frequency of Treatment 2x/Week Plan of Care Start Date 11/24/22 Plan of Care End Date 01/24/23 Therapeutic Interventions Therapeutic Interventions Home Exercise Program,Joint Mobilizations,Manual Therapy, Patient/Caregiver Education, Self-Care/Home Management,Soft Tissue Mobilization,Taping, Therapeutic Activities, Therapeutic Exercises Modalities Cold Pack/Ice Massage,Electric Stimulation,Hot Packs, Ultrasound Next Visit Focus/Plan Next Note Type Treatment Note Next Visit Plan Recheck MWM and if want HO for theracane for home. POC: ROM, strengthening, joint mobilizations, STM
--- NOTE | 2023-01-14 09:48 | PT.OTN ---
Current Diagnoses Other chronic pain (01/14/23) Pain in right shoulder (01/14/23) Stiffness of right shoulder, not elsewhere classified (01/14/23) Physical Therapy Treatment Note PT-OP-A Visit Information Start: 11/24/22 17:48 Freq: Status: Active Protocol: Document 01/14/23 09:05 DCW (Rec: 01/14/23 09:48 DCW [id number]) Out-Patient Physical Therapy Visit Information Visit Information Visit Type Treatment Note Visit Start Time 09:05 Visit Stop Time 09:45 Total Visit Minutes 40 Visit Number 8 Number of SUPERVISOR DOCK Visits 0 Evaluation Information Evaluation Date 11/24/22 PT-OP-B Current Condition Start: 11/24/22 17:48 Freq: Status: Active Protocol: Document 11/24/22 11:00 DCW (Rec: 11/24/22 17:57 DCW [id number]) Current Condition History of Current Condition Onset Date Years-long history Current Complaints Right shoulder pain and stiffness History of Current Condition Pt is an 82 year old male presenting with a multi-year history of right shoulder pain . Pt was previously seen at this clinic ~2 years ago for the same pain, and at that time felt significantly better following treatment, and eventually discharged to [facility]. Pt reports that he has steadily been worsening, and in September had finally had enough, and decided to get his shoulder addressed again. Pt saw his PCP, who referred him to Sports Medicine at (October 05), and he then saw Sports Med at [place] (October 28). Before anything could be addressed, he went to [place] on vacation, leaving October 30, and unfortunately became quite ill with COVID during his trip. Pt is finally feeling better, and wants to get his arm back to where it was last time he was undergoing PT. Pt notes that he struggles with any overhead activity, and especially experiences pain when lowering his arm. Recently, his shoulder pain has been waking him up at night every 1-2 hours. Notes he feels it catching and popping frequently, which sometimes causes pain, and other times does not. PT-OP-C Subjective Start: 11/24/22 17:48 Freq: Status: Active Protocol: Document 01/14/23 09:05 DCW (Rec: 01/14/23 09:48 DCW [id number]) OP-PT Subjective Patient Comments Patient Comments Right shoulder isn't bad at all, I've been able to sleep without it disturbing me. PT-OP-E Functional Tests Start: 11/24/22 17:48 Freq: Status: Active Protocol: Document 11/24/22 11:00 DCW (Rec: 11/25/22 17:26 DCW [id number]) Functional Tests Apley's Scratch Test Action 1- Left Posterior opposite shoulder Action 1- Right Posterior opposite shoulder Action 2- Left T2 Action 2- Right T2 Action 3- Left T6 Action 3- Right T10 PT-OP-F Manual Assessment Start: 11/24/22 17:48 Freq: Status: Active Protocol: Document 11/24/22 11:00 DCW (Rec: 11/25/22 17:26 DCW [id number]) Manual Assessments Soft Tissue Assessment Soft Tissue Mobility Assessment Moderate tone in right upper trap and right scalenes, tenderness to palpation 3/4: Wincing and withdraw. PT-OP-K Range of Motion Start: 11/24/22 17:48 Freq: Status: Active Protocol: Document 11/24/22 11:00 DCW (Rec: 11/25/22 17:26 DCW [id number]) Shoulder Goniometric Range of Motion Shoulder Right Active Shoulder ROM WFL No Testing Position Sitting Flexion 119 Abduction 160 External Rotation at 0 degrees Abduction 36 Internal Rotation Behind Back (text) T10 Left Active Shoulder ROM WFL Yes Testing Position Sitting Flexion 180 Abduction 180 External Rotation at 0 degrees Abduction 50 Internal Rotation Behind Back (text) T6 PT-OP-L Special Tests Start: 11/25/22 17:39 Freq: Status: Active Protocol: Document 11/24/22 11:00 DCW (Rec: 11/25/22 17:40 DCW [id number]) Special Tests Shoulder Special Tests Yergason's Biceps Test Results Positive R Passive ER Rotator Cuff Test Results Negative Painful Arc Test Results Positive R Lift-Off Rotator Cuff Test Results Positive R Patel Richar Impingement Test Results Negative Grind Labrum Test Results Positive R Empty Can Test Results Negative Drop Arm Rotator Cuff Test Results Positive R Belly Press Test Results Negative PT-OP-M Strength Start: 11/24/22 17:48 Freq: Status: Active Protocol: Document 11/24/22 11:00 DCW (Rec: 11/25/22 17:26 DCW [id number]) Shoulder Strength Shoulder Manual Muscle Testing Right Flexion 3- Fair- Abduction (C5) 4- Good- External Rotation 3 Fair Internal Rotation 4- Good- Left Flexion 4 Good Abduction (C5) 4 Good External Rotation 4 Good Internal Rotation 4 Good PT-OP-Q Treatments Start: 11/24/22 17:48 Freq: Status: Active Protocol: Document 01/14/23 09:05 DCW (Rec: 01/14/23 09:48 [facility] [id number]) Therapeutic Exercises Standing Exercises Body Blade Standing Exercise Name Flexion, Abduction Side bilateral Equipment Used Yellow Body Blade Comments difficulty coordinating Other Exercises Wall clock Other Exercise Name Wall clock Side bilateral Resistance Yellow Resisted Ambulation Other Exercise Name Resisted UE side-stepping Side bilateral Resistance Yellow Manual Therapy Treatment Soft Tissue Mobilization R shld Body Location pec, rhomboid, bicep Mobilization Type Myofascial Release,Strumming, Sustained Pressure,Other Intensity/Depth Moderate Body Position Hooklying Comments manual and MWM FF, ER neck Body Location UT, LS, SOR Mobilization Type Myofascial Release,Strumming, Sustained Pressure Intensity/Depth Moderate Body Position Hooklying Comments manual and ed self application Joint Mobilizations R scapulothoracic Grade II Body Position Supine R GH jt Direction inferior, posterior Grade II Body Position Hooklying Manual Traction Cervical Details Cervical traction Body Position Supine PT-OP-T Assessment and Plan Start: 11/24/22 17:48 Freq: Status: Active Protocol: Document 01/14/23 09:05 DCW (Rec: 01/14/23 09:48 [facility] [id number]) Physical Therapy Assessment Impairments Impairments Activity Tolerance,Functional Activities,Functional Mobility ,Pain,Posture,ROM,Soft Tissue Mobility,Strength Goals Three Impairment Pt reports he wakes up every 1 -2 hours every night due to shoulder pain Mcc Goal (LTG) Pt to report increasing sleep to at least 5 hours straight before waking up due to shoulder pain. LTG Duration 01/24/23 Two Impairment Right shoulder ROM limited to 119? flexion Mcc Goal (LTG) Pt to increase right shoulder flexion to at least 150? in order to improve ability to put stuff away in his cabinets when working around the house . LTG Duration 01/24/23 One Impairment Pt not currently performing an appropriate home exercise program Short Term Goal (STG) Pt to be independent and compliant with an appropriate HEP STG Duration 12/25/22 Assessment Summary Assessment Pt continues to show good improvement, feeling better at night, improving AROM Physical Therapy Plan Frequency and Duration Frequency of Treatment 2x/Week Plan of Care Start Date 11/24/22 Plan of Care End Date 01/24/23 Therapeutic Interventions Therapeutic Interventions Home Exercise Program,Joint Mobilizations,Manual Therapy, Patient/Caregiver Education, Self-Care/Home Management,Soft Tissue Mobilization,Taping, Therapeutic Activities, Therapeutic Exercises Modalities Cold Pack/Ice Massage,Electric Stimulation,Hot Packs, Ultrasound Next Visit Focus/Plan Next Note Type Progress Note Next Visit Plan Recheck MWM and if want HO for theracane for home. POC: ROM, strengthening, joint mobilizations, STM
--- NOTE | 2023-01-21 09:47 | PT.OTN ---
Current Diagnoses Other chronic pain (01/21/23) Pain in right shoulder (01/21/23) Stiffness of right shoulder, not elsewhere classified (01/21/23) Physical Therapy Treatment Note PT-OP-A Visit Information Start: 11/24/22 17:48 Freq: Status: Active Protocol: Document 01/21/23 09:00 DCW (Rec: 01/21/23 09:47 DC [id number]) Out-Patient Physical Therapy Visit Information Visit Information Visit Type Progress Note Visit Start Time 09:00 Visit Stop Time 09:45 Total Visit Minutes 45 Visit Number 9 Number of ROUSTABOUT CREW LEADER Visits 0 Evaluation Information Evaluation Date 11/24/22 PT-OP-B Current Condition Start: 11/24/22 17:48 Freq: Status: Active Protocol: Document 11/24/22 11:00 DCW (Rec: 11/24/22 17:57 DCW [id number]) Current Condition History of Current Condition Onset Date Years-long history Current Complaints Right shoulder pain and stiffness History of Current Condition Pt is an 82 year old male presenting with a multi-year history of right shoulder pain . Pt was previously seen at this clinic ~2 years ago for the same pain, and at that time felt significantly better following treatment, and eventually discharged to [facility]. Pt reports that he has steadily been worsening, and in September had finally had enough, and decided to get his shoulder addressed again. Pt saw his PCP, who referred him to Sports Medicine at (October 05), and he then saw Sports Med at [place] (October 28). Before anything could be addressed, he went to [place] on vacation, leaving October 30, and unfortunately became quite ill with COVID during his trip. Pt is finally feeling better, and wants to get his arm back to where it was last time he was undergoing PT. Pt notes that he struggles with any overhead activity, and especially experiences pain when lowering his arm. Recently, his shoulder pain has been waking him up at night every 1-2 hours. Notes he feels it catching and popping frequently, which sometimes causes pain, and other times does not. PT-OP-C Subjective Start: 11/24/22 17:48 Freq: Status: Active Protocol: Document 01/21/23 09:00 DCW (Rec: 01/21/23 09:47 DC [id number]) OP-PT Subjective Patient Comments Patient Comments Pt admits last night his shoulder was bothering him a bit more, notes that it is likely due to the fact that he was out picking currants yesterday, performing a lot of reaching activities. PT-OP-E Functional Tests Start: 11/24/22 17:48 Freq: Status: Active Protocol: Document 01/21/23 09:00 DCW (Rec: 01/21/23 09:17 DCW [id number]) Functional Tests Apley's Scratch Test Action 1- Left Posterior opposite shoulder Action 1- Right Posterior opposite shoulder Action 2- Left T2 Action 2- Right T4 Action 3- Left T6 Action 3- Right T8 PT-OP-F Manual Assessment Start: 11/24/22 17:48 Freq: Status: Active Protocol: Document 01/21/23 09:00 DCW (Rec: 01/21/23 09:17 DCW [id number]) Manual Assessments Soft Tissue Assessment Soft Tissue Mobility Assessment Moderate tone in right LH Biceps tendon, right infraspinatue, upper trap and right scalenes, tenderness to palpation 2/4: pain with wincing. PT-OP-K Range of Motion Start: 11/24/22 17:48 Freq: Status: Active Protocol: Document 01/21/23 09:00 DCW (Rec: 01/21/23 09:17 DCW [id number]) Shoulder Goniometric Range of Motion Shoulder Right Active Shoulder ROM WFL No Testing Position Sitting Flexion 138 Abduction 171 External Rotation at 0 degrees Abduction 55 Internal Rotation Behind Back (text) T8 Left Active Shoulder ROM WFL Yes Testing Position Sitting Flexion 180 Abduction 180 External Rotation at 0 degrees Abduction 50 Internal Rotation Behind Back (text) T6 PT-OP-L Special Tests Start: 11/25/22 17:39 Freq: Status: Active Protocol: Document 01/21/23 09:00 DCW (Rec: 01/21/23 09:17 DCW [id number]) Special Tests Shoulder Special Tests Yergason's Biceps Test Results Positive R Passive ER Rotator Cuff Test Results Negative Painful Arc Test Results Negative Lift-Off Rotator Cuff Test Results Negative Patel Richar Impingement Test Results Negative Grind Labrum Test Results Negative Empty Can Test Results Negative Drop Arm Rotator Cuff Test Results Negative Belly Press Test Results Negative PT-OP-M Strength Start: 11/24/22 17:48 Freq: Status: Active Protocol: Document 01/21/23 09:00 DCW (Rec: 01/21/23 09:17 [facility] [id number]) Shoulder Strength Shoulder Manual Muscle Testing Right Flexion 3- Fair- Abduction (C5) 4 Good External Rotation 4- Good- Internal Rotation 4+ Good+ Left Flexion 4 Good Abduction (C5) 4 Good External Rotation 4+ Good+ Internal Rotation 4+ Good+ PT-OP-Q Treatments Start: 11/24/22 17:48 Freq: Status: Active Protocol: Document 01/21/23 09:00 DCW (Rec: 01/21/23 09:47 [facility] [id number]) Therapeutic Exercises Standing Exercises Body Blade Standing Exercise Name Flexion, Abduction Side bilateral Equipment Used Yellow Body Blade Comments difficulty coordinating Other Exercises Wall clock Other Exercise Name Wall clock Side bilateral Resistance Yellow Resisted Ambulation Other Exercise Name Resisted UE side-stepping Side bilateral Resistance Yellow Manual Therapy Treatment Soft Tissue Mobilization R shld Body Location pec, rhomboid, bicep Mobilization Type Myofascial Release,Strumming, Sustained Pressure,Other Intensity/Depth Moderate Body Position Hooklying Comments manual and MWM FF, ER neck Body Location UT, LS, SOR Mobilization Type Myofascial Release,Strumming, Sustained Pressure Intensity/Depth Moderate Body Position Hooklying Comments manual and ed self application Joint Mobilizations R scapulothoracic Grade II Body Position Supine R GH jt Direction inferior, posterior Grade II Body Position Hooklying Manual Traction Cervical Details Cervical traction Body Position Supine PT-OP-T Assessment and Plan Start: 11/24/22 17:48 Freq: Status: Active Protocol: Document 01/21/23 09:00 DCW (Rec: 01/21/23 09:47 [facility] [id number]) Physical Therapy Assessment Impairments Impairments Activity Tolerance,Functional Activities,Functional Mobility ,Pain,Posture,ROM,Soft Tissue Mobility,Strength Goals Three Impairment Pt reports he wakes up every 1 -2 hours every night due to shoulder pain Digital Circuit Designer Goal (LTG) Pt to report increasing sleep to at least 5 hours straight before waking up due to shoulder pain. LTG Duration 03/17/23 - improving Two Impairment Right shoulder ROM limited to 119? flexion Digital Circuit Designer Goal (LTG) Pt to increase right shoulder flexion to at least 150? in order to improve ability to put stuff away in his cabinets when working around the house . LTG Duration 03/17/23 - improving One Impairment Pt not currently performing an appropriate home exercise program Short Term Goal (STG) Pt to be independent and compliant with an appropriate HEP STG Duration Met Assessment Summary Assessment Pt doing well overall, despite being a little more sore today than usual, showing good improvement in ROM and strength. Biggest limiting factor appears to be LH biceps tendon at this time, otherwise feeling much better. Continue to focus on improving strength, ROM, and tone in order to decrease pain and limit sleep disturbances. Physical Therapy Plan Frequency and Duration Frequency of Treatment 2x/Week Plan of Care Start Date 01/21/23 Plan of Care End Date 03/17/23 Therapeutic Interventions Therapeutic Interventions Home Exercise Program,Joint Mobilizations,Manual Therapy, Patient/Caregiver Education, Self-Care/Home Management,Soft Tissue Mobilization,Taping, Therapeutic Activities, Therapeutic Exercises Modalities Cold Pack/Ice Massage,Electric Stimulation,Hot Packs, Ultrasound Next Visit Focus/Plan Next Note Type Treatment Note Next Visit Plan POC: ROM, strengthening, joint mobilizations, STM
--- NOTE | 2023-01-21 09:48 | PT.OPPOC ---
Physical, Occupational & Speech Therapy At [facility] Current Diagnoses Other chronic pain (01/21/23) Pain in right shoulder (01/21/23) Stiffness of right shoulder, not elsewhere classified (01/21/23) Visit Care Team Role Provider Type Brandie Prabhakar MD Family Provider Non-Staff Primary Care Provider Specialty: Family Practice Address: [address] [place] [address], [id number] Email: Attending Provider Referring Provider Specialty: Address: Phone: Fax: Email: Plan Of Care PT-OP-T Assessment and Plan Start: 11/24/22 17:48 Freq: Status: Active Protocol: Document 01/21/23 09:00 DCW (Rec: 01/21/23 09:47 DCW [id number]) Physical Therapy Assessment Impairments Impairments Activity Tolerance,Functional Activities,Functional Mobility ,Pain,Posture,ROM,Soft Tissue Mobility,Strength Goals Three Impairment Pt reports he wakes up every 1 -2 hours every night due to shoulder pain Director Property Goal (LTG) Pt to report increasing sleep to at least 5 hours straight before waking up due to shoulder pain. LTG Duration 03/17/23 - improving Two Impairment Right shoulder ROM limited to 119? flexion Director Property Goal (LTG) Pt to increase right shoulder flexion to at least 150? in order to improve ability to put stuff away in his cabinets when working around the house . LTG Duration 03/17/23 - improving One Impairment Pt not currently performing an appropriate home exercise program Short Term Goal (STG) Pt to be independent and compliant with an appropriate HEP STG Duration Met Assessment Summary Assessment Pt doing well overall, despite being a little more sore today than usual, showing good improvement in ROM and strength. Biggest limiting factor appears to be LH biceps tendon at this time, otherwise feeling much better. Continue to focus on improving strength, ROM, and tone in order to decrease pain and limit sleep disturbances. Physical Therapy Plan Frequency and Duration Frequency of Treatment 2x/Week Plan of Care Start Date 01/21/23 Plan of Care End Date 03/17/23 Therapeutic Interventions Therapeutic Interventions Home Exercise Program,Joint Mobilizations,Manual Therapy, Patient/Caregiver Education, Self-Care/Home Management,Soft Tissue Mobilization,Taping, Therapeutic Activities, Therapeutic Exercises Modalities Cold Pack/Ice Massage,Electric Stimulation,Hot Packs, Ultrasound Next Visit Focus/Plan Next Note Type Treatment Note Next Visit Plan POC: ROM, strengthening, joint mobilizations, STM Plan of Care Dates Plan of Care Start Date 01/21/23 Plan of Care End Date 03/17/23 Electronically Signed by: Jose Salmon, PT 01/21/23 0948 If you are in agreement with this Plan of Care, please return a signed and dated copy. I have reviewed this Plan of Care and certify that the skilled therapy services above are required to meet the patient?s needs. Physician Signature Date Printed Name and Credentials Clinical Instructor Signature Printed Name and Credentials
--- NOTE | 2023-01-24 12:45 | PT.OTN ---
Current Diagnoses Other chronic pain (02/04/23) Pain in right shoulder (02/04/23) Stiffness of right shoulder, not elsewhere classified (02/04/23) Physical Therapy Treatment Note PT-OP-A Visit Information Start: 11/24/22 17:48 Freq: Status: Active Protocol: Document 02/04/23 12:03 SP (Rec: 01/24/23 12:48 SP [id number]) Out-Patient Physical Therapy Visit Information Visit Information Visit Type Treatment Note Visit Note 08/27 PN Visit Start Time 12:03 Visit Stop Time 12:45 Total Visit Minutes 42 Visit Number 10 Number of TIN FLIPPER Visits 1 Evaluation Information Evaluation Date 11/24/22 PT-OP-B Current Condition Start: 11/24/22 17:48 Freq: Status: Active Protocol: Document 11/24/22 11:00 DCW (Rec: 11/24/22 17:57 DCW [id number]) Current Condition History of Current Condition Onset Date Years-long history Current Complaints Right shoulder pain and stiffness History of Current Condition Pt is an 82 year old male presenting with a multi-year history of right shoulder pain . Pt was previously seen at this clinic ~2 years ago for the same pain, and at that time felt significantly better following treatment, and eventually discharged to [facility]. Pt reports that he has steadily been worsening, and in September had finally had enough, and decided to get his shoulder addressed again. Pt saw his PCP, who referred him to Sports Medicine at (October 05), and he then saw Sports Med at [facility] (October 28). Before anything could be addressed, he went to [place] on vacation, leaving October 30, and unfortunately became quite ill with COVID during his trip. Pt is finally feeling better, and wants to get his arm back to where it was last time he was undergoing PT. Pt notes that he struggles with any overhead activity, and especially experiences pain when lowering his arm. Recently, his shoulder pain has been waking him up at night every 1-2 hours. Notes he feels it catching and popping frequently, which sometimes causes pain, and other times does not. PT-OP-C Subjective Start: 11/24/22 17:48 Freq: Status: Active Protocol: Document 02/04/23 12:03 SP (Rec: 01/24/23 12:48 SP [id number]) OP-PT Subjective Patient Comments Patient Comments Pt reports sore during last tx with checking ROM and good hard work exercises. He stated felt ok afterword. PT-OP-E Functional Tests Start: 11/24/22 17:48 Freq: Status: Active Protocol: Document 01/21/23 09:00 DCW (Rec: 01/21/23 09:17 DCW [id number]) Functional Tests Apley's Scratch Test Action 1- Left Posterior opposite shoulder Action 1- Right Posterior opposite shoulder Action 2- Left T2 Action 2- Right T4 Action 3- Left T6 Action 3- Right T8 PT-OP-F Manual Assessment Start: 11/24/22 17:48 Freq: Status: Active Protocol: Document 01/21/23 09:00 DCW (Rec: 01/21/23 09:17 DCW [id number]) Manual Assessments Soft Tissue Assessment Soft Tissue Mobility Assessment Moderate tone in right LH Biceps tendon, right infraspinatue, upper trap and right scalenes, tenderness to palpation 2/4: pain with wincing. PT-OP-K Range of Motion Start: 11/24/22 17:48 Freq: Status: Active Protocol: Document 01/21/23 09:00 DCW (Rec: 01/21/23 09:17 DCW [id number]) Shoulder Goniometric Range of Motion Shoulder Right Active Shoulder ROM WFL No Testing Position Sitting Flexion 138 Abduction 171 External Rotation at 0 degrees Abduction 55 Internal Rotation Behind Back (text) T8 Left Active Shoulder ROM WFL Yes Testing Position Sitting Flexion 180 Abduction 180 External Rotation at 0 degrees Abduction 50 Internal Rotation Behind Back (text) T6 PT-OP-L Special Tests Start: 11/25/22 17:39 Freq: Status: Active Protocol: Document 01/21/23 09:00 DCW (Rec: 01/21/23 09:17 DCW [id number]) Special Tests Shoulder Special Tests Yergason's Biceps Test Results Positive R Passive ER Rotator Cuff Test Results Negative Painful Arc Test Results Negative Lift-Off Rotator Cuff Test Results Negative Patel Richar Impingement Test Results Negative Grind Labrum Test Results Negative Empty Can Test Results Negative Drop Arm Rotator Cuff Test Results Negative Belly Press Test Results Negative PT-OP-M Strength Start: 11/24/22 17:48 Freq: Status: Active Protocol: Document 01/21/23 09:00 DCW (Rec: 01/21/23 09:17 DCW [id number]) Shoulder Strength Shoulder Manual Muscle Testing Right Flexion 3- Fair- Abduction (C5) 4 Good External Rotation 4- Good- Internal Rotation 4+ Good+ Left Flexion 4 Good Abduction (C5) 4 Good External Rotation 4+ Good+ Internal Rotation 4+ Good+ PT-OP-Q Treatments Start: 11/24/22 17:48 Freq: Status: Active Protocol: Document 02/04/23 12:03 SP (Rec: 01/24/23 12:48 SP [id number]) Cardio Equipment Upper Body Ergometer (UBE) Duration (Minutes) 6 RPM 60 Seat Position 10 Height 3 Other 30s f/b Therapeutic Exercises Standing Exercises Body Blade Standing Exercise Name Flexion, Abduction, IR/ER/ punch (elbow side) Side right Equipment Used Medium> Yellow Body Blade Reps/Minutes 5 reps x2 sets each resistance Comments difficulty coordinating Shoulder ER/IR Standing Exercise Name reviewed HEP Resistance Stamps TB (home double red tube) Equipment Used towel roll under arm Reps/Minutes 3x10 reps Comments cued elevated head/chest posture Other Exercises Wall clock Other Exercise Name Wall clock Side bilateral Resistance Yellow (orange home) Reps/Minutes 4 sets Comments cued no UT recruitment, GH inferior glide Wall push-ups Other Exercise Name Wall push-ups: <> shanna, W hand positions Equipment Used RUE ok. Reps/Minutes x10 each Comments cued elongation for allow LT recruitment and lessen L shld clicking press Resisted Ambulation Other Exercise Name Resisted UE side-stepping Side bilateral Resistance Yellow Reps/Minutes 15 ft x1 laps Comments good form Manual Therapy Treatment Soft Tissue Mobilization R shld Body Location Teres Major Mobilization Type Myofascial Release,Strumming, Sustained Pressure,Other Intensity/Depth Moderate Body Position Hooklying Comments manual and MWM FF neck Body Location UT, LS, SOR Mobilization Type Myofascial Release,Strumming, Sustained Pressure Intensity/Depth Moderate Body Position Hooklying Comments manual and ed self application Joint Mobilizations R GH jt Direction inferior, posterior Grade II Body Position Hooklying Manual Traction Cervical Details Cervical traction Body Position Supine PT-OP-T Assessment and Plan Start: 11/24/22 17:48 Freq: Status: Active Protocol: Document 02/04/23 12:03 SP (Rec: 01/24/23 12:48 SP [id number]) Physical Therapy Assessment Goals Three Impairment Pt reports he wakes up every 1 -2 hours every night due to shoulder pain Revenue Analyst Goal (LTG) Pt to report increasing sleep to at least 5 hours straight before waking up due to shoulder pain. LTG Duration 03/17/23 - improving Two Impairment Right shoulder ROM limited to 119? flexion Revenue Analyst Goal (LTG) Pt to increase right shoulder flexion to at least 150? in order to improve ability to put stuff away in his cabinets when working around the house . LTG Duration 03/17/23 - improving One Impairment Pt not currently performing an appropriate home exercise program Short Term Goal (STG) Pt to be independent and compliant with an appropriate HEP STG Duration Met Assessment Summary Assessment Pt good response to manual. Pt reported little snapping in L shld during wall clock, decreased with cues for elongations/ chest lift posturing allowance GH inferior glide. Pt reports muscle tiring challenge but not pain throughout ther ex. Provided orange TB loop for wall clock home. Physical Therapy Plan Frequency and Duration Frequency of Treatment 2x/Week Plan of Care Start Date 01/21/23 Plan of Care End Date 03/17/23 Therapeutic Interventions Therapeutic Interventions Home Exercise Program,Joint Mobilizations,Manual Therapy, Patient/Caregiver Education, Self-Care/Home Management,Soft Tissue Mobilization,Taping, Therapeutic Activities, Therapeutic Exercises Modalities Cold Pack/Ice Massage,Electric Stimulation,Hot Packs, Ultrasound Next Visit Focus/Plan Next Note Type Treatment Note Next Visit Plan POC: ROM, strengthening, joint mobilizations, STM
--- NOTE | 2023-01-28 09:45 | PT.OTN ---
Current Diagnoses Other chronic pain (01/28/23) Pain in right shoulder (01/28/23) Stiffness of right shoulder, not elsewhere classified (01/28/23) Physical Therapy Treatment Note PT-OP-A Visit Information Start: 11/24/22 17:48 Freq: Status: Active Protocol: Document 01/28/23 09:00 DCW (Rec: 01/28/23 09:44 [facility] [id number]) Out-Patient Physical Therapy Visit Information Visit Information Visit Type Treatment Note Visit Start Time 09:00 Visit Stop Time 09:45 Total Visit Minutes 45 Visit Number 11 Number of BARREL SCRAPER Visits 0 Evaluation Information Evaluation Date 11/24/22 PT-OP-B Current Condition Start: 11/24/22 17:48 Freq: Status: Active Protocol: Document 11/24/22 11:00 DCW (Rec: 11/24/22 17:57 DCW [id number]) Current Condition History of Current Condition Onset Date Years-long history Current Complaints Right shoulder pain and stiffness History of Current Condition Pt is an 82 year old male presenting with a multi-year history of right shoulder pain . Pt was previously seen at this clinic ~2 years ago for the same pain, and at that time felt significantly better following treatment, and eventually discharged to [facility]. Pt reports that he has steadily been worsening, and in September had finally had enough, and decided to get his shoulder addressed again. Pt saw his PCP, who referred him to Sports Medicine at (October 05), and he then saw Sports Med at [place] (October 28). Before anything could be addressed, he went to [place] on vacation, leaving October 30, and unfortunately became quite ill with COVID during his trip. Pt is finally feeling better, and wants to get his arm back to where it was last time he was undergoing PT. Pt notes that he struggles with any overhead activity, and especially experiences pain when lowering his arm. Recently, his shoulder pain has been waking him up at night every 1-2 hours. Notes he feels it catching and popping frequently, which sometimes causes pain, and other times does not. PT-OP-C Subjective Start: 11/24/22 17:48 Freq: Status: Active Protocol: Document 01/28/23 09:00 DCW (Rec: 01/28/23 09:44 DCW [id number]) OP-PT Subjective Patient Comments Patient Comments Pt notes that his right biceps and left neck are still fairly sore when first waking up, but loosen up throughout the day. PT-OP-E Functional Tests Start: 11/24/22 17:48 Freq: Status: Active Protocol: Document 01/21/23 09:00 DCW (Rec: 01/21/23 09:17 DCW [id number]) Functional Tests Apley's Scratch Test Action 1- Left Posterior opposite shoulder Action 1- Right Posterior opposite shoulder Action 2- Left T2 Action 2- Right T4 Action 3- Left T6 Action 3- Right T8 PT-OP-F Manual Assessment Start: 11/24/22 17:48 Freq: Status: Active Protocol: Document 01/21/23 09:00 DCW (Rec: 01/21/23 09:17 DCW [id number]) Manual Assessments Soft Tissue Assessment Soft Tissue Mobility Assessment Moderate tone in right LH Biceps tendon, right infraspinatue, upper trap and right scalenes, tenderness to palpation 2/4: pain with wincing. PT-OP-K Range of Motion Start: 11/24/22 17:48 Freq: Status: Active Protocol: Document 01/21/23 09:00 DCW (Rec: 01/21/23 09:17 DCW [id number]) Shoulder Goniometric Range of Motion Shoulder Right Active Shoulder ROM WFL No Testing Position Sitting Flexion 138 Abduction 171 External Rotation at 0 degrees Abduction 55 Internal Rotation Behind Back (text) T8 Left Active Shoulder ROM WFL Yes Testing Position Sitting Flexion 180 Abduction 180 External Rotation at 0 degrees Abduction 50 Internal Rotation Behind Back (text) T6 PT-OP-L Special Tests Start: 11/25/22 17:39 Freq: Status: Active Protocol: Document 01/21/23 09:00 DCW (Rec: 01/21/23 09:17 DCW [id number]) Special Tests Shoulder Special Tests Yergason's Biceps Test Results Positive R Passive ER Rotator Cuff Test Results Negative Painful Arc Test Results Negative Lift-Off Rotator Cuff Test Results Negative Patel Richar Impingement Test Results Negative Grind Labrum Test Results Negative Empty Can Test Results Negative Drop Arm Rotator Cuff Test Results Negative Belly Press Test Results Negative PT-OP-M Strength Start: 11/24/22 17:48 Freq: Status: Active Protocol: Document 01/21/23 09:00 DCW (Rec: 01/21/23 09:17 [facility] [id number]) Shoulder Strength Shoulder Manual Muscle Testing Right Flexion 3- Fair- Abduction (C5) 4 Good External Rotation 4- Good- Internal Rotation 4+ Good+ Left Flexion 4 Good Abduction (C5) 4 Good External Rotation 4+ Good+ Internal Rotation 4+ Good+ PT-OP-Q Treatments Start: 11/24/22 17:48 Freq: Status: Active Protocol: Document 01/28/23 09:00 [facility] (Rec: 01/28/23 09:44 [facility] [id number]) Gym Equipment Cable Column (Body Solid) Triceps Resistance 10# Rows Resistance 30# Lat Pull Down Resistance 30# Therapeutic Exercises Standing Exercises Body Blade Standing Exercise Name Flexion, Abduction Side bilateral Equipment Used Yellow Body Blade Comments difficulty coordinating Other Exercises Wall clock Other Exercise Name Wall clock Side bilateral Resistance Yellow Resisted Ambulation Other Exercise Name Resisted UE side-stepping Side bilateral Resistance Yellow Manual Therapy Treatment Soft Tissue Mobilization R shld Body Location pec, rhomboid, bicep Mobilization Type Myofascial Release,Strumming, Sustained Pressure,Other Intensity/Depth Moderate Body Position Hooklying Comments manual and MWM FF neck Body Location UT, LS, SOR Mobilization Type Myofascial Release,Strumming, Sustained Pressure Intensity/Depth Moderate Body Position Hooklying Comments manual and ed self application Joint Mobilizations R scapulothoracic Direction lateral Grade II Body Position Supine R GH jt Direction inferior, posterior Grade II Body Position Hooklying Manual Traction Cervical Details Cervical traction Body Position Supine PT-OP-T Assessment and Plan Start: 11/24/22 17:48 Freq: Status: Active Protocol: Document 01/28/23 09:00 [facility] (Rec: 01/28/23 09:44 [facility] [id number]) Physical Therapy Assessment Impairments Impairments Activity Tolerance,Functional Activities,Functional Mobility ,Pain,Posture,ROM,Soft Tissue Mobility,Strength Goals Three Impairment Pt reports he wakes up every 1 -2 hours every night due to shoulder pain Gate Manager Goal (LTG) Pt to report increasing sleep to at least 5 hours straight before waking up due to shoulder pain. LTG Duration 03/17/23 - improving Two Impairment Right shoulder ROM limited to 119? flexion Gate Manager Goal (LTG) Pt to increase right shoulder flexion to at least 150? in order to improve ability to put stuff away in his cabinets when working around the house . LTG Duration 03/17/23 - improving One Impairment Pt not currently performing an appropriate home exercise program Short Term Goal (STG) Pt to be independent and compliant with an appropriate HEP STG Duration Met Assessment Summary Assessment Pt making good progress overall, still notes a snapping sensation with lowering his right arm, but no associated pain. Tolerated addition of new strengthening exercises well with no complaints Physical Therapy Plan Frequency and Duration Frequency of Treatment 2x/Week Plan of Care Start Date 01/21/23 Plan of Care End Date 03/17/23 Therapeutic Interventions Therapeutic Interventions Home Exercise Program,Joint Mobilizations,Manual Therapy, Patient/Caregiver Education, Self-Care/Home Management,Soft Tissue Mobilization,Taping, Therapeutic Activities, Therapeutic Exercises Modalities Cold Pack/Ice Massage,Electric Stimulation,Hot Packs, Ultrasound Next Visit Focus/Plan Next Note Type Treatment Note Next Visit Plan POC: ROM, strengthening, joint mobilizations, STM
--- NOTE | 2023-02-01 10:20 | PT.OTN ---
Current Diagnoses Other chronic pain (02/01/23) Pain in right shoulder (02/01/23) Stiffness of right shoulder, not elsewhere classified (02/01/23) Physical Therapy Treatment Note PT-OP-A Visit Information Start: 11/24/22 17:48 Freq: Status: Active Protocol: Document 02/01/23 09:35 DCW (Rec: 02/01/23 10:20 DCW [id number]) Out-Patient Physical Therapy Visit Information Visit Information Visit Type Treatment Note Visit Start Time 09:35 Visit Stop Time 10:15 Total Visit Minutes 40 Visit Number 12 Number of MATERIAL MANAGER Visits 0 Evaluation Information Evaluation Date 11/24/22 PT-OP-B Current Condition Start: 11/24/22 17:48 Freq: Status: Active Protocol: Document 11/24/22 11:00 DCW (Rec: 11/24/22 17:57 DCW [id number]) Current Condition History of Current Condition Onset Date Years-long history Current Complaints Right shoulder pain and stiffness History of Current Condition Pt is an 82 year old male presenting with a multi-year history of right shoulder pain . Pt was previously seen at this clinic ~2 years ago for the same pain, and at that time felt significantly better following treatment, and eventually discharged to [facility]. Pt reports that he has steadily been worsening, and in September had finally had enough, and decided to get his shoulder addressed again. Pt saw his PCP, who referred him to Sports Medicine at (October 05), and he then saw Sports Med at [place] (October 28). Before anything could be addressed, he went to [place] on vacation, leaving October 30, and unfortunately became quite ill with COVID during his trip. Pt is finally feeling better, and wants to get his arm back to where it was last time he was undergoing PT. Pt notes that he struggles with any overhead activity, and especially experiences pain when lowering his arm. Recently, his shoulder pain has been waking him up at night every 1-2 hours. Notes he feels it catching and popping frequently, which sometimes causes pain, and other times does not. PT-OP-C Subjective Start: 11/24/22 17:48 Freq: Status: Active Protocol: Document 02/01/23 09:35 DCW (Rec: 02/01/23 10:20 DCW [id number]) OP-PT Subjective Patient Comments Patient Comments Pt reports he is feeling pretty good today. PT-OP-E Functional Tests Start: 11/24/22 17:48 Freq: Status: Active Protocol: Document 01/21/23 09:00 DCW (Rec: 01/21/23 09:17 DCW [id number]) Functional Tests Apley's Scratch Test Action 1- Left Posterior opposite shoulder Action 1- Right Posterior opposite shoulder Action 2- Left T2 Action 2- Right T4 Action 3- Left T6 Action 3- Right T8 PT-OP-F Manual Assessment Start: 11/24/22 17:48 Freq: Status: Active Protocol: Document 01/21/23 09:00 DCW (Rec: 01/21/23 09:17 DCW [id number]) Manual Assessments Soft Tissue Assessment Soft Tissue Mobility Assessment Moderate tone in right LH Biceps tendon, right infraspinatue, upper trap and right scalenes, tenderness to palpation 2/4: pain with wincing. PT-OP-K Range of Motion Start: 11/24/22 17:48 Freq: Status: Active Protocol: Document 01/21/23 09:00 DCW (Rec: 01/21/23 09:17 DCW [id number]) Shoulder Goniometric Range of Motion Shoulder Right Active Shoulder ROM WFL No Testing Position Sitting Flexion 138 Abduction 171 External Rotation at 0 degrees Abduction 55 Internal Rotation Behind Back (text) T8 Left Active Shoulder ROM WFL Yes Testing Position Sitting Flexion 180 Abduction 180 External Rotation at 0 degrees Abduction 50 Internal Rotation Behind Back (text) T6 PT-OP-L Special Tests Start: 11/25/22 17:39 Freq: Status: Active Protocol: Document 01/21/23 09:00 DCW (Rec: 01/21/23 09:17 DCW [id number]) Special Tests Shoulder Special Tests Yergason's Biceps Test Results Positive R Passive ER Rotator Cuff Test Results Negative Painful Arc Test Results Negative Lift-Off Rotator Cuff Test Results Negative Patel Richar Impingement Test Results Negative Grind Labrum Test Results Negative Empty Can Test Results Negative Drop Arm Rotator Cuff Test Results Negative Belly Press Test Results Negative PT-OP-M Strength Start: 11/24/22 17:48 Freq: Status: Active Protocol: Document 01/21/23 09:00 DCW (Rec: 01/21/23 09:17 DCW [id number]) Shoulder Strength Shoulder Manual Muscle Testing Right Flexion 3- Fair- Abduction (C5) 4 Good External Rotation 4- Good- Internal Rotation 4+ Good+ Left Flexion 4 Good Abduction (C5) 4 Good External Rotation 4+ Good+ Internal Rotation 4+ Good+ PT-OP-Q Treatments Start: 11/24/22 17:48 Freq: Status: Active Protocol: Document 02/01/23 09:35 DCW (Rec: 02/01/23 10:20 DCW [id number]) Gym Equipment Cable Column (Body Solid) Triceps Resistance 20# Rows Resistance 30# Lat Pull Down Resistance 30# Therapeutic Exercises Other Exercises Wall push-ups Other Exercise Name Incline Push-up on plinth Resisted Ambulation Other Exercise Name Resisted UE side-stepping Side bilateral Resistance Yellow Manual Therapy Treatment Soft Tissue Mobilization R shld Body Location pec, rhomboid, bicep Mobilization Type Myofascial Release,Strumming, Sustained Pressure,Other Intensity/Depth Moderate Body Position Hooklying Comments manual and MWM FF neck Body Location UT, LS, SOR Mobilization Type Myofascial Release,Strumming, Sustained Pressure Intensity/Depth Moderate Body Position Hooklying Comments manual and ed self application Joint Mobilizations R scapulothoracic Direction lateral Grade II Body Position Supine R GH jt Direction inferior, posterior Grade II Body Position Hooklying Manual Traction Cervical Details Cervical traction Body Position Supine Nerve Glides Ulnar Nerve Nerve R Ulnar Nerve [place] Median Nerve Nerve R Median Nerve [place] PT-OP-T Assessment and Plan Start: 11/24/22 17:48 Freq: Status: Active Protocol: Document 02/01/23 09:35 DCW (Rec: 02/01/23 10:20 DCW [id number]) Physical Therapy Assessment Impairments Impairments Activity Tolerance,Functional Activities,Functional Mobility ,Pain,Posture,ROM,Soft Tissue Mobility,Strength Goals Three Impairment Pt reports he wakes up every 1 -2 hours every night due to shoulder pain Senior Living Goal (LTG) Pt to report increasing sleep to at least 5 hours straight before waking up due to shoulder pain. LTG Duration 03/17/23 - improving Two Impairment Right shoulder ROM limited to 119? flexion Senior Living Goal (LTG) Pt to increase right shoulder flexion to at least 150? in order to improve ability to put stuff away in his cabinets when working around the house . LTG Duration 03/17/23 - improving One Impairment Pt not currently performing an appropriate home exercise program Short Term Goal (STG) Pt to be independent and compliant with an appropriate HEP STG Duration Met Assessment Summary Assessment Pt still experiencing overall pain in the shoulders and forearm, but it is not keeping him up at night. Feels like he does well with HEP compliance, will likely discharge following last scheduled visit. Physical Therapy Plan Frequency and Duration Frequency of Treatment 2x/Week Plan of Care Start Date 01/21/23 Plan of Care End Date 03/17/23 Therapeutic Interventions Therapeutic Interventions Home Exercise Program,Joint Mobilizations,Manual Therapy, Patient/Caregiver Education, Self-Care/Home Management,Soft Tissue Mobilization,Taping, Therapeutic Activities, Therapeutic Exercises Modalities Cold Pack/Ice Massage,Electric Stimulation,Hot Packs, Ultrasound Next Visit Focus/Plan Next Note Type Treatment Note Next Visit Plan POC: ROM, strengthening, joint mobilizations, STM
--- NOTE | 2023-02-04 09:47 | PT.OTN ---
Current Diagnoses Other chronic pain (02/04/23) Pain in right shoulder (02/04/23) Stiffness of right shoulder, not elsewhere classified (02/04/23) Physical Therapy Treatment Note PT-OP-A Visit Information Start: 11/24/22 17:48 Freq: Status: Active Protocol: Document 02/04/23 09:02 DCW (Rec: 02/04/23 09:47 DC [id number]) Out-Patient Physical Therapy Visit Information Visit Information Visit Type Treatment Note Visit Start Time 09:02 Visit Stop Time 09:45 Total Visit Minutes 43 Visit Number 13 Number of ASPHALT LAYER Visits 0 Evaluation Information Evaluation Date 11/24/22 PT-OP-B Current Condition Start: 11/24/22 17:48 Freq: Status: Active Protocol: Document 11/24/22 11:00 DCW (Rec: 11/24/22 17:57 DCW [id number]) Current Condition History of Current Condition Onset Date Years-long history Current Complaints Right shoulder pain and stiffness History of Current Condition Pt is an 82 year old male presenting with a multi-year history of right shoulder pain . Pt was previously seen at this clinic ~2 years ago for the same pain, and at that time felt significantly better following treatment, and eventually discharged to [facility]. Pt reports that he has steadily been worsening, and in September had finally had enough, and decided to get his shoulder addressed again. Pt saw his PCP, who referred him to Sports Medicine at (October 05), and he then saw Sports Med at [place] (October 28). Before anything could be addressed, he went to [place] on vacation, leaving October 30, and unfortunately became quite ill with COVID during his trip. Pt is finally feeling better, and wants to get his arm back to where it was last time he was undergoing PT. Pt notes that he struggles with any overhead activity, and especially experiences pain when lowering his arm. Recently, his shoulder pain has been waking him up at night every 1-2 hours. Notes he feels it catching and popping frequently, which sometimes causes pain, and other times does not. PT-OP-C Subjective Start: 11/24/22 17:48 Freq: Status: Active Protocol: Document 02/04/23 09:02 DCW (Rec: 02/04/23 09:47 DC [id number]) OP-PT Subjective Patient Comments Patient Comments The left side of my neck is still letting me know it's there. My right bicep bothers me some, and it also seems to be going into my forearm. PT-OP-E Functional Tests Start: 11/24/22 17:48 Freq: Status: Active Protocol: Document 01/21/23 09:00 DCW (Rec: 01/21/23 09:17 DCW [id number]) Functional Tests Apley's Scratch Test Action 1- Left Posterior opposite shoulder Action 1- Right Posterior opposite shoulder Action 2- Left T2 Action 2- Right T4 Action 3- Left T6 Action 3- Right T8 PT-OP-F Manual Assessment Start: 11/24/22 17:48 Freq: Status: Active Protocol: Document 01/21/23 09:00 DCW (Rec: 01/21/23 09:17 DCW [id number]) Manual Assessments Soft Tissue Assessment Soft Tissue Mobility Assessment Moderate tone in right LH Biceps tendon, right infraspinatue, upper trap and right scalenes, tenderness to palpation 2/4: pain with wincing. PT-OP-K Range of Motion Start: 11/24/22 17:48 Freq: Status: Active Protocol: Document 01/21/23 09:00 DCW (Rec: 01/21/23 09:17 DCW [id number]) Shoulder Goniometric Range of Motion Shoulder Right Active Shoulder ROM WFL No Testing Position Sitting Flexion 138 Abduction 171 External Rotation at 0 degrees Abduction 55 Internal Rotation Behind Back (text) T8 Left Active Shoulder ROM WFL Yes Testing Position Sitting Flexion 180 Abduction 180 External Rotation at 0 degrees Abduction 50 Internal Rotation Behind Back (text) T6 PT-OP-L Special Tests Start: 11/25/22 17:39 Freq: Status: Active Protocol: Document 01/21/23 09:00 DCW (Rec: 01/21/23 09:17 DCW [id number]) Special Tests Shoulder Special Tests Yergason's Biceps Test Results Positive R Passive ER Rotator Cuff Test Results Negative Painful Arc Test Results Negative Lift-Off Rotator Cuff Test Results Negative Patel Richar Impingement Test Results Negative Grind Labrum Test Results Negative Empty Can Test Results Negative Drop Arm Rotator Cuff Test Results Negative Belly Press Test Results Negative PT-OP-M Strength Start: 11/24/22 17:48 Freq: Status: Active Protocol: Document 01/21/23 09:00 [facility] (Rec: 01/21/23 09:17 [facility] [id number]) Shoulder Strength Shoulder Manual Muscle Testing Right Flexion 3- Fair- Abduction (C5) 4 Good External Rotation 4- Good- Internal Rotation 4+ Good+ Left Flexion 4 Good Abduction (C5) 4 Good External Rotation 4+ Good+ Internal Rotation 4+ Good+ PT-OP-Q Treatments Start: 11/24/22 17:48 Freq: Status: Active Protocol: Document 02/04/23 09:02 [facility] (Rec: 02/04/23 09:47 [facility] [id number]) Gym Equipment Cable Column (Body Solid) Triceps Resistance 20# Rows Resistance 30# Lat Pull Down Resistance 30# Therapeutic Exercises Standing Exercises Shoulder Press Standing Exercise Name Shoulder Press Side bilateral Resistance 10# /c PVC Body Blade Standing Exercise Name Flexion, Abduction, ER Side bilateral Equipment Used Yellow Body Blade Comments difficulty coordinating Other Exercises Resisted Ambulation Other Exercise Name Resisted UE side-stepping Side bilateral Resistance Yellow Manual Therapy Treatment Soft Tissue Mobilization R shld Body Location pec, rhomboid, bicep Mobilization Type Myofascial Release,Strumming, Sustained Pressure,Other Intensity/Depth Moderate Body Position Hooklying neck Body Location B UT, LS, SOR Mobilization Type Myofascial Release,Strumming, Sustained Pressure Intensity/Depth Moderate Body Position Hooklying Joint Mobilizations R scapulothoracic Direction lateral Grade II Body Position Supine R GH jt Direction inferior, posterior Grade II Body Position Hooklying Manual Traction Cervical Details Cervical traction Body Position Supine PT-OP-T Assessment and Plan Start: 11/24/22 17:48 Freq: Status: Active Protocol: Document 02/04/23 09:02 [facility] (Rec: 02/04/23 09:47 [facility] [id number]) Physical Therapy Assessment Impairments Impairments Activity Tolerance,Functional Activities,Functional Mobility ,Pain,Posture,ROM,Soft Tissue Mobility,Strength Goals Three Impairment Pt reports he wakes up every 1 -2 hours every night due to shoulder pain Fdc Goal (LTG) Pt to report increasing sleep to at least 5 hours straight before waking up due to shoulder pain. LTG Duration 03/17/23 - improving Two Impairment Right shoulder ROM limited to 119? flexion Fdc Goal (LTG) Pt to increase right shoulder flexion to at least 150? in order to improve ability to put stuff away in his cabinets when working around the house . LTG Duration 03/17/23 - improving One Impairment Pt not currently performing an appropriate home exercise program Short Term Goal (STG) Pt to be independent and compliant with an appropriate HEP STG Duration Met Assessment Summary Assessment Pt agreeable to decrease frequency to 1x/week for next few weeks to try to better transition to independent HEP, still having increased pain with most activity, although much improvement with nighttime pain Physical Therapy Plan Frequency and Duration Frequency of Treatment 2x/Week Plan of Care Start Date 01/21/23 Plan of Care End Date 03/17/23 Therapeutic Interventions Therapeutic Interventions Home Exercise Program,Joint Mobilizations,Manual Therapy, Patient/Caregiver Education, Self-Care/Home Management,Soft Tissue Mobilization,Taping, Therapeutic Activities, Therapeutic Exercises Modalities Cold Pack/Ice Massage,Electric Stimulation,Hot Packs, Ultrasound Next Visit Focus/Plan Next Note Type Treatment Note Next Visit Plan POC: ROM, strengthening, joint mobilizations, STM
--- NOTE | 2023-02-09 15:32 | PT.OTN ---
Current Diagnoses Other chronic pain (02/09/23) Pain in right shoulder (02/09/23) Stiffness of right shoulder, not elsewhere classified (02/09/23) Physical Therapy Treatment Note PT-OP-A Visit Information Start: 11/24/22 17:48 Freq: Status: Active Protocol: Document 02/09/23 14:49 DCW (Rec: 02/09/23 15:32 DCW [id number]) Out-Patient Physical Therapy Visit Information Visit Information Visit Type Treatment Note Visit Start Time 14:49 Visit Stop Time 15:30 Total Visit Minutes 41 Visit Number 14 Number of STOCK CAR DRIVER Visits 0 Evaluation Information Evaluation Date 11/24/22 PT-OP-B Current Condition Start: 11/24/22 17:48 Freq: Status: Active Protocol: Document 11/24/22 11:00 DCW (Rec: 11/24/22 17:57 DCW [id number]) Current Condition History of Current Condition Onset Date Years-long history Current Complaints Right shoulder pain and stiffness History of Current Condition Pt is an 82 year old male presenting with a multi-year history of right shoulder pain . Pt was previously seen at this clinic ~2 years ago for the same pain, and at that time felt significantly better following treatment, and eventually discharged to [facility]. Pt reports that he has steadily been worsening, and in September had finally had enough, and decided to get his shoulder addressed again. Pt saw his PCP, who referred him to Sports Medicine at (October 05), and he then saw Sports Med at [place] (October 28). Before anything could be addressed, he went to [place] on vacation, leaving October 30, and unfortunately became quite ill with COVID during his trip. Pt is finally feeling better, and wants to get his arm back to where it was last time he was undergoing PT. Pt notes that he struggles with any overhead activity, and especially experiences pain when lowering his arm. Recently, his shoulder pain has been waking him up at night every 1-2 hours. Notes he feels it catching and popping frequently, which sometimes causes pain, and other times does not. PT-OP-C Subjective Start: 11/24/22 17:48 Freq: Status: Active Protocol: Document 02/09/23 14:49 DCW (Rec: 02/09/23 15:32 DCW [id number]) OP-PT Subjective Patient Comments Patient Comments That left side of my neck seems to be constantly reminding me that it's there. PT-OP-E Functional Tests Start: 11/24/22 17:48 Freq: Status: Active Protocol: Document 01/21/23 09:00 DCW (Rec: 01/21/23 09:17 DCW [id number]) Functional Tests Apley's Scratch Test Action 1- Left Posterior opposite shoulder Action 1- Right Posterior opposite shoulder Action 2- Left T2 Action 2- Right T4 Action 3- Left T6 Action 3- Right T8 PT-OP-F Manual Assessment Start: 11/24/22 17:48 Freq: Status: Active Protocol: Document 01/21/23 09:00 DCW (Rec: 01/21/23 09:17 DCW [id number]) Manual Assessments Soft Tissue Assessment Soft Tissue Mobility Assessment Moderate tone in right LH Biceps tendon, right infraspinatue, upper trap and right scalenes, tenderness to palpation 2/4: pain with wincing. PT-OP-K Range of Motion Start: 11/24/22 17:48 Freq: Status: Active Protocol: Document 01/21/23 09:00 DCW (Rec: 01/21/23 09:17 DCW [id number]) Shoulder Goniometric Range of Motion Shoulder Right Active Shoulder ROM WFL No Testing Position Sitting Flexion 138 Abduction 171 External Rotation at 0 degrees Abduction 55 Internal Rotation Behind Back (text) T8 Left Active Shoulder ROM WFL Yes Testing Position Sitting Flexion 180 Abduction 180 External Rotation at 0 degrees Abduction 50 Internal Rotation Behind Back (text) T6 PT-OP-L Special Tests Start: 11/25/22 17:39 Freq: Status: Active Protocol: Document 01/21/23 09:00 DCW (Rec: 01/21/23 09:17 DCW [id number]) Special Tests Shoulder Special Tests Yergason's Biceps Test Results Positive R Passive ER Rotator Cuff Test Results Negative Painful Arc Test Results Negative Lift-Off Rotator Cuff Test Results Negative Patel Richar Impingement Test Results Negative Grind Labrum Test Results Negative Empty Can Test Results Negative Drop Arm Rotator Cuff Test Results Negative Belly Press Test Results Negative PT-OP-M Strength Start: 11/24/22 17:48 Freq: Status: Active Protocol: Document 01/21/23 09:00 DCW (Rec: 01/21/23 09:17 DCW [id number]) Shoulder Strength Shoulder Manual Muscle Testing Right Flexion 3- Fair- Abduction (C5) 4 Good External Rotation 4- Good- Internal Rotation 4+ Good+ Left Flexion 4 Good Abduction (C5) 4 Good External Rotation 4+ Good+ Internal Rotation 4+ Good+ PT-OP-Q Treatments Start: 11/24/22 17:48 Freq: Status: Active Protocol: Document 02/09/23 14:49 DCW (Rec: 02/09/23 15:32 DCW [id number]) Gym Equipment Cable Column (Body Solid) Triceps Resistance 20# Rows Resistance 30# Lat Pull Down Resistance 30# Therapeutic Exercises Standing Exercises Body Blade Standing Exercise Name Flexion, Abduction, ER Side bilateral Equipment Used Yellow Body Blade Comments difficulty coordinating Other Exercises Wall push-ups Other Exercise Name Incline Push-up on plinth Manual Therapy Treatment Soft Tissue Mobilization R shld Body Location pec, rhomboid, bicep Mobilization Type Myofascial Release,Strumming, Sustained Pressure,Other Intensity/Depth Moderate Body Position Hooklying neck Body Location B UT, LS, SOR Mobilization Type Myofascial Release,Strumming, Sustained Pressure Intensity/Depth Moderate Body Position Hooklying Joint Mobilizations R scapulothoracic Direction lateral Grade II Body Position Supine R GH jt Direction inferior, posterior Grade II Body Position Hooklying Manual Traction Cervical Details Cervical traction Body Position Supine PT-OP-T Assessment and Plan Start: 11/24/22 17:48 Freq: Status: Active Protocol: Document 02/09/23 14:49 DCW (Rec: 02/09/23 15:32 DC [id number]) Physical Therapy Assessment Impairments Impairments Activity Tolerance,Functional Activities,Functional Mobility ,Pain,Posture,ROM,Soft Tissue Mobility,Strength Goals Three Impairment Pt reports he wakes up every 1 -2 hours every night due to shoulder pain Halfway Goal (LTG) Pt to report increasing sleep to at least 5 hours straight before waking up due to shoulder pain. LTG Duration 03/17/23 - improving Two Impairment Right shoulder ROM limited to 119? flexion Family Caseworker Goal (LTG) Pt to increase right shoulder flexion to at least 150? in order to improve ability to put stuff away in his cabinets when working around the house . LTG Duration 03/17/23 - improving One Impairment Pt not currently performing an appropriate home exercise program Short Term Goal (STG) Pt to be independent and compliant with an appropriate HEP STG Duration Met Assessment Summary Assessment Pt continues to exhibit increased left paraspinal tone and tenderness along right biceps, but is improving with functional mobility and pain control. Physical Therapy Plan Frequency and Duration Frequency of Treatment 2x/Week Plan of Care Start Date 01/21/23 Plan of Care End Date 03/17/23 Therapeutic Interventions Therapeutic Interventions Home Exercise Program,Joint Mobilizations,Manual Therapy, Patient/Caregiver Education, Self-Care/Home Management,Soft Tissue Mobilization,Taping, Therapeutic Activities, Therapeutic Exercises Modalities Cold Pack/Ice Massage,Electric Stimulation,Hot Packs, Ultrasound Next Visit Focus/Plan Next Note Type Treatment Note Next Visit Plan POC: ROM, strengthening, joint mobilizations, STM
--- NOTE | 2023-02-18 14:59 | PT.OTN ---
Current Diagnoses Other chronic pain (02/18/23) Pain in right shoulder (02/18/23) Stiffness of right shoulder, not elsewhere classified (02/18/23) Physical Therapy Treatment Note PT-OP-A Visit Information Start: 11/24/22 17:48 Freq: Status: Active Protocol: Document 02/18/23 14:15 DCW (Rec: 02/18/23 14:59 DCW [id number]) Out-Patient Physical Therapy Visit Information Visit Information Visit Type Treatment Note Visit Start Time 14:15 Visit Stop Time 15:00 Total Visit Minutes 45 Visit Number 15 Number of PLASTIC SHAPER Visits 0 Evaluation Information Evaluation Date 11/24/22 PT-OP-B Current Condition Start: 11/24/22 17:48 Freq: Status: Active Protocol: Document 11/24/22 11:00 DCW (Rec: 11/24/22 17:57 DCW [id number]) Current Condition History of Current Condition Onset Date Years-long history Current Complaints Right shoulder pain and stiffness History of Current Condition Pt is an 82 year old male presenting with a multi-year history of right shoulder pain . Pt was previously seen at this clinic ~2 years ago for the same pain, and at that time felt significantly better following treatment, and eventually discharged to [facility]. Pt reports that he has steadily been worsening, and in September had finally had enough, and decided to get his shoulder addressed again. Pt saw his PCP, who referred him to Sports Medicine at (October 05), and he then saw Sports Med at [place] (October 28). Before anything could be addressed, he went to [place] on vacation, leaving October 30, and unfortunately became quite ill with COVID during his trip. Pt is finally feeling better, and wants to get his arm back to where it was last time he was undergoing PT. Pt notes that he struggles with any overhead activity, and especially experiences pain when lowering his arm. Recently, his shoulder pain has been waking him up at night every 1-2 hours. Notes he feels it catching and popping frequently, which sometimes causes pain, and other times does not. PT-OP-C Subjective Start: 11/24/22 17:48 Freq: Status: Active Protocol: Document 02/18/23 14:15 DCW (Rec: 02/18/23 14:59 DCW [id number]) OP-PT Subjective Patient Comments Patient Comments The neck isn't doing so well, the shoulder hasn't been giving me many problems though . PT-OP-E Functional Tests Start: 11/24/22 17:48 Freq: Status: Active Protocol: Document 01/21/23 09:00 DCW (Rec: 01/21/23 09:17 DCW [id number]) Functional Tests Apley's Scratch Test Action 1- Left Posterior opposite shoulder Action 1- Right Posterior opposite shoulder Action 2- Left T2 Action 2- Right T4 Action 3- Left T6 Action 3- Right T8 PT-OP-F Manual Assessment Start: 11/24/22 17:48 Freq: Status: Active Protocol: Document 01/21/23 09:00 DCW (Rec: 01/21/23 09:17 DCW [id number]) Manual Assessments Soft Tissue Assessment Soft Tissue Mobility Assessment Moderate tone in right LH Biceps tendon, right infraspinatue, upper trap and right scalenes, tenderness to palpation 2/4: pain with wincing. PT-OP-K Range of Motion Start: 11/24/22 17:48 Freq: Status: Active Protocol: Document 01/21/23 09:00 DCW (Rec: 01/21/23 09:17 DCW [id number]) Shoulder Goniometric Range of Motion Shoulder Right Active Shoulder ROM WFL No Testing Position Sitting Flexion 138 Abduction 171 External Rotation at 0 degrees Abduction 55 Internal Rotation Behind Back (text) T8 Left Active Shoulder ROM WFL Yes Testing Position Sitting Flexion 180 Abduction 180 External Rotation at 0 degrees Abduction 50 Internal Rotation Behind Back (text) T6 PT-OP-L Special Tests Start: 11/25/22 17:39 Freq: Status: Active Protocol: Document 01/21/23 09:00 DCW (Rec: 01/21/23 09:17 DCW [id number]) Special Tests Shoulder Special Tests Yergason's Biceps Test Results Positive R Passive ER Rotator Cuff Test Results Negative Painful Arc Test Results Negative Lift-Off Rotator Cuff Test Results Negative Patel Richar Impingement Test Results Negative Grind Labrum Test Results Negative Empty Can Test Results Negative Drop Arm Rotator Cuff Test Results Negative Belly Press Test Results Negative PT-OP-M Strength Start: 11/24/22 17:48 Freq: Status: Active Protocol: Document 01/21/23 09:00 DCW (Rec: 01/21/23 09:17 DCW [id number]) Shoulder Strength Shoulder Manual Muscle Testing Right Flexion 3- Fair- Abduction (C5) 4 Good External Rotation 4- Good- Internal Rotation 4+ Good+ Left Flexion 4 Good Abduction (C5) 4 Good External Rotation 4+ Good+ Internal Rotation 4+ Good+ PT-OP-Q Treatments Start: 11/24/22 17:48 Freq: Status: Active Protocol: Document 02/18/23 14:15 DCW (Rec: 02/18/23 14:59 DC [id number]) Gym Equipment Cable Column (Body Solid) Triceps Resistance 20# Rows Resistance 30# Lat Pull Down Resistance 30# Therapeutic Exercises Standing Exercises Body Blade Standing Exercise Name Flexion, Abduction, ER Side bilateral Equipment Used Yellow Body Blade Other Exercises Resisted Ambulation Other Exercise Name Resisted UE side-stepping Side bilateral Resistance Green Manual Therapy Treatment Soft Tissue Mobilization R shld Body Location pec, rhomboid, bicep Mobilization Type Myofascial Release,Strumming, Sustained Pressure,Other Intensity/Depth Moderate Body Position Hooklying neck Body Location B UT, LS, SOR Mobilization Type Myofascial Release,Strumming, Sustained Pressure Intensity/Depth Moderate Body Position Hooklying Joint Mobilizations R scapulothoracic Direction lateral Grade II Body Position Supine R GH jt Direction inferior, posterior Grade II Body Position Hooklying Manual Traction Cervical Details Cervical traction Body Position Supine PT-OP-T Assessment and Plan Start: 11/24/22 17:48 Freq: Status: Active Protocol: Document 02/18/23 14:15 DCW (Rec: 02/18/23 14:59 [facility] [id number]) Physical Therapy Assessment Impairments Impairments Activity Tolerance,Functional Activities,Functional Mobility ,Pain,Posture,ROM,Soft Tissue Mobility,Strength Goals Three Impairment Pt reports he wakes up every 1 -2 hours every night due to shoulder pain Exchange Floor Manager Goal (LTG) Pt to report increasing sleep to at least 5 hours straight before waking up due to shoulder pain. LTG Duration 03/17/23 - improving Two Impairment Right shoulder ROM limited to 119? flexion Exchange Floor Manager Goal (LTG) Pt to increase right shoulder flexion to at least 150? in order to improve ability to put stuff away in his cabinets when working around the house . LTG Duration 03/17/23 - improving One Impairment Pt not currently performing an appropriate home exercise program Short Term Goal (STG) Pt to be independent and compliant with an appropriate HEP STG Duration Met Assessment Summary Assessment Pt better today, still having increased tone and tenderness in left neck, may be approaching point where pt may benefit from advanced cervical imaging to help rule in/out structural causes. Physical Therapy Plan Frequency and Duration Frequency of Treatment 2x/Week Plan of Care Start Date 01/21/23 Plan of Care End Date 03/17/23 Therapeutic Interventions Therapeutic Interventions Home Exercise Program,Joint Mobilizations,Manual Therapy, Patient/Caregiver Education, Self-Care/Home Management,Soft Tissue Mobilization,Taping, Therapeutic Activities, Therapeutic Exercises Modalities Cold Pack/Ice Massage,Electric Stimulation,Hot Packs, Ultrasound Next Visit Focus/Plan Next Note Type Treatment Note Next Visit Plan POC: ROM, strengthening, joint mobilizations, STM
--- NOTE | 2023-02-25 15:04 | PT.OTN ---
Current Diagnoses Other chronic pain (02/25/23) Pain in right shoulder (02/25/23) Stiffness of right shoulder, not elsewhere classified (02/25/23) Physical Therapy Treatment Note PT-OP-A Visit Information Start: 11/24/22 17:48 Freq: Status: Active Protocol: Document 02/25/23 13:35 DCW (Rec: 02/25/23 15:04 DC [id number]) Out-Patient Physical Therapy Visit Information Visit Information Visit Type Treatment Note Visit Start Time 13:35 Visit Stop Time 14:15 Total Visit Minutes 40 Visit Number 16 Number of JUNIOR LOAN PROCESSOR Visits 0 Evaluation Information Evaluation Date 11/24/22 PT-OP-B Current Condition Start: 11/24/22 17:48 Freq: Status: Active Protocol: Document 11/24/22 11:00 DCW (Rec: 11/24/22 17:57 DCW [id number]) Current Condition History of Current Condition Onset Date Years-long history Current Complaints Right shoulder pain and stiffness History of Current Condition Pt is an 82 year old male presenting with a multi-year history of right shoulder pain . Pt was previously seen at this clinic ~2 years ago for the same pain, and at that time felt significantly better following treatment, and eventually discharged to [facility]. Pt reports that he has steadily been worsening, and in September had finally had enough, and decided to get his shoulder addressed again. Pt saw his PCP, who referred him to Sports Medicine at (October 05), and he then saw Sports Med at [place] (October 28). Before anything could be addressed, he went to [place] on vacation, leaving October 30, and unfortunately became quite ill with COVID during his trip. Pt is finally feeling better, and wants to get his arm back to where it was last time he was undergoing PT. Pt notes that he struggles with any overhead activity, and especially experiences pain when lowering his arm. Recently, his shoulder pain has been waking him up at night every 1-2 hours. Notes he feels it catching and popping frequently, which sometimes causes pain, and other times does not. PT-OP-C Subjective Start: 11/24/22 17:48 Freq: Status: Active Protocol: Document 02/25/23 13:35 DCW (Rec: 02/25/23 15:04 DCW [id number]) OP-PT Subjective Patient Comments Patient Comments Just still have my same old complaints. PT-OP-E Functional Tests Start: 11/24/22 17:48 Freq: Status: Active Protocol: Document 01/21/23 09:00 DCW (Rec: 01/21/23 09:17 DCW [id number]) Functional Tests Apley's Scratch Test Action 1- Left Posterior opposite shoulder Action 1- Right Posterior opposite shoulder Action 2- Left T2 Action 2- Right T4 Action 3- Left T6 Action 3- Right T8 PT-OP-F Manual Assessment Start: 11/24/22 17:48 Freq: Status: Active Protocol: Document 01/21/23 09:00 DCW (Rec: 01/21/23 09:17 DCW [id number]) Manual Assessments Soft Tissue Assessment Soft Tissue Mobility Assessment Moderate tone in right LH Biceps tendon, right infraspinatue, upper trap and right scalenes, tenderness to palpation 2/4: pain with wincing. PT-OP-K Range of Motion Start: 11/24/22 17:48 Freq: Status: Active Protocol: Document 01/21/23 09:00 DCW (Rec: 01/21/23 09:17 DCW [id number]) Shoulder Goniometric Range of Motion Shoulder Right Active Shoulder ROM WFL No Testing Position Sitting Flexion 138 Abduction 171 External Rotation at 0 degrees Abduction 55 Internal Rotation Behind Back (text) T8 Left Active Shoulder ROM WFL Yes Testing Position Sitting Flexion 180 Abduction 180 External Rotation at 0 degrees Abduction 50 Internal Rotation Behind Back (text) T6 PT-OP-L Special Tests Start: 11/25/22 17:39 Freq: Status: Active Protocol: Document 01/21/23 09:00 DCW (Rec: 01/21/23 09:17 DCW [id number]) Special Tests Shoulder Special Tests Yergason's Biceps Test Results Positive R Passive ER Rotator Cuff Test Results Negative Painful Arc Test Results Negative Lift-Off Rotator Cuff Test Results Negative Patel Richar Impingement Test Results Negative Grind Labrum Test Results Negative Empty Can Test Results Negative Drop Arm Rotator Cuff Test Results Negative Belly Press Test Results Negative PT-OP-M Strength Start: 11/24/22 17:48 Freq: Status: Active Protocol: Document 01/21/23 09:00 DCW (Rec: 01/21/23 09:17 DCW [id number]) Shoulder Strength Shoulder Manual Muscle Testing Right Flexion 3- Fair- Abduction (C5) 4 Good External Rotation 4- Good- Internal Rotation 4+ Good+ Left Flexion 4 Good Abduction (C5) 4 Good External Rotation 4+ Good+ Internal Rotation 4+ Good+ PT-OP-Q Treatments Start: 11/24/22 17:48 Freq: Status: Active Protocol: Document 02/25/23 13:35 DCW (Rec: 02/25/23 15:04 DCW [id number]) Gym Equipment Cable Column (Body Solid) Triceps Resistance 20# Lat Pull Down Resistance 30# Therapeutic Exercises Standing Exercises Body Blade Standing Exercise Name Flexion, Abduction, ER Side bilateral Equipment Used Yellow Body Blade Manual Therapy Treatment Soft Tissue Mobilization R shld Body Location pec, rhomboid, bicep Mobilization Type Myofascial Release,Strumming, Sustained Pressure,Other Intensity/Depth Moderate Body Position Hooklying neck Body Location B UT, LS, SOR Mobilization Type Myofascial Release,Strumming, Sustained Pressure Intensity/Depth Moderate Body Position Hooklying Joint Mobilizations R scapulothoracic Direction lateral Grade II Body Position Supine R GH jt Direction inferior, posterior Grade II Body Position Hooklying Manual Traction Cervical Details Cervical traction Body Position Supine PT-OP-T Assessment and Plan Start: 11/24/22 17:48 Freq: Status: Active Protocol: Document 02/25/23 13:35 DCW (Rec: 02/25/23 15:04 DCW [id number]) Physical Therapy Assessment Impairments Impairments Activity Tolerance,Functional Activities,Functional Mobility ,Pain,Posture,ROM,Soft Tissue Mobility,Strength Goals Three Impairment Pt reports he wakes up every 1 -2 hours every night due to shoulder pain Fiber Locking Supervisor Goal (LTG) Pt to report increasing sleep to at least 5 hours straight before waking up due to shoulder pain. LTG Duration 03/17/23 - improving Two Impairment Right shoulder ROM limited to 119? flexion Correction Goal (LTG) Pt to increase right shoulder flexion to at least 150? in order to improve ability to put stuff away in his cabinets when working around the house . LTG Duration 03/17/23 - improving One Impairment Pt not currently performing an appropriate home exercise program Short Term Goal (STG) Pt to be independent and compliant with an appropriate HEP STG Duration Met Assessment Summary Assessment Pt feeling like he has largely plateaued, unsure if continuing PT will help any more. Following discussion at very end of session, pt would prefer to discharge from PT at this time. Physical Therapy Plan Frequency and Duration Frequency of Treatment 2x/Week Plan of Care Start Date 01/21/23 Plan of Care End Date 03/17/23 Therapeutic Interventions Therapeutic Interventions Home Exercise Program,Joint Mobilizations,Manual Therapy, Patient/Caregiver Education, Self-Care/Home Management,Soft Tissue Mobilization,Taping, Therapeutic Activities, Therapeutic Exercises Modalities Cold Pack/Ice Massage,Electric Stimulation,Hot Packs, Ultrasound Discharge Physical Therapy Discharge Reasons Patient Request Next Visit Focus/Plan Next Note Type Discharge Summary
== END 2023-03-04 10:30 | disposition home or self-care (01) ==
LOC: PHYS 13:30
PROVIDERS: Family Provider Family Medicine; PCP Family Medicine
DX: M25.511 Pain in right shoulder (principal); G89.29 Other chronic pain; M25.611 Stiffness of right shoulder, not elsewhere classified
CPT/HCPCS: 97110; 97140; 97162; 97535

== ENCOUNTER → 2023-03-11 07:23 | Outpatient (CLI) | payer MEDICARE, OTHER, SELFPAY ==
[2023-03-11 08:33] LABS: Add Manual Diff / Slide Review NO; Basophils Absolute Auto 0 /uL (0-100); Basophils Percent Auto 0.8 % (0-2); Eosinophils Absolute Auto 300 /uL (0-450); Eosinophils Percent Auto 8.7 % (2-4); Hematocrit 43.1 % (41-53); Hemoglobin 15.1 g/dL (13.5-17.5); Lymphocytes Absolute Auto 900 /uL (1100-4500); Lymphocytes Percent Auto 24.4 % (25-40); Mean Corpuscular HGB Conc 35.1 % (30-36); Mean Corpuscular Hemoglobin 32.2 PG (26-34); Mean Corpuscular Volume 91.7 fL (80-100); Monocytes Absolute Auto 300 /uL (0-900); Monocytes Percent Auto 9.2 % (3-14); Neutrophils Absolute Auto 2000 /uL (1500-7000); Neutrophils Percent Auto 56.9 % (50-75); Platelet Count 104 X10^3/uL (150-400); Red Cell Distribution Width 13.6 % (11.6-14.8); White Blood Cell Count 3.6 X10^3/uL (4.5-11.0)
== END ==
PROVIDERS: Family Provider Family Medicine; PCP Family Medicine; Referring Provider Family Medicine; Visit Provider Family Medicine
DX: D69.6 Thrombocytopenia, unspecified (principal); D70.9 Neutropenia, unspecified
CPT/HCPCS: 36415; 85025

== ENCOUNTER → 2024-04-03 07:26 | Outpatient (CLI) | payer MEDICARE, OTHER, SELFPAY ==
[2024-04-03 08:10] LABS: Add Manual Diff / Slide Review NO; Basophils Absolute Auto 0 /uL (0-100); Basophils Percent Auto 0.6 % (0-2); Eosinophils Absolute Auto 400 /uL (0-450); Eosinophils Percent Auto 11.1 % (2-4); Hematocrit 43.3 % (41-53); Hemoglobin 15.1 g/dL (13.5-17.5); Lymphocytes Absolute Auto 900 /uL (1100-4500); Lymphocytes Percent Auto 28.4 % (25-40); Mean Corpuscular HGB Conc 34.8 % (30-36); Mean Corpuscular Hemoglobin 32.7 PG (26-34); Mean Corpuscular Volume 93.8 fL (80-100); Monocytes Absolute Auto 300 /uL (0-900); Monocytes Percent Auto 8.9 % (3-14); Neutrophils Absolute Auto 1600 /uL (1500-7000); Platelet Count 115 X10^3/uL (150-400); Red Blood Cell Count 4.61 X10^6/uL (4.5-5.9); White Blood Cell Count 3.2 X10^3/uL (4.5-11.0)
[2024-04-03 08:24] LABS: Alanine Aminotransferase 52 IU/L (<50); Albumin Globulin Ratio 1.4 (1.0-2.8); Alkaline Phosphatase 54 U/L (38-126); Aspartate Aminotransferase 55 IU/L (17-59); BUN Creatinine Ratio 25.6 (6-22); Bilirubin Total 1.1 mg/dL (0.2-1.3); Blood Urea Nitrogen 21 mg/dL (9-20); Calcium 9.8 mg/dL (8.4-10.2); Carbon Dioxide 29 mmol/L (22-32); Chloride 102 mmol/L (98-107); Cholesterol 123 mg/dL (140-199); Estimated Glomerular Filt Rate > 60 mL/min (>60); Globulin 2.9 g/dL (1.7-4.1); Glucose 96 mg/dL (80-110); HDL Cholesterol 50 mg/dL (40-60); HEMOLYSIS < 15 (0-50); LDL Cholesterol Calculated 58 mg/dL (<100); Sodium 137 mmol/L (137-145); Total Protein 6.9 g/dL (6.3-8.2); Triglycerides 77 mg/dL (35-150)
== END ==
PROVIDERS: Family Provider Family Medicine; PCP Family Medicine; Referring Provider Internal Medicine Cardiovascular Disease; Visit Provider Internal Medicine Cardiovascular Disease
DX: I25.10 Atherosclerotic heart disease of native coronary artery without angina pectoris (principal)
CPT/HCPCS: 36415; 80053; 80061; 85025

== ENCOUNTER 2024-08-22 17:58 | Emergency (ER) | payer MEDICARE, OTHER, SELFPAY ==
[2024-08-22] VITALS (8 sets, daily range): BP systolic 115–129; BP diastolic 59–60; PULSE 67–79; RESP 18–20; TEMP 36.5; O2SAT 92–95; BMI 24.3
--- NOTE | 2024-08-22 18:12 | DI.RAD.S_ITS ---
PROCEDURE: XR CHEST 2V INDICATIONS: cough/SOB crackles, recent out of country travel TECHNIQUE: 2 views of the chest were acquired. COMPARISON: None. FINDINGS: Surgical changes and devices: Midline sternotomy, coronary artery stent. Lungs and pleura: Lungs are clear. No pleural effusions or pneumothorax. Mediastinum: Mediastinal contours are normal. Heart size is normal. Bones and chest wall: No suspicious bony abnormalities. Soft tissues appear unremarkable. IMPRESSION: No evidence acute pulmonary process. Dictated by: Raphael Gomez M.D. on 08/22/2024 at 18:44 Approved by: Raphael Gomez M.D. on 08/22/2024 at 18:44
[2024-08-22 20:47] LABS: Strep Grp A by PCR Rapid Negative (Negative)
--- NOTE | 2024-08-22 20:52 | ED_ITS ---
HPI - URI/Sore Throat General Chief Complaint: Upper Respiratory Symptoms Stated Complaint: from [facility] needs chest XR no order Time Seen by Provider: 08/22/24 20:52 History of Present Illness HPI Narrative: 84-year-old male history of AFib on rivaroxaban comes into the ED from home for evaluation of cough sore throat ongoing persistent for the past 3 days, to note they did return from [facility] yesterday. Patient has been compliant with all his medications, did go to urgent care for symptoms of instructed come into the ED for further evaluation treatment. Patient denies any actual chest pain no headache no fever no nausea no vomiting no shortness of breath or any other GI/ symptoms at this time Related Data Home Medications Medication Instructions Recorded Confirmed atovaquone 250 mg-proguanil 100 mg tab PO DAILY 08/22/24 08/22/24 tablet latanoprost 0.005 % eye drops 1 drp EYE-LEFT ONCE PM 08/22/24 08/22/24 rivaroxaban 20 mg tablet (Xarelto) mg PO DAILY 08/22/24 08/22/24 Previous Rx's Medication Instructions Recorded albuterol sulfate 90 mcg/actuation 2 inh inhalation Q6H PRN shortness 08/23/24 breath activated powder inhaler of breath or wheezing #1 ea methylprednisolone 4 mg tablets in See Rx Instructions PO .COMPLEX 08/23/24 a dose pack (Medrol (Don)) #21 ea Allergies Allergy/AdvReac Type Severity Reaction Status Date / Time clams [CLAMS] AdvReac Mild vomiting, Verified 10/27/21 11:07 diarrhea Review of Systems Review of Systems Narrative: General: Denies fever, chills, weight loss HEENT: Positive sore throat, Denies headache, eye drainage, eye irritation, head trauma voice change Cardiovascular: Denies any chest pain, palpitations, shortness of breath, tachycardia Respiratory: Positive cough Denies any shortness of breath, wheeze, stridor GI/: Denies any abdominal pain, nausea, vomiting, diarrhea, bright red blood per rectum, melanotic stools, urinary frequency, urinary retention, dysuria, hematuria MSK: Denies any joint pain, muscle pains, swelling Skin: Denies any rashes, lesions, discoloration Neuro: Denies any headache, lightheadedness, dizziness, fainting, weakness Psych: Denies SI/HI Patient History Medical History (Updated 08/23/24 @ 00:55 by Austin Rock DO) Coronary artery disease Surgical History Hx of CABG Social History household members: spouse Smoking Status: Former smoker alcohol intake: current Smoking Status: Former smoker alcohol intake frequency: a few times a week Exam Narrative Exam Narrative: General: Cooperative, comfortable, well-developed, not in acute distress HEENT: Normocephalic, atraumatic, PERRLA, normal sclera, eyelids normal, Neck: Active full range of motion, atraumatic Chest: Normal to inspection, negative crepitus, no overlying erythema ecchymosis Respiratory: Coughing on exam, mild rales noted bilaterally/diffusely all lung white Normal respiratory effort, not in acute respiratory distress, clear to auscultation bilaterally negative cough, wheeze, tachypnea, rhonchi, Cardiology: Regular rate rhythm negative gallop, murmur, rubs GI/: Normal to inspection, soft, nonrigid, no tenderness to palpation, exam deferred MSK: Full range of active range of motion of all 4 extremities, atraumatic Skin: No rashes lesions noted Neuro: Alert awake oriented x3, moves all 4 extremities spontaneously, cranial nerves intact, able to answer all questions appropriately follows commands appropriately Psych: Cooperative, negative suicidal or homicidal ideations Initial Vital Signs Initial Vital Signs: Vital Signs Temperature 97.7 F 08/22/24 18:07 Pulse Rate 79 08/22/24 18:07 Respiratory Rate 20 08/22/24 18:07 Blood Pressure 129/60 08/22/24 18:07 Pulse Oximetry 95 08/22/24 18:07 Oxygen Delivery Method Room Air 08/22/24 18:07 Course Orders Ordered: ED Orders 08/22/24 18:12 XR chest 2V Stat 08/22/24 20:21 Strep Grp A by PCR Rapid Stat Throat Culture Stat 08/22/24 21:13 CT angio chest PE protocol Stat EKG-12 Lead Stat 08/22/24 21:32 CBC Auto Diff [Complete Blood Count AUTO DIFF] Stat CMP [Comprehensive Metabolic Panel] Stat Lipase Stat MAG [Magnesium] Stat NT-proBNP (BNP-Adult 18+) Stat Troponin & CK Cardiac Panel Stat 08/22/24 21:45 Covid-19 + FLU A/B + RSV - PCR Stat 08/22/24 23:29 Trop I [Troponin I] Stat Discontinued Medications Albuterol (Albuterol 2.5 Mg/3 Ml Neb (Adult)) 2.5 mg INH NOW ONE Stop: 08/22/24 21:15 Last Admin: 08/22/24 21:57 Dose: Not Given Documented By: WILIAM Dexamethasone (Dexamethasone 10 Mg/Ml Vial) 10 mg IV NOW ONE Stop: 08/22/24 21:13 Last Admin: 08/22/24 21:52 Dose: 10 mg Documented By: DALE Vital Signs Vital signs: Vital Signs - 8 hr 08/22/24 18:07 08/22/24 21:00 08/22/24 21:30 Temperature 97.7 F Pulse Rate 79 70 69 Respiratory Rate 20 Blood Pressure 129/60 Pulse Oximetry 95 92 92 Oxygen Delivery Method Room Air 08/22/24 22:00 08/22/24 22:30 Temperature Pulse Rate 70 68 Respiratory Rate 18 Blood Pressure Pulse Oximetry 93 93 Oxygen Delivery Method MDM - URI/Sore Throat Differential Diagnosis Differential diagnosis: Likely other (COVID, flu, strep throat, ACS, PE, pneumonia) Lab Data 08/22/24 21:32 08/22/24 21:32 Labs: Lab Results 08/22/24 08/22/24 08/22/24 Range/Units 20:21 21:32 21:45 WBC 5.5 (4.5-11.0) X10^3/uL RBC 5.00 (4.5-5.9) X10^6/uL Hgb 16.1 (13.5-17.5) g/dL Hct 46.3 (41-53) % MCV 92.6 (80-100) fL MCH 32.1 (26-34) PG MCHC 34.7 (30-36) % RDW 14.1 (11.6-14.8) % Plt Count 110 L (150-400) X10^3/uL Neut % (Auto) 75.7 H (50-75) % Lymph % (Auto) 13.1 L (25-40) % [place] % (Auto) 10.8 (3-14) % Eos % (Auto) 0.1 L (2-4) % Baso % (Auto) 0.3 (0-2) % Neut # (Auto) 4100 (3593-4686) /uL Lymph # (Auto) 700 L (2275-0763) /uL [place] # (Auto) 600 (0-900) /uL Eos # (Auto) 0 (0-450) /uL Baso # (Auto) 0 (0-100) /uL Sodium 135 L (137-145) mmol/L Potassium 3.6 (3.4-5.1) mmol/L Chloride 102 (98-107) mmol/L Carbon Dioxide 26 (22-32) mmol/L BUN 30 H (9-20) mg/dL Creatinine 0.95 (0.66-1.25) mg/dL Estimated GFR > 60 (>60) mL/min BUN/Creatinine Ratio 31.6 H (6-22) Glucose 122 H (80-110) mg/dL Calcium 9.5 (8.4-10.2) mg/dL Magnesium 2.1 (1.6-2.3) mg/dL Total Bilirubin 2.4 H (0.2-1.3) mg/dL AST 80 H (17-59) IU/L ALT 59 H (<50) IU/L Alkaline Phosphatase 46 (38-126) U/L Total Creatine Kinase 1146 H (55-170) U/L Troponin I 0.075 H (0.01-0.034) ng/mL NT-Pro-B Natriuret Pep 510 H (<450) pg/mL Total Protein 7.6 (6.3-8.2) g/dL Albumin 4.1 (3.5-5.0) g/dL Globulin 3.5 (1.7-4.1) g/dL Albumin/Globulin Ratio 1.2 (1.0-2.8) Lipase 81 (23-300) U/L SARS-CoV-2 (PCR) Negative (Negative) Influenza A (RT-PCR) Flu a positive H (NEGATIVE) Influenza B (RT-PCR) Flu b negative (NEGATIVE) RSV (PCR) Negative (Negative) Group A Strep (PCR) Negative (Negative) 08/22/24 Range/Units 23:29 WBC (4.5-11.0) X10^3/uL RBC (4.5-5.9) X10^6/uL Hgb (13.5-17.5) g/dL Hct (41-53) % MCV (80-100) fL MCH (26-34) PG MCHC (30-36) % RDW (11.6-14.8) % Plt Count (150-400) X10^3/uL Neut % (Auto) (50-75) % Lymph % (Auto) (25-40) % [place] % (Auto) (3-14) % Eos % (Auto) (2-4) % Baso % (Auto) (0-2) % Neut # (Auto) (3335-4560) /uL Lymph # (Auto) (0938-2946) /uL [place] # (Auto) (0-900) /uL Eos # (Auto) (0-450) /uL Baso # (Auto) (0-100) /uL Sodium (137-145) mmol/L Potassium (3.4-5.1) mmol/L Chloride (98-107) mmol/L Carbon Dioxide (22-32) mmol/L BUN (9-20) mg/dL Creatinine (0.66-1.25) mg/dL Estimated GFR (>60) mL/min BUN/Creatinine Ratio (6-22) Glucose (80-110) mg/dL Calcium (8.4-10.2) mg/dL Magnesium (1.6-2.3) mg/dL Total Bilirubin (0.2-1.3) mg/dL AST (17-59) IU/L ALT (<50) IU/L Alkaline Phosphatase (38-126) U/L Total Creatine Kinase (55-170) U/L Troponin I 0.067 H (0.01-0.034) ng/mL NT-Pro-B Natriuret Pep (<450) pg/mL Total Protein (6.3-8.2) g/dL Albumin (3.5-5.0) g/dL Globulin (1.7-4.1) g/dL Albumin/Globulin Ratio (1.0-2.8) Lipase (23-300) U/L SARS-CoV-2 (PCR) (Negative) Influenza A (RT-PCR) (NEGATIVE) Influenza B (RT-PCR) (NEGATIVE) RSV (PCR) (Negative) Group A Strep (PCR) (Negative) Imaging Data Chest x-ray: Radiologist's Impression: [address] [address] XRay Report Signed Patient: Zach Baeza MR#: [id number] : 1940 Acct:[id number] Age/Sex: 84 / M Date of Service: 08/22/24 Loc: ED Accession Number: [id number] Procedure: XR chest 2V Ordering Provider: Austin Rock D.O. PROCEDURE: XR CHEST 2V INDICATIONS: cough/SOB crackles, recent out of country travel TECHNIQUE: 2 views of the chest were acquired. COMPARISON: None. FINDINGS: Surgical changes and devices: Midline sternotomy, coronary artery stent. Lungs and pleura: Lungs are clear. No pleural effusions or pneumothorax. Mediastinum: Mediastinal contours are normal. Heart size is normal. Bones and chest wall: No suspicious bony abnormalities. Soft tissues appear unremarkable. IMPRESSION: No evidence acute pulmonary process. CT scan - chest: Radiologist's Impression: [place] [address] CT Scan Report Signed Patient: Zach Baeza MR#: [id number] : 1940 Acct:[id number] Age/Sex: 84 / M Date of Service: 08/22/24 Loc: ED Accession Number: [id number] Procedure: CT angio chest PE protocol Ordering Provider: Austin Rock D.O. PROCEDURE: CT ANGIO CHEST PE PROTOCOL INDICATIONS: r/o PE TECHNIQUE: After the administration of intravenous contrast, 2 mm thick sections acquired from the pulmonary apices to the posterior costophrenic angles. 3-dimensional maximum intensity projection (MIP) coronal and sagittal reformats were then acquired through the thorax. For radiation dose reduction, the following was used: automated exposure control, adjustment of mA and/or kV according to patient size. [facility]. FINDINGS: Image quality: Diagnostic. Pulmonary arteries: Pulmonary arteries are normal in size, and demonstrate no intraluminal filling defects to suggest central pulmonary embolism. Lower Neck: No enlarged lymph nodes. Thyroid: No thyroid nodules which require sonographic follow up, per consensus guidelines. Axillae: No enlarged lymph nodes. Chest Wall: Median sternotomy wires are seen.. Bones: No aggressive appearing bony lesions. Lungs and Pleura: No pneumothorax or pleural effusions. Dependent atelectasis/scarring in posterior aspect of bilateral lower lung white are seen. No consolidation or suspicious nodules. Heart: Heart size is enlarged. No pericardial effusion. Thoracic Vessels: No aortic aneurysm. Mediastinum and Valentina: No enlarged lymph nodes. Esophagus: No wall thickening. No hiatal hernia. Upper Abdomen: Visualized upper abdomen solid organs and bowel loops appear normal. Cholelithiasis without CT evidence of acute cholecystitis. Nonobstructing left renal calculi are also seen without hydronephrosis. IMPRESSION: 1. No pulmonary embolus. No thoracic aortic aneurysm. 2. Cardiomegaly, no pericardial effusion. Moderate 2 vessel coronary artery atherosclerotic calcifications. Prior median sternotomy. 3. No mediastinal or hilar lymphadenopathy. 4. Bibasilar dependent atelectasis. No focal infiltrate, pleural effusion or pneumothorax. ECG Data Interpretation: EKG interpreted ED physician sinus 65 beats per minute left axis deviation QTC [address] changes no STEMI MDM Narrative Medical decision making narrative: 84-year-old male with history of hyperlipidemia hypertension AFib on Xarelto presents for cough shortness sore throat ongoing persistent for the past 3 days, states it started when he was in [place] came back yesterday went to urgent care instructed come into the ED for further evaluation treatment. Chest x-ray without any signs of pneumonia, strep throat negative, EKG nonischemic, patient had CTA chest without any signs of PE pneumonia, patient was found to be flu A positive, no leukocytosis not requiring any supplemental oxygen patient symptom improved after albuterol treatment here in the emergency department. Patient did have slightly elevated troponin initially at 0.075 however down trended to 0.067, patient not complaining of any actual chest pain, most likely type 2 he spilled given patient with flu A positive result. Patient will be sent home with albuterol inhaler and steroids for his symptoms instructed follow up with his ingot weigher and primary care doctor in outpatient setting verbalized understanding of this and agrees to being discharged home with outpatient follow up with primary given he verbalized understanding of these and agrees to being discharged home Discharge Plan Departure Patient Disposition: Home Clinical Impression: Influenza A Instructions: DI for Influenza -- Adult Activity Restrictions/Additional Instructions: Please follow up with your ingot weigher and your primary care doctor Please read the discharge instructions sheet carefully and bring all papers to all doctor follow-up visits, as it may contain information that your doctor may want to see. Disease processes change and evolve, if your symptoms worsen or if you develop any new symptoms that are concerning to you please return for evaluation. Your evaluation today does not show any evidence of any life- threatening/serious illnesses requiring admission to the hospital or surgery. Please follow-up with your doctor for re-evaluation in approximately 1 day. Seek immediate medical attention for any worrisome symptoms. *If you do not have a primary care provider please contact the [facility] Resource line at [phone]. They will ask some questions about your medical history and help get you set up with a doctor in the community. Prescriptions: New albuterol sulfate 90 mcg/actuation aerosol powdr breath activated 2 inh inhalation Q6H PRN (Reason: shortness of breath or wheezing) Qty: 1 0RF methylprednisolone [Medrol (Don)] 4 mg tablets,dose pack See Rx Instructions .ROUTE .COMPLEX Qty: 21 0RF Rx Instructions: for 6 days No Action atovaquone-proguanil 250-100 mg tablet PO DAILY Xarelto 20 mg tablet PO DAILY latanoprost 0.005 % drops 1 drp EYE-LEFT ONCE PM Referrals: Brandie Prabhakar MD [Primary Care Provider] - Stand Alone Forms: Patient Portal/API/Survey
--- NOTE | 2024-08-22 21:13 | DI.CT.S_ITS ---
PROCEDURE: CT ANGIO CHEST PE PROTOCOL INDICATIONS: r/o PE TECHNIQUE: After the administration of intravenous contrast, 2 mm thick sections acquired from the pulmonary apices to the posterior costophrenic angles. 3-dimensional maximum intensity projection (MIP) coronal and sagittal reformats were then acquired through the thorax. For radiation dose reduction, the following was used: automated exposure control, adjustment of mA and/or kV according to patient size. COMPARISON: [facility], CR, XR CHEST 2V, 08/22/2024, 18:12. FINDINGS: Image quality: Diagnostic. Pulmonary arteries: Pulmonary arteries are normal in size, and demonstrate no intraluminal filling defects to suggest central pulmonary embolism. Lower Neck: No enlarged lymph nodes. Thyroid: No thyroid nodules which require sonographic follow up, per consensus guidelines. Axillae: No enlarged lymph nodes. Chest Wall: Median sternotomy wires are seen.. Bones: No aggressive appearing bony lesions. Lungs and Pleura: No pneumothorax or pleural effusions. Dependent atelectasis/scarring in posterior aspect of bilateral lower lung white are seen. No consolidation or suspicious nodules. Heart: Heart size is enlarged. No pericardial effusion. Thoracic Vessels: No aortic aneurysm. Mediastinum and Valentina: No enlarged lymph nodes. Esophagus: No wall thickening. No hiatal hernia. Upper Abdomen: Visualized upper abdomen solid organs and bowel loops appear normal. Cholelithiasis without CT evidence of acute cholecystitis. Nonobstructing left renal calculi are also seen without hydronephrosis. IMPRESSION: 1. No pulmonary embolus. No thoracic aortic aneurysm. 2. Cardiomegaly, no pericardial effusion. Moderate 2 vessel coronary artery atherosclerotic calcifications. Prior median sternotomy. 3. No mediastinal or hilar lymphadenopathy. 4. Bibasilar dependent atelectasis. No focal infiltrate, pleural effusion or pneumothorax. Dictated by: Roberto Sanders M.D. on 08/22/2024 at 22:24 Approved by: Roberto Sanders M.D. on 08/22/2024 at 22:29
[2024-08-22 21:38] LABS: Add Manual Diff / Slide Review NO; Basophils Absolute Auto 0 /uL (0-100); Basophils Percent Auto 0.3 % (0-2); Eosinophils Absolute Auto 0 /uL (0-450); Eosinophils Percent Auto 0.1 % (2-4); Hematocrit 46.3 % (41-53); Hemoglobin 16.1 g/dL (13.5-17.5); Lymphocytes Absolute Auto 700 /uL (1100-4500); Lymphocytes Percent Auto 13.1 % (25-40); Mean Corpuscular HGB Conc 34.7 % (30-36); Mean Corpuscular Hemoglobin 32.1 PG (26-34); Mean Corpuscular Volume 92.6 fL (80-100); Monocytes Absolute Auto 600 /uL (0-900); Monocytes Percent Auto 10.8 % (3-14); Neutrophils Absolute Auto 4100 /uL (1500-7000); Neutrophils Percent Auto 75.7 % (50-75); Platelet Count 110 X10^3/uL (150-400); Red Cell Distribution Width 14.1 % (11.6-14.8); White Blood Cell Count 5.5 X10^3/uL (4.5-11.0)
[2024-08-22 21:52] LABS: Alanine Aminotransferase 59 IU/L (<50); Albumin 4.1 g/dL (3.5-5.0); Albumin Globulin Ratio 1.2 (1.0-2.8); Alkaline Phosphatase 46 U/L (38-126); Aspartate Aminotransferase 80 IU/L (17-59); BUN Creatinine Ratio 31.6 (6-22); Bilirubin Total 2.4 mg/dL (0.2-1.3); Blood Urea Nitrogen 30 mg/dL (9-20); Calcium 9.5 mg/dL (8.4-10.2); Carbon Dioxide 26 mmol/L (22-32); Chloride 102 mmol/L (98-107); Creatine Kinase 1146 U/L (55-170); Estimated Glomerular Filt Rate > 60 mL/min (>60); Globulin 3.5 g/dL (1.7-4.1); Glucose 122 mg/dL (80-110); HEMOLYSIS < 15 (0-50); Lipase 81 U/L (23-300); Magnesium 2.1 mg/dL (1.6-2.3); Potassium 3.6 mmol/L (3.4-5.1); Sodium 135 mmol/L (137-145); Total Protein 7.6 g/dL (6.3-8.2)
[2024-08-22] MEDS: DEXAMETHASONE 10 MG/ML VIAL IV (21:52)
[2024-08-22 22:03] LABS: NT-proBNP (BNP-Adult 18+) 510 pg/mL (<450); Troponin I 0.075 ng/mL (0.01-0.034)
[2024-08-22 22:29] LABS: Influenza A - CEPHEID Flu A POSITIVE (NEGATIVE); Influenza B - CEPHEID Flu B NEGATIVE (NEGATIVE); Respiratory Syncytial Virus Negative (Negative)
[2024-08-22 22:31] LABS: COVID-19 CEPHEID 4-PLEX PCR Negative (Negative)
--- NOTE | 2024-08-22 23:18 | EKG_ITS ---
[facility] [address] [place] [address] Test Date: 2024-08-22 Pat Name: Zach Baeza Department: [facility] Room: Gender: Male Sports Umpire: LENCHO TRAYLOR : 1940 Requested By: Order Number: [id number] Reading MD: Austin Ledezma Measurements Intervals [place] Rate: 64 P: 33 IN: 244 QRS: -43 QRSD: 98 T: 110 QT: 424 QTc: 437 Interpretive Statements Sinus rhythm with 1st degree AV block Left axis deviation Left ventricular hypertrophy with repolarization abnormality ( R in aVL , [place] product , Romhilt-Chun ) Nonspecific ST abnormality Electronically Signed On 08-22-2024 23:46:34 PST by Austin Ledezma
[2024-08-23] VITALS: PULSE 69; O2SAT 95
[2024-08-23 00:02] LABS: Troponin I 0.067 ng/mL (0.01-0.034)
[2024-08-23 00:30] VITALS: PULSE 70; RESP 18; O2SAT 96
[2024-08-23 01:00] VITALS: PULSE 67; O2SAT 93
[2024-08-23 01:12] VITALS: BP 107/58; PULSE 69; RESP 18; O2SAT 94
== END 2024-08-23 01:21 | disposition home or self-care (01) ==
PROVIDERS: Emergency Provider Student in an Organized Health Care Education/Training Program; Family Provider Family Medicine; PCP Family Medicine
DX: J10.1 Influenza due to other identified influenza virus with other respiratory manifestations (principal); I48.91 Unspecified atrial fibrillation; Z79.01 Long term (current) use of anticoagulants; I44.0 Atrioventricular block, first degree
CPT/HCPCS: 0241U; 36415; 71046; 71275; 80053; 82550; 83690; 83735; 83880; 84484; 85025; 87070; 87651; 93005; 96374; 99284; J1100; Q9967

== ENCOUNTER → 2025-06-11 08:04 | Outpatient (CLI) | payer MEDICARE, OTHER, SELFPAY ==
[2025-06-11 08:24] LABS: Add Manual Diff / Slide Review NO; Hematocrit 44.2 % (41-53); Hemoglobin 15.3 g/dL (13.5-17.5); Lymphocytes Absolute Auto 900 /uL (1100-4500); Mean Corpuscular HGB Conc 34.5 % (30-36); Mean Corpuscular Hemoglobin 32.3 PG (26-34); Mean Corpuscular Volume 93.6 fL (80-100); Platelet Count 113 X10^3/uL (150-400)
[2025-06-11 09:31] LABS: Alanine Aminotransferase 53 IU/L (<50); Albumin 4.3 g/dL (3.5-5.0); Albumin Globulin Ratio 1.5 (1.0-2.8); Alkaline Phosphatase 79 U/L (38-126); Blood Urea Nitrogen 16 mg/dL (9-20); Calcium 9.7 mg/dL (8.4-10.2); Carbon Dioxide 27 mmol/L (22-32); Chloride 107 mmol/L (98-107); Estimated Glomerular Filt Rate > 60 mL/min (>60); Globulin 2.9 g/dL (1.7-4.1); Glucose 101 mg/dL (70-99); HEMOLYSIS 49 (0-50); Potassium 4.6 mmol/L (3.4-5.1); Sodium 143 mmol/L (137-145); Total Protein 7.2 g/dL (6.3-8.2)
== END ==
PROVIDERS: Family Provider Family Medicine; PCP Family Medicine; Referring Provider Family Medicine; Visit Provider Nurse Practitioner Family
DX: I48.0 Paroxysmal atrial fibrillation (principal)
CPT/HCPCS: 36415; 80053; 85025